=== PATIENT | male | born 1965 | race Caucasian/White ===

== ENCOUNTER 2017-06-12 11:28 | Emergency (ER) | payer BC, OTHER ==
[2017-06-12] MEDS ORDERED: Sodium Chloride 0.9% 1,000 ML IV ONE (11:52)
[2017-06-12] MEDS ORDERED: Ketorolac 30 MG/ML SDV IVPUSH ONE (11:52)
[2017-06-12 12:33] LABS: CHLORIDE,CL 102 mmol/L (98-107); SODIUM,NA 137 mmol/L (136-148)
[2017-06-12] MEDS ORDERED: Iopamidol 755 Mg/ML 100 ML Bottle IVPUSH STA (13:12)
--- NOTE | 2017-06-12 13:47 | EDM.PDOC ---
ED HPI GENERAL MEDICAL PROBLEM - General Chief Complaint: Abdominal Pain Stated Complaint: ABDOMINAL PAIN Time Seen by Provider: 06/12/17 11:43 Source of Information: Reports: Patient History Limitations: Reports: No Limitations - History of Present Illness INITIAL COMMENTS - FREE TEXT/NARRATIVE: HISTORY AND PHYSICAL: History of present illness: Patient is a 52-year-old male who presents to the emergency room with complaints of umbilical abdominal pain. He states he was lifting something heavy approximately 2 days ago and noticed the pain. The pain has not improved he is here today for evaluation. He denies any fever, chills, chest pain or shortness of breath. He denies any nausea, vomiting, diarrhea, constipation or dysuria. NO testicular pain, erythema or swelling. No pain in the groin or flank areas. Review of systems: As per history of present illness and below otherwise all systems reviewed and negative. Past medical history: As per history of present illness and as reviewed below otherwise noncontributory. Surgical history: As per history of present illness and as reviewed below otherwise noncontributory. Social history: No reported history of drug or alcohol abuse. Family history: As per history of present illness and as reviewed below otherwise noncontributory. Physical exam: General: Well-developed and well-nourished 52-year-old male. Alert and oriented. Nontoxic appearing and in no acute distress. HEENT: Atraumatic, normocephalic, pupils equal and reactive bilaterally, negative for conjunctival pallor or scleral icterus, mucous membranes moist, throat clear, neck supple, nontender, trachea midline. No drooling or trismus noted. No meningeal signs Lungs: Clear to auscultation, breath sounds equal bilaterally, chest nontender. Heart: S1S2, regular rate and rhythm without overt murmur Abdomen: Soft, nondistended, tenderness to the umbilicus. Small circular area felt at the umbilicus, consistent of a hernia. Negative for masses or hepatosplenomegaly. Negative for costovertebral tenderness. Pelvis: Stable nontender. Genitourinary: Deferred. Rectal: Deferred. Skin: Intact, warm, dry. No lesions or rashes noted. Extremities: Atraumatic, negative for cords or calf pain. Neurovascular unremarkable. Neuro: Awake, alert, oriented. Cranial nerves II through XII unremarkable. Cerebellum unremarkable. Motor and sensory unremarkable throughout. Exam nonfocal. Notes: Attempted to reduce the umbilical hernia. Will CT the abdomen/pelvis, labs, IV fluids and medications. Patient does not have a ride to home; will give Toradol. Labs are unremarkable. CT of the abdomen shows a small periumbilical hernia containing fat and fluid and stranding suggesting the hernia is mildly inflamed. Dr. Garcia was consulted on this case ([id number]) and is aware of CT findings and lab. He states he will come in to see/evaluate the patient. He is aware of this and offers no current complaints at this time. 1350- Dr Garcia here to see patient. He discussed with patient the option of having surgery today or electively tomorrow. Patient elected to have his hernia repair tomorrow. Dr. Garcia wrote for Bill Me Later. Dr. Garcia did talk with the patient about his own personal discharge instructions for today. Patient states he is comfortable going home and has no further questions for me. Diagnostics: CBC, CMP, amylase, lipase, UA, CT abdomen and pelvis Therapeutics: IV fluid, Toradol Impression: Periumbilical hernia Plan: 1. NOTHING BY MOUTH after midnight 2. Please use the pain medication that was prescribed to you by Dr. Garcia ( general surgeon). 3. Please attend your appointment with Dr. Garcia for surgery. Arrive to the Pre-Operative Building at 0745am. Return to the ED as needed as discussed. Definitive disposition and diagnosis as appropriate pending reevaluation and review of above. Duration: Day(s): Location: Reports: Abdomen abdominal pain Pain Score (Numeric/FACES): 5 - Related Data Allergies Allergy/AdvReac Type Severity Reaction Status Date / Time No Known Allergies Allergy Verified 06/12/17 11:44 Home Meds: Home Meds . [No Known Home Meds] 06/12/17 [History] Past Medical History - Past Health History Medical/Surgical History: Denies Medical/Surgical History Social & Family History - Family History Family Medical History: Noncontributory - Tobacco Use Smoking Status *Q: Current Every Day Smoker Years of Tobacco use: 35 Packs/Tins Daily: 1.5 - Alcohol Use Days Per Week of Alcohol Use: 7 Number of Drinks Per Day: 6 Total Drinks Per Week: 42 - Recreational Drug Use Recreational Drug Use: No ED ROS GENERAL - Review of Systems Review Of Systems: ROS reveals no pertinent complaints other than HPI. ED EXAM, GI/ABD - Physical Exam Exam: See Below (See dictation) Course - Vital Signs Last Recorded V/S: Last Vital Signs Temp 97.9 F 06/12/17 11:45 Pulse 91 06/12/17 11:45 Resp 18 06/12/17 11:45 BP 139/85 06/12/17 11:45 Pulse Ox 97 06/12/17 11:45 - Orders/Labs/Meds Orders: Active Orders 24 hr Category Date Time Status Oxygen Therapy [RC] ASDIRECTED Care 06/13/17 07:00 Active Pulse Oximetry [RC] ASDIRECTED Care 06/13/17 07:00 Active Skin Preparation [RC] ASDIRECTED Care 06/13/17 07:00 Active Vital Signs [RC] Q1H Care 06/13/17 07:00 Active Nothing Per Oral Diet [DIET] Diet 06/12/17 Dinner Active Abdomen Pelvis w Cont [CT] Stat Exams 06/12/17 11:51 Taken UA W/MICROSCOPIC [URIN] Stat Lab 06/12/17 12:46 Ordered Lactated Ringers [Ringers, Lactated] 1,000 ml Med 06/13/17 07:00 Ordered IV ASDIRECTED ceFAZolin [Ancef] 2 gm Med 06/13/17 07:00 Ordered Premix Bag 1 bag IV ONETIME Antiembolic Hose [OM.PC] Routine Oth 06/13/17 07:00 Ordered Sequential Compression Device [OM.PC] Routine Oth 06/13/17 07:00 Ordered Resuscitation Status Routine Resus Stat 06/12/17 14:21 Ordered Medication Orders Cefazolin Sodium/Dextrose 2 gm (/ Premix) 50 mls @ 100 mls/hr IV ONETIME RIKY Lactated Ringer's (Ringers, Lactated) 1,000 mls @ 125 mls/hr IV ASDIRECTED RIKY Labs: Laboratory Tests 06/12/17 06/12/17 06/12/17 Range/Units 12:03 12:03 12:46 WBC 10.69 (4.0-11.0) K/uL RBC 4.91 (4.50-5.90) M/uL Hgb 16.1 (13.0-17.0) g/dL Hct 47.5 (38.0-50.0) % MCV 96.7 (80.0-98.0) fL MCH 32.8 H (27.0-32.0) pg MCHC 33.9 (31.0-37.0) g/dL RDW Std Deviation 46.9 (28.0-62.0) fl RDW Coeff of Evelin 13 (11.0-15.0) % Plt Count 255 (150-400) K/uL MPV 9.00 (7.40-12.00) fL Neut % (Auto) 61.9 (48.0-80.0) % Lymph % (Auto) 26.7 (16.0-40.0) % [place] % (Auto) 10.3 (0.0-15.0) % Eos % (Auto) 0.7 (0.0-7.0) % Baso % (Auto) 0.4 (0.0-1.5) % Neut # (Auto) 6.6 H (1.4-5.7) K/uL Lymph # (Auto) 2.9 H (0.6-2.4) K/uL [place] # (Auto) 1.1 H (0.0-0.8) K/uL Eos # (Auto) 0.1 (0.0-0.7) K/uL Baso # (Auto) 0.0 (0.0-0.1) K/uL Nucleated RBC % 0.0 /100WBC Nucleated RBCs # 0 K/uL Sodium 137 (136-148) mmol/L Potassium 3.9 (3.5-5.1) mmol/L Chloride 102 (98-107) mmol/L Carbon Dioxide 25.4 (21.0-32.0) mmol/L BUN 9 (7.0-18.0) mg/dL Creatinine 0.8 (0.8-1.3) mg/dL Est Cr Clr Drug Dosing 102.13 mL/min Estimated GFR (MDRD) > 60.0 ml/min Glucose 110 H (74-106) mg/dL Calcium 8.7 (8.5-10.1) mg/dL Total Bilirubin 0.3 (0.2-1.0) mg/dL AST 18 (15-37) IU/L ALT 23 (14-63) IU/L Alkaline Phosphatase 57 (46-116) U/L Total Protein 7.2 (6.4-8.2) g/dL Albumin 3.7 (3.4-5.0) g/dL Globulin 3.5 (2.0-3.5) g/dL Albumin/Globulin Ratio 1.1 L (1.3-2.8) Amylase 33 (25-115) U/L Lipase 81 (73-393) U/L Urine Color YELLOW Urine Appearance CLEAR Urine pH 6.5 (5.0-8.0) Ur Specific [place] 1.010 (1.001-1.035) Urine Protein NEGATIVE (NEGATIVE) mg/dL Urine Glucose (UA) NEGATIVE (NEGATIVE) mg/dL Urine Ketones NEGATIVE (NEGATIVE) mg/dL Urine Occult Blood NEGATIVE (NEGATIVE) Urine Nitrite NEGATIVE (NEGATIVE) Urine Bilirubin NEGATIVE (NEGATIVE) Urine Urobilinogen 0.2 (<2.0) EU/dL Ur Leukocyte Esterase NEGATIVE (NEGATIVE) Urine RBC 0-1 (0-2/HPF) Urine WBC 0-3 (0-5/HPF) Ur Epithelial Cells RARE (NONE-FEW) Urine Bacteria RARE (NEGATIVE) Meds: Medications Generic Name Dose Route Start Last Admin Trade Name Freq PRN Reason Stop Dose Admin Cefazolin Sodium/Dextrose 2 gm 50 mls @ 100 mls/hr 06/13/17 07:00 / Premix IV ONETIME RIKY Lactated Ringer's 1,000 mls @ 125 mls/hr 06/13/17 07:00 Ringers, Lactated IV ASDIRECTED RIKY Discontinued Medications Generic Name Dose Route Start Last Admin Trade Name Freq PRN Reason Stop Dose Admin Sodium Chloride 1,000 mls @ 999 mls/hr 06/12/17 11:52 06/12/17 12:24 Normal Saline IV 06/12/17 12:52 999 mls/hr STAT ONE Administration Iopamidol 91 ml 06/12/17 13:12 06/12/17 13:13 [id number] (76%) IVPUSH 06/12/17 13:13 91 ml ONETIME STA Administration Ketorolac Tromethamine 30 mg 06/12/17 11:52 06/12/17 12:25 Toradol IVPUSH 06/12/17 11:53 30 mg ONETIME ONE Administration Departure - Departure Time of Disposition: 14:24 Disposition: Home, Self-Care 01 Clinical Impression: Incarcerated umbilical hernia - Discharge Information Instructions: Umbilical Hernia, Adult Referrals: PCP,None [Primary Care Provider] - Forms: ED Department Discharge Additional Instructions: The following information is given to patients seen in the emergency department who are being discharged to home. This information is to outline your options for follow-up care. We provide all patients seen in our emergency department with a follow-up referral. The need for follow-up, as well as the timing and circumstances, are variable depending upon the specifics of your emergency department visit. If you don't have a primary care physician on staff, we will provide you with a referral. We always advise you to contact your personal physician following an emergency department visit to inform them of the circumstance of the visit and for follow-up with them and/or the need for any referrals to a consulting specialist. The emergency department will also refer you to a specialist when appropriate. This referral assures that you have the opportunity for follow-up care with a specialist. All of these measure are taken in an effort to provide you with optimal care, which includes your follow-up. Under all circumstances we always encourage you to contact your private physician who remains a resource for coordinating your care. When calling for follow-up care, please make the office aware that this follow-up is from your recent emergency room visit. If for any reason you are refused follow-up, please contact the [facility] Emergency Department at and asked to speak to the emergency department charge nurse. [address] [address] 1. NOTHING BY MOUTH after midnight 2. Please use the pain medication that was prescribed to you by Dr. Garcia ( general surgeon). 3. Please attend your appointment with Dr. Garcia for surgery. Arrive to the Pre-Operative Building at 0745am. Return to the ED as needed as discussed. - My Orders Last 24 Hours: My Active Orders 06/12/17 11:51 Abdomen Pelvis w Cont [CT] Stat 06/12/17 12:46 UA W/MICROSCOPIC [URIN] Stat - Assessment/Plan Last 24 Hours: My Active Orders 06/12/17 11:51 Abdomen Pelvis w Cont [CT] Stat 06/12/17 12:46 UA W/MICROSCOPIC [URIN] Stat
--- NOTE | 2017-06-12 14:18 | PCM.CONS ---
H&P History of Present Illness - General Date of Service: 06/12/17 Admit Problem/Dx: Painful umbilical hernia Source of Information: Patient History Limitations: Reports: No Limitations - History of Present Illness Symptom Onset Date: 06/08/17 Duration of Symptoms: Reports: Day(s):, Constant Location: Reports: Abdomen Quality: Reports: Ache, Pressure Improves with: Reports: Rest Worsens with: Reports: Movement Context: Reports: Lifting Associated Symptoms: Reports: No Other Symptoms abdominal pain Pain Score (Numeric/FACES): 5 - Related Data Allergies/Adverse Reactions: Allergies Allergy/AdvReac Type Severity Reaction Status Date / Time No Known Allergies Allergy Verified 06/12/17 11:44 Home Medications: Home Meds . [No Known Home Meds] 06/12/17 [History] Past Medical History - Past Health History Medical/Surgical History: Denies Medical/Surgical History Social & Family History - Family History Family Medical History: Noncontributory - Tobacco Use Smoking Status *Q: Current Every Day Smoker Years of Tobacco use: 35 Packs/Tins Daily: 1.5 - Alcohol Use Days Per Week of Alcohol Use: 7 Number of Drinks Per Day: 6 Total Drinks Per Week: 42 Alcohol Use in Last Twelve Months: Yes Alcohol Use Frequency: Daily - Recreational Drug Use Recreational Drug Use: No H&P Review of Systems - Review of Systems: Review Of Systems: See Below General: Denies: Fever, Chills, Fatigue, Decreased Appetite, Weight Loss HEENT: Reports: No Symptoms Pulmonary: Denies: Shortness of Breath, Wheezing Cardiovascular: Denies: Chest Pain, Dyspnea on Exertion Gastrointestinal: Reports: Abdominal Pain, Flatus. Denies: Anorexia, Black Stool, Bloody Stool, Constipation, Diarrhea, Decreased Appetite, Distension, Hematemesis, Hematochezia, Melena, Nausea, Stool Incontinence, Vomiting Genitourinary: Denies: Dysuria, Frequency, Burning Musculoskeletal: Reports: No Symptoms Skin: Reports: No Symptoms Psychiatric: Reports: No Symptoms Neurological: Reports: No Symptoms Hematologic/Lymphatic: Reports: No Symptoms Immunologic: Reports: No Symptoms Exam - Exam Exam: See Below - Vital Signs Vital Signs: Last Vital Signs Temp 97.9 F 06/12/17 11:45 Pulse 91 06/12/17 11:45 Resp 18 06/12/17 11:45 BP 139/85 06/12/17 11:45 Pulse Ox 97 06/12/17 11:45 Weight: 166 lb 14.239 oz - Exam General: Alert, Oriented, Cooperative, Mild Distress HEENT: Conjunctiva Clear, EACs Clear, EOMI, Pupils Equal, Pupils Reactive. No: Scleral Icterus Neck: Supple, Trachea Midline Lungs: Clear to Auscultation, Normal Respiratory Effort. No: Wheezing Cardiovascular: Regular Rate, Regular Rhythm, Normal S1, Normal S2. No: Tachycardia GI/Abdominal Exam: Normal Bowel Sounds, Soft, Non-Tender, No Distention, Tender (Periumbilical), Mass (Nonreducible umbilical hernia). No: Guarding, Rigid, Rebound (Male) Exam: No Hernia, Normal Inspection Rectal (Males) Exam: Deferred Back Exam: Normal Inspection Extremities: Normal Inspection, Normal Range of Motion, Non-Tender. No: Juan A' s Sign Peripheral Pulses: 4+: Posterior Tibial (L), Posterior Tibial (R), Dorsalis Pedis (L), Dorsalis Pedis (R) Skin: Warm, Dry, Intact Neurological: Cranial Nerves Intact Neuro Extensive - Mental Status: Alert, Oriented x3, Normal Mood/Affect, Normal Cognition, Memory Intact Psychiatric: Alert, Normal Affect, Normal Mood. No: Anxious, Depressed - Patient Data Lab Results Last 24 hrs: Laboratory Results - last 24 hr 06/12/17 06/12/17 06/12/17 Range/Units 12:03 12:03 12:46 WBC 10.69 (4.0-11.0) K/uL RBC 4.91 (4.50-5.90) M/uL Hgb 16.1 (13.0-17.0) g/dL Hct 47.5 (38.0-50.0) % MCV 96.7 (80.0-98.0) fL MCH 32.8 H (27.0-32.0) pg MCHC 33.9 (31.0-37.0) g/dL RDW Std Deviation 46.9 (28.0-62.0) fl RDW Coeff of Evelin 13 (11.0-15.0) % Plt Count 255 (150-400) K/uL MPV 9.00 (7.40-12.00) fL Neut % (Auto) 61.9 (48.0-80.0) % Lymph % (Auto) 26.7 (16.0-40.0) % [place] % (Auto) 10.3 (0.0-15.0) % Eos % (Auto) 0.7 (0.0-7.0) % Baso % (Auto) 0.4 (0.0-1.5) % Neut # (Auto) 6.6 H (1.4-5.7) K/uL Lymph # (Auto) 2.9 H (0.6-2.4) K/uL [place] # (Auto) 1.1 H (0.0-0.8) K/uL Eos # (Auto) 0.1 (0.0-0.7) K/uL Baso # (Auto) 0.0 (0.0-0.1) K/uL Nucleated RBC % 0.0 /100WBC Nucleated RBCs # 0 K/uL Sodium 137 (136-148) mmol/L Potassium 3.9 (3.5-5.1) mmol/L Chloride 102 (98-107) mmol/L Carbon Dioxide 25.4 (21.0-32.0) mmol/L BUN 9 (7.0-18.0) mg/dL Creatinine 0.8 (0.8-1.3) mg/dL Est Cr Clr Drug Dosing 102.13 mL/min Estimated GFR (MDRD) > 60.0 ml/min Glucose 110 H (74-106) mg/dL Calcium 8.7 (8.5-10.1) mg/dL Total Bilirubin 0.3 (0.2-1.0) mg/dL AST 18 (15-37) IU/L ALT 23 (14-63) IU/L Alkaline Phosphatase 57 (46-116) U/L Total Protein 7.2 (6.4-8.2) g/dL Albumin 3.7 (3.4-5.0) g/dL Globulin 3.5 (2.0-3.5) g/dL Albumin/Globulin Ratio 1.1 L (1.3-2.8) Amylase 33 (25-115) U/L Lipase 81 (73-393) U/L Urine Color YELLOW Urine Appearance CLEAR Urine pH 6.5 (5.0-8.0) Ur Specific [place] 1.010 (1.001-1.035) Urine Protein NEGATIVE (NEGATIVE) mg/dL Urine Glucose (UA) NEGATIVE (NEGATIVE) mg/dL Urine Ketones NEGATIVE (NEGATIVE) mg/dL Urine Occult Blood NEGATIVE (NEGATIVE) Urine Nitrite NEGATIVE (NEGATIVE) Urine Bilirubin NEGATIVE (NEGATIVE) Urine Urobilinogen 0.2 (<2.0) EU/dL Ur Leukocyte Esterase NEGATIVE (NEGATIVE) Urine RBC 0-1 (0-2/HPF) Urine WBC 0-3 (0-5/HPF) Ur Epithelial Cells RARE (NONE-FEW) Urine Bacteria RARE (NEGATIVE) Result Diagrams: 06/12/17 12:03 06/12/17 12:03 Consult PN Assessment/Plan POD#: 0 (1) Umbilical hernia, incarcerated SNOMED Code(s): 817138439 Code(s): K42.0 - UMBILICAL HERNIA WITH OBSTRUCTION, WITHOUT GANGRENE Priority: High Current Visit: Yes (2) Tobacco abuse SNOMED Code(s): 150045359 Code(s): Z72.0 - TOBACCO USE Priority: Medium Current Visit: Yes (3) Alcohol use SNOMED Code(s): 098056380 Code(s): Z78.9 - OTHER SPECIFIED HEALTH STATUS Priority: Medium Current Visit: Yes Problem List Initiated/Reviewed/Updated: Yes Plan: The operative procedure of incarcerated umbilical hernia repair, along with the risks, including, but not limited to, bleeding, infection, pneumonia, deep venous thrombosis, pulmonary embolus, myocardial infarction, recurrence of the hernia, and the use of mesh, were discussed with the patient who voices understanding, offers no questions and wishes to proceed. Both verbal and written instructions were given to the patient.
[2017-06-13] MEDS ORDERED: Lactated Ringers 1,000 ML IV SCH (07:00)
[2017-06-13] MEDS ORDERED: ceFAZolin 2 GM in Premix Bag 1 BAG IV SCH (07:00)
--- NOTE | 2017-06-13 13:33 | CT ---
EXAM DATE: 06/12/17 PATIENT'S AGE: 52 Patient: JOSHUA FINE Facility: [place], [place] Site . Site : 1965 Study: CT Abdomen/Pelvis w cont [id number]/15/2018 1:15:36 PM Ordering Physician: Doctor Martinez Final Report: INDICATION: Umbilical pain to the right side. Patient twisted at work on Tuesday and has been having increasing pain since. Question hernia. TECHNIQUE: CT of the abdomen and pelvis performed after IV injection of 100 mL of Isovue- 370. FINDINGS: Moderate diffuse fatty infiltration of the liver. Contracted gallbladder. Tiny stone left lower kidney. Mild to moderate vascular calcifications. 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 Degenerative disc disease L5 interspace. Lucent lesion with sclerotic border left iliac bone on image 94 should be benign. Minimal linear atelectasis in the left lung base. Small hiatal hernia. Small low-density lesion in the right hepatic lobe too small to characterize. Scattered colonic diverticula. Small periumbilical fat containing hernia the measuring the 2.6 cm. This hernia contains some fluid and soft tissue stranding suggesting it may be inflamed. Remainder negative. IMPRESSION: 1. Small periumbilical hernia containing fat and fluid and stranding suggesting these hernia is mildly inflamed. 2. Tiny stone left kidney. 3. Small hiatal hernia. 4. Tiny low-density lesion right hepatic lobe too small to characterize. Please note that all CT scans at this facility use dose modulation, iterative reconstruction, and/or weight-based dosing when appropriate to reduce radiation dose to as low as reasonably achievable. Dictated by Martin Masters MD @ Jun 12 2017 1:28PM (Electronic Signature) Report Signed by Proxy. JULIO C
== END 2017-06-12 14:42 | disposition home or self-care (01) ==
LOC: MW.ED 11:28
DX: K42.9 Umbilical hernia without obstruction or gangrene (principal); F17.210 Nicotine dependence, cigarettes, uncomplicated
CPT/HCPCS: 36415; 74177; 80053; 81001; 82150; 83690; 85025; 96361; 96374; 99284; J1885; J7040; Q9967

== ENCOUNTER 2017-06-13 07:34 | Day surgery (SDC) | payer OTHER, BC ==
[~2017-06-13 07:34] MED LIST: Bupivacaine 0.5% 10 ML SDV ONE; ceFAZolin 1 GM Vial ONE
--- NOTE | 2017-06-13 08:13 | PCM.PREANE ---
Preanesthetic Assessment - Anesthesia/Transfusion/Family Hx Anesthesia History: Prior Anesthesia Without Reaction Family History of Anesthesia Reaction: No Transfusion History: No Prior Transfusion(s) Intubation History: Unknown - Review of Systems General: No Symptoms Pulmonary: No Symptoms Cardiovascular: No Symptoms Gastrointestinal: No Symptoms Neurological: No Symptoms Other: Reports: None - Physical Assessment Height: 1.7 m Weight: 72.575 kg ASA Class: 2 Mental Status: Alert & Oriented x3 Airway Class: Mallampati = 2 Dentition: Reports: Broken Tooth/Teeth (loose upper left molar) Thyro-Mental Finger Breadths: 3 Mouth Opening Finger Breadths: 3 ROM/Head Extension: Full Lungs: Clear to Auscultation, Normal Respiratory Effort Cardiovascular: Regular Rate, Regular Rhythm - Allergies Allergies/Adverse Reactions: Allergies Allergy/AdvReac Type Severity Reaction Status Date / Time No Known Allergies Allergy Verified 06/13/17 07:19 - Blood Blood Available: No - Anesthesia Plan Pre-Op Medication Ordered: None - Acknowledgements Anesthesia Type Planned: General Anesthesia Pt an Appropriate Candidate for the Planned Anesthesia: Yes Alternatives and Risks of Anesthesia Discussed w Pt/Guardian: Yes Pt/Guardian Understands and Agrees with Anesthesia Plan: Yes PreAnesthesia Questionnaire - Past Health History Medical/Surgical History: Denies Medical/Surgical History HEENT History: Reports: Other (See Below) Other HEENT History: wears glasses Gastrointestinal History: Reports: Other (See Below) Other Gastrointestinal History: occasional heartburn Musculoskeletal History: Reports: Arthritis, Other (See Below) (uncarcerated umbilical hernia) Other Musculoskeletal History: 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 of lipoma under local anesthesia) - SUBSTANCE USE Smoking Status *Q: Current Every Day Smoker (> 1 1/2 ppd) Tobacco Use Within Last Twelve Months: Cigarettes Days Per Week of Alcohol Use: 7 Number of Drinks Per Day: 6 Total Drinks Per Week: 42 Recreational Drug Use History: No - HOME MEDS Home Medications: Home Meds . [No Known Home Meds] 06/12/17 [History] - CURRENT (IN HOUSE) MEDS Current Meds: Current Medications Discontinued Medications Bupivacaine HCl (Sensorcaine-Mpf 0.5%) Confirm Administered Dose 10 ml .ROUTE .[facility]-MED ONE Stop: 06/13/17 07:17 Cefazolin Sodium (Ancef) Confirm Administered Dose 1 gm .ROUTE .[facility] [place]-MED ONE Stop: 06/13/17 07:17
[2017-06-13] MEDS ORDERED: Propofol 200 MG/20 ML SDV ONE (08:15)
[2017-06-13] MEDS ORDERED: fentaNYL 100 MCG/2 ML SDV ONE ×2 (08:16→08:21)
[2017-06-13] MEDS ORDERED: Lidocaine 2% 5 ML SDV ONE (08:16)
[2017-06-13] MEDS ORDERED: Ondansetron 4 MG/2 ML SDV ONE (08:16)
[2017-06-13] MEDS ORDERED: ceFAZolin/Dextrose,Iso-Osmotic 2 GM/50 ML Duplex Bag IV ONE (08:16)
[2017-06-13] MEDS ORDERED: Midazolam 1 MG/ML 2 ML SDV ONE (08:16)
[2017-06-13] MEDS ORDERED: Lactated Ringers 1,000 ML IV SCH ×2 (08:30→10:30)
[2017-06-13] MEDS ORDERED: Glycopyrrolate 0.2 MG/ML SDV ONE (09:41)
[2017-06-13] MEDS ORDERED: Ketorolac 30 MG/ML SDV ONE (09:43)
[2017-06-13] MEDS ORDERED: Ondansetron 4 MG/2 ML SDV IVPUSH PRN (10:18)
[2017-06-13] MEDS ORDERED: Morphine 4 MG/ML Syringe IVPUSH PRN (10:18)
[2017-06-13] MEDS ORDERED: Acetaminophen/HYDROcodone 325-5 MG Tab PO PRN (10:18)
--- NOTE | 2017-06-13 10:21 | PCM.OPNOTE ---
- General Post-Op/Procedure Note Date of Surgery/Procedure: 06/13/17 Operative Procedure(s): Repair incarcerated umbilical hernia with partial omentectomy. Repair of ventral hernia. Pre Op Diagnosis: Incarcerated umbilical hernia Post-Op Diagnosis: Incarcerated umbilical hernia. Ventral hernia Anesthesia Technique: General LMA (ASA II) Primary Surgeon: Misha Garcia Fluid Replacement, Intraop: 1,100 EBL in mLs: 10 Condition: Good Free Text/Narrative:: Dictation [id number] CPT CODE [id number]
[2017-06-13] MEDS: fentaNYL 100 MCG/2 ML SDV IVPUSH PRN ×2 (10:30→10:35)
--- NOTE | 2017-06-13 10:42 | PCM.POSTAN ---
POST ANESTHESIA ASSESSMENT - MENTAL STATUS Mental Status: Alert, Oriented - RESPIRATORY Respiratory Status: Respiratory Rate WNL, Airway Patent, O2 Saturation Stable - CARDIOVASCULAR CV Status: Pulse Rate WNL, Blood Pressure Stable - GASTROINTESTINAL GI Status: No Symptoms - PAIN Pain Score: 5 - POST OP HYDRATION Hydration Status: Adequate & Stable - OBSERVATIONS Free Text/Narrative:: no anesthesia problems
--- NOTE | 2017-06-13 13:12 | OR ---
SURGEON: Misha Garcia M.D. DATE OF PROCEDURE: 06/13/2017 OPERATIONS PERFORMED: 1. Repair of incarcerated umbilical hernia. 2. Repair of separate ventral hernia. ANESTHESIA: General LMA. ASA CLASSIFICATION: II. PREOPERATIVE DIAGNOSIS: Incarcerated umbilical hernia. POSTOPERATIVE DIAGNOSES: 1. Incarcerated umbilical hernia. 2. Ventral hernia. DESCRIPTION OF PROCEDURE: The patient was taken to the operating room and placed on the operating table in the supine position. Time-out was called for appropriate identification of the patient and procedure. Thigh-high TEDs and sequential compression boots were placed. Following satisfactory attainment of general anesthesia with placement of an LMA, the abdomen was prepped with DuraPrep solution. Sterile drapes were applied. The skin to the left of the umbilicus was infiltrated with 10 mL of 0.5% Marcaine solution. Skin incision was made and deepened through the subcutaneous tissue obtaining hemostasis with the use of electrocautery. His initial dissection was in the periumbilical region. The hernia was identified and using a combination of sharp dissection and cautery, dissected free. There was omentum that was trapped in the hernia that was incarcerated with compromised blood supply. Once the hernia was completely mobilized, a clamp was placed across the base of the omentum, which was then amputated with electrocautery. The omentum was then suture ligated with 3-0 Vicryl. The initial defect at the umbilicus was small and was repaired with multiple interrupted 0 Ethibond sutures. Once all sutures were tied down, the patient was given a Valsalva maneuver. At that point, a second hernia was detected superiorly and just to the left of the midline. These contents were reduced and repair was carried out second time with interrupted 0 Ethibond sutures. Once all sutures have been placed and tied, the patient was given another Valsalva maneuver to 30 cm of water. The repair was noted to be solid. The wound was then inspected for hemostasis. No bleeding was noted. The subcutaneous tissue was reapproximated with 3-0 Vicryl, and the skin reapproximated with subcuticular 4-0 Monocryl. The incision was Steri-Stripped and dressed with a sterile Tegaderm pad. Sponge, needle, and instrument counts were all correct. The patient tolerated the procedure well and was taken to recovery room in stable condition. BAKARI / ALEYDA /[id number]
== END 2017-06-13 12:00 | disposition home or self-care (01) ==
LOC: MW.SDS 07:34
PROVIDERS: ATTEND Surgery
DX: K42.0 Umbilical hernia with obstruction, without gangrene (principal); K43.9 Ventral hernia without obstruction or gangrene; F17.210 Nicotine dependence, cigarettes, uncomplicated; M19.012 Primary osteoarthritis, left shoulder; Z78.9 Other specified health status
CPT/HCPCS: 49560; 49587; A9270; J0690; J1885; J2250; J2405; J3010; J2704

== ENCOUNTER 2018-10-07 07:41 | Emergency (ER) | payer BC ==
--- NOTE | 2018-10-07 07:59 | EDM.PDOC ---
ED HPI GENERAL MEDICAL PROBLEM - General Chief Complaint: Gastrointestinal Problem Stated Complaint: SPOKE TO NURSE Time Seen by Provider: 10/07/18 07:58 Source of Information: Reports: Patient History Limitations: Reports: No Limitations - History of Present Illness INITIAL COMMENTS - FREE TEXT/NARRATIVE: History of present illness: []Patient had a bowel movement around 5 AM this morning and noticed bright red blood from his rectum when he wiped. The bleeding has continued throughout the morning. He denies any nominal or rectal pain, dizziness, lightheadedness or shortness of breath. Review of systems: As per history of present illness and below otherwise all systems reviewed and negative. Past medical history: As per history of present illness and as reviewed below otherwise noncontributory. Surgical history: As per history of present illness and as reviewed below otherwise noncontributory. Social history: No reported history of drug or alcohol abuse. Family history: As per history of present illness and as reviewed below otherwise noncontributory. Physical exam: General: Well developed, well nourished in NAD HEENT: Atraumatic, normocephalic, pupils reactive, negative for conjunctival pallor or scleral icterus, mucous membranes moist, throat clear, neck supple, nontender, trachea midline. Lungs: Clear to auscultation, breath sounds equal bilaterally, chest nontender. Heart: S1S2, regular, negative for clicks, rubs, or JVD. Abdomen: NABS, Soft, nondistended, nontender. Negative for masses or hepatosplenomegaly. Negative for costovertebral tenderness. Pelvis: Stable nontender. Genitourinary: Deferred. Rectal: Rectum has a 3 x 3 cm nontender attached mass shooting through his rectum that appears like a dark Mabel with blood around it. The mass is not actively bleeding. Extremities: Atraumatic, negative for cords or calf pain. Neurovascular unremarkable. Neuro: Awake, alert, oriented. Cranial nerves II through XII unremarkable. Cerebellum unremarkable. Motor and sensory unremarkable throughout. Exam nonfocal. Skin:warm and dry Diagnostics: CBC Therapeutics: None ED Course: Stable Impression: Rectal mass with bleeding Prescriptions: None Plan: Follow-up with general surgery in 2 days. Definitive disposition and diagnosis as appropriate pending reevaluation and review of above. - Related Data Allergies Allergy/AdvReac Type Severity Reaction Status Date / Time No Known Allergies Allergy Verified 10/07/18 07:52 Home Meds: Home Meds . 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 Neurological History: Reports: None Psychiatric History: Reports: None Hematologic History: Reports: None Immunologic History: Reports: None Oncologic (Cancer) History: Reports: None - Infectious Disease History Infectious Disease History: Reports: Chicken Pox, Measles - Past Surgical History Head Surgeries/Procedures: Reports: None Respiratory Surgical History: Reports: Other (See Below) Dermatological Surgical History: Reports: Other (See Below) Social & Family History - Family History Family Medical History: Noncontributory - Tobacco Use Smoking Status *Q: Current Every Day Smoker Years of Tobacco use: 30 Packs/Tins Daily: 2 - Caffeine Use Caffeine Use: Reports: Coffee - Recreational Drug Use Recreational Drug Use: No ED ROS GENERAL - Review of Systems Review Of Systems: See Below ED EXAM, GI/ABD - Physical Exam Exam: See Below Course - Vital Signs Last Recorded V/S: Last Vital Signs Temp 96.9 F 10/07/18 07:53 Pulse 104 H 10/07/18 07:53 Resp 16 10/07/18 07:53 BP 136/95 H 10/07/18 07:53 Pulse Ox 95 10/07/18 07:53 - Orders/Labs/Meds Labs: Laboratory Tests 10/07/18 Range/Units 08:12 WBC 8.48 (4.0-11.0) K/uL RBC 4.88 (4.50-5.90) M/uL Hgb 16.1 (13.0-17.0) g/dL Hct 47.4 (38.0-50.0) % MCV 97.1 (80.0-98.0) fL MCH 33.0 H (27.0-32.0) pg MCHC 34.0 (31.0-37.0) g/dL RDW Std Deviation 47.4 (28.0-62.0) fl RDW Coeff of Evelin 14 (11.0-15.0) % Plt Count 264 (150-400) K/uL MPV 9.10 (7.40-12.00) fL Neut % (Auto) 63.7 (48.0-80.0) % Lymph % (Auto) 24.6 (16.0-40.0) % [place] % (Auto) 10.7 (0.0-15.0) % Eos % (Auto) 0.6 (0.0-7.0) % Baso % (Auto) 0.4 (0.0-1.5) % Neut # (Auto) 5.4 (1.4-5.7) K/uL Lymph # (Auto) 2.1 (0.6-2.4) K/uL [place] # (Auto) 0.9 H (0.0-0.8) K/uL Eos # (Auto) 0.1 (0.0-0.7) K/uL Baso # (Auto) 0.0 (0.0-0.1) K/uL Departure - Departure Time of Disposition: 08:36 Disposition: Home, Self-Care 01 Condition: Good Clinical Impression: Rectal mass, Rectal bleeding - Discharge Information *PRESCRIPTION DRUG MONITORING PROGRAM REVIEWED*: No *COPY OF PRESCRIPTION DRUG MONITORING REPORT IN PATIENT [place]: No Referrals: PCP,None [Primary Care Provider] - Forms: ED Department Discharge Additional Instructions: The following information is given to patients seen in the emergency department who are being discharged to home. This information is to outline your options for follow-up care. We provide all patients seen in our emergency department with a follow-up referral. The need for follow-up, as well as the timing and circumstances, are variable depending upon the specifics of your emergency department visit. If you don't have a primary care physician on staff, we will provide you with a referral. We always advise you to contact your personal physician following an emergency department visit to inform them of the circumstance of the visit and for follow-up with them and/or the need for any referrals to a consulting specialist. The emergency department will also refer you to a specialist when appropriate. This referral assures that you have the opportunity for follow-up care with a specialist. All of these measure are taken in an effort to provide you with optimal care, which includes your follow-up. Under all circumstances we always encourage you to contact your private physician who remains a resource for coordinating your care. When calling for follow-up care, please make the office aware that this follow-up is from your recent emergency room visit. If for any reason you are refused follow-up, please contact the [facility] Emergency Department at and asked to speak to the emergency department charge nurse. Take meds as directed, follow up with your primary care physician, return to ER if symptoms worsen or change. [facility] - General Surgery Professional Building [address] [place] [address], [address] [place] [address]
== END 2018-10-07 08:54 | disposition home or self-care (01) ==
LOC: MW.ED 07:41
DX: K62.5 Hemorrhage of anus and rectum (principal); K62.89 Other specified diseases of anus and rectum; E78.00 Pure hypercholesterolemia, unspecified; F17.210 Nicotine dependence, cigarettes, uncomplicated
CPT/HCPCS: 36415; 85025; 99282; 99283

== ENCOUNTER 2019-12-01 08:50 | Emergency (ER) | payer BC ==
[2019-12-01] MEDS ORDERED: Sodium Chloride 0.9% 2.5 ML Syringe FLUSH PRN (09:13)
[2019-12-01] MEDS ORDERED: Sodium Chloride 0.9% 1,000 ML IV ONE (09:13)
[2019-12-01] MEDS ORDERED: diphenhydrAMINE 50 MG/ML SDV IVPUSH ONE (09:13)
[2019-12-01] MEDS ORDERED: Metoclopramide 10 MG/2 ML SDV IVPUSH ONE (09:13)
[2019-12-01] MEDS ORDERED: Acetaminophen 500 MG Tab PO ONE (09:13)
[2019-12-01] MEDS ORDERED: Sodium Chloride 0.9% 10 ML Syringe FLUSH PRN (09:13)
--- NOTE | 2019-12-01 09:18 | EDM.PDOC ---
ED HPI GENERAL MEDICAL PROBLEM - General Chief Complaint: General Stated Complaint: DIZZINESS/HEADACHE Time Seen by Provider: 12/01/19 09:15 Source of Information: Reports: Patient - History of Present Illness INITIAL COMMENTS - FREE TEXT/NARRATIVE: 54M PMHx TOB use, alcohol use presents for LILLY, dizziness, feeling off-balance. Patient notes that for last 2-weeks he's had "a head cold" which feels typical of his head colds. However over the last 4 days he has noted worsening pain in b/l posterior head and some dizziness. Dizziness is worse in the morning and worse when he is ambulating, better with rest. Has a 'smoker's cough' but nothing changed from baseline. Denies fevers. Notes he gets regularly COVID tested weekly and has been consistently negative. No CP. headache Pain Score (Numeric/FACES): 7 - Related Data Allergies Allergy/AdvReac Type Severity Reaction Status Date / Time No Known Allergies Allergy Verified 12/01/19 09:02 Home Meds: Home Meds Amoxicillin/Potassium Clav [Augmentin 875-125 Tablet] 1 each PO BID 7 Days #14 tablet 12/01/19 [Rx] Past Medical History - Past Health History Medical/Surgical History: Denies Medical/Surgical History HEENT History: Reports: Other (See Below) Other HEENT History: wears glasses Cardiovascular History: Reports: High Cholesterol Gastrointestinal History: Reports: Other (See Below) Other Gastrointestinal History: occasional heartburn Musculoskeletal History: Reports: Arthritis, Other (See Below) Other Musculoskeletal History: arthritis in left shoulder Neurological History: Reports: None Psychiatric History: Reports: None Hematologic History: Reports: None Immunologic History: Reports: None Oncologic (Cancer) History: Reports: None - Infectious Disease History Infectious Disease History: Reports: Chicken Pox - Past Surgical History Head Surgeries/Procedures: Reports: None Respiratory Surgical History: Reports: Other (See Below) Dermatological Surgical History: Reports: Other (See Below) Social & Family History - Family History Family Medical History: Noncontributory - Tobacco Use Smoking Status *Q: Current Every Day Smoker Years of Tobacco use: 30 Packs/Tins Daily: 2 - Caffeine Use Caffeine Use: Reports: Coffee - Recreational Drug Use Recreational Drug Use: No ED ROS GENERAL - Review of Systems Review Of Systems: Comprehensive ROS is negative, except as noted in HPI. ED EXAM, GENERAL - Physical Exam Exam: See Below Exam Limited By: No Limitations General Appearance: Alert, WD/WN, No Apparent Distress Eye Exam: Bilateral Eye: EOMI, PERRL Ears: Normal External Exam Nose: Normal Inspection Throat/Mouth: Normal Inspection, Normal Voice, No Airway Compromise Head: Atraumatic, Normocephalic Neck: Normal Inspection Respiratory/Chest: No Respiratory Distress, Lungs Clear, Normal Breath Sounds, No Accessory Muscle Use Cardiovascular: Normal Peripheral Pulses, Regular Rate, Rhythm, No Edema Back Exam: Normal Inspection Extremities: Normal Inspection Neurological: Alert, Oriented, CN II-XII Intact, Normal Cognition, Normal Reflexes, No Motor/Sensory Deficits, Other (normal [id number] b/l) Psychiatric: Normal Affect, Normal Mood Skin Exam: Warm, Dry, Intact Course - Vital Signs Last Recorded V/S: Last Vital Signs Temp Pulse 92 12/01/19 09:02 Resp 20 12/01/19 09:02 BP 164/98 H 12/01/19 09:02 Pulse Ox 97 12/01/19 09:02 - Orders/Labs/Meds Orders: Active Orders 24 hr Category Date Time Status Cardiac Monitoring [RC] . DIRECTED Care 12/01/19 09:13 Active EKG Documentation Completion [RC] STAT Care 12/01/19 09:13 Active Pulse Oximetry [RC] ASDIRECTED Care 12/01/19 09:13 Active Sodium Chloride 0.9% [Saline Flush] Med 12/01/19 09:13 Active 10 ml FLUSH ASDIRECTED PRN Sodium Chloride 0.9% [Saline Flush] Med 12/01/19 09:13 Active 2.5 ml FLUSH ASDIRECTED PRN Saline Lock Insert [OM.PC] Stat Oth 12/01/19 09:13 Ordered Medication Orders Sodium Chloride (Saline Flush) 10 ml FLUSH ASDIRECTED PRN PRN Reason: Keep Vein Open Last Admin: 12/01/19 09:33 Dose: 10 ml Documented by: FAHEEM Sodium Chloride (Saline Flush) 2.5 ml FLUSH ASDIRECTED PRN PRN Reason: Keep Vein Open Last Admin: 12/01/19 09:33 Dose: 2.5 ml Documented by: FAHEEM Labs: Laboratory Tests 12/01/19 12/01/19 12/01/19 Range/Units 09:31 09:31 10:36 WBC 8.97 (4.0-11.0) K/uL RBC 5.36 (4.50-5.90) M/uL Hgb 18.1 H (13.0-17.0) g/dL Hct 54.0 H (38.0-50.0) % MCV 100.7 H (80.0-98.0) fL MCH 33.8 H (27.0-32.0) pg MCHC 33.5 (31.0-37.0) g/dL RDW Std Deviation 48.4 (28.0-62.0) fl RDW Coeff of Evelin 13 (11.0-15.0) % Plt Count 269 (150-400) K/uL MPV 9.90 (7.40-12.00) fL Neut % (Auto) 70.6 (48.0-80.0) % Lymph % (Auto) 18.8 (16.0-40.0) % [place] % (Auto) 10.0 (0.0-15.0) % Eos % (Auto) 0.3 (0.0-7.0) % Baso % (Auto) 0.3 (0.0-1.5) % Neut # (Auto) 6.3 H (1.4-5.7) K/uL Lymph # (Auto) 1.7 (0.6-2.4) K/uL [place] # (Auto) 0.9 H (0.0-0.8) K/uL Eos # (Auto) 0.0 (0.0-0.7) K/uL Baso # (Auto) 0.0 (0.0-0.1) K/uL Nucleated RBC % 0.0 /100WBC Nucleated RBCs # 0 K/uL Sodium 137 (136-148) mmol/L Potassium 3.9 (3.5-5.1) mmol/L Chloride 101 (98-107) mmol/L Carbon Dioxide 27.3 (21.0-32.0) mmol/L BUN 11 (7.0-18.0) mg/dL Creatinine 0.9 (0.8-1.3) mg/dL Est Cr Clr Drug Dosing 88.75 mL/min Estimated GFR (MDRD) > 60.0 ml/min Glucose 101 (74-106) mg/dL Calcium 9.1 (8.5-10.1) mg/dL Magnesium 1.9 (1.8-2.4) mg/dL Total Bilirubin 0.6 (0.2-1.0) mg/dL AST 17 (15-37) IU/L ALT 25 (14-63) IU/L Alkaline Phosphatase 59 (46-116) U/L Total Protein 7.6 (6.4-8.2) g/dL Albumin 3.9 (3.4-5.0) g/dL Globulin 3.7 (2.6-4.0) g/dL Albumin/Globulin Ratio 1.1 (0.9-1.6) Urine Color YELLOW Urine Appearance CLEAR Urine pH 6.5 (5.0-8.0) Ur Specific Stick[place] <= 1.005 (1.001-1.035) Urine Protein NEGATIVE (NEGATIVE) mg/dL Urine Glucose (UA) NEGATIVE (NEGATIVE) mg/dL Urine Ketones NEGATIVE (NEGATIVE) mg/dL Urine Occult Blood NEGATIVE (NEGATIVE) Urine Nitrite NEGATIVE (NEGATIVE) Urine Bilirubin NEGATIVE (NEGATIVE) Urine Urobilinogen 0.2 (<2.0) EU/dL Ur Leukocyte Esterase TRACE H (NEGATIVE) Urine RBC 0-1 (0-2/HPF) Urine WBC 0-1 (0-5/HPF) Ur Epithelial Cells RARE (NONE-FEW) Urine Bacteria RARE (NEGATIVE) Meds: Medications Generic Name Dose Route Start Last Admin Trade Name Rajesh PRN Reason Stop Dose Admin Sodium Chloride 10 ml 12/01/19 09:13 12/01/19 09:33 Saline Flush FLUSH 10 ml ASDIRECTED PRN Administration Keep Vein Open Sodium Chloride 2.5 ml 12/01/19 09:13 12/01/19 09:33 Saline Flush FLUSH 2.5 ml ASDIRECTED PRN Administration Keep Vein Open Discontinued Medications Generic Name Dose Route Start Last Admin Trade Name Freq PRN Reason Stop Dose Admin Acetaminophen 1,000 mg 12/01/19 09:13 12/01/19 09:33 Tylenol Extra Strength PO 12/01/19 09:14 1,000 mg ONETIME ONE Administration Diphenhydramine HCl 25 mg 12/01/19 09:13 12/01/19 09:34 Benadryl IVPUSH 12/01/19 09:14 25 mg ONETIME ONE Administration Sodium Chloride 1,000 mls @ 999 mls/hr 12/01/19 09:13 12/01/19 09:34 Normal Saline IV 12/01/19 10:13 999 mls/hr .Bolus ONE Administration Metoclopramide HCl 10 mg 12/01/19 09:13 12/01/19 09:34 Reglan IVPUSH 12/01/19 09:14 10 mg ONETIME ONE Administration - Re-Assessments/Exams Free Text/Narrative Re-Assessment/Exam: 12/01/19 09:18 Will get labs/imaging, will treat symptomatically, low suspicion serious intracranial pathology of CVA or meningitis. 12/01/19 11:28 CT w/ evidence of sinusitis; will tx w/ augmentin. CT also shows area of hypoattenuation concerning for old ischemic event vs intracranial mass. No midline shift. Spoke with radiologist. Nothing emergent, but recommends MRI to r/o more serious pathology. Patient does not have a PMD, so I will write him for outpatient MRI and will update him with the results. Patient is agreeable to this plan. Departure - Departure Time of Disposition: 11:29 Disposition: Home, Self-Care 01 Condition: Good Clinical Impression: Abnormal CT of brain Sinusitis Qualifiers: Sinusitis location: frontal Chronicity: acute Recurrence: not specified as recurrent Qualified Code(s): J01.10 - Acute frontal sinusitis, unspecified - Discharge Information Prescriptions: Amoxicillin/Potassium Clav [Augmentin 875-125 Tablet] 1 each PO BID 7 Days #14 tablet Instructions: Sinusitis, Adult, [id number] Referrals: PCP,None [Primary Care Provider] - Forms: ED Department Discharge Additional Instructions: The following information is given to patients seen in the emergency department who are being discharged to home. This information is to outline your options for follow-up care. We provide all patients seen in our emergency department with a follow-up referral. The need for follow-up, as well as the timing and circumstances, are variable depending upon the specifics of your emergency department visit. If you don't have a primary care physician on staff, we will provide you with a referral. We always advise you to contact your personal physician following an emergency department visit to inform them of the circumstance of the visit and for follow-up with them and/or the need for any referrals to a consulting specialist. The emergency department will also refer you to a specialist when appropriate. This referral assures that you have the opportunity for follow-up care with a specialist. All of these measure are taken in an effort to provide you with optimal care, which includes your follow-up. Under all circumstances we always encourage you to contact your private physician who remains a resource for coordinating your care. When calling for follow-up care, please make the office aware that this follow-up is from your recent emergency room visit. If for any reason you are refused follow-up, please contact the [facility] Emergency Department at and asked to speak to the emergency department charge nurse. Please follow up with your primary care physician. If you do not have a primary care physician, see below: [facility] [address] [place] [id number] [facility] [address] [place] [id number] Sepsis Event Note (ED) - Evaluation Sepsis Screening Result: No Definite Risk - Focused Exam Vital Signs: Vital Signs Pulse Resp BP Pulse Ox 12/01/19 09:02 92 20 164/98 H 97 - My Orders Last 24 Hours: My Active Orders 12/01/19 09:13 Cardiac Monitoring [RC] . DIRECTED EKG Documentation Completion [RC] STAT Pulse Oximetry [RC] ASDIRECTED Sodium Chloride 0.9% [Saline Flush] 10 ml FLUSH ASDIRECTED PRN Sodium Chloride 0.9% [Saline Flush] 2.5 ml FLUSH ASDIRECTED PRN Saline Lock Insert [OM.PC] Stat - Assessment/Plan Last 24 Hours: My Active Orders 12/01/19 09:13 Cardiac Monitoring [RC] . DIRECTED EKG Documentation Completion [RC] STAT Pulse Oximetry [RC] ASDIRECTED Sodium Chloride 0.9% [Saline Flush] 10 ml FLUSH ASDIRECTED PRN Sodium Chloride 0.9% [Saline Flush] 2.5 ml FLUSH ASDIRECTED PRN Saline Lock Insert [OM.PC] Stat
[2019-12-01 10:22] LABS: BLOOD UREA NITROGEN,BUN 11 mg/dL (7.0-18.0); CARBON DIOXIDE,CO2 27.3 mmol/L (21.0-32.0); CHLORIDE,CL 101 mmol/L (98-107); GLUCOSE RANDOM 101 mg/dL (74-106); POTASSIUM,K 3.9 mmol/L (3.5-5.1); SODIUM,NA 137 mmol/L (136-148)
--- NOTE | 2019-12-01 11:01 | CR ---
Indication: Cough. Technique: AP portable view of the chest. Comparison: None Findings: The heart is normal in size. The lungs are clear. No infiltrate, pleural effusion, or pneumothorax is identified. Impression: No acute cardiopulmonary process. Dictated by Marva Head MD @ Dec 01 2019 10:57AM Signed by Dr. Marva Head @ Dec 01 2019 10:59AM
--- NOTE | 2019-12-01 11:09 | CT ---
Indication: Headache and dizziness for the last 4 days. Technique: Multiple contiguous axial images were obtained from the skullbase to the vertex without intravenous contrast enhancement. Please note that all CT scans at this facility use dose modulation, iterative reconstruction, and/or weight-based dosing when appropriate to reduce radiation dose to as low as reasonably achievable. Comparison: None Findings: The ventricles are symmetric. The basal cisterns are widely patent. No intra-axial or extra-axial hemorrhage is identified. No mass, mass effect or midline shift is identified. A large area of low attenuation is identified within the left cerebellum. This measures approximately 3.9 x 4.4 cm in size. May represent encephalomalacia from previous insult. If this is not known, consideration should be given to an MRI. Minimal mucosal thickening is identified within the left maxillary sinus which most likely represents an air-fluid level. This may represent acute sinusitis. The remainder of the visualized paranasal sinuses and mastoid air cells are clear. Impression: Area of low attenuation identified within the left cerebellum. This does appear to have at least some mass effect on the surrounding tissues. Air-fluid level identified within the left maxillary sinus which can be seen with acute sinusitis. These findings were discussed with Dr. Wilson. This area is unknown by the patient. An MRI is recommended for further evaluation. Please note that all CT scans at this facility use dose modulation, iterative reconstruction, and/or weight-based dosing when appropriate to reduce radiation dose to as low as reasonably achievable. Dictated by Marva Head MD @ Dec 01 2019 10:59AM Signed by Dr. Marva Head @ Dec 01 2019 11:08AM
--- NOTE | 2019-12-01 11:38 | PCM.SN.2 ---
EKG INTERPRETATION EKG Date: 12/01/19 Time: 09:30 Rhythm: NSR Rate (Beats/Min): 82 Mccormick: Normal P-Wave: Present QRS: Normal ST-T: Normal QT: Normal
== END 2019-12-01 11:43 | disposition home or self-care (01) ==
LOC: MW.ED 08:50
DX: J01.10 Acute frontal sinusitis, unspecified (principal); R93.0 Abnormal findings on diagnostic imaging of skull and head, not elsewhere classified; F17.210 Nicotine dependence, cigarettes, uncomplicated
CPT/HCPCS: 36415; 70450; 71045; 80053; 81001; 83735; 85025; 93005; 96361; 96374; 96375; 99284; A9270; J1200; J2765; J7030; 93010

== ENCOUNTER 2019-12-04 12:10 | Emergency (ER) | payer BC ==
[2019-12-04] MEDS ORDERED: Dexamethasone 10 MG/ML SDV IVPUSH ONE (12:42)
[2019-12-04] MEDS ORDERED: Prochlorperazine 10 MG/2 ML SDV IVPUSH ONE (12:42)
[2019-12-04] MEDS ORDERED: Sodium Chloride 0.9% 2.5 ML Syringe FLUSH PRN ×2 (12:43)
[2019-12-04] MEDS ORDERED: Sodium Chloride 0.9% 10 ML Syringe FLUSH PRN (12:43)
[2019-12-04] MEDS ORDERED: Sodium Chloride 0.9% 10 ML SDV IV PRN (12:43)
--- NOTE | 2019-12-04 12:55 | EDM.PDOC ---
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 At that time he was apparently sent home with an MRI scheduled for this afternoon. Patient was sent home with some Augmentin for a finding in 1 of his sinuses on the CT as well as Percocet for pain he has been taking his Percocet but has been having increasing headache today with worsening balance the patient's initial symptoms began approximately 2 weeks ago and he thought this was some sort of cold that was affecting his ears progressively he is having worsening balance issues and worsening headache he. He denies any other medical problems as a past history of herniorrhaphy the headache has been gradual in onset but worsened significantly today raising my suspicion for a intracranial hemorrhage within the lesion seen on the prior CT he denies any fever chills there has been no cough or difficulty breathing or chest pain. Review of systems: As per history of present illness and below otherwise all systems reviewed and negative. Past medical history: As per history of present illness and as reviewed below otherwise noncontributo ry. Surgical history: As per history of present illness and as reviewed below otherwise noncontributory. Social history: No reported history of drug or alcohol abuse. Family history: As per history of present illness and as reviewed below otherwise noncontributory. Physical exam: HEENT: Atraumatic, normocephalic, pupils reactive, negative for conjunctival pallor or scleral icterus, mucous membranes moist, throat clear, neck supple, nontender, trachea midline. Lungs: Clear to auscultation, breath sounds equal bilaterally, chest nontender. Heart: S1S2, regular, negative for clicks, rubs, or JVD. Abdomen: Soft, nondistended, nontender. Negative for masses or hepatosplenomegaly. Negative for costovertebral tenderness. Pelvis: Stable nontender. Genitourinary: Deferred. Rectal: Deferred. Extremities: Atraumatic, negative for cords or calf pain. Neurovascular unremarkable. Neuro: Awake, alert, oriented. Cranial nerves II through XII unremarkable. Cerebellum moderate ataxia with [id number] and a positive Romberg sign. Motor and sensory unremarkable throughout. Exam nonfocal. 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 He will be given some Decadron and Compazine for his headache. [] Definitive disposition and diagnosis as appropriate pending reevaluation and review of above. HEAD Pain Score (Numeric/FACES): 7 - Related Data Allergies Allergy/AdvReac Type Severity Reaction Status Date / Time No Known Allergies Allergy Verified 12/04/19 12:22 Home Meds: Home Meds Amoxicillin/Potassium Clav [Augmentin 875-125 Tablet] 1 each PO BID 7 Days #14 tablet 12/01/19 [Rx] oxyCODONE HCl/Acetaminophen [Percocet 5-325 mg Tablet] 1 each PO Q6H PRN #12 tablet 12/01/19 [Rx] Past Medical History - Past Health History Medical/Surgical History: Denies Medical/Surgical History HEENT History: Reports: Other (See Below) Other HEENT History: wears glasses Cardiovascular History: Reports: High Cholesterol Gastrointestinal History: Reports: Other (See Below) Other Gastrointestinal History: occasional heartburn Musculoskeletal History: Reports: Arthritis, Other (See Below) Other Musculoskeletal History: arthritis in left shoulder Neurological History: Reports: None Psychiatric History: Reports: None Hematologic History: Reports: None Immunologic History: Reports: None Oncologic (Cancer) History: Reports: None - Infectious Disease History Infectious Disease History: Reports: Chicken Pox - Past Surgical History Head Surgeries/Procedures: Reports: None Respiratory Surgical History: Reports: Other (See Below) Dermatological Surgical History: Reports: Other (See Below) Social & Family History - Family History Family Medical History: Noncontributory - Caffeine Use Caffeine Use: Reports: Coffee ED ROS GENERAL - Review of Systems Review Of Systems: See Below ED EXAM, GENERAL - Physical Exam Exam: See Below EKG INTERPRETATION EKG Interpretation Comments: EKG normal sinus rhythm with a rate of 73 bpm right axis nonspecific ST-T changes no aden ischemia read and interpreted by me Course - Vital Signs Text/Narrative:: I discussed the case with Dr. Chavis neurosurgery at [facility] in [place]. He will accept the patient. Patient is to be transferred to the ED CT and MRI demonstrate a large mass with swelling and edema read by radiology. Patient was given Decadron and Compazine for his headache and dizziness he is feeling much better on reassessment at 2:30 PM he will be n.p.o. and placed on maintenance fluids and transferred to [facility] in [place] Last Recorded V/S: Last Vital Signs Temp 36.5 C 12/04/19 12:19 Pulse 74 12/04/19 14:24 Resp 18 12/04/19 12:19 BP 133/84 12/04/19 14:24 Pulse Ox 95 12/04/19 14:24 - Orders/Labs/Meds Orders: Active Orders 24 hr Category Date Time Status Assess Neurological Status [RC] ASDIRECTED Care 12/04/19 12:43 Active Bedrest [RC] ASDIRECTED Care 12/04/19 12:43 Active Blood Glucose Check, Bedside [RC] ONETIME Care 12/04/19 12:43 Active Cardiac Monitoring [RC] . DIRECTED Care 12/04/19 12:43 Active EKG Documentation Completion [RC] STAT Care 12/04/19 12:43 Active Height and Weight [RC] UPON Care 12/04/19 12:43 Active Initiate Acute Stroke Protocol [RC] STAT Care 12/04/19 12:43 Active NIH Stroke Scale [RC] ASDIRECTED Care 12/04/19 12:43 Active Nursing Bedside Swallow Screen [RC] ASDIRECTED Care 12/04/19 12:43 Active Oxygen Therapy [RC] ASDIRECTED Care 12/04/19 12:43 Active Stroke Education, General [RC] Click to Edit Care 12/04/19 12:43 Active Vital Signs [RC] Q15M Care 12/04/19 12:43 Active Brain w wo Cont [MR] Routine Exams 12/04/19 13:18 Taken Sodium Chloride 0.9% [Normal Saline] Med 12/04/19 12:43 Active 10 ml IV ASDIRECTED PRN Sodium Chloride 0.9% [Saline Flush] Med 12/04/19 12:43 Active 10 ml FLUSH ASDIRECTED PRN Sodium Chloride 0.9% [Saline Flush] Med 12/04/19 12:43 Active 2.5 ml FLUSH ASDIRECTED PRN Sodium Chloride 0.9% [Saline Flush] Med 12/04/19 12:43 Active 2.5 ml FLUSH ASDIRECTED PRN Peripheral IV Insertion Adult [OM.PC] Stat Oth 12/04/19 12:43 Ordered Peripheral IV Insertion Adult [OM.PC] Stat Oth 12/04/19 12:43 Ordered Resuscitation Status Stat Resus Stat 12/04/19 12:43 Ordered Medication Orders Sodium Chloride (Saline Flush) 2.5 ml FLUSH ASDIRECTED PRN PRN Reason: Keep Vein Open Last Admin: 12/04/19 13:31 Dose: 2.5 ml Documented by: FEDLKER Sodium Chloride (Saline Flush) 10 ml FLUSH ASDIRECTED PRN PRN Reason: Keep Vein Open Last Admin: 12/04/19 13:31 Dose: 10 ml Documented by: FEDLLISA Sodium Chloride (Saline Flush) 2.5 ml FLUSH ASDIRECTED PRN PRN Reason: Keep Vein Open Sodium Chloride (Normal Saline) 10 ml IV ASDIRECTED PRN PRN Reason: IV Use Labs: Laboratory Tests 12/04/19 12/04/19 12/04/19 Range/Units 12:30 12:30 12:30 WBC 10.24 (4.0-11.0) K/uL RBC 5.47 (4.50-5.90) M/uL Hgb 18.3 H (13.0-17.0) g/dL Hct 53.9 H (38.0-50.0) % MCV 98.5 H (80.0-98.0) fL MCH 33.5 H (27.0-32.0) pg MCHC 34.0 (31.0-37.0) g/dL RDW Std Deviation 46.2 (28.0-62.0) fl RDW Coeff of Evelin 13 (11.0-15.0) % Plt Count 240 (150-400) K/uL MPV 9.60 (7.40-12.00) fL Neut % (Auto) 67.1 (48.0-80.0) % Lymph % (Auto) 23.8 (16.0-40.0) % Rincon % (Auto) 8.4 (0.0-15.0) % Eos % (Auto) 0.4 (0.0-7.0) % Baso % (Auto) 0.3 (0.0-1.5) % Neut # (Auto) 6.9 H (1.4-5.7) K/uL Lymph # (Auto) 2.4 (0.6-2.4) K/uL Rincon # (Auto) 0.9 H (0.0-0.8) K/uL Eos # (Auto) 0.0 (0.0-0.7) K/uL Baso # (Auto) 0.0 (0.0-0.1) K/uL Nucleated RBC % 0.0 /100WBC Nucleated RBCs # 0 K/uL INR 1.09 APTT 25.4 (18.6-31.3) SEC Sodium 136 (136-148) mmol/L Potassium 3.7 (3.5-5.1) mmol/L Chloride 101 (98-107) mmol/L Carbon Dioxide 21.4 (21.0-32.0) mmol/L BUN 14 (7.0-18.0) mg/dL Creatinine 0.8 (0.8-1.3) mg/dL Est Cr Clr Drug Dosing TNP Estimated GFR (MDRD) > 60.0 ml/min Glucose 105 (74-106) mg/dL Calcium 8.8 (8.5-10.1) mg/dL Total Bilirubin 0.6 (0.2-1.0) mg/dL AST 19 (15-37) IU/L ALT 27 (14-63) IU/L Alkaline Phosphatase 59 (46-116) U/L Troponin I < 0.050 (0.000-0.056) ng/mL Total Protein 7.7 (6.4-8.2) g/dL Albumin 4.0 (3.4-5.0) g/dL Globulin 3.7 (2.6-4.0) g/dL Albumin/Globulin Ratio 1.1 (0.9-1.6) Meds: Medications Generic Name Dose Route Start Last Admin Trade Name Freq PRN Reason Stop Dose Admin Sodium Chloride 2.5 ml 12/04/19 12:43 12/04/19 13:31 Saline Flush FLUSH 2.5 ml ASDIRECTED PRN Administration Keep Vein Open Sodium Chloride 10 ml 12/04/19 12:43 12/04/19 13:31 Saline Flush FLUSH 10 ml ASDIRECTED PRN Administration Keep Vein Open Sodium Chloride 2.5 ml 12/04/19 12:43 Saline Flush FLUSH ASDIRECTED PRN Keep Vein Open Sodium Chloride 10 ml 12/04/19 12:43 Normal Saline IV ASDIRECTED PRN IV Use Discontinued Medications Generic Name Dose Route Start Last Admin Trade Name Rajesh PRN Reason Stop Dose Admin Dexamethasone 10 mg 12/04/19 12:42 12/04/19 13:17 Dexamethasone IVPUSH 12/04/19 12:43 10 mg ONETIME ONE Administration Gadobenate Dimeglumine 20 ml 12/04/19 13:58 12/04/19 14:00 Multihance IVPUSH 12/04/19 13:59 14 ml ONETIME STA Administration Prochlorperazine Edisylate 10 mg 12/04/19 12:42 12/04/19 13:17 Compazine IVPUSH 12/04/19 12:43 10 mg ONETIME ONE Administration Departure - Departure Time of Disposition: 14:25 Disposition: DC/Tfer to Acute Hospital 02 Condition: Good Clinical Impression: Cerebellar mass - Discharge Information *PRESCRIPTION DRUG MONITORING PROGRAM REVIEWED*: Not Applicable *COPY OF PRESCRIPTION DRUG MONITORING REPORT IN PATIENT [place]: Not Applicable Referrals: PCP,None [Primary Care Provider] - Forms: ED Department Discharge Sepsis Event Note (ED) - Evaluation Sepsis Screening Result: No Definite Risk - Focused Exam Vital Signs: Vital Signs Temp Pulse Resp BP Pulse Ox 12/04/19 14:24 74 133/84 95 12/04/19 13:04 80 131/90 95 12/04/19 12:19 36.5 C 94 18 137/93 H 96 - My Orders Last 24 Hours: My Active Orders 12/04/19 12:43 Assess Neurological Status [RC] ASDIRECTED Bedrest [RC] ASDIRECTED Blood Glucose Check, Bedside [RC] ONETIME Cardiac Monitoring [RC] . DIRECTED EKG Documentation Completion [RC] STAT Height and Weight [RC] UPON Initiate Acute Stroke Protocol [RC] STAT NIH Stroke Scale [RC] ASDIRECTED Nursing Bedside Swallow Screen [RC] ASDIRECTED Oxygen Therapy [RC] ASDIRECTED Stroke Education, General [RC] Click to Edit Vital Signs [RC] Q15M Sodium Chloride 0.9% [Normal Saline] 10 ml IV ASDIRECTED PRN Sodium Chloride 0.9% [Saline Flush] 10 ml FLUSH ASDIRECTED PRN Sodium Chloride 0.9% [Saline Flush] 2.5 ml FLUSH ASDIRECTED PRN Sodium Chloride 0.9% [Saline Flush] 2.5 ml FLUSH ASDIRECTED PRN Peripheral IV Insertion Adult [OM.PC] Stat Peripheral IV Insertion Adult [OM.PC] Stat Resuscitation Status Stat 12/04/19 13:18 Brain w wo Cont [MR] Routine - Assessment/Plan Last 24 Hours: My Active Orders 12/04/19 12:43 Assess Neurological Status [RC] ASDIRECTED Bedrest [RC] ASDIRECTED Blood Glucose Check, Bedside [RC] ONETIME Cardiac Monitoring [RC] . DIRECTED EKG Documentation Completion [RC] STAT Height and Weight [RC] UPON Initiate Acute Stroke Protocol [RC] STAT NIH Stroke Scale [RC] ASDIRECTED Nursing Bedside Swallow Screen [RC] ASDIRECTED Oxygen Therapy [RC] ASDIRECTED Stroke Education, General [RC] Click to Edit Vital Signs [RC] Q15M Sodium Chloride 0.9% [Normal Saline] 10 ml IV ASDIRECTED PRN Sodium Chloride 0.9% [Saline Flush] 10 ml FLUSH ASDIRECTED PRN Sodium Chloride 0.9% [Saline Flush] 2.5 ml FLUSH ASDIRECTED PRN Sodium Chloride 0.9% [Saline Flush] 2.5 ml FLUSH ASDIRECTED PRN Peripheral IV Insertion Adult [OM.PC] Stat Peripheral IV Insertion Adult [OM.PC] Stat Resuscitation Status Stat 12/04/19 13:18 Brain w wo Cont [MR] Routine
[2019-12-04 13:14] LABS: BLOOD UREA NITROGEN,BUN 14 mg/dL (7.0-18.0); CARBON DIOXIDE,CO2 21.4 mmol/L (21.0-32.0); CHLORIDE,CL 101 mmol/L (98-107); GLUCOSE RANDOM 105 mg/dL (74-106); POTASSIUM,K 3.7 mmol/L (3.5-5.1); SODIUM,NA 136 mmol/L (136-148)
--- NOTE | 2019-12-04 13:40 | CT ---
INDICATION: Stroke code. Pressure. TECHNIQUE: CT images foramen magnum to vertex were obtained without contrast. COMPARISON: Brain on 12/01/2019. FINDINGS: Again demonstrated is a low-attenuation mass within the left cerebellar hemisphere with surrounding edema and mass effect. Its margins are ill-defined but measures approximately 4.5 cm in maximal dimension. 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 Common posterior fossa neoplasm in adults would be metastasis versus hemangioblastoma. MRI with gadolinium contrast is needed for further assessment. Mass effect with effacement of the 4th ventricle and quadrigeminal cistern. The lateral and 3rd ventricles remain normal in size and shape. No obstructive hydrocephalus is seen at this time. No evidence of acute intracranial hemorrhage. IMPRESSION: 1. Approximately 4.5 cm partially cystic or necrotic appearing mass within the left cerebellar hemisphere. Edema and posterior fossa mass effect with compression and rightward shift of the 4th ventricle. 2. 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 Recommend MRI examination with gadolinium contrast for further assessment. 3. No change compared to 12/01/2019. Please note that all CT scans at this facility use dose modulation, iterative reconstruction, and/or weight-based dosing when appropriate to reduce radiation dose to as low as reasonably achievable. Dictated by Flakito Duncan MD @ Dec 04 2019 1:27PM Signed by Dr. Flakito Duncan @ Dec 04 2019 1:38PM
[2019-12-04] MEDS ORDERED: Gadobenate Dimeglumine 529 MG/ML 20 ML SDV IVPUSH STA (13:58)
[2019-12-04] MEDS ORDERED: Sodium Chloride 0.9% 1,000 ML IV SCH (14:45)
--- NOTE | 2019-12-04 15:16 | MR ---
INDICATION: Intracranial pressure. Abnormal CT. TECHNIQUE: Multiplanar multisequence MR imaging was acquired through the brain prior to and following intravenous contrast. COMPARISON: CT brain 12/04/2019. FINDINGS: Artifacts degrades post-contrast images. Multiple (at least 5) peripherally enhancing lesions in the supratentorial and tentorial parenchyma, highly concerning for intracranial metastases. Dominant avidly T2 hyperintense lesion in the left cerebellar hemisphere measuring 48 x 49 x 30 mm (TR/AP/CC) is associated with mild perilesional edema and mass effect resulting in near complete effacement of the caudal opening of the cerebral aqueduct as well as rightward displacement and moderate partial effacement of the 4th ventricle. Punctate focus of susceptibility along the posterior lesion margin may relate to blood products or mineralization. The supratentorial ventricular system is normal in size without evidence for hydrocephalus. Additional peripherally enhancing lesions measure 6 mm in the posterior left cingulate gyrus (series 803 image 40), 4 mm superolateral lateral left temporal lobe (series 803, image 32), 4 mm medial left occipital lobe (series 803, image 30), and 9 mm right internal capsule posterior limb (series 803, image 28). The ventricles are not enlarged for patient age. Small T2 FLAIR hyperintensities scattered in the supratentorial white matter, nonspecific though potentially related to mild chronic microvascular ischemic changes. No diffusion restriction to suggest acute infarction. No pathologic extra-axial fluid collection. Enhancing 7 mm lesion within the midline frontal calvarium (series 103, image 42). The major arterial flow voids of the skullbase are preserved. The globes are symmetric in size. Mild left maxillary sinus mucosal thickening the mastoid air cells. IMPRESSION: 1. Multiple peripherally enhancing lesions in the supratentorial and infratentorial parenchyma, highly concerning for metastases. Large dominant 4.9 cm lesion in the left cerebellar hemisphere is associated mild perilesional edema and near complete effacement of the caudal cerebral aqueduct without hydrocephalus. 2. Small enhancing lesion within the midline frontal calvarium is indeterminate. Dictated by Tra Carroll MD @ Dec 04 2019 2:53PM Signed by Dr. Tra Carroll @ Dec 04 2019 3:14PM
== END 2019-12-04 15:30 ==
LOC: MW.ED 12:10
DX: G93.89 Other specified disorders of brain (principal)
CPT/HCPCS: 36415; 70450; 70553; 80053; 84484; 85025; 85610; 85730; 93005; 96374; 96375; 99285; A9577; J0780; J1100; J7030

== ENCOUNTER 2020-01-21 07:31 | Day surgery (SDC) | payer BC ==
[~2020-01-21 07:31] MED LIST changes: -Bupivacaine 0.5% 10 ML SDV ONE; +Lactated Ringers 1,000 ML IV SCH; -ceFAZolin 1 GM Vial ONE; +ceFAZolin 2 GM in Premix Bag 1 BAG IV SCH
[2020-01-21] MEDS ORDERED: Albuterol/Ipratropium 3.0-0.5 MG/3 ML Neb Soln NEB ONE (07:52)
--- NOTE | 2020-01-21 08:23 | PCM.PREANE ---
Preanesthetic Assessment - Anesthesia/Transfusion/Family Hx Anesthesia History: Prior Anesthesia Without Reaction Family History of Anesthesia Reaction: No Transfusion History: No Prior Transfusion(s) Intubation History: Unknown - Review of Systems General: No Symptoms Pulmonary: Wheezing, Cough Cardiovascular: No Symptoms Gastrointestinal: No Symptoms Neurological: Pre-Existing Deficit Other: Reports: None - Physical Assessment NPO Status Date: 01/20/20 Height: 5 ft 7 in Weight: 73.482 kg ASA Class: 2 Mental Status: Alert & Oriented x3 Airway Class: Mallampati = 2 Dentition: Reports: Normal Dentition ROM/Head Extension: Full Lungs: Wheezing Cardiovascular: Regular Rate, Regular Rhythm - Allergies Allergies/Adverse Reactions: Allergies Allergy/AdvReac Type Severity Reaction Status Date / Time No Known Allergies Allergy Verified 01/15/20 09:28 - Blood Blood Available: No - Anesthesia Plan Pre-Op Medication Ordered: None - Acknowledgements Anesthesia Type Planned: General Anesthesia Pt an Appropriate Candidate for the Planned Anesthesia: Yes Alternatives and Risks of Anesthesia Discussed w Pt/Guardian: Yes Pt/Guardian Understands and Agrees with Anesthesia Plan: Yes Additional Comments: PMH: metastatic lung cs, 1 mo s/p debulking of met tumoe in post fossa, smoker, wheezing PLAN: pre op duo neb, ga/lma PreAnesthesia Questionnaire - Past Health History Medical/Surgical History: Denies Medical/Surgical History HEENT History: Reports: Other (See Below) Other HEENT History: wears glasses Cardiovascular History: Reports: High Cholesterol Respiratory History: Reports: Other (See Below) Other Respiratory History: non-small cell lung cancer Gastrointestinal History: Reports: None Genitourinary History: Reports: None Musculoskeletal History: Reports: Fracture, Other (See Below) Other Musculoskeletal History: hx fx collarbone & "seperated" shoulder Neurological History: Reports: Other (See Below) Other Neuro History: malignant brain tumor Psychiatric History: Reports: None Endocrine/Metabolic History: Reports: None Hematologic History: Reports: None Immunologic History: Reports: None Oncologic (Cancer) History: Reports: Brain, Lung Other Oncologic History: non-small cell lung cancer metastatic to brain Dermatologic History: Reports: None - Infectious Disease History Infectious Disease History: Reports: None - Past Surgical History Head Surgeries/Procedures: Reports: Craniotomy HEENT Surgical History: Reports: None Cardiovascular Surgical History: Reports: None Respiratory Surgical History: Reports: None GI Surgical History: Reports: Hernia, Abdominal Male Surgical History: Reports: None Endocrine Surgical History: Reports: None Neurological Surgical History: Reports: Other (See Below) Other Neurological Surgeries/Procedures: craniotomy & partial tumor removal approx 4 weeks ago Musculoskeletal Surgical History: Reports: None Oncologic Surgical History: Reports: Other (See Below) Other Oncologic Surgeries/Procedures: craniotomy with partial tumor removal Dermatological Surgical History: Reports: Other (See Below) - SUBSTANCE USE Tobacco Use Status *Q: Current Every Day Tobacco User Tobacco Use Within Last Twelve Months: Cigarettes Days Per Week of Alcohol Use: 7 Number of Drinks Per Day: 6 Total Drinks Per Week: 42 - HOME MEDS Home Medications: Home Meds Ibuprofen [Advil] 2 tab PO ASDIRECTED PRN 01/15/20 [History] dexAMETHasone [Dexamethasone] 2 mg PO TID 01/15/20 [History] - CURRENT (IN HOUSE) MEDS Current Meds: Current Medications Cefazolin Sodium/Dextrose 2 gm (/ Premix) 50 mls @ 100 mls/hr IV ONETIME RIKY Lactated Ringer's (Ringers, Lactated) 1,000 mls @ 125 mls/hr IV ASDIRECTED RIKY Discontinued Medications Albuterol/Ipratropium (Duoneb 3.0-0.5 Mg/3 Ml) 3 ml NEB ONETIME ONE Stop: 01/21/20 07:53 Last Admin: 01/21/20 08:17 Dose: 3 ml Documented by:
[2020-01-21] MEDS ORDERED: Midazolam 1 MG/ML 2 ML SDV ONE (08:41)
[2020-01-21] MEDS ORDERED: fentaNYL 100 MCG/2 ML SDV ONE (08:41)
[2020-01-21] MEDS ORDERED: Propofol 200 MG/20 ML SDV ONE (08:41)
[2020-01-21] MEDS ORDERED: Bupivacaine 0.5% 10 ML SDV ONE (09:09)
[2020-01-21] MEDS ORDERED: Heparin Sodium 100 Units/ML 3 ML Syringe ONE (09:09)
[2020-01-21] MEDS ORDERED: ceFAZolin/Dextrose,Iso-Osmotic 2 GM/50 ML Duplex Bag IV ONE (09:23)
[2020-01-21] MEDS ORDERED: Atropine 0.1 MG/ML 10 ML Syringe IVPUSH PRN ×2 (10:10)
[2020-01-21] MEDS ORDERED: EPINEPHrine 1:10,000 1 MG/10 ML Syringe IVPUSH PRN (10:10)
[2020-01-21] MEDS ORDERED: Albuterol 0.083% 2.5 MG/3 ML Neb Soln NEB PRN (10:10)
[2020-01-21] MEDS ORDERED: HYDROmorphone 2 MG/ML Syringe IVPUSH PRN (10:10)
[2020-01-21] MEDS ORDERED: 50% Dextrose in Water 50 ML Syringe IVPUSH PRN (10:10)
[2020-01-21] MEDS ORDERED: Naloxone 0.4 MG/ML Syringe IVPUSH PRN (10:10)
[2020-01-21] MEDS ORDERED: Ondansetron 4 MG/2 ML SDV IVPUSH PRN (10:10)
[2020-01-21] MEDS ORDERED: Albuterol 6.7 GM Inhaler INH ONE (11:04)
[2020-01-21] MEDS ORDERED: Acetaminophen/HYDROcodone 325-10 MG Tab PO PRN (11:25)
[2020-01-21] MEDS ORDERED: Lactated Ringers 1,000 ML IV SCH (11:30)
--- NOTE | 2020-01-21 11:33 | PCM.OPNOTE ---
- General Post-Op/Procedure Note Date of Surgery/Procedure: 01/21/20 Operative Procedure(s): Placement of Bard PowerPort via left cephalic vein approach Pre Op Diagnosis: Metastatic non-small cell lung cancer Post-Op Diagnosis: Same Anesthesia Technique: General LMA (ASA III) Primary Surgeon: Misha Garcia Shoe Patternmaker: Aida Phipps Fluid Replacement, Intraop: 750 EBL in mLs: 30 Condition: Good Free Text/Narrative:: DICTATION 229120 CPT CODE 12067
[2020-01-21] MEDS: fentaNYL 100 MCG/2 ML SDV IVPUSH PRN ×2 (11:47→11:52)
[2020-01-21] MEDS ORDERED: Ondansetron 4 MG/2 ML SDV ONE (12:17)
[2020-01-21] MEDS ORDERED: Dexamethasone 4 MG/ML 5 ML MDV ONE (12:17)
--- NOTE | 2020-01-21 13:23 | OR ---
SURGEON: Misha Garcia M.D. DATE OF PROCEDURE: 01/21/2020 OPERATION PERFORMED: Placement of Bard port via left cephalic vein approach. PRIMARY SURGEON: Misha Garcia MD IMAGE SCIENTIST: Securities Compliance Examiner: GARRETT Miranda student. ANESTHESIA: General LMA. ASA CLASSIFICATION: III. PREOPERATIVE DIAGNOSIS: Metastatic lung cancer. POSTOPERATIVE DIAGNOSIS: Metastatic lung cancer. ESTIMATED BLOOD LOSS: 30 mL. INTRAOPERATIVE FLUID REPLACEMENT: 750 mL of crystalloid. DESCRIPTION OF PROCEDURE: The patient was taken to the operating room and placed on the operating table in the supine position. Time-out was called for appropriate identification of the patient and procedure. The surgical site had been marked prior to the patient entering the operating room. Sequential compression boots were placed. Following satisfactory attainment of general anesthesia with an LMA, the left chest was prepped and draped. The skin incision was marked out in the left deltopectoral groove. The skin was then infiltrated with 0.5% Marcaine solution. Skin incision was made and deepened through the subcutaneous tissue, obtaining hemostasis with the use of electrocautery. The cephalic vein was readily identified and encircled proximally and distally with 2-0 Vicryl ties. The distal most tie was secured. A small venotomy was made and the heparin flushed. Catheter was positioned into the cephalic vein, and with the use of fluoroscopy, traced to its junction with the superior vena cava-right atrial junction. This was confirmed again radiologically. The catheter was secured in position with 2-0 Vicryl ties. Appropriate site on the anterior chest wall was then chosen for placement of the port. Skin incision was again infiltrated with 0.5% Marcaine solution. Skin incision was made and deepened down to the clavipectoral fascia using electrocautery. Bleeding sites were electrocoagulated. The catheter was then positioned in a tunnel from the cephalic vein incision to the chest wall incision. Care was taken to keep the catheter clamped to avoid an air embolus. Once that was accomplished, the port was flushed with heparinized saline and the catheter cut to appropriate length. The catheter and port were assembled with the lock securing the catheter. The catheter was then aspirated with good return of blood and flushed with dilute heparinized saline. The wounds were inspected for hemostasis and small bleeding sites were electrocoagulated. Both incisions were closed in 2 layers, approximating the subcutaneous tissue with running 2-0 Vicryl and the skin with subcuticular 4-0 Monocryl. Both incisions were Steri-Stripped and dressed with sterile Tegaderm pads. Sponge, needle, and instrument counts were all correct. The patient tolerated the procedure well. Following emergence from anesthesia and extubation, he was taken to recovery room in stable condition. Chest x-ray has been ordered for recovery room. BAKARI / ALEYDA /[id number]
--- NOTE | 2020-01-21 13:39 | PCM.POSTAN ---
POST ANESTHESIA ASSESSMENT - MENTAL STATUS Mental Status: Alert, Oriented - VITAL SIGNS Vital Signs: Last Vital Signs Temp 97.9 F 01/21/20 12:07 Pulse 79 01/21/20 12:30 Resp 15 01/21/20 12:30 BP 138/85 01/21/20 12:30 Pulse Ox 96 01/21/20 12:30 - RESPIRATORY Respiratory Status: Respiratory Rate WNL, Airway Patent, O2 Saturation Stable - CARDIOVASCULAR CV Status: Pulse Rate WNL, Blood Pressure Stable - GASTROINTESTINAL GI Status: No Symptoms - POST OP HYDRATION Hydration Status: Adequate & Stable
--- NOTE | 2020-01-21 13:40 | PCM48HPAN ---
Post Anesthesia Note - EVALUATION WITHIN 48HRS OF ANESTHETIC Vital Signs in Normal Range: Yes Patient Participated in Evaluation: Yes Respiratory Function Stable: Yes Airway Patent: Yes Cardiovascular Function Stable: Yes Hydration Status Stable: Yes Pain Control Satisfactory: Yes Nausea and Vomiting Control Satisfactory: Yes Mental Status Recovered: Yes Vital Signs: Last Vital Signs Temp 97.9 F 01/21/20 12:07 Pulse 79 01/21/20 12:30 Resp 15 01/21/20 12:30 BP 138/85 01/21/20 12:30 Pulse Ox 96 01/21/20 12:30
--- NOTE | 2020-01-21 13:54 | CR ---
INDICATION: Post port placement TECHNIQUE: Chest 1 view. COMPARISON: None FINDINGS: Cardiovascular and mediastinum: Heart size and vasculature are normal in caliber and appearance. Mediastinum is within normal limits. Lungs and pleural space: Left-sided subclavian line tip in the SVC. Lungs are clear. No sign of infiltrate or mass. No sign of pleural effusion. No pneumothorax. Bones and soft tissues: Remote healed left clavicular fracture. IMPRESSION: Left-sided subclavian line tip in the SVC. No pneumothorax. Dictated by Armani Aly MD @ Jan 21 2020 1:51PM Signed by Dr. Armani Aly @ Jan 21 2020 1:51PM
--- NOTE | 2020-01-24 15:50 | CR ---
INDICATION: Port placement. COMPARISON: CT 12/27/2019. FINDINGS: Intraoperative fluoroscopic support provided for left chest wall MediPort placement. Two spot fluoroscopic images demonstrate the catheter terminating in the SVC. A total of 7 seconds fluoroscopy time was utilized. IMPRESSION: Intraoperative fluoroscopic support provided for port placement. Dictated by Conner German MD @ Jan 24 2020 3:46PM Signed by Dr. Conner German @ Jan 24 2020 3:48PM
== END 2020-01-21 13:00 | disposition home or self-care (01) ==
LOC: MW.SDS 07:31
PROVIDERS: ATTEND Surgery
DX: C34.90 Malignant neoplasm of unspecified part of unspecified bronchus or lung (principal); C79.31 Secondary malignant neoplasm of brain; K42.0 Umbilical hernia with obstruction, without gangrene; F17.210 Nicotine dependence, cigarettes, uncomplicated; E78.00 Pure hypercholesterolemia, unspecified; Z79.899 Other long term (current) drug therapy; Z98.890 Other specified postprocedural states
CPT/HCPCS: 36561; 71045; 76000; A9270; C1788; J0131; J0690; J1100; J1642; J2001; J2250; J2405; J2704; J3010; J3490; J7120; 00532; J7620-GY

== ENCOUNTER 2020-07-03 14:35 | Observation (INO) | payer BC ==
--- NOTE | 2020-07-03 14:41 | EDM.PDOC ---
ED HPI GENERAL MEDICAL PROBLEM - General Stated Complaint: JUST NOT FEELING GOOD Time Seen by Provider: 07/03/20 14:38 Source of Information: Reports: Patient History Limitations: Reports: No Limitations - History of Present Illness INITIAL COMMENTS - FREE TEXT/NARRATIVE: HISTORY AND PHYSICAL: History of present illness: Patient is a 55-year-old male who presents to the emergency room with complaints of dizziness, generalized fatigue, fevers/chills, chest pain, episode of black tarry stool, nausea and vomiting. 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 Status post craniotomy with surgical resection of the largest left posterior fossa metastasis by Dr Davenport in [place]. Completed whole brain radiation therapy January 31, 2020. Ongoing systemic therapy consisting of Carboplatin, Etoposide, and Tecentriq. Received chemo and radiation therapy a few days ago. He states he usually feels unwell a week after his treatments, thought maybe the oncologist had changed some of his medications and that is why he is feeling ill or sooner. Patient denies any headache, change in vision, syncope or near syncope. Denies any back pain, abdominal pain, diarrhea, constipation or dysuria. Has not noted any blood in urine or stool. Patient has been eating and drinking appropriately. Review of systems: As per history of present illness and below otherwise all systems reviewed and negative. Past medical history: As per history of present illness and as reviewed below otherwise noncontributory. Surgical history: As per history of present illness and as reviewed below otherwise noncontributory. Social history: See social history for further information Family history: As per history of present illness and as reviewed below otherwise noncontributory. Physical exam: General: Well developed and well nourished 55 year old male. Alert and orientated x 3. Nontoxic in appearance and in no acute distress. Vital signs are stable and have been reviewed by me. Nursing notes were reviewed. HEENT: Atraumatic, normocephalic, pupils equal and reactive bilaterally, negative for conjunctival pallor or scleral icterus, mucous membranes moist, TMs normal bilaterally, throat clear, neck supple, nontender, trachea midline. No drooling or trismus noted. No meningeal signs. No hot potato voice noted. Lungs: Clear to auscultation bilaterally. No wheezes, rales, or rhonchi. Chest nontender. Normal work of breathing, no accessory muscles used. Heart: S1S2, regular rate and rhythm without overt murmur, gallops, or rubs. No JVD. No peripheral edema Abdomen: Soft, nondistended, nontender. Normoactive bowel sounds. Negative for masses or costovertebral tenderness. Rectal: This was done with consent and a bit setter at the bedside. No external hemorrhoids are noted. Good rectal tone. Hemoccult positive no obvious aden blood noted. Tolerated well Skin: Intact, warm, dry. No lesions or rashes noted. Hematologic: No petechiae or purpra. Mucosa appropriate color and normal nail bed color and refill. Extremities: Atraumatic, moves all extremities per self without difficulty or deficits, negative for cords or calf pain. Neurovascular unremarkable. Neuro: Awake, alert, oriented. Cranial nerves II through XII unremarkable. Cerebellum unremarkable. Motor and sensory unremarkable throughout. Exam nonfoca l. Psychiatric: Mood and affect are appropriate. Normal thought process. Answering questions appropriately. Notes: *This patient was seen and evaluated during the 2019 SARS-CoV-2 novel coronavirus pandemic period. Community viral transmission is ongoing at time of this encounter and the emergency department is operating under pandemic response procedures. Patient's physical exam is normal with the exception he does appear dehydrated, oral mucosa is dry. Rectal exam shows positive Hemoccult stool although brown in color with no aden blood noted. Patient is agreeable to lab work, imaging and extensive work-up. No acute findings and no significant changes from the prior exam. No evidence for acute ischemia, hemorrhage, or new mass. CXR unremarkable. Patient's hemoglobin is 10.7, hematocrit 32.2. Lactate 3.3. Potassium 2.9 with magnesium of 1.7. Patient was given a liter of fluids, IV potassium and magnesium. I did talk with Dr. Geronimo, hospitalist on-call, about this patient who is agreeable to keep him him for further care and management. Patient remains hemodynamically stable. Currently offers no complaints or concerns and is agreeable to admission. Diagnostics: CBC, CMP, Head CT, Orthostatic vitals, UA, Troponin, EKG, CXR Therapeutics: IV fluids, Zofran, magnesium, K rider Impression: Hypokalemia Dehydration History of Brain CA and Lung CA Plan: Observation admission Definitive disposition and diagnosis as appropriate pending reevaluation and review of above. Chest Pain Score (Numeric/FACES): 3 - Related Data Allergies Allergy/AdvReac Type Severity Reaction Status Date / Time No Known Allergies Allergy Verified 07/03/20 15:10 Home Meds: Home Meds dexAMETHasone [Dexamethasone] 2 mg PO TID 01/15/20 [History] Ondansetron [Zofran Odt] 8 mg PO ASDIRECTED 07/03/20 [History] oxyCODONE HCl/Acetaminophen [Oxycodone-Acetaminophen 5-325] 1 tab PO ASDIRECTED 07/03/20 [History] Past Medical History - Past Health History Medical/Surgical History: Denies Medical/Surgical History HEENT History: Reports: Other (See Below) Other HEENT History: wears glasses Cardiovascular History: Reports: High Cholesterol Respiratory History: Reports: Other (See Below) Other Respiratory History: non-small cell lung cancer Gastrointestinal History: Reports: None Genitourinary History: Reports: None Musculoskeletal History: Reports: Fracture, Other (See Below) Other Musculoskeletal History: hx fx collarbone & "seperated" shoulder Neurological History: Reports: Other (See Below) Other Neuro History: malignant brain tumor Psychiatric History: Reports: None Endocrine/Metabolic History: Reports: None Hematologic History: Reports: None Immunologic History: Reports: None Oncologic (Cancer) History: Reports: Brain, Lung Other Oncologic History: non-small cell lung cancer metastatic to brain Dermatologic History: Reports: None - Infectious Disease History Infectious Disease History: Reports: None - Past Surgical History Head Surgeries/Procedures: Reports: Craniotomy HEENT Surgical History: Reports: None Cardiovascular Surgical History: Reports: None Respiratory Surgical History: Reports: None GI Surgical History: Reports: Hernia, Abdominal Male Surgical History: Reports: None Endocrine Surgical History: Reports: None Neurological Surgical History: Reports: Other (See Below) Other Neurological Surgeries/Procedures: craniotomy & partial tumor removal approx 4 weeks ago Musculoskeletal Surgical History: Reports: None Oncologic Surgical History: Reports: Other (See Below) Other Oncologic Surgeries/Procedures: craniotomy with partial tumor removal Dermatological Surgical History: Reports: Other (See Below) Social & Family History - Family History Family Medical History: No Pertinent Family History - Caffeine Use Caffeine Use: Reports: Coffee ED ROS GENERAL - Review of Systems Review Of Systems: Comprehensive ROS is negative, except as noted in HPI. ED EXAM, GENERAL - Physical Exam Exam: See Below (See dictation) Course - Vital Signs Last Recorded V/S: Last Vital Signs Temp 99.1 F 07/03/20 15:10 Pulse 80 07/03/20 17:07 Resp 17 07/03/20 17:07 BP 107/67 07/03/20 17:07 Pulse Ox 98 07/03/20 17:07 Orthostatic Blood Pressure [ 103/67 Standing] Orthostatic Blood Pressure [ 114/72 Sitting] Orthostatic Blood Pressure [ 114/65 Supine] - Orders/Labs/Meds Orders: Active Orders 24 hr Category Date Time Status Cardiac Monitoring [RC] . DIRECTED Care 07/03/20 14:50 Active EKG Documentation Completion [RC] STAT Care 07/03/20 14:50 Active Hemoccult [Fecal Occult Blood Collection] [RC] Care 07/03/20 14:53 Active ASDIRECTED Orthostatic Vital Signs [RC] ASDIRECTED Care 07/03/20 14:50 Active UA RFX DANIS AND CULT IF INDIC [URIN] Stat Lab 07/03/20 14:50 Ordered Magnesium Sulfate/Water [Magnesium Sulfate in Water 2 Med 07/03/20 16:32 Active GM/50 ML] 2 gm in 50 ml IV ONETIME Potassium Chloride Riders [KCL in Water 40 MEQ/100 ML] Med 07/03/20 16:11 Active 40 meq Premix Bag 1 bag IV ONETIME Sodium Chloride 0.9% [Normal Saline] 1,000 ml Med 07/03/20 14:54 Active IV STAT Medication Orders Sodium Chloride (Normal Saline) 1,000 mls @ 125 mls/hr IV STAT ONE Stop: 07/03/20 22:53 Last Admin: 07/03/20 15:28 Dose: 125 mls/hr Documented by: JORDIN Potassium Chloride 40 meq/ (Premix) 100 mls @ 25 mls/hr IV ONETIME ONE Stop: 07/03/20 20:10 Magnesium Sulfate (Magnesium Sulfate In Water 2 Gm/50 Ml) 2 gm in 50 mls @ 50 mls/hr IV ONETIME ONE Stop: 07/03/20 17:31 Sodium Chloride (Normal Saline) 1,000 mls @ 150 mls/hr IV STAT ONE Stop: 07/03/20 23:44 Labs: Laboratory Tests 05/06/21 05/06/21 05/06/21 Range/Units 15:21 15:21 15:21 WBC 5.78 (4.0-11.0) K/uL RBC 3.02 L (4.50-5.90) M/uL Hgb 10.7 L (13.0-17.0) g/dL Hct 32.2 L (38.0-50.0) % MCV 106.6 H (80.0-98.0) fL MCH 35.4 H (27.0-32.0) pg MCHC 33.2 (31.0-37.0) g/dL RDW Std Deviation 64.5 H (28.0-62.0) fl RDW Coeff of Evelin 17 H (11.0-15.0) % Plt Count 114 L (150-400) K/uL MPV 9.20 (7.40-12.00) fL Add Manual Diff YES Neutrophils % (Manual) 53 (48.0-80.0) % Band Neutrophils % 11 % Lymphocytes % (Manual) 14 L (16.0-40.0) % Monocytes % (Manual) 12 (0.0-15.0) % Metamyelocytes % 6 % Myelocytes % 4 % Nucleated RBC % 4.8 /100WBC Absolute Seg Neuts 3.1 (1.4-5.7) Band Neutrophils # 0.6 Lymphocytes # (Manual) 0.8 (0.6-2.4) Monocytes # (Manual) 0.7 (0.0-0.8) Absolute Metamyelocyte 0.3 Absolute Myelocytes 0.2 Nucleated RBCs # 0 K/uL Lactate 3.3 H* (0.20-2.00) mmol/L Sodium 138 (136-148) mmol/L Potassium 2.9 L (3.5-5.1) mmol/L Chloride 99 (98-107) mmol/L Carbon Dioxide 24.7 (21.0-32.0) mmol/L BUN 15 (7.0-18.0) mg/dL Creatinine 0.9 (0.8-1.3) mg/dL Est Cr Clr Drug Dosing 87.73 mL/min Estimated GFR (MDRD) > 60.0 ml/min Glucose 90 (74-106) mg/dL Calcium 8.1 L (8.5-10.1) mg/dL Magnesium (1.8-2.4) mg/dL Total Bilirubin 0.3 (0.2-1.0) mg/dL AST 68 H (15-37) IU/L ALT 80 H (14-63) IU/L Alkaline Phosphatase 70 (46-116) U/L Troponin I < 0.050 (0.000-0.056) ng/mL Total Protein 6.6 (6.4-8.2) g/dL Albumin 3.3 L (3.4-5.0) g/dL Globulin 3.3 (2.6-4.0) g/dL Albumin/Globulin Ratio 1.0 (0.9-1.6) SARS-CoV-2 RNA (GRZEGORZ) (NEGATIVE) Blood Type Antibody Screen 07/03/20 07/03/20 07/03/20 Range/Units 15:21 15:21 15:52 WBC (4.0-11.0) K/uL RBC (4.50-5.90) M/uL Hgb (13.0-17.0) g/dL Hct (38.0-50.0) % MCV (80.0-98.0) fL MCH (27.0-32.0) pg MCHC (31.0-37.0) g/dL RDW Std Deviation (28.0-62.0) fl RDW Coeff of Evelin (11.0-15.0) % Plt Count (150-400) K/uL MPV (7.40-12.00) fL Add Manual Diff Neutrophils % (Manual) (48.0-80.0) % Band Neutrophils % % Lymphocytes % (Manual) (16.0-40.0) % Monocytes % (Manual) (0.0-15.0) % Metamyelocytes % % Myelocytes % % Nucleated RBC % /100WBC Absolute Seg Neuts (1.4-5.7) Band Neutrophils # Lymphocytes # (Manual) (0.6-2.4) Monocytes # (Manual) (0.0-0.8) Absolute Metamyelocyte Absolute Myelocytes Nucleated RBCs # K/uL Lactate (0.20-2.00) mmol/L Sodium (136-148) mmol/L Potassium (3.5-5.1) mmol/L Chloride (98-107) mmol/L Carbon Dioxide (21.0-32.0) mmol/L BUN (7.0-18.0) mg/dL Creatinine (0.8-1.3) mg/dL Est Cr Clr Drug Dosing mL/min Estimated GFR (MDRD) ml/min Glucose (74-106) mg/dL Calcium (8.5-10.1) mg/dL Magnesium 1.7 L (1.8-2.4) mg/dL Total Bilirubin (0.2-1.0) mg/dL AST (15-37) IU/L ALT (14-63) IU/L Alkaline Phosphatase (46-116) U/L Troponin I (0.000-0.056) ng/mL Total Protein (6.4-8.2) g/dL Albumin (3.4-5.0) g/dL Globulin (2.6-4.0) g/dL Albumin/Globulin Ratio (0.9-1.6) SARS-CoV-2 RNA (GRZEGORZ) NEGATIVE (NEGATIVE) Blood Type O POSITIVE Antibody Screen NEGATIVE Meds: Medications Generic Name Dose Route Start Last Admin Trade Name Freq PRN Reason Stop Dose Admin Sodium Chloride 1,000 mls @ 125 mls/hr 07/03/20 14:54 07/03/20 15:28 Normal Saline IV 07/03/20 22:53 125 mls/hr STAT ONE Administration Potassium Chloride 40 meq/ 100 mls @ 25 mls/hr 07/03/20 16:11 Premix IV 07/03/20 20:10 ONETIME ONE Magnesium Sulfate 2 gm in 50 mls @ 50 mls/hr 07/03/20 16:32 Magnesium Sulfate In Water 2 Gm/50 Ml IV 07/03/20 17:31 ONETIME ONE Sodium Chloride 1,000 mls @ 150 mls/hr 07/03/20 17:05 Normal Saline IV 07/03/20 23:44 STAT ONE Discontinued Medications Generic Name Dose Route Start Last Admin Trade Name Freq PRN Reason Stop Dose Admin Ondansetron HCl 4 mg 07/03/20 14:51 07/03/20 15:27 Ondansetron 4 Mg/2 Ml Sdv IVPUSH 07/03/20 14:52 4 mg ONETIME ONE Administration Departure - Departure Time of Disposition: 16:42 Disposition: Refer to Observation Clinical Impression: Dehydration, Hypokalemia, History of brain cancer - Discharge Information Sepsis Event Note (ED) - Focused Exam Vital Signs: Vital Signs Temp Pulse Resp BP Pulse Ox 07/03/20 15:10 99.1 F 97 17 139/94 H 97 - My Orders Last 24 Hours: My Active Orders 07/03/20 14:50 Cardiac Monitoring [RC] . DIRECTED EKG Documentation Completion [RC] STAT Orthostatic Vital Signs [RC] ASDIRECTED UA RFX DANIS AND CULT IF INDIC [URIN] Stat 07/03/20 14:53 Hemoccult [Fecal Occult Blood Collection] [RC] ASDIRECTED 07/03/20 14:54 Sodium Chloride 0.9% [Normal Saline] 1,000 ml IV STAT 07/03/20 16:11 Potassium Chloride Riders [KCL in Water 40 MEQ/100 ML] 40 meq Premix Bag 1 bag IV ONETIME 07/03/20 16:32 Magnesium Sulfate/Water [Magnesium Sulfate in Water 2 GM/50 ML] 2 gm in 50 ml IV ONETIME - Assessment/Plan Last 24 Hours: My Active Orders 07/03/20 14:50 Cardiac Monitoring [RC] . DIRECTED EKG Documentation Completion [RC] STAT Orthostatic Vital Signs [RC] ASDIRECTED UA RFX DANIS AND CULT IF INDIC [URIN] Stat 07/03/20 14:53 Hemoccult [Fecal Occult Blood Collection] [RC] ASDIRECTED 07/03/20 14:54 Sodium Chloride 0.9% [Normal Saline] 1,000 ml IV STAT 07/03/20 16:11 Potassium Chloride Riders [KCL in Water 40 MEQ/100 ML] 40 meq Premix Bag 1 bag IV ONETIME 07/03/20 16:32 Magnesium Sulfate/Water [Magnesium Sulfate in Water 2 GM/50 ML] 2 gm in 50 ml IV ONETIME
[2020-07-03] MEDS ORDERED: Ondansetron 4 MG/2 ML SDV IVPUSH ONE (14:51)
[2020-07-03] MEDS ORDERED: Sodium Chloride 0.9% 1,000 ML IV ONE ×2 (14:54→17:05)
--- NOTE | 2020-07-03 15:56 | CR ---
INDICATION: Chest pain and shortness of breath TECHNIQUE: Chest 1 views COMPARISON: 01/21/2020 FINDINGS: Cardiovascular and mediastinum: Heart size and vasculature are normal in caliber and appearance. Port catheter unchanged. Lungs and pleural spaces: Lungs are clear. No sign of infiltrate or mass. No sign of pleural effusion. No pneumothorax. Bones and soft tissues: No significant findings. IMPRESSION: No acute findings and no significant changes from the prior exam. No specific finding to explain chest pain or shortness of breath. Dictated by Mitch Douglas MD @ 07/03/2020 3:55:[address] Mitch Douglas @ Jul 03 2020 3:55PM
--- NOTE | 2020-07-03 16:02 | CT ---
INDICATION: Dizziness. Brain cancer. TECHNIQUE: CT head without contrast. COMPARISON: Brain MRI May 06, 2020. FINDINGS: CSF spaces: Within normal limits for age. Brain parenchyma and extra-axial spaces: Stable left cerebellar postoperative changes. The webb-white differentiation is normal. No sign of mass, hemorrhage, or midline shift. No extra-axial fluid collection. Skull base and calvarium: The visualized paranasal sinuses and mastoid air cells demonstrate no acute or significant findings. The visualized orbits are grossly unremarkable. No skull fractures. IMPRESSION: No acute findings and no significant changes from the prior exam. No evidence for acute ischemia, hemorrhage, or new mass. Please note that all CT scans at this facility use dose modulation, iterative reconstruction, and/or weight-based dosing when appropriate to reduce radiation dose to as low as reasonably achievable. Dictated by Mitch Douglas MD @ 07/03/2020 4:00:[address] Mitch Douglas @ Jul 03 2020 4:00PM
[2020-07-03 16:05] LABS: BLOOD UREA NITROGEN,BUN 15 mg/dL (7.0-18.0); CARBON DIOXIDE,CO2 24.7 mmol/L (21.0-32.0); CHLORIDE,CL 99 mmol/L (98-107); GLUCOSE RANDOM 90 mg/dL (74-106); POTASSIUM,K 2.9 mmol/L (3.5-5.1); SODIUM,NA 138 mmol/L (136-148)
[2020-07-03] MEDS ORDERED: Potassium Chloride Riders 40 MEQ in Premix Bag 1 BAG IV ONE (16:11)
[2020-07-03] MEDS ORDERED: Magnesium Sulfate/Water 2 GM/50 ML BAG IV ONE (16:32)
[2020-07-03] MEDS ORDERED: Sodium Chloride 0.9% with KCl 1,000 ML IV SCH (18:00)
[2020-07-03] MEDS ORDERED: Pantoprazole 40 MG Vial IV SCH (21:19)
[2020-07-03] MEDS ORDERED: Ondansetron 4 MG/2 ML SDV IVPUSH PRN (21:19)
--- NOTE | 2020-07-03 21:40 | PCM.HP.2 ---
H&P History of Present Illness - General Date of Service: 07/03/20 Admit Problem/Dx: Admission Diagnosis/Problem Admission Diagnosis/Problem Hypokalemia - History of Present Illness Initial Comments - Free Text/Narative: 55 yo male with pmh of widely metastatic small cell lung cancer who presents with nausea and vomiting. Patient reports recently finishing chemotherapy and several days later developed nausea and vomiting. Patient reports some dark red emesis. His emesis has since cleared but he has now had several dark stools, but last stool was brown. Patient reports history of dark stools especially af ter taking NSAIDs. Patient has mentioned this to his oncologist who thought he may need a colonoscopy. Patient denies any recent NSAID use. Patient received IV fluids in the ED and is feeling better. Chest Pain Score (Numeric/FACES): 3 - Related Data Allergies/Adverse Reactions: Allergies Allergy/AdvReac Type Severity Reaction Status Date / Time No Known Allergies Allergy Verified 07/03/20 19:23 Home Medications: Home Meds dexAMETHasone [Dexamethasone] 2 mg PO TID 01/15/20 [History] Ondansetron [Zofran Odt] 8 mg PO ASDIRECTED 07/03/20 [History] oxyCODONE HCl/Acetaminophen [Oxycodone-Acetaminophen 5-325] 1 tab PO ASDIRECTED 07/03/20 [History] Past Medical History - Past Health History Medical/Surgical History: Denies Medical/Surgical History HEENT History: Reports: Other (See Below) Other HEENT History: wears glasses Cardiovascular History: Reports: High Cholesterol Respiratory History: Reports: Other (See Below) Other Respiratory History: non-small cell lung cancer Gastrointestinal History: Reports: None, Other (See Below) Other Gastrointestinal History: nausea Genitourinary History: Reports: None Musculoskeletal History: Reports: Fracture, Other (See Below) Other Musculoskeletal History: hx fx collarbone & "seperated" shoulder Neurological History: Reports: Other (See Below) Other Neuro History: malignant brain tumor with mets to the lung Psychiatric History: Reports: None Endocrine/Metabolic History: Reports: None Hematologic History: Reports: None Immunologic History: Reports: None Oncologic (Cancer) History: Reports: Brain, Lung Other Oncologic History: non-small cell lung cancer metastatic to brain Dermatologic History: Reports: None - Infectious Disease History Infectious Disease History: Reports: None - Past Surgical History Head Surgeries/Procedures: Reports: Craniotomy HEENT Surgical History: Reports: None Cardiovascular Surgical History: Reports: None Respiratory Surgical History: Reports: None GI Surgical History: Reports: Hernia, Abdominal Male Surgical History: Reports: None Endocrine Surgical History: Reports: None Neurological Surgical History: Reports: Other (See Below) Other Neurological Surgeries/Procedures: craniotomy & partial tumor removal approx 4 weeks ago Musculoskeletal Surgical History: Reports: None Oncologic Surgical History: Reports: Other (See Below) Other Oncologic Surgeries/Procedures: craniotomy with partial tumor removal Dermatological Surgical History: Reports: Other (See Below) Social & Family History - Family History Family Medical History: No Pertinent Family History - Tobacco Use Tobacco Use Status *Q: Current Every Day Tobacco User Years of Tobacco use: 35 Packs/Tins Daily: 0.5 Used Tobacco, but Quit: No - Caffeine Use Caffeine Use: Reports: Coffee - Alcohol Use Days Per Week of Alcohol Use: 7 Number of Drinks Per Day: 2 Total Drinks Per Week: 14 Date of Last Drink: 07/02/20 - Recreational Drug Use Recreational Drug Use: No H&P Review of Systems - Review of Systems: Review Of Systems: Comprehensive ROS is negative, except as noted in HPI. Exam - Exam Exam: See Below - Vital Signs Vital Signs: Last Vital Signs Temp 36.4 C 07/03/20 19:23 Pulse 80 07/03/20 19:23 Resp 19 07/03/20 19:23 BP 116/65 07/03/20 19:23 Pulse Ox 93 L 07/03/20 19:23 Orthostatic Blood Pressure [ 103/67 Standing] Orthostatic Blood Pressure [ 114/72 Sitting] Orthostatic Blood Pressure [ 114/65 Supine] Weight: 69.763 kg - Exam General: Alert, Oriented HEENT: Posterior Pharynx Clear Neck: Supple Lungs: Clear to Auscultation, Normal Respiratory Effort Cardiovascular: Regular Rate, Regular Rhythm GI/Abdominal Exam: Soft, Non-Tender, No Distention Extremities: Non-Tender, No Pedal Edema Skin: Warm, Dry, Intact - Patient Data Lab Results Last 24 hrs: Laboratory Results - last 24 hr 07/03/20 07/03/20 07/03/20 Range/Units 15:21 15:21 15:21 WBC 5.78 (4.0-11.0) K/uL RBC 3.02 L (4.50-5.90) M/uL Hgb 10.7 L (13.0-17.0) g/dL Hct 32.2 L (38.0-50.0) % MCV 106.6 H (80.0-98.0) fL MCH 35.4 H (27.0-32.0) pg MCHC 33.2 (31.0-37.0) g/dL RDW Std Deviation 64.5 H (28.0-62.0) fl RDW Coeff of Evelin 17 H (11.0-15.0) % Plt Count 114 L (150-400) K/uL MPV 9.20 (7.40-12.00) fL Add Manual Diff YES Neutrophils % (Manual) 53 (48.0-80.0) % Band Neutrophils % 11 % Lymphocytes % (Manual) 14 L (16.0-40.0) % Monocytes % (Manual) 12 (0.0-15.0) % Metamyelocytes % 6 % Myelocytes % 4 % Nucleated RBC % 4.8 /100WBC Absolute Seg Neuts 3.1 (1.4-5.7) Band Neutrophils # 0.6 Lymphocytes # (Manual) 0.8 (0.6-2.4) Monocytes # (Manual) 0.7 (0.0-0.8) Absolute Metamyelocyte 0.3 Absolute Myelocytes 0.2 Nucleated RBCs # 0 K/uL Lactate 3.3 H* (0.20-2.00) mmol/L Sodium 138 (136-148) mmol/L Potassium 2.9 L (3.5-5.1) mmol/L Chloride 99 (98-107) mmol/L Carbon Dioxide 24.7 (21.0-32.0) mmol/L BUN 15 (7.0-18.0) mg/dL Creatinine 0.9 (0.8-1.3) mg/dL Est Cr Clr Drug Dosing 87.73 mL/min Estimated GFR (MDRD) > 60.0 ml/min Glucose 90 (74-106) mg/dL Calcium 8.1 L (8.5-10.1) mg/dL Magnesium (1.8-2.4) mg/dL Total Bilirubin 0.3 (0.2-1.0) mg/dL AST 68 H (15-37) IU/L ALT 80 H (14-63) IU/L Alkaline Phosphatase 70 (46-116) U/L Troponin I < 0.050 (0.000-0.056) ng/mL Total Protein 6.6 (6.4-8.2) g/dL Albumin 3.3 L (3.4-5.0) g/dL Globulin 3.3 (2.6-4.0) g/dL Albumin/Globulin Ratio 1.0 (0.9-1.6) SARS-CoV-2 RNA (GRZEGORZ) (NEGATIVE) Blood Type Antibody Screen 07/03/20 07/03/20 07/03/20 Range/Units 15:21 15:21 15:52 WBC (4.0-11.0) K/uL RBC (4.50-5.90) M/uL Hgb (13.0-17.0) g/dL Hct (38.0-50.0) % MCV (80.0-98.0) fL MCH (27.0-32.0) pg MCHC (31.0-37.0) g/dL RDW Std Deviation (28.0-62.0) fl RDW Coeff of Evelin (11.0-15.0) % Plt Count (150-400) K/uL MPV (7.40-12.00) fL Add Manual Diff Neutrophils % (Manual) (48.0-80.0) % Band Neutrophils % % Lymphocytes % (Manual) (16.0-40.0) % Monocytes % (Manual) (0.0-15.0) % Metamyelocytes % % Myelocytes % % Nucleated RBC % /100WBC Absolute Seg Neuts (1.4-5.7) Band Neutrophils # Lymphocytes # (Manual) (0.6-2.4) Monocytes # (Manual) (0.0-0.8) Absolute Metamyelocyte Absolute Myelocytes Nucleated RBCs # K/uL Lactate (0.20-2.00) mmol/L Sodium (136-148) mmol/L Potassium (3.5-5.1) mmol/L Chloride (98-107) mmol/L Carbon Dioxide (21.0-32.0) mmol/L BUN (7.0-18.0) mg/dL Creatinine (0.8-1.3) mg/dL Est Cr Clr Drug Dosing mL/min Estimated GFR (MDRD) ml/min Glucose (74-106) mg/dL Calcium (8.5-10.1) mg/dL Magnesium 1.7 L (1.8-2.4) mg/dL Total Bilirubin (0.2-1.0) mg/dL AST (15-37) IU/L ALT (14-63) IU/L Alkaline Phosphatase (46-116) U/L Troponin I (0.000-0.056) ng/mL Total Protein (6.4-8.2) g/dL Albumin (3.4-5.0) g/dL Globulin (2.6-4.0) g/dL Albumin/Globulin Ratio (0.9-1.6) SARS-CoV-2 RNA (GRZEGORZ) NEGATIVE (NEGATIVE) Blood Type O POSITIVE Antibody Screen NEGATIVE 07/03/20 Range/Units 20:03 WBC (4.0-11.0) K/uL RBC (4.50-5.90) M/uL Hgb (13.0-17.0) g/dL Hct (38.0-50.0) % MCV (80.0-98.0) fL MCH (27.0-32.0) pg MCHC (31.0-37.0) g/dL RDW Std Deviation (28.0-62.0) fl RDW Coeff of Evelin (11.0-15.0) % Plt Count (150-400) K/uL MPV (7.40-12.00) fL Add Manual Diff Neutrophils % (Manual) (48.0-80.0) % Band Neutrophils % % Lymphocytes % (Manual) (16.0-40.0) % Monocytes % (Manual) (0.0-15.0) % Metamyelocytes % % Myelocytes % % Nucleated RBC % /100WBC Absolute Seg Neuts (1.4-5.7) Band Neutrophils # Lymphocytes # (Manual) (0.6-2.4) Monocytes # (Manual) (0.0-0.8) Absolute Metamyelocyte Absolute Myelocytes Nucleated RBCs # K/uL Lactate 2.2 H* (0.20-2.00) mmol/L Sodium (136-148) mmol/L Potassium (3.5-5.1) mmol/L Chloride (98-107) mmol/L Carbon Dioxide (21.0-32.0) mmol/L BUN (7.0-18.0) mg/dL Creatinine (0.8-1.3) mg/dL Est Cr Clr Drug Dosing mL/min Estimated GFR (MDRD) ml/min Glucose (74-106) mg/dL Calcium (8.5-10.1) mg/dL Magnesium (1.8-2.4) mg/dL Total Bilirubin (0.2-1.0) mg/dL AST (15-37) IU/L ALT (14-63) IU/L Alkaline Phosphatase (46-116) U/L Troponin I (0.000-0.056) ng/mL Total Protein (6.4-8.2) g/dL Albumin (3.4-5.0) g/dL Globulin (2.6-4.0) g/dL Albumin/Globulin Ratio (0.9-1.6) SARS-CoV-2 RNA (GRZEGORZ) (NEGATIVE) Blood Type Antibody Screen Result Diagrams: 07/04/20 15:02 07/04/20 05:23 Sepsis Event Note - Evaluation Sepsis Screening Result: No Definite Risk - Focused Exam Vital Signs: Vital Signs Temp Pulse Resp BP Pulse Ox 07/03/20 19:23 36.4 C 80 19 116/65 93 L 07/03/20 19:15 36.4 C 80 19 116/65 93 L 07/03/20 18:10 36.6 C 94 16 116/80 96 07/03/20 17:49 84 17 111/70 98 07/03/20 17:07 80 17 107/67 98 07/03/20 15:10 37.3 C 97 17 139/94 H 97 Problem List Initiated/Reviewed/Updated: Yes Orders Last 24hrs: Active Orders 24 hr Category Date Time Status Admission Status [Patient Status] [ADT] Stat ADT 07/03/20 16:49 Active Antiembolic Devices [RC] PER UNIT ROUTINE Care 07/03/20 21:21 Active Cardiac Monitoring [RC] . DIRECTED Care 07/03/20 14:50 Active EKG Documentation Completion [RC] STAT Care 07/03/20 14:50 Active Hemoccult [Fecal Occult Blood Collection] [RC] Care 07/03/20 14:53 Active ASDIRECTED Orthostatic Vital Signs [RC] ASDIRECTED Care 07/03/20 14:50 Active Oxygen Therapy [RC] PRN Care 07/03/20 21:19 Active Up ad Alessandra [RC] ASDIRECTED Care 07/03/20 21:19 Active VTE/DVT Education [RC] PER UNIT ROUTINE Care 07/03/20 21:19 Active Vital Signs [RC] Q4H Care 07/03/20 21:19 Active Clear Liquid Diet [DIET] Diet 07/03/20 Breakfast Active CBC WITH AUTO DIFF [HEME] AM Lab 07/04/20 05:11 Ordered COMPREHENSIVE METABOLIC PN,CMP [CHEM] AM Lab 07/04/20 05:11 Ordered UA RFX DANIS AND CULT IF INDIC [URIN] Stat Lab 07/03/20 14:50 Ordered Acetaminophen/oxyCODONE [Percocet 325-5 MG] Med 07/03/20 21:18 Active 1 tab PO Q4H PRN Ondansetron [Zofran] Med 07/03/20 21:19 Active 4 mg IVPUSH Q4H PRN Pantoprazole [ProTONIX IV] 40 mg Med 07/03/20 21:30 Active Sodium Chloride 0.9% [Normal Saline] 10 ml IV Q12HR Sodium Chloride 0.9% [Normal Saline] 1,000 ml Med 07/03/20 21:30 Active IV ASDIRECTED Sodium Chloride 0.9% [Normal Saline] 1,000 ml Med 07/03/20 14:54 Active IV STAT Sodium Chloride 0.9% [Normal Saline] 1,000 ml Med 07/03/20 17:05 Active IV STAT Sodium Chloride 0.9% with KCl [Normal Saline with 40 Med 07/03/20 18:00 Active mEq KCl] 1,000 ml IV ASDIRECTED dexAMETHasone Med 07/03/20 22:00 Active 2 mg PO TID Sequential Compression Device [OM.PC] Per Unit Routine Oth 07/03/20 21:20 Ordered Resuscitation Status Routine Resus Stat 07/03/20 21:19 Ordered Medication Orders Dexamethasone (Dexamethasone 4 Mg Tab) 2 mg PO TID RIKY Sodium Chloride (Normal Saline) 1,000 mls @ 125 mls/hr IV STAT ONE Stop: 07/03/20 22:53 Last Admin: 07/03/20 15:28 Dose: 125 mls/hr Documented by: [email or web address] Sodium Chloride (Normal Saline) 1,000 mls @ 150 mls/hr IV STAT ONE Stop: 07/03/20 23:44 Potassium Chloride/Sodium Chloride (Normal Saline With 40 Meq Kcl) 1,000 mls @ 150 mls/hr IV ASDIRECTED RIKY Stop: 07/04/20 00:39 Sodium Chloride (Normal Saline) 1,000 mls @ 125 mls/hr IV ASDIRECTED RIKY Pantoprazole Sodium 40 mg/ (Sodium Chloride) 10 mls @ 200 mls/hr IV Q12HR RIKY Ondansetron HCl (Ondansetron 4 Mg/2 Ml Sdv) 4 mg IVPUSH Q4H PRN PRN Reason: Nausea Oxycodone/Acetaminophen (Acetaminophen/Oxycodone 325-5 Mg Tab) 1 tab PO Q4H PRN PRN Reason: pain Assessment/Plan Comment:: 55 yo male with pmh of metastatic small cell lung cancer admitted for dehydration, nausea, and vomiting likely 2/2 to chemotherapy. We will hydrate with IV fluids and treat supportively with antiemetic. Patient may have had a GI bleed but is unlikely bleeding currently. We will treat with IV protonix and trend hgb.
[2020-07-03] MEDS: Dexamethasone 4 MG Tab PO SCH (21:53)
[2020-07-03] MEDS: Pantoprazole 40 MG in Sodium Chloride 0.9% 10 ML IV SCH (21:57)
[2020-07-03] MEDS: Sodium Chloride 0.9% 1,000 ML IV SCH (23:29)
[2020-07-04] MEDS: Acetaminophen/oxyCODONE 325-5 MG Tab PO PRN ×4 (01:46→21:23)
[2020-07-04] MEDS ORDERED: Sodium Chloride 0.9% with KCl 1,000 ML IV SCH (02:00)
[2020-07-04 06:05] LABS: BLOOD UREA NITROGEN,BUN 11 mg/dL (7.0-18.0); CARBON DIOXIDE,CO2 25.1 mmol/L (21.0-32.0); CHLORIDE,CL 100 mmol/L (98-107); GLUCOSE RANDOM 132 mg/dL (74-106); POTASSIUM,K 4.4 mmol/L (3.5-5.1); SODIUM,NA 136 mmol/L (136-148)
[2020-07-04] MEDS: Dexamethasone 4 MG Tab PO SCH ×3 (06:56→21:50)
[2020-07-04] MEDS ORDERED: Sodium Chloride 0.9% 2.5 ML Syringe FLUSH PRN (08:28)
[2020-07-04] MEDS ORDERED: Sodium Chloride 0.9% 10 ML Syringe FLUSH PRN (08:28)
[2020-07-04] MEDS: Pantoprazole 40 MG in Sodium Chloride 0.9% 10 ML IV SCH ×2 (08:29→21:51)
[2020-07-04] MEDS: Sodium Chloride 0.9% 1,000 ML IV SCH ×2 (08:31→16:38)
--- NOTE | 2020-07-04 13:37 | PCM.PN ---
- General Info Date of Service: 07/04/20 Admission Dx/Problem (Free Text): Admission Diagnosis/Problem Admission Diagnosis/Problem Hypokalemia Subjective Update: Feeling much improved. Denies any chest pain or shortness of breath. Nausea is much improved had 1 dark stool early this morning and then this afternoon had a dark brown stool. Feeling as though he is wanting increase in diet. Otherwise feeling improved. Functional Status: Reports: Pain Controlled, Tolerating Diet, Ambulating, Urinating - Review of Systems General: Reports: No Symptoms. Denies: Weakness, Fatigue, Malaise HEENT: Reports: No Symptoms. Denies: Headaches, Sore Throat, Visual Changes Pulmonary: Reports: No Symptoms. Denies: Shortness of Breath Cardiovascular: Reports: No Symptoms. Denies: Chest Pain Gastrointestinal: Reports: Diarrhea. Denies: Abdominal Pain, Nausea, Vomiting Genitourinary: Reports: No Symptoms. Denies: Dysuria, Frequency, Burning Musculoskeletal: Reports: No Symptoms Skin: Reports: No Symptoms Neurological: Reports: No Symptoms Psychiatric: Reports: No Symptoms - Patient Data Vitals - Most Recent: Last Vital Signs Temp 97.1 F 07/04/20 08:00 Pulse 74 07/04/20 08:00 Resp 16 07/04/20 08:00 BP 136/73 07/04/20 08:00 Pulse Ox 94 L 07/04/20 08:00 Orthostatic Blood Pressure [ 103/67 Standing] Orthostatic Blood Pressure [ 114/72 Sitting] Orthostatic Blood Pressure [ 114/65 Supine] Weight - Most Recent: 69.763 kg I&O - Last 24 Hours: Intake & Output 07/03/20 07/04/20 07/04/20 22:59 06:59 14:59 Intake Total 2141 Output Total 400 Balance 1741 Lab Results Last 24 Hours: Laboratory Results - last 24 hr 07/03/20 07/03/20 07/03/20 Range/Units 15:21 15:21 15:21 WBC 5.78 (4.0-11.0) K/uL RBC 3.02 L (4.50-5.90) M/uL Hgb 10.7 L (13.0-17.0) g/dL Hct 32.2 L (38.0-50.0) % MCV 106.6 H (80.0-98.0) fL MCH 35.4 H (27.0-32.0) pg MCHC 33.2 (31.0-37.0) g/dL RDW Std Deviation 64.5 H (28.0-62.0) fl RDW Coeff of Evelin 17 H (11.0-15.0) % Plt Count 114 L (150-400) K/uL MPV 9.20 (7.40-12.00) fL Add Manual Diff YES Neutrophils % (Manual) 53 (48.0-80.0) % Band Neutrophils % 11 % Lymphocytes % (Manual) 14 L (16.0-40.0) % Monocytes % (Manual) 12 (0.0-15.0) % Eosinophils % (Manual) (0.0-7.0) % Metamyelocytes % 6 % Myelocytes % 4 % Nucleated RBC % 4.8 /100WBC Absolute Seg Neuts 3.1 (1.4-5.7) Band Neutrophils # 0.6 Lymphocytes # (Manual) 0.8 (0.6-2.4) Monocytes # (Manual) 0.7 (0.0-0.8) Eosinophils # (Manual) (0.0-0.7) Absolute Metamyelocyte 0.3 Absolute Myelocytes 0.2 Nucleated RBCs # 0 K/uL Polychromasia Lactate 3.3 H* (0.20-2.00) mmol/L Sodium 138 (136-148) mmol/L Potassium 2.9 L (3.5-5.1) mmol/L Chloride 99 (98-107) mmol/L Carbon Dioxide 24.7 (21.0-32.0) mmol/L BUN 15 (7.0-18.0) mg/dL Creatinine 0.9 (0.8-1.3) mg/dL Est Cr Clr Drug Dosing 87.73 mL/min Estimated GFR (MDRD) > 60.0 ml/min Glucose 90 (74-106) mg/dL Calcium 8.1 L (8.5-10.1) mg/dL Phosphorus (2.6-4.7) mg/dL Magnesium (1.8-2.4) mg/dL Total Bilirubin 0.3 (0.2-1.0) mg/dL AST 68 H (15-37) IU/L ALT 80 H (14-63) IU/L Alkaline Phosphatase 70 (46-116) U/L Troponin I < 0.050 (0.000-0.056) ng/mL Total Protein 6.6 (6.4-8.2) g/dL Albumin 3.3 L (3.4-5.0) g/dL Globulin 3.3 (2.6-4.0) g/dL Albumin/Globulin Ratio 1.0 (0.9-1.6) Urine Color Urine Appearance Urine pH (5.0-8.0) Ur Specific Mora (1.001-1.035) Urine Protein (NEGATIVE) mg/dL Urine Glucose (UA) (NEGATIVE) mg/dL Urine Ketones (NEGATIVE) mg/dL Urine Occult Blood (NEGATIVE) Urine Nitrite (NEGATIVE) Urine Bilirubin (NEGATIVE) Urine Urobilinogen (<2.0) EU/dL Ur Leukocyte Esterase (NEGATIVE) Urine RBC (0-2/HPF) Urine WBC (0-5/HPF) Ur Epithelial Cells (NONE-FEW) Amorphous Sediment (NEGATIVE) Urine Bacteria (NEGATIVE) Urine Mucus (NONE-MOD) SARS-CoV-2 RNA (GRZEGORZ) (NEGATIVE) Blood Type Antibody Screen 07/03/20 07/03/20 07/03/20 Range/Units 15:21 15:21 15:52 WBC (4.0-11.0) K/uL RBC (4.50-5.90) M/uL Hgb (13.0-17.0) g/dL Hct (38.0-50.0) % MCV (80.0-98.0) fL MCH (27.0-32.0) pg MCHC (31.0-37.0) g/dL RDW Std Deviation (28.0-62.0) fl RDW Coeff of Evelin (11.0-15.0) % Plt Count (150-400) K/uL MPV (7.40-12.00) fL Add Manual Diff Neutrophils % (Manual) (48.0-80.0) % Band Neutrophils % % Lymphocytes % (Manual) (16.0-40.0) % Monocytes % (Manual) (0.0-15.0) % Eosinophils % (Manual) (0.0-7.0) % Metamyelocytes % % Myelocytes % % Nucleated RBC % /100WBC Absolute Seg Neuts (1.4-5.7) Band Neutrophils # Lymphocytes # (Manual) (0.6-2.4) Monocytes # (Manual) (0.0-0.8) Eosinophils # (Manual) (0.0-0.7) Absolute Metamyelocyte Absolute Myelocytes Nucleated RBCs # K/uL Polychromasia Lactate (0.20-2.00) mmol/L Sodium (136-148) mmol/L Potassium (3.5-5.1) mmol/L Chloride (98-107) mmol/L Carbon Dioxide (21.0-32.0) mmol/L BUN (7.0-18.0) mg/dL Creatinine (0.8-1.3) mg/dL Est Cr Clr Drug Dosing mL/min Estimated GFR (MDRD) ml/min Glucose (74-106) mg/dL Calcium (8.5-10.1) mg/dL Phosphorus (2.6-4.7) mg/dL Magnesium 1.7 L (1.8-2.4) mg/dL Total Bilirubin (0.2-1.0) mg/dL AST (15-37) IU/L ALT (14-63) IU/L Alkaline Phosphatase (46-116) U/L Troponin I (0.000-0.056) ng/mL Total Protein (6.4-8.2) g/dL Albumin (3.4-5.0) g/dL Globulin (2.6-4.0) g/dL Albumin/Globulin Ratio (0.9-1.6) Urine Color Urine Appearance Urine pH (5.0-8.0) Ur Specific Mora (1.001-1.035) Urine Protein (NEGATIVE) mg/dL Urine Glucose (UA) (NEGATIVE) mg/dL Urine Ketones (NEGATIVE) mg/dL Urine Occult Blood (NEGATIVE) Urine Nitrite (NEGATIVE) Urine Bilirubin (NEGATIVE) Urine Urobilinogen (<2.0) EU/dL Ur Leukocyte Esterase (NEGATIVE) Urine RBC (0-2/HPF) Urine WBC (0-5/HPF) Ur Epithelial Cells (NONE-FEW) Amorphous Sediment (NEGATIVE) Urine Bacteria (NEGATIVE) Urine Mucus (NONE-MOD) SARS-CoV-2 RNA (GRZEGORZ) NEGATIVE (NEGATIVE) Blood Type O POSITIVE Antibody Screen NEGATIVE 07/03/20 07/03/20 07/04/20 Range/Units 20:03 22:35 02:10 WBC 4.18 (4.0-11.0) K/uL RBC 2.88 L (4.50-5.90) M/uL Hgb 10.2 L (13.0-17.0) g/dL Hct 30.9 L (38.0-50.0) % MCV 107.3 H (80.0-98.0) fL MCH 35.4 H (27.0-32.0) pg MCHC 33.0 (31.0-37.0) g/dL RDW Std Deviation 66.7 H (28.0-62.0) fl RDW Coeff of Evelin 18 H (11.0-15.0) % Plt Count 116 L (150-400) K/uL MPV 9.30 (7.40-12.00) fL Add Manual Diff YES Neutrophils % (Manual) 57 (48.0-80.0) % Band Neutrophils % 13 % Lymphocytes % (Manual) 14 L (16.0-40.0) % Monocytes % (Manual) 7 (0.0-15.0) % Eosinophils % (Manual) (0.0-7.0) % Metamyelocytes % 5 % Myelocytes % 4 % Nucleated RBC % 5.5 /100WBC Absolute Seg Neuts 2.4 (1.4-5.7) Band Neutrophils # 0.5 Lymphocytes # (Manual) 0.6 (0.6-2.4) Monocytes # (Manual) 0.3 (0.0-0.8) Eosinophils # (Manual) (0.0-0.7) Absolute Metamyelocyte 0.2 Absolute Myelocytes 0.2 Nucleated RBCs # 1 K/uL Polychromasia 1+ SLIGHT Lactate 2.2 H* (0.20-2.00) mmol/L Sodium (136-148) mmol/L Potassium (3.5-5.1) mmol/L Chloride (98-107) mmol/L Carbon Dioxide (21.0-32.0) mmol/L BUN (7.0-18.0) mg/dL Creatinine (0.8-1.3) mg/dL Est Cr Clr Drug Dosing mL/min Estimated GFR (MDRD) ml/min Glucose (74-106) mg/dL Calcium (8.5-10.1) mg/dL Phosphorus (2.6-4.7) mg/dL Magnesium (1.8-2.4) mg/dL Total Bilirubin (0.2-1.0) mg/dL AST (15-37) IU/L ALT (14-63) IU/L Alkaline Phosphatase (46-116) U/L Troponin I (0.000-0.056) ng/mL Total Protein (6.4-8.2) g/dL Albumin (3.4-5.0) g/dL Globulin (2.6-4.0) g/dL Albumin/Globulin Ratio (0.9-1.6) Urine Color YELLOW Urine Appearance SLT CLOUDY Urine pH 7.5 (5.0-8.0) Ur Specific Mora >= 1.030 (1.001-1.035) Urine Protein NEGATIVE (NEGATIVE) mg/dL Urine Glucose (UA) NEGATIVE (NEGATIVE) mg/dL Urine Ketones 15 H (NEGATIVE) mg/dL Urine Occult Blood TRACE-LYSED H (NEGATIVE) Urine Nitrite NEGATIVE (NEGATIVE) Urine Bilirubin NEGATIVE (NEGATIVE) Urine Urobilinogen 0.2 (<2.0) EU/dL Ur Leukocyte Esterase NEGATIVE (NEGATIVE) Urine RBC 1-3 (0-2/HPF) Urine WBC 0-1 (0-5/HPF) Ur Epithelial Cells RARE (NONE-FEW) Amorphous Sediment MODERATE (NEGATIVE) Urine Bacteria RARE (NEGATIVE) Urine Mucus LIGHT (NONE-MOD) SARS-CoV-2 RNA (GRZEGORZ) (NEGATIVE) Blood Type Antibody Screen 07/04/20 07/04/20 07/04/20 Range/Units 05:23 05:23 05:23 WBC 5.19 (4.0-11.0) K/uL RBC 2.63 L (4.50-5.90) M/uL Hgb 9.4 L (13.0-17.0) g/dL Hct 28.2 L (38.0-50.0) % MCV 107.2 H (80.0-98.0) fL MCH 35.7 H (27.0-32.0) pg MCHC 33.3 (31.0-37.0) g/dL RDW Std Deviation 66.8 H (28.0-62.0) fl RDW Coeff of Evelin 18 H (11.0-15.0) % Plt Count 107 L (150-400) K/uL MPV 9.60 (7.40-12.00) fL Add Manual Diff YES Neutrophils % (Manual) 70 (48.0-80.0) % Band Neutrophils % 4 % Lymphocytes % (Manual) 16 (16.0-40.0) % Monocytes % (Manual) 6 (0.0-15.0) % Eosinophils % (Manual) 1 (0.0-7.0) % Metamyelocytes % 2 % Myelocytes % 1 % Nucleated RBC % 3.6 /100WBC Absolute Seg Neuts 3.6 (1.4-5.7) Band Neutrophils # 0.2 Lymphocytes # (Manual) 0.8 (0.6-2.4) Monocytes # (Manual) 0.3 (0.0-0.8) Eosinophils # (Manual) 0.1 (0.0-0.7) Absolute Metamyelocyte 0.1 Absolute Myelocytes 0.1 Nucleated RBCs # 0 K/uL Polychromasia Lactate (0.20-2.00) mmol/L Sodium 136 (136-148) mmol/L Potassium 4.4 (3.5-5.1) mmol/L Chloride 100 (98-107) mmol/L Carbon Dioxide 25.1 (21.0-32.0) mmol/L BUN 11 (7.0-18.0) mg/dL Creatinine 0.6 L (0.8-1.3) mg/dL Est Cr Clr Drug Dosing 131.59 mL/min Estimated GFR (MDRD) > 60.0 ml/min Glucose 132 H (74-106) mg/dL Calcium 7.3 L (8.5-10.1) mg/dL Phosphorus 3.2 (2.6-4.7) mg/dL Magnesium 2.0 (1.8-2.4) mg/dL Total Bilirubin 0.6 (0.2-1.0) mg/dL AST 53 H (15-37) IU/L ALT 71 H (14-63) IU/L Alkaline Phosphatase 60 (46-116) U/L Troponin I (0.000-0.056) ng/mL Total Protein 5.9 L (6.4-8.2) g/dL Albumin 2.9 L (3.4-5.0) g/dL Globulin 3.0 (2.6-4.0) g/dL Albumin/Globulin Ratio 1.0 (0.9-1.6) Urine Color Urine Appearance Urine pH (5.0-8.0) Ur Specific Mora (1.001-1.035) Urine Protein (NEGATIVE) mg/dL Urine Glucose (UA) (NEGATIVE) mg/dL Urine Ketones (NEGATIVE) mg/dL Urine Occult Blood (NEGATIVE) Urine Nitrite (NEGATIVE) Urine Bilirubin (NEGATIVE) Urine Urobilinogen (<2.0) EU/dL Ur Leukocyte Esterase (NEGATIVE) Urine RBC (0-2/HPF) Urine WBC (0-5/HPF) Ur Epithelial Cells (NONE-FEW) Amorphous Sediment (NEGATIVE) Urine Bacteria (NEGATIVE) Urine Mucus (NONE-MOD) SARS-CoV-2 RNA (GRZEGORZ) (NEGATIVE) Blood Type Antibody Screen 07/04/20 Range/Units 11:23 WBC (4.0-11.0) K/uL RBC (4.50-5.90) M/uL Hgb (13.0-17.0) g/dL Hct (38.0-50.0) % MCV (80.0-98.0) fL MCH (27.0-32.0) pg MCHC (31.0-37.0) g/dL RDW Std Deviation (28.0-62.0) fl RDW Coeff of Evelin (11.0-15.0) % Plt Count (150-400) K/uL MPV (7.40-12.00) fL Add Manual Diff Neutrophils % (Manual) (48.0-80.0) % Band Neutrophils % % Lymphocytes % (Manual) (16.0-40.0) % Monocytes % (Manual) (0.0-15.0) % Eosinophils % (Manual) (0.0-7.0) % Metamyelocytes % % Myelocytes % % Nucleated RBC % /100WBC Absolute Seg Neuts (1.4-5.7) Band Neutrophils # Lymphocytes # (Manual) (0.6-2.4) Monocytes # (Manual) (0.0-0.8) Eosinophils # (Manual) (0.0-0.7) Absolute Metamyelocyte Absolute Myelocytes Nucleated RBCs # K/uL Polychromasia Lactate 0.7 (0.20-2.00) mmol/L Sodium (136-148) mmol/L Potassium (3.5-5.1) mmol/L Chloride (98-107) mmol/L Carbon Dioxide (21.0-32.0) mmol/L BUN (7.0-18.0) mg/dL Creatinine (0.8-1.3) mg/dL Est Cr Clr Drug Dosing mL/min Estimated GFR (MDRD) ml/min Glucose (74-106) mg/dL Calcium (8.5-10.1) mg/dL Phosphorus (2.6-4.7) mg/dL Magnesium (1.8-2.4) mg/dL Total Bilirubin (0.2-1.0) mg/dL AST (15-37) IU/L ALT (14-63) IU/L Alkaline Phosphatase (46-116) U/L Troponin I (0.000-0.056) ng/mL Total Protein (6.4-8.2) g/dL Albumin (3.4-5.0) g/dL Globulin (2.6-4.0) g/dL Albumin/Globulin Ratio (0.9-1.6) Urine Color Urine Appearance Urine pH (5.0-8.0) Ur Specific Mora (1.001-1.035) Urine Protein (NEGATIVE) mg/dL Urine Glucose (UA) (NEGATIVE) mg/dL Urine Ketones (NEGATIVE) mg/dL Urine Occult Blood (NEGATIVE) Urine Nitrite (NEGATIVE) Urine Bilirubin (NEGATIVE) Urine Urobilinogen (<2.0) EU/dL Ur Leukocyte Esterase (NEGATIVE) Urine RBC (0-2/HPF) Urine WBC (0-5/HPF) Ur Epithelial Cells (NONE-FEW) Amorphous Sediment (NEGATIVE) Urine Bacteria (NEGATIVE) Urine Mucus (NONE-MOD) SARS-CoV-2 RNA (GRZEGORZ) (NEGATIVE) Blood Type Antibody Screen Med Orders - Current: Current Medications Dexamethasone (Dexamethasone 4 Mg Tab) 2 mg PO TID [facility] Last Admin: 07/04/20 06:56 Dose: 2 mg Documented by: Sodium Chloride (Normal Saline) 1,000 mls @ 125 mls/hr IV ASDIRECTED [facility] Last Admin: 07/04/20 08:31 Dose: 125 mls/hr Documented by: Pantoprazole Sodium 40 mg/ (Sodium Chloride) 10 mls @ 200 mls/hr IV Q12HR RIKY Last Admin: 07/04/20 08:29 Dose: 200 mls/hr Documented by: Ondansetron HCl (Ondansetron 4 Mg/2 Ml Sdv) 4 mg IVPUSH Q4H PRN PRN Reason: Nausea Last Admin: 07/03/20 21:54 Dose: 4 mg Documented by: Oxycodone/Acetaminophen (Acetaminophen/Oxycodone 325-5 Mg Tab) 1 tab PO Q4H PRN PRN Reason: pain Last Admin: 07/04/20 08:27 Dose: 1 tab Documented by: Sodium Chloride (Sodium Chloride 0.9% 10 Ml Syringe) 10 ml FLUSH ASDIRECTED PRN PRN Reason: Keep Vein Open Sodium Chloride (Sodium Chloride 0.9% 2.5 Ml Syringe) 2.5 ml FLUSH ASDIRECTED PRN PRN Reason: Keep Vein Open Discontinued Medications Heparin Sodium (Porcine) (Heparin Sodium 100 Units/Ml 5 Ml Syringe) Confirm Administered Dose 500 units .ROUTE .STK-MED ONE Stop: 07/03/20 19:24 Last Admin: 07/03/20 20:08 Dose: Not Given Documented by: Heparin Sodium (Porcine) (Heparin Sodium 100 Units/Ml 5 Ml Syringe) 500 units FLUSH ONETIME ONE Stop: 07/03/20 19:37 Last Admin: 07/03/20 19:47 Dose: 500 units Documented by: Sodium Chloride (Normal Saline) 1,000 mls @ 125 mls/hr IV STAT ONE Stop: 07/03/20 22:53 Last Admin: 07/03/20 15:28 Dose: 125 mls/hr Documented by: Potassium Chloride 40 meq/ (Premix) 100 mls @ 25 mls/hr IV ONETIME ONE Stop: 07/03/20 20:10 Last Admin: 07/03/20 19:53 Dose: 25 mls/hr Documented by: Magnesium Sulfate (Magnesium Sulfate In Water 2 Gm/50 Ml) 2 gm in 50 mls @ 50 mls/hr IV ONETIME ONE Stop: 07/03/20 17:31 Last Admin: 07/03/20 17:13 Dose: 50 mls/hr Documented by: Sodium Chloride (Normal Saline) 1,000 mls @ 150 mls/hr IV STAT ONE Stop: 07/03/20 23:44 Last Admin: 07/04/20 08:35 Dose: Not Given Documented by: Potassium Chloride/Sodium Chloride (Normal Saline With 40 Meq Kcl) 1,000 mls @ 150 mls/hr IV ASDIRECTED RIKY Stop: 07/04/20 00:39 Potassium Chloride/Sodium Chloride (Normal Saline With 40 Meq Kcl) 1,000 mls @ 150 mls/hr IV ASDIRECTED RIKY Stop: 07/04/20 08:39 Last Admin: 07/04/20 02:06 Dose: 150 mls/hr Documented by: Ondansetron HCl (Ondansetron 4 Mg/2 Ml Sdv) 4 mg IVPUSH ONETIME ONE Stop: 07/03/20 14:52 Last Admin: 07/03/20 15:27 Dose: 4 mg Documented by: Pantoprazole Sodium (Pantoprazole 40 Mg Vial) 40 mg IV Q12HR RIKY Last Admin: 07/03/20 23:02 Dose: Not Given Documented by: - Exam General: Alert, Cooperative, No Acute Distress Lungs: Clear to Auscultation, Normal Respiratory Effort Cardiovascular: Regular Rate, Regular Rhythm GI/Abdominal Exam: Normal Bowel Sounds, Soft, Non-Tender Back Exam: Normal Inspection Extremities: Normal Inspection, Normal Range of Motion, Non-Tender, No Pedal Edema Neurological: No New Focal Deficit Psy/Mental Status: Alert, Normal Affect, Normal Mood - Patient Data Lab Results Last 24 hrs: Laboratory Results - last 24 hr 07/03/20 07/03/20 07/03/20 Range/Units 15:21 15:21 15:21 WBC 5.78 (4.0-11.0) K/uL RBC 3.02 L (4.50-5.90) M/uL Hgb 10.7 L (13.0-17.0) g/dL Hct 32.2 L (38.0-50.0) % MCV 106.6 H (80.0-98.0) fL MCH 35.4 H (27.0-32.0) pg MCHC 33.2 (31.0-37.0) g/dL RDW Std Deviation 64.5 H (28.0-62.0) fl RDW Coeff of Evelin 17 H (11.0-15.0) % Plt Count 114 L (150-400) K/uL MPV 9.20 (7.40-12.00) fL Add Manual Diff YES Neutrophils % (Manual) 53 (48.0-80.0) % Band Neutrophils % 11 % Lymphocytes % (Manual) 14 L (16.0-40.0) % Monocytes % (Manual) 12 (0.0-15.0) % Eosinophils % (Manual) (0.0-7.0) % Metamyelocytes % 6 % Myelocytes % 4 % Nucleated RBC % 4.8 /100WBC Absolute Seg Neuts 3.1 (1.4-5.7) Band Neutrophils # 0.6 Lymphocytes # (Manual) 0.8 (0.6-2.4) Monocytes # (Manual) 0.7 (0.0-0.8) Eosinophils # (Manual) (0.0-0.7) Absolute Metamyelocyte 0.3 Absolute Myelocytes 0.2 Nucleated RBCs # 0 K/uL Polychromasia Lactate 3.3 H* (0.20-2.00) mmol/L Sodium 138 (136-148) mmol/L Potassium 2.9 L (3.5-5.1) mmol/L Chloride 99 (98-107) mmol/L Carbon Dioxide 24.7 (21.0-32.0) mmol/L BUN 15 (7.0-18.0) mg/dL Creatinine 0.9 (0.8-1.3) mg/dL Est Cr Clr Drug Dosing 87.73 mL/min Estimated GFR (MDRD) > 60.0 ml/min Glucose 90 (74-106) mg/dL Calcium 8.1 L (8.5-10.1) mg/dL Phosphorus (2.6-4.7) mg/dL Magnesium (1.8-2.4) mg/dL Total Bilirubin 0.3 (0.2-1.0) mg/dL AST 68 H (15-37) IU/L ALT 80 H (14-63) IU/L Alkaline Phosphatase 70 (46-116) U/L Troponin I < 0.050 (0.000-0.056) ng/mL Total Protein 6.6 (6.4-8.2) g/dL Albumin 3.3 L (3.4-5.0) g/dL Globulin 3.3 (2.6-4.0) g/dL Albumin/Globulin Ratio 1.0 (0.9-1.6) Urine Color Urine Appearance Urine pH (5.0-8.0) Ur Specific Mora (1.001-1.035) Urine Protein (NEGATIVE) mg/dL Urine Glucose (UA) (NEGATIVE) mg/dL Urine Ketones (NEGATIVE) mg/dL Urine Occult Blood (NEGATIVE) Urine Nitrite (NEGATIVE) Urine Bilirubin (NEGATIVE) Urine Urobilinogen (<2.0) EU/dL Ur Leukocyte Esterase (NEGATIVE) Urine RBC (0-2/HPF) Urine WBC (0-5/HPF) Ur Epithelial Cells (NONE-FEW) Amorphous Sediment (NEGATIVE) Urine Bacteria (NEGATIVE) Urine Mucus (NONE-MOD) SARS-CoV-2 RNA (GRZEGORZ) (NEGATIVE) Blood Type Antibody Screen 07/03/20 07/03/20 07/03/20 Range/Units 15:21 15:21 15:52 WBC (4.0-11.0) K/uL RBC (4.50-5.90) M/uL Hgb (13.0-17.0) g/dL Hct (38.0-50.0) % MCV (80.0-98.0) fL MCH (27.0-32.0) pg MCHC (31.0-37.0) g/dL RDW Std Deviation (28.0-62.0) fl RDW Coeff of Evelin (11.0-15.0) % Plt Count (150-400) K/uL MPV (7.40-12.00) fL Add Manual Diff Neutrophils % (Manual) (48.0-80.0) % Band Neutrophils % % Lymphocytes % (Manual) (16.0-40.0) % Monocytes % (Manual) (0.0-15.0) % Eosinophils % (Manual) (0.0-7.0) % Metamyelocytes % % Myelocytes % % Nucleated RBC % /100WBC Absolute Seg Neuts (1.4-5.7) Band Neutrophils # Lymphocytes # (Manual) (0.6-2.4) Monocytes # (Manual) (0.0-0.8) Eosinophils # (Manual) (0.0-0.7) Absolute Metamyelocyte Absolute Myelocytes Nucleated RBCs # K/uL Polychromasia Lactate (0.20-2.00) mmol/L Sodium (136-148) mmol/L Potassium (3.5-5.1) mmol/L Chloride (98-107) mmol/L Carbon Dioxide (21.0-32.0) mmol/L BUN (7.0-18.0) mg/dL Creatinine (0.8-1.3) mg/dL Est Cr Clr Drug Dosing mL/min Estimated GFR (MDRD) ml/min Glucose (74-106) mg/dL Calcium (8.5-10.1) mg/dL Phosphorus (2.6-4.7) mg/dL Magnesium 1.7 L (1.8-2.4) mg/dL Total Bilirubin (0.2-1.0) mg/dL AST (15-37) IU/L ALT (14-63) IU/L Alkaline Phosphatase (46-116) U/L Troponin I (0.000-0.056) ng/mL Total Protein (6.4-8.2) g/dL Albumin (3.4-5.0) g/dL Globulin (2.6-4.0) g/dL Albumin/Globulin Ratio (0.9-1.6) Urine Color Urine Appearance Urine pH (5.0-8.0) Ur Specific Mora (1.001-1.035) Urine Protein (NEGATIVE) mg/dL Urine Glucose (UA) (NEGATIVE) mg/dL Urine Ketones (NEGATIVE) mg/dL Urine Occult Blood (NEGATIVE) Urine Nitrite (NEGATIVE) Urine Bilirubin (NEGATIVE) Urine Urobilinogen (<2.0) EU/dL Ur Leukocyte Esterase (NEGATIVE) Urine RBC (0-2/HPF) Urine WBC (0-5/HPF) Ur Epithelial Cells (NONE-FEW) Amorphous Sediment (NEGATIVE) Urine Bacteria (NEGATIVE) Urine Mucus (NONE-MOD) SARS-CoV-2 RNA (GRZEGORZ) NEGATIVE (NEGATIVE) Blood Type O POSITIVE Antibody Screen NEGATIVE 07/03/20 07/03/20 07/04/20 Range/Units 20:03 22:35 02:10 WBC 4.18 (4.0-11.0) K/uL RBC 2.88 L (4.50-5.90) M/uL Hgb 10.2 L (13.0-17.0) g/dL Hct 30.9 L (38.0-50.0) % MCV 107.3 H (80.0-98.0) fL MCH 35.4 H (27.0-32.0) pg MCHC 33.0 (31.0-37.0) g/dL RDW Std Deviation 66.7 H (28.0-62.0) fl RDW Coeff of Evelin 18 H (11.0-15.0) % Plt Count 116 L (150-400) K/uL MPV 9.30 (7.40-12.00) fL Add Manual Diff YES Neutrophils % (Manual) 57 (48.0-80.0) % Band Neutrophils % 13 % Lymphocytes % (Manual) 14 L (16.0-40.0) % Monocytes % (Manual) 7 (0.0-15.0) % Eosinophils % (Manual) (0.0-7.0) % Metamyelocytes % 5 % Myelocytes % 4 % Nucleated RBC % 5.5 /100WBC Absolute Seg Neuts 2.4 (1.4-5.7) Band Neutrophils # 0.5 Lymphocytes # (Manual) 0.6 (0.6-2.4) Monocytes # (Manual) 0.3 (0.0-0.8) Eosinophils # (Manual) (0.0-0.7) Absolute Metamyelocyte 0.2 Absolute Myelocytes 0.2 Nucleated RBCs # 1 K/uL Polychromasia 1+ SLIGHT Lactate 2.2 H* (0.20-2.00) mmol/L Sodium (136-148) mmol/L Potassium (3.5-5.1) mmol/L Chloride (98-107) mmol/L Carbon Dioxide (21.0-32.0) mmol/L BUN (7.0-18.0) mg/dL Creatinine (0.8-1.3) mg/dL Est Cr Clr Drug Dosing mL/min Estimated GFR (MDRD) ml/min Glucose (74-106) mg/dL Calcium (8.5-10.1) mg/dL Phosphorus (2.6-4.7) mg/dL Magnesium (1.8-2.4) mg/dL Total Bilirubin (0.2-1.0) mg/dL AST (15-37) IU/L ALT (14-63) IU/L Alkaline Phosphatase (46-116) U/L Troponin I (0.000-0.056) ng/mL Total Protein (6.4-8.2) g/dL Albumin (3.4-5.0) g/dL Globulin (2.6-4.0) g/dL Albumin/Globulin Ratio (0.9-1.6) Urine Color YELLOW Urine Appearance SLT CLOUDY Urine pH 7.5 (5.0-8.0) Ur Specific Mora >= 1.030 (1.001-1.035) Urine Protein NEGATIVE (NEGATIVE) mg/dL Urine Glucose (UA) NEGATIVE (NEGATIVE) mg/dL Urine Ketones 15 H (NEGATIVE) mg/dL Urine Occult Blood TRACE-LYSED H (NEGATIVE) Urine Nitrite NEGATIVE (NEGATIVE) Urine Bilirubin NEGATIVE (NEGATIVE) Urine Urobilinogen 0.2 (<2.0) EU/dL Ur Leukocyte Esterase NEGATIVE (NEGATIVE) Urine RBC 1-3 (0-2/HPF) Urine WBC 0-1 (0-5/HPF) Ur Epithelial Cells RARE (NONE-FEW) Amorphous Sediment MODERATE (NEGATIVE) Urine Bacteria RARE (NEGATIVE) Urine Mucus LIGHT (NONE-MOD) SARS-CoV-2 RNA (GRZEGORZ) (NEGATIVE) Blood Type Antibody Screen 07/04/20 07/04/20 07/04/20 Range/Units 05:23 05:23 05:23 WBC 5.19 (4.0-11.0) K/uL RBC 2.63 L (4.50-5.90) M/uL Hgb 9.4 L (13.0-17.0) g/dL Hct 28.2 L (38.0-50.0) % MCV 107.2 H (80.0-98.0) fL MCH 35.7 H (27.0-32.0) pg MCHC 33.3 (31.0-37.0) g/dL RDW Std Deviation 66.8 H (28.0-62.0) fl RDW Coeff of Evelin 18 H (11.0-15.0) % Plt Count 107 L (150-400) K/uL MPV 9.60 (7.40-12.00) fL Add Manual Diff YES Neutrophils % (Manual) 70 (48.0-80.0) % Band Neutrophils % 4 % Lymphocytes % (Manual) 16 (16.0-40.0) % Monocytes % (Manual) 6 (0.0-15.0) % Eosinophils % (Manual) 1 (0.0-7.0) % Metamyelocytes % 2 % Myelocytes % 1 % Nucleated RBC % 3.6 /100WBC Absolute Seg Neuts 3.6 (1.4-5.7) Band Neutrophils # 0.2 Lymphocytes # (Manual) 0.8 (0.6-2.4) Monocytes # (Manual) 0.3 (0.0-0.8) Eosinophils # (Manual) 0.1 (0.0-0.7) Absolute Metamyelocyte 0.1 Absolute Myelocytes 0.1 Nucleated RBCs # 0 K/uL Polychromasia Lactate (0.20-2.00) mmol/L Sodium 136 (136-148) mmol/L Potassium 4.4 (3.5-5.1) mmol/L Chloride 100 (98-107) mmol/L Carbon Dioxide 25.1 (21.0-32.0) mmol/L BUN 11 (7.0-18.0) mg/dL Creatinine 0.6 L (0.8-1.3) mg/dL Est Cr Clr Drug Dosing 131.59 mL/min Estimated GFR (MDRD) > 60.0 ml/min Glucose 132 H (74-106) mg/dL Calcium 7.3 L (8.5-10.1) mg/dL Phosphorus 3.2 (2.6-4.7) mg/dL Magnesium 2.0 (1.8-2.4) mg/dL Total Bilirubin 0.6 (0.2-1.0) mg/dL AST 53 H (15-37) IU/L ALT 71 H (14-63) IU/L Alkaline Phosphatase 60 (46-116) U/L Troponin I (0.000-0.056) ng/mL Total Protein 5.9 L (6.4-8.2) g/dL Albumin 2.9 L (3.4-5.0) g/dL Globulin 3.0 (2.6-4.0) g/dL Albumin/Globulin Ratio 1.0 (0.9-1.6) Urine Color Urine Appearance Urine pH (5.0-8.0) Ur Specific Mora (1.001-1.035) Urine Protein (NEGATIVE) mg/dL Urine Glucose (UA) (NEGATIVE) mg/dL Urine Ketones (NEGATIVE) mg/dL Urine Occult Blood (NEGATIVE) Urine Nitrite (NEGATIVE) Urine Bilirubin (NEGATIVE) Urine Urobilinogen (<2.0) EU/dL Ur Leukocyte Esterase (NEGATIVE) Urine RBC (0-2/HPF) Urine WBC (0-5/HPF) Ur Epithelial Cells (NONE-FEW) Amorphous Sediment (NEGATIVE) Urine Bacteria (NEGATIVE) Urine Mucus (NONE-MOD) SARS-CoV-2 RNA (GRZEGORZ) (NEGATIVE) Blood Type Antibody Screen 07/04/20 Range/Units 11:23 WBC (4.0-11.0) K/uL RBC (4.50-5.90) M/uL Hgb (13.0-17.0) g/dL Hct (38.0-50.0) % MCV (80.0-98.0) fL MCH (27.0-32.0) pg MCHC (31.0-37.0) g/dL RDW Std Deviation (28.0-62.0) fl RDW Coeff of Evelin (11.0-15.0) % Plt Count (150-400) K/uL MPV (7.40-12.00) fL Add Manual Diff Neutrophils % (Manual) (48.0-80.0) % Band Neutrophils % % Lymphocytes % (Manual) (16.0-40.0) % Monocytes % (Manual) (0.0-15.0) % Eosinophils % (Manual) (0.0-7.0) % Metamyelocytes % % Myelocytes % % Nucleated RBC % /100WBC Absolute Seg Neuts (1.4-5.7) Band Neutrophils # Lymphocytes # (Manual) (0.6-2.4) Monocytes # (Manual) (0.0-0.8) Eosinophils # (Manual) (0.0-0.7) Absolute Metamyelocyte Absolute Myelocytes Nucleated RBCs # K/uL Polychromasia Lactate 0.7 (0.20-2.00) mmol/L Sodium (136-148) mmol/L Potassium (3.5-5.1) mmol/L Chloride (98-107) mmol/L Carbon Dioxide (21.0-32.0) mmol/L BUN (7.0-18.0) mg/dL Creatinine (0.8-1.3) mg/dL Est Cr Clr Drug Dosing mL/min Estimated GFR (MDRD) ml/min Glucose (74-106) mg/dL Calcium (8.5-10.1) mg/dL Phosphorus (2.6-4.7) mg/dL Magnesium (1.8-2.4) mg/dL Total Bilirubin (0.2-1.0) mg/dL AST (15-37) IU/L ALT (14-63) IU/L Alkaline Phosphatase (46-116) U/L Troponin I (0.000-0.056) ng/mL Total Protein (6.4-8.2) g/dL Albumin (3.4-5.0) g/dL Globulin (2.6-4.0) g/dL Albumin/Globulin Ratio (0.9-1.6) Urine Color Urine Appearance Urine pH (5.0-8.0) Ur Specific [place] (1.001-1.035) Urine Protein (NEGATIVE) mg/dL Urine Glucose (UA) (NEGATIVE) mg/dL Urine Ketones (NEGATIVE) mg/dL Urine Occult Blood (NEGATIVE) Urine Nitrite (NEGATIVE) Urine Bilirubin (NEGATIVE) Urine Urobilinogen (<2.0) EU/dL Ur Leukocyte Esterase (NEGATIVE) Urine RBC (0-2/HPF) Urine WBC (0-5/HPF) Ur Epithelial Cells (NONE-FEW) Amorphous Sediment (NEGATIVE) Urine Bacteria (NEGATIVE) Urine Mucus (NONE-MOD) SARS-CoV-2 RNA (GRZEGORZ) (NEGATIVE) Blood Type Antibody Screen Result Diagrams: 07/04/20 05:23 07/04/20 05:23 Sepsis Event Note - Evaluation Sepsis Screening Result: No Definite Risk - Focused Exam Vital Signs: Vital Signs Temp Pulse Resp BP Pulse Ox 07/04/20 08:00 97.1 F 74 16 136/73 94 L 07/04/20 04:00 97.1 F 77 18 124/80 92 L - Problem List & Annotations (1) Dehydration SNOMED Code(s): 68268021 Code(s): E86.0 - DEHYDRATION Status: Acute Current Visit: Yes (2) Hypokalemia SNOMED Code(s): 93202660 Code(s): E87.6 - HYPOKALEMIA Status: Acute Current Visit: Yes (3) Small cell carcinoma of lung SNOMED Code(s): 707349042 Code(s): C34.90 - MALIGNANT NEOPLASM OF UNSP PART OF UNSP BRONCHUS OR LUNG Status: Chronic Current Visit: Yes (4) Brain metastases Status: Chronic Current Visit: Yes (5) Tobacco abuse SNOMED Code(s): 911987389 Code(s): Z72.0 - TOBACCO USE Status: Acute Priority: Medium Current Visit: No (6) GI bleed SNOMED Code(s): 23205805 Code(s): K92.2 - GASTROINTESTINAL HEMORRHAGE, UNSPECIFIED Status: Acute Current Visit: Yes - Problem List Review Problem List Initiated/Reviewed/Updated: Yes - My Orders Last 24 Hours: My Active Orders 07/04/20 08:27 Intake and Output [RC] Q12H Telemetry Monitoring [Cardiac Monitoring] [RC] . DIRECTED 07/04/20 08:28 Sodium Chloride 0.9% [Saline Flush] 10 ml FLUSH ASDIRECTED PRN Sodium Chloride 0.9% [Saline Flush] 2.5 ml FLUSH ASDIRECTED PRN Saline Lock Insert [OM.PC] Routine 07/04/20 12:33 Social Media Sr Strategy Manager Discontinue [Cardiac Monitoring Discontinue] [RC] Click to Edit 07/04/20 15:00 HEMOGLOBIN/HEMATOCRIT,HH [HEME] Routine 07/05/20 05:11 BASIC METABOLIC PANEL,BMP [CHEM] AM CBC WITH AUTO DIFF [HEME] AM - Plan Plan:: 55 yo male with pmh of metastatic small cell lung cancer admitted for dehydration, nausea, and vomiting likely 2/2 to chemotherapy. 1. Dehydration -Nausea and vomiting significantly improved this morning. Wanting diet to be increased -Continue IV fluids and treat supportively with antiemetic. -Advance diet to soft diet today 2. Possible GI bleed -Stools are now dark brown likely no active bleeding at this time -Continue IV protonix twice daily -trend hgb. Patient receiving carboplatin, etoposide and Tecentriq as chemotherapy recent chemotherapy infusion on 07/02/2020 3. Lung cancer with metastatic disease to brain status post brain radiation and craniotomy -Monitor hemoglobin -gill would be expected up to 21 days after treatment. - Continues to smoke VTE prophylxis: SCDs only Code status: Full code Dispo: 1-2 days pending improvement
[2020-07-05] MEDS: Sodium Chloride 0.9% 1,000 ML IV SCH ×2 (00:34→08:34)
[2020-07-05] MEDS: Acetaminophen/oxyCODONE 325-5 MG Tab PO PRN ×3 (03:07→14:06)
[2020-07-05 06:40] LABS: BLOOD UREA NITROGEN,BUN 5 mg/dL (7.0-18.0); CARBON DIOXIDE,CO2 25.3 mmol/L (21.0-32.0); CHLORIDE,CL 101 mmol/L (98-107); GLUCOSE RANDOM 138 mg/dL (74-106); POTASSIUM,K 3.8 mmol/L (3.5-5.1); SODIUM,NA 136 mmol/L (136-148)
[2020-07-05] MEDS: Dexamethasone 4 MG Tab PO SCH ×2 (06:42→14:05)
[2020-07-05] MEDS: Pantoprazole 40 MG in Sodium Chloride 0.9% 10 ML IV SCH (08:34)
--- NOTE | 2020-07-05 13:54 | PCM.DCSUM1 ---
Discharge Summary - Discharge Data Discharge Disposition: Home, Self-Care 01 Condition: Good - Referral to Home Health Primary Care Physician: Cam Rodney MD - Patient Instructions Diet: Usual Diet as Tolerated Activity: As Tolerated Showering/Bathing: May Shower Notify Provider of: Fever, Increased Pain, Swelling and Redness, Drainage, Nausea and/or Vomiting (diarrhea, bloody stools) - Discharge Plan *PRESCRIPTION DRUG MONITORING PROGRAM REVIEWED*: No *COPY OF PRESCRIPTION DRUG MONITORING REPORT IN PATIENT [place]: No Prescriptions/Med Rec: Pantoprazole [ProTONIX] 40 mg PO DAILY #30 tab.cr Home Medications: Home Meds dexAMETHasone [Dexamethasone] 2 mg PO TID 01/15/20 [History] Ondansetron [Zofran Odt] 8 mg PO ASDIRECTED 07/03/20 [History] oxyCODONE HCl/Acetaminophen [Oxycodone-Acetaminophen 5-325] 1 tab PO ASDIRECTED 07/03/20 [History] Pantoprazole [ProTONIX] 40 mg PO DAILY #30 tab.cr 07/05/20 [Rx] Patient Handouts: Hypokalemia, Dehydration, Adult, [id number] Forms: ED Department Discharge Referrals: Nirav Bullock MD [Physician] - 07/30/20 11:40 am - Patient Data Vitals - Most Recent: Last Vital Signs Temp 36.4 C 07/05/20 12:30 Pulse 70 07/05/20 12:30 Resp 18 07/05/20 12:30 BP 121/76 07/05/20 12:30 Pulse Ox 96 07/05/20 12:30 Orthostatic Blood Pressure [ 103/67 Standing] Orthostatic Blood Pressure [ 114/72 Sitting] Orthostatic Blood Pressure [ 114/65 Supine] Weight - Most Recent: 70.505 kg I&O - Last 24 hours: Intake & Output 07/04/20 07/05/20 07/05/20 22:59 06:59 14:59 Intake Total 2524 500 Output Total 975 Balance 1549 500 Lab Results - Last 24 hrs: Laboratory Results - last 24 hr 07/04/20 07/05/20 07/05/20 Range/Units 15:02 05:45 05:45 WBC 6.10 (4.0-11.0) K/uL RBC 2.62 L (4.50-5.90) M/uL Hgb 10.2 L 9.4 L (13.0-17.0) g/dL Hct 30.2 L 28.2 L (38.0-50.0) % MCV 107.6 H (80.0-98.0) fL MCH 35.9 H (27.0-32.0) pg MCHC 33.3 (31.0-37.0) g/dL RDW Std Deviation 66.5 H (28.0-62.0) fl RDW Coeff of Evelin 17 H (11.0-15.0) % Plt Count 101 L (150-400) K/uL MPV 9.80 (7.40-12.00) fL Add Manual Diff YES Neutrophils % (Manual) 71 (48.0-80.0) % Band Neutrophils % 7 % Lymphocytes % (Manual) 9 L (16.0-40.0) % Monocytes % (Manual) 9 (0.0-15.0) % Metamyelocytes % 4 % Nucleated RBC % 1.6 /100WBC Absolute Seg Neuts 4.3 (1.4-5.7) Band Neutrophils # 0.4 Lymphocytes # (Manual) 0.5 L (0.6-2.4) Monocytes # (Manual) 0.5 (0.0-0.8) Absolute Metamyelocyte 0.2 Nucleated RBCs # 0 K/uL Sodium 136 (136-148) mmol/L Potassium 3.8 (3.5-5.1) mmol/L Chloride 101 (98-107) mmol/L Carbon Dioxide 25.3 (21.0-32.0) mmol/L BUN 5 L (7.0-18.0) mg/dL Creatinine 0.6 L (0.8-1.3) mg/dL Est Cr Clr Drug Dosing 131.59 mL/min Estimated GFR (MDRD) > 60.0 ml/min Glucose 138 H (74-106) mg/dL Calcium 7.7 L (8.5-10.1) mg/dL Med Orders - Current: Current Medications Dexamethasone (Dexamethasone 4 Mg Tab) 2 mg PO TID [facility] Last Admin: 07/05/20 06:42 Dose: 2 mg Documented by: Sodium Chloride (Normal Saline) 1,000 mls @ 125 mls/hr IV ASDIRECTED [facility] Last Admin: 07/05/20 08:34 Dose: 125 mls/hr Documented by: Pantoprazole Sodium 40 mg/ (Sodium Chloride) 10 mls @ 200 mls/hr IV Q12HR RIKY Last Admin: 07/05/20 08:34 Dose: 200 mls/hr Documented by: Ondansetron HCl (Ondansetron 4 Mg/2 Ml Sdv) 4 mg IVPUSH Q4H PRN PRN Reason: Nausea Last Admin: 07/03/20 21:54 Dose: 4 mg Documented by: Oxycodone/Acetaminophen (Acetaminophen/Oxycodone 325-5 Mg Tab) 1 tab PO Q4H PRN PRN Reason: pain Last Admin: 07/05/20 08:37 Dose: 1 tab Documented by: Sodium Chloride (Sodium Chloride 0.9% 10 Ml Syringe) 10 ml FLUSH ASDIRECTED PRN PRN Reason: Keep Vein Open Sodium Chloride (Sodium Chloride 0.9% 2.5 Ml Syringe) 2.5 ml FLUSH ASDIRECTED PRN PRN Reason: Keep Vein Open Discontinued Medications Heparin Sodium (Porcine) (Heparin Sodium 100 Units/Ml 5 Ml Syringe) Confirm Administered Dose 500 units .ROUTE .STK-MED ONE Stop: 07/03/20 19:24 Last Admin: 07/03/20 20:08 Dose: Not Given Documented by: Heparin Sodium (Porcine) (Heparin Sodium 100 Units/Ml 5 Ml Syringe) 500 units FLUSH ONETIME ONE Stop: 07/03/20 19:37 Last Admin: 07/03/20 19:47 Dose: 500 units Documented by: Sodium Chloride (Normal Saline) 1,000 mls @ 125 mls/hr IV STAT ONE Stop: 07/03/20 22:53 Last Admin: 07/03/20 15:28 Dose: 125 mls/hr Documented by: Potassium Chloride 40 meq/ (Premix) 100 mls @ 25 mls/hr IV ONETIME ONE Stop: 07/03/20 20:10 Last Admin: 07/03/20 19:53 Dose: 25 mls/hr Documented by: Magnesium Sulfate (Magnesium Sulfate In Water 2 Gm/50 Ml) 2 gm in 50 mls @ 50 mls/hr IV ONETIME ONE Stop: 07/03/20 17:31 Last Admin: 07/03/20 17:13 Dose: 50 mls/hr Documented by: Sodium Chloride (Normal Saline) 1,000 mls @ 150 mls/hr IV STAT ONE Stop: 07/03/20 23:44 Last Admin: 07/04/20 08:35 Dose: Not Given Documented by: Potassium Chloride/Sodium Chloride (Normal Saline With 40 Meq Kcl) 1,000 mls @ 150 mls/hr IV ASDIRECTED RIKY Stop: 07/04/20 00:39 Potassium Chloride/Sodium Chloride (Normal Saline With 40 Meq Kcl) 1,000 mls @ 150 mls/hr IV ASDIRECTED RIKY Stop: 07/04/20 08:39 Last Admin: 07/04/20 02:06 Dose: 150 mls/hr Documented by: Ondansetron HCl (Ondansetron 4 Mg/2 Ml Sdv) 4 mg IVPUSH ONETIME ONE Stop: 07/03/20 14:52 Last Admin: 07/03/20 15:27 Dose: 4 mg Documented by: Pantoprazole Sodium (Pantoprazole 40 Mg Vial) 40 mg IV Q12HR [facility] Last Admin: 07/03/20 23:02 Dose: Not Given Documented by:
== END 2020-07-05 14:20 | disposition home or self-care (01) ==
LOC: MW.ED 14:35 → MW.MS 16:49
PROVIDERS: ADMIT Internal Medicine; ATTEND Internal Medicine
DX: E86.0 Dehydration (principal); R11.2 Nausea with vomiting, unspecified; T45.1X5A Adverse effect of antineoplastic and immunosuppressive drugs, initial encounter; K92.1 Melena; E78.00 Pure hypercholesterolemia, unspecified; F17.210 Nicotine dependence, cigarettes, uncomplicated; E87.6 Hypokalemia; C34.90 Malignant neoplasm of unspecified part of unspecified bronchus or lung; F17.200 Nicotine dependence, unspecified, uncomplicated; K92.2 Gastrointestinal hemorrhage, unspecified; Z20.828 Contact with and (suspected) exposure to other viral communicable diseases; Z79.899 Other long term (current) drug therapy; Z98.890 Other specified postprocedural states
CPT/HCPCS: 36415; 70450; 71045; 80048; 80053; 81001; 83605; 83735; 84100; 84484; 85014; 85018; 85025; 86850; 86900; 86901; 87635; 93005; 96365; 96375; 99285; A9270; C9113; J1642; J2405; J3475; J3480; J7030; J8540; 99284; U0002

== ENCOUNTER 2020-07-25 13:02 | Inpatient (IN) | payer BC ==
[2020-07-25] MEDS ORDERED: Sodium Chloride 0.9% 2.5 ML Syringe FLUSH PRN (13:32)
[2020-07-25] MEDS ORDERED: Sodium Chloride 0.9% 10 ML Syringe FLUSH PRN (13:32)
[2020-07-25] MEDS ORDERED: Sodium Chloride 0.9% 1,000 ML IV ONE (13:32)
--- NOTE | 2020-07-25 13:34 | PCM.EKG ---
#1 Interpretation EKG Date: 07/25/20 Time: 13:23 Rhythm: Other [place]: RAD-Right [place] Deviation (Tachycardia) P-Wave: Present QRS: Normal ST-T: Normal QT: Normal EKG Interpretation Comments: Some wall motion artifact
[2020-07-25 14:03] LABS: BLOOD UREA NITROGEN,BUN 9 mg/dL (7.0-18.0); CARBON DIOXIDE,CO2 20.7 mmol/L (21.0-32.0); CHLORIDE,CL 94 mmol/L (98-107); GLUCOSE RANDOM 114 mg/dL (74-106); POTASSIUM,K 2.8 mmol/L (3.5-5.1); SODIUM,NA 136 mmol/L (136-148)
[2020-07-25] MEDS ORDERED: Potassium Chloride Riders 40 MEQ in Premix Bag 1 BAG IV ONE (14:15)
[2020-07-25] MEDS ORDERED: Pantoprazole 80 MG in Sodium Chloride 0.9% 20 ML IVPUSH ONE (14:16)
[2020-07-25] MEDS ORDERED: Iopamidol 755 MG/ML 500 ML Multipack Bottle IVPUSH ONE (15:01)
--- NOTE | 2020-07-25 15:15 | EDM.PDOC ---
ED HPI GENERAL MEDICAL PROBLEM - General Chief Complaint: General Stated Complaint: light headed Time Seen by Provider: 07/25/20 13:03 Source of Information: Reports: Patient History Limitations: Reports: No Limitations - History of Present Illness INITIAL COMMENTS - FREE TEXT/NARRATIVE: HISTORY AND PHYSICAL: History of present illness: Patient is a 55-year-old male, with a known history of metastatic lung cancer with last chemo treatment 3-4 weeks ago, who presents emergency department secondary to 3 to 4-day history of lightheadedness (exertional dyspnea) as well as vomiting and diarrhea. Patient states that he is having loose and unformed stools about every 2 hours. Patient relates that he is vomiting occasionally but also reports that he is burping and hiccuping frequently. Patient states that his stools are very dark/black in color and this started with his other symptoms 3 to 4 days ago. Patient also reports that his vomit has been dark- colored as well. Patient states that he has been unable to eat or drink anything during this time. Patient states that he is scheduled to resume chemo and radiation in the next couple of days. Patient reports that he has also been experiencing some intermittent abdominal pain but does not feel bloated or distended. Patient reports that he has not passed out or lost consciousness or hit his head since these symptoms started. Patient denies fever, chills, chest pain, or cough. Denies headache, neck stiff ness, change in vision, syncope, or near syncope. Denies constipation, or dysuria. Has not noted any blood in urine. Review of systems: As per history of present illness and below otherwise all systems reviewed and negative. Past medical history: As per history of present illness and as reviewed below otherwise noncontributory. Surgical history: As per history of present illness and as reviewed below otherwise noncontributory. Social history: See social history for further information Family history: As per history of present illness and as reviewed below otherwise noncontributory. Physical exam: General: Patient is alert, oriented, and in no acute distress. Patient laying comfortably on exam table. Patient's tachycardic 110s otherwise vitals are stable and reviewed by me. Chronically ill appearing. Hiccups noted on exam. HEENT: Atraumatic, normocephalic, pupils equal and reactive bilaterally, negative for conjunctival pallor or scleral icterus, mucous membranes dry, TMs normal bilaterally, throat clear, neck supple, nontender, trachea midline. No drooling or trismus noted. No meningeal signs. No hot potato voice noted. Lungs: Clear to auscultation, breath sounds equal bilaterally, chest nontender. Heart: S1S2, regular rate and rhythm without overt murmur Abdomen: Soft, nondistended, generalized mild tenderness of abdomen without guarding, negative rebound/dennis. Negative for masses or hepatosplenomegaly. Negative for costovertebral tenderness. Pelvis: Stable nontender. Genitourinary: Deferred. Rectal: Rectal exam performed by PA student Babar Johnson observed and supervised directly by me. Hemoccult positive. External exam shows no masses or lesions. Rectal tone intact. Skin: Intact, warm, dry. No lesions or rashes noted. Extremities: Atraumatic, negative for cords or calf pain. Neurovascular unremarkable. Neuro: Awake, alert, oriented. Cranial nerves II through XII unremarkable. Cerebellum unremarkable. Motor and sensory unremarkable throughout. Exam nonfocal. Notes: Patient is a 55-year-old male, with a h/o metastatic small cell lung cancer with last chemo received 3-4 weeks ago, who presents emergency department with a 3 to 4-day history of lightheadedness with vomiting and diarrhea. Upon arrival to the ED, patient is mildly tachycardic 110s on exam otherwise vitally stable. He does have generalized abdominal pain and hiccups on exam with Hemoccult positive stool; not grossly bloody. Will obtain baseline labs, cardiac evaluation including Ang ct chest due to known metastatic cancer, tachycardia and noted lightheaded/dyspnea with exertion concern for possible PE, and obtain a stool sample. See Dr. Adkins as EKG dictation otherwise no ischemic process or abnormalities noted. CBC shows mild anemia with a hgb of 11.4, hct 34.6, and RBC 3.12 with macrocytic indices of MCV 110.9 and MCH 36.5. Neutrophil % elevated at 85 with 4% bands and 9 absolute seg neutrophils concerning for acute infectious process; although source unknown at this time. CMP reveals a hypokalemia of 2.8 (will replete in ED), chloride of 94, carbon dioxide 20.7, creatinine 0.7, corrected calcium of 9.2, mild transaminitis noted with AST of 79, ALT of 86, alkaline phosphatase 127. Trop negative. UA shows proteinuria and ketones >80, suggestive of dehyd ration (likely secondary to diarrhea) patient currently receiving IV NS for dehydration. Stool studies pending, however, cdiff stool study resulted positive-cdiff enteric precautions placed. Ang chest / abd/pelvic ct with contrast showed diffuse moderate acute colitis without obvious complication. Less than optimal pulmonary arterial calcification. No central pulmonary embolism demonstrated. A peripheral embolus could go undetected. Emphysema. 8 mm right upper lobe nodule, as before. Hiatal hernia of small to moderate size. Fatty liver. Upon reexamination of patient, he remains mildly tachycardic 105-110s on exam, otherwise is comfortable and vitally stable. Due to diffuse clostridium difficile colitis with patient immunosuppression status and moderate hypokalemia, recommend admission for treatment.I did call and speak to the hospitalist on-call, Dr. Shelton, and thoroughly discussed patient's case. Will admit to inpatient to Dr. Hernandez on telemetry. All incidental findings of lab work and imaging today discussed with patient and the importance to have this followed up with his primary care provider at a later date. Voices understanding and is agreeable to plan of care. Denies any further questions or concerns at this time. Diagnostics: EKG, trop, CBC, CMP, EKG, type/screen, UA, stool culture/shiga, ova and parasite, cdiff stool Ang CT w cont chest, abdominal/pelvic CT scan w cont, Hemoccult, blood culture x 2, lactate, COVID Therapeutics: NS, potassium, Vancomycin PO, Flagyl 500mg IV Impression: Clostridium difficile colitis Dehydration Hypokalemia Transaminitis Immunosuppression History of metastatic lung cancer Plan: Admit to inpatient to Dr. Hernandez on telemetry Definitive disposition and diagnosis as appropriate pending reevaluation and review of above. Generalized Pain Score (Numeric/FACES): 6 - Related Data Allergies Allergy/AdvReac Type Severity Reaction Status Date / Time No Known Allergies Allergy Verified 07/25/20 21:12 Home Meds: Home Meds Ondansetron [Zofran Odt] 8 mg PO ASDIRECTED 07/03/20 [History] oxyCODONE HCl/Acetaminophen [Oxycodone-Acetaminophen 5-325] 1 tab PO ASDIRECTED 07/03/20 [History] Pantoprazole [ProTONIX] 40 mg PO DAILY #30 tab.cr 07/05/20 [Rx] Past Medical History - Past Health History Medical/Surgical History: Denies Medical/Surgical History HEENT History: Reports: Other (See Below) Other HEENT History: wears glasses Cardiovascular History: Reports: High Cholesterol Respiratory History: Reports: Other (See Below) Other Respiratory History: non-small cell lung cancer Gastrointestinal History: Reports: None, Other (See Below) Other Gastrointestinal History: nausea Genitourinary History: Reports: None Musculoskeletal History: Reports: Fracture, Other (See Below) Other Musculoskeletal History: hx fx collarbone & "seperated" shoulder Neurological History: Reports: Other (See Below) Other Neuro History: malignant brain tumor with mets to the lung Psychiatric History: Reports: None Endocrine/Metabolic History: Reports: None Hematologic History: Reports: None Immunologic History: Reports: None Oncologic (Cancer) History: Reports: Brain, Lung Other Oncologic History: non-small cell lung cancer metastatic to brain Dermatologic History: Reports: None - Infectious Disease History Infectious Disease History: Reports: None - Past Surgical History Head Surgeries/Procedures: Reports: Craniotomy HEENT Surgical History: Reports: None Cardiovascular Surgical History: Reports: None Respiratory Surgical History: Reports: None GI Surgical History: Reports: Hernia, Abdominal Male Surgical History: Reports: None Endocrine Surgical History: Reports: None Neurological Surgical History: Reports: Other (See Below) Other Neurological Surgeries/Procedures: craniotomy & partial tumor removal approx 4 weeks ago Musculoskeletal Surgical History: Reports: None Oncologic Surgical History: Reports: Other (See Below) Other Oncologic Surgeries/Procedures: craniotomy with partial tumor removal Dermatological Surgical History: Reports: Other (See Below) Social & Family History - Family History Family Medical History: No Pertinent Family History - Tobacco Use Tobacco Use Status *Q: Current Every Day Tobacco User Years of Tobacco use: 37 Packs/Tins Daily: 1 - Caffeine Use Caffeine Use: Reports: None - Recreational Drug Use Recreational Drug Use: No ED ROS GENERAL - Review of Systems Review Of Systems: Comprehensive ROS is negative, except as noted in HPI. ED EXAM, GENERAL - Physical Exam Exam: See Below (see dictation) Course - Vital Signs Last Recorded V/S: Last Vital Signs Temp 98.6 F 07/27/20 08:00 Pulse 74 07/27/20 08:00 Resp 18 07/27/20 08:00 BP 100/54 L 07/27/20 08:00 Pulse Ox 93 L 07/27/20 08:00 - Orders/Labs/Meds Orders: Medication Orders Albuterol/Ipratropium (Albuterol/Ipratropium 3.0-0.5 Mg/3 Ml Neb Soln) 3 ml NEB Q4HRRT PRN PRN Reason: Shortness of Breath Gabapentin (Gabapentin 100 Mg Cap) 100 mg PO TID [facility] Last Admin: 07/27/20 06:12 Dose: 100 mg Documented by: Admin: 07/26/20 21:00 Dose: 100 mg Documented by: Admin: 07/26/20 13:15 Dose: 100 mg Documented by: Admin: 07/26/20 05:10 Dose: 100 mg Documented by: ANDRÉS Sodium Chloride (Normal Saline) 500 mls @ 25 mls/hr IV .BOLUS [facility] Last Admin: 07/25/20 15:47 Dose: 25 mls/hr Documented by: KURT Pantoprazole Sodium 40 mg/ (Sodium Chloride) 10 mls @ 300 mls/hr IV BID [facility] Last Admin: 07/27/20 08:24 Dose: 300 mls/hr Documented by: Infusion: 07/26/20 21:01 Dose: 300 mls/hr Documented by: Admin: 07/26/20 20:59 Dose: 300 mls/hr Documented by: Infusion: 07/26/20 08:58 Dose: 300 mls/hr Documented by: Admin: 07/26/20 08:56 Dose: 300 mls/hr Documented by: DEEPAK Lactated Ringer's (Ringers, Lactated) 1,000 mls @ 125 mls/hr IV ASDIRECTED [facility] Last Admin: 07/27/20 05:12 Dose: 125 mls/hr Documented by: Infusion: 07/27/20 05:12 Dose: 125 mls/hr Documented by: Admin: 07/26/20 21:12 Dose: 125 mls/hr Documented by: Infusion: 07/26/20 16:55 Dose: 125 mls/hr Documented by: Admin: 07/26/20 08:55 Dose: 125 mls/hr Documented by: Infusion: 07/26/20 08:43 Dose: 125 mls/hr Documented by: Admin: 07/26/20 00:43 Dose: 125 mls/hr Documented by: ANDRÉS Metronidazole 500 mg/ Premix 100 mls @ 100 mls/hr IV Q8H [facility] Last Admin: 07/27/20 10:17 Dose: 100 mls/hr Documented by: DEEPAK Magnesium Sulfate 4 gm/ Premix 100 mls @ 50 mls/hr IV ONETIME ONE Stop: 07/27/20 11:29 Last Admin: 07/27/20 10:19 Dose: 50 mls/hr Documented by: DEEPAK Potassium Chloride/Sodium Chloride (Normal Saline With 40 Meq Kcl) 1,000 mls @ 250 mls/hr IV ONETIME ONE Stop: 07/27/20 13:44 Last Admin: 07/27/20 10:20 Dose: 250 mls/hr Documented by: DEEPAK Lorazepam (Lorazepam 2 Mg/Ml Sdv) 1 mg IVPUSH Q4H PRN PRN Reason: Anxiety Ondansetron HCl (Ondansetron 4 Mg/2 Ml Sdv) 4 mg IVPUSH Q4H PRN PRN Reason: Nausea Oxycodone HCl (Oxycodone 5 Mg Tab) 5 mg PO Q4H PRN PRN Reason: Pain Last Admin: 07/26/20 19:41 Dose: 5 mg Documented by: Admin: 07/26/20 09:06 Dose: 5 mg Documented by: Admin: 07/25/20 21:39 Dose: 5 mg Documented by: ANDRÉS Sodium Chloride (Sodium Chloride 0.9% 10 Ml Syringe) 10 ml FLUSH ASDIRECTED PRN PRN Reason: Keep Vein Open Last Admin: 07/25/20 13:42 Dose: 10 ml Documented by: KURT Sodium Chloride (Sodium Chloride 0.9% 2.5 Ml Syringe) 2.5 ml FLUSH ASDIRECTED PRN PRN Reason: Keep Vein Open Last Admin: 07/25/20 13:41 Dose: 2.5 ml Documented by: KURT Vancomycin HCl (Vancomycin 125 Mg Cap) 125 mg PO QID [facility] Last Admin: 07/27/20 06:12 Dose: 125 mg Documented by: Admin: 07/26/20 23:32 Dose: 125 mg Documented by: Admin: 07/26/20 19:40 Dose: 125 mg Documented by: Admin: 07/26/20 12:40 Dose: 125 mg Documented by: Admin: 07/26/20 05:10 Dose: 125 mg Documented by: Admin: 07/25/20 23:48 Dose: 125 mg Documented by: Admin: 07/25/20 21:08 Dose: 125 mg Documented by: ANDRÉS Labs: Laboratory Tests 07/25/20 07/25/20 07/25/20 Range/Units 02:07 13:25 13:25 WBC 10.63 (4.0-11.0) K/uL RBC 3.12 L (4.50-5.90) M/uL Hgb 11.4 L (13.0-17.0) g/dL Hct 34.6 L (38.0-50.0) % MCV 110.9 H (80.0-98.0) fL MCH 36.5 H (27.0-32.0) pg MCHC 32.9 (31.0-37.0) g/dL RDW Std Deviation 78.8 H (28.0-62.0) fl RDW Coeff of Evelin 19 H (11.0-15.0) % Plt Count 154 (150-400) K/uL MPV 9.70 (7.40-12.00) fL Add Manual Diff YES Neutrophils % (Manual) 85 H (48.0-80.0) % Band Neutrophils % 4 % Lymphocytes % (Manual) 3 L (16.0-40.0) % Monocytes % (Manual) 6 (0.0-15.0) % Metamyelocytes % 2 % Nucleated RBC % 0.0 /100WBC Absolute Seg Neuts 9.0 H (1.4-5.7) Band Neutrophils # 0.4 Lymphocytes # (Manual) 0.3 L (0.6-2.4) Monocytes # (Manual) 0.6 (0.0-0.8) Absolute Metamyelocyte 0.2 Nucleated RBCs # 0 K/uL INR 0.99 Sodium (136-148) mmol/L Potassium (3.5-5.1) mmol/L Chloride (98-107) mmol/L Carbon Dioxide (21.0-32.0) mmol/L BUN (7.0-18.0) mg/dL Creatinine (0.8-1.3) mg/dL Est Cr Clr Drug Dosing mL/min Estimated GFR (MDRD) ml/min Glucose (74-106) mg/dL Lactic Acid (0.4-2.0) mmol/L Calcium (8.5-10.1) mg/dL Magnesium (1.8-2.4) mg/dL Total Bilirubin (0.2-1.0) mg/dL AST (15-37) IU/L ALT (14-63) IU/L Alkaline Phosphatase (46-116) U/L Troponin I (0.000-0.056) ng/mL Total Protein (6.4-8.2) g/dL Albumin (3.4-5.0) g/dL Globulin (2.6-4.0) g/dL Albumin/Globulin Ratio (0.9-1.6) Urine Color Urine Appearance Urine pH (5.0-8.0) Ur Specific [place] (1.001-1.035) Urine Protein (NEGATIVE) mg/dL Urine Glucose (UA) (NEGATIVE) mg/dL Urine Ketones (NEGATIVE) mg/dL Urine Occult Blood (NEGATIVE) Urine Nitrite (NEGATIVE) Urine Bilirubin (NEGATIVE) Urine Ictotest Urine Urobilinogen (<2.0) EU/dL Ur Leukocyte Esterase (NEGATIVE) Urine RBC (0-2/HPF) Urine WBC (0-5/HPF) Ur Epithelial Cells (NONE-FEW) Urine Bacteria (NEGATIVE) Influenza Type A RNA NEGATIVE (NEGATIVE) Influenza Type B RNA NEGATIVE (NEGATIVE) SARS-CoV-2 RNA (GRZEGORZ) NEGATIVE (NEGATIVE) Blood Type Antibody Screen 07/25/20 07/25/20 07/25/20 Range/Units 13:25 13:25 13:45 WBC (4.0-11.0) K/uL RBC (4.50-5.90) M/uL Hgb (13.0-17.0) g/dL Hct (38.0-50.0) % MCV (80.0-98.0) fL MCH (27.0-32.0) pg MCHC (31.0-37.0) g/dL RDW Std Deviation (28.0-62.0) fl RDW Coeff of Evelin (11.0-15.0) % Plt Count (150-400) K/uL MPV (7.40-12.00) fL Add Manual Diff Neutrophils % (Manual) (48.0-80.0) % Band Neutrophils % % Lymphocytes % (Manual) (16.0-40.0) % Monocytes % (Manual) (0.0-15.0) % Metamyelocytes % % Nucleated RBC % /100WBC Absolute Seg Neuts (1.4-5.7) Band Neutrophils # Lymphocytes # (Manual) (0.6-2.4) Monocytes # (Manual) (0.0-0.8) Absolute Metamyelocyte Nucleated RBCs # K/uL INR Sodium 136 (136-148) mmol/L Potassium 2.8 L (3.5-5.1) mmol/L Chloride 94 L (98-107) mmol/L Carbon Dioxide 20.7 L (21.0-32.0) mmol/L BUN 9 (7.0-18.0) mg/dL Creatinine 0.7 L (0.8-1.3) mg/dL Est Cr Clr Drug Dosing 112.79 mL/min Estimated GFR (MDRD) > 60.0 ml/min Glucose 114 H (74-106) mg/dL Lactic Acid (0.4-2.0) mmol/L Calcium 8.4 L (8.5-10.1) mg/dL Magnesium (1.8-2.4) mg/dL Total Bilirubin 0.6 (0.2-1.0) mg/dL AST 79 H (15-37) IU/L ALT 86 H (14-63) IU/L Alkaline Phosphatase 127 H (46-116) U/L Troponin I < 0.050 (0.000-0.056) ng/mL Total Protein 5.8 L (6.4-8.2) g/dL Albumin 2.4 L (3.4-5.0) g/dL Globulin 3.4 (2.6-4.0) g/dL Albumin/Globulin Ratio 0.7 L (0.9-1.6) Urine Color Urine Appearance Urine pH (5.0-8.0) Ur Specific [place] (1.001-1.035) Urine Protein (NEGATIVE) mg/dL Urine Glucose (UA) (NEGATIVE) mg/dL Urine Ketones (NEGATIVE) mg/dL Urine Occult Blood (NEGATIVE) Urine Nitrite (NEGATIVE) Urine Bilirubin (NEGATIVE) Urine Ictotest Urine Urobilinogen (<2.0) EU/dL Ur Leukocyte Esterase (NEGATIVE) Urine RBC (0-2/HPF) Urine WBC (0-5/HPF) Ur Epithelial Cells (NONE-FEW) Urine Bacteria (NEGATIVE) Influenza Type A RNA (NEGATIVE) Influenza Type B RNA (NEGATIVE) SARS-CoV-2 RNA (GRZEGORZ) (NEGATIVE) Blood Type O POSITIVE Antibody Screen NEGATIVE 07/25/20 07/25/20 07/25/20 Range/Units 14:25 15:16 15:16 WBC (4.0-11.0) K/uL RBC (4.50-5.90) M/uL Hgb (13.0-17.0) g/dL Hct (38.0-50.0) % MCV (80.0-98.0) fL MCH (27.0-32.0) pg MCHC (31.0-37.0) g/dL RDW Std Deviation (28.0-62.0) fl RDW Coeff of Evelin (11.0-15.0) % Plt Count (150-400) K/uL MPV (7.40-12.00) fL Add Manual Diff Neutrophils % (Manual) (48.0-80.0) % Band Neutrophils % % Lymphocytes % (Manual) (16.0-40.0) % Monocytes % (Manual) (0.0-15.0) % Metamyelocytes % % Nucleated RBC % /100WBC Absolute Seg Neuts (1.4-5.7) Band Neutrophils # Lymphocytes # (Manual) (0.6-2.4) Monocytes # (Manual) (0.0-0.8) Absolute Metamyelocyte Nucleated RBCs # K/uL INR Sodium (136-148) mmol/L Potassium (3.5-5.1) mmol/L Chloride (98-107) mmol/L Carbon Dioxide (21.0-32.0) mmol/L BUN (7.0-18.0) mg/dL Creatinine (0.8-1.3) mg/dL Est Cr Clr Drug Dosing mL/min Estimated GFR (MDRD) ml/min Glucose (74-106) mg/dL Lactic Acid 1.6 (0.4-2.0) mmol/L Calcium (8.5-10.1) mg/dL Magnesium 1.4 L (1.8-2.4) mg/dL Total Bilirubin (0.2-1.0) mg/dL AST (15-37) IU/L ALT (14-63) IU/L Alkaline Phosphatase (46-116) U/L Troponin I (0.000-0.056) ng/mL Total Protein (6.4-8.2) g/dL Albumin (3.4-5.0) g/dL Globulin (2.6-4.0) g/dL Albumin/Globulin Ratio (0.9-1.6) Urine Color YELLOW Urine Appearance CLEAR Urine pH 6.0 (5.0-8.0) Ur Specific [place] >= 1.030 (1.001-1.035) Urine Protein 30 H (NEGATIVE) mg/dL Urine Glucose (UA) NEGATIVE (NEGATIVE) mg/dL Urine Ketones >=80 (NEGATIVE) mg/dL Urine Occult Blood SMALL H (NEGATIVE) Urine Nitrite NEGATIVE (NEGATIVE) Urine Bilirubin SMALL H (NEGATIVE) Urine Ictotest NEGATIVE Urine Urobilinogen 0.2 (<2.0) EU/dL Ur Leukocyte Esterase NEGATIVE (NEGATIVE) Urine RBC 0-2 (0-2/HPF) Urine WBC 0-2 (0-5/HPF) Ur Epithelial Cells RARE (NONE-FEW) Urine Bacteria FEW (NEGATIVE) Influenza Type A RNA (NEGATIVE) Influenza Type B RNA (NEGATIVE) SARS-CoV-2 RNA (GRZEGORZ) (NEGATIVE) Blood Type Antibody Screen 07/25/20 Range/Units 17:36 WBC (4.0-11.0) K/uL RBC (4.50-5.90) M/uL Hgb 11.8 L (13.0-17.0) g/dL Hct 35.7 L (38.0-50.0) % MCV (80.0-98.0) fL MCH (27.0-32.0) pg MCHC (31.0-37.0) g/dL RDW Std Deviation (28.0-62.0) fl RDW Coeff of Evelin (11.0-15.0) % Plt Count (150-400) K/uL MPV (7.40-12.00) fL Add Manual Diff Neutrophils % (Manual) (48.0-80.0) % Band Neutrophils % % Lymphocytes % (Manual) (16.0-40.0) % Monocytes % (Manual) (0.0-15.0) % Metamyelocytes % % Nucleated RBC % /100WBC Absolute Seg Neuts (1.4-5.7) Band Neutrophils # Lymphocytes # (Manual) (0.6-2.4) Monocytes # (Manual) (0.0-0.8) Absolute Metamyelocyte Nucleated RBCs # K/uL INR Sodium (136-148) mmol/L Potassium (3.5-5.1) mmol/L Chloride (98-107) mmol/L Carbon Dioxide (21.0-32.0) mmol/L BUN (7.0-18.0) mg/dL Creatinine (0.8-1.3) mg/dL Est Cr Clr Drug Dosing mL/min Estimated GFR (MDRD) ml/min Glucose (74-106) mg/dL Lactic Acid (0.4-2.0) mmol/L Calcium (8.5-10.1) mg/dL Magnesium (1.8-2.4) mg/dL Total Bilirubin (0.2-1.0) mg/dL AST (15-37) IU/L ALT (14-63) IU/L Alkaline Phosphatase (46-116) U/L Troponin I (0.000-0.056) ng/mL Total Protein (6.4-8.2) g/dL Albumin (3.4-5.0) g/dL Globulin (2.6-4.0) g/dL Albumin/Globulin Ratio (0.9-1.6) Urine Color Urine Appearance Urine pH (5.0-8.0) Ur Specific [place] (1.001-1.035) Urine Protein (NEGATIVE) mg/dL Urine Glucose (UA) (NEGATIVE) mg/dL Urine Ketones (NEGATIVE) mg/dL Urine Occult Blood (NEGATIVE) Urine Nitrite (NEGATIVE) Urine Bilirubin (NEGATIVE) Urine Ictotest Urine Urobilinogen (<2.0) EU/dL Ur Leukocyte Esterase (NEGATIVE) Urine RBC (0-2/HPF) Urine WBC (0-5/HPF) Ur Epithelial Cells (NONE-FEW) Urine Bacteria (NEGATIVE) Influenza Type A RNA (NEGATIVE) Influenza Type B RNA (NEGATIVE) SARS-CoV-2 RNA (GRZEGORZ) (NEGATIVE) Blood Type Antibody Screen Meds: Medications Generic Name Dose Route Start Last Admin Trade Name Freq PRN Reason Stop Dose Admin Albuterol/Ipratropium 3 ml 07/25/20 19:31 Albuterol/Ipratropium 3.0-0.5 Mg/3 Ml Neb Soln NEB Q4HRRT PRN Shortness of Breath Gabapentin 100 mg 07/26/20 06:00 07/27/20 06:12 Gabapentin 100 Mg Cap PO 100 mg TID RIKY Administration Sodium Chloride 500 mls @ 25 mls/hr 07/25/20 15:45 07/25/20 15:47 Normal Saline IV 25 mls/hr .BOLUS RIKY Administration Pantoprazole Sodium 40 mg/ 10 mls @ 300 mls/hr 07/26/20 09:00 07/27/20 08:24 Sodium Chloride IV 300 mls/hr BID RIKY Administration Lactated Ringer's 1,000 mls @ 125 mls/hr 07/25/20 19:30 07/27/20 05:12 Ringers, Lactated IV 125 mls/hr ASDIRECTED RIKY Administration Metronidazole 500 mg/ Premix 100 mls @ 100 mls/hr 07/27/20 09:30 07/27/20 10:17 IV 100 mls/hr Q8H RIKY Administration Magnesium Sulfate 4 gm/ Premix 100 mls @ 50 mls/hr 07/27/20 09:30 07/27/20 10:19 IV 07/27/20 11:29 50 mls/hr ONETIME ONE Administration Potassium Chloride/Sodium Chloride 1,000 mls @ 250 mls/hr 07/27/20 09:45 07/27/20 10:20 Normal Saline With 40 Meq Kcl IV 07/27/20 13:44 250 mls/hr ONETIME ONE Administration Lorazepam 1 mg 07/25/20 22:48 Lorazepam 2 Mg/Ml Sdv IVPUSH Q4H PRN Anxiety Ondansetron HCl 4 mg 07/25/20 19:00 Ondansetron 4 Mg/2 Ml Sdv IVPUSH Q4H PRN Nausea Oxycodone HCl 5 mg 07/25/20 18:59 07/26/20 19:41 Oxycodone 5 Mg Tab PO 5 mg Q4H PRN Administration Pain Sodium Chloride 10 ml 07/25/20 13:32 07/25/20 13:42 Sodium Chloride 0.9% 10 Ml Syringe FLUSH 10 ml ASDIRECTED PRN Administration Keep Vein Open Sodium Chloride 2.5 ml 07/25/20 13:32 07/25/20 13:41 Sodium Chloride 0.9% 2.5 Ml Syringe FLUSH 2.5 ml ASDIRECTED PRN Administration Keep Vein Open Vancomycin HCl 125 mg 07/25/20 20:30 07/27/20 06:12 Vancomycin 125 Mg Cap PO 125 mg QID RIKY Administration Discontinued Medications Generic Name Dose Route Start Last Admin Trade Name Freq PRN Reason Stop Dose Admin Sodium Chloride 1,000 mls @ 999 mls/hr 07/25/20 13:32 07/25/20 13:41 Normal Saline IV 07/25/20 14:32 999 mls/hr .Bolus ONE Administration Potassium Chloride 40 meq/ 100 mls @ 25 mls/hr 07/25/20 14:15 07/25/20 15:47 Premix IV 07/25/20 18:14 25 mls/hr ONETIME ONE Administration Pantoprazole Sodium 80 mg/ 20 mls @ 420 mls/hr 07/25/20 14:16 07/25/20 15:36 Sodium Chloride IVPUSH 07/25/20 14:18 420 mls/hr ONETIME ONE Administration Sodium Chloride 1,000 mls @ 200 mls/hr 07/25/20 17:39 07/25/20 18:26 Normal Saline IV 07/25/20 22:38 999 mls/hr NOW STA Infusion Metronidazole 500 mg/ Premix 100 mls @ 100 mls/hr 07/25/20 18:10 07/25/20 18:25 IV 07/25/20 19:09 100 mls/hr ONETIME ONE Administration Magnesium Sulfate 2 gm/ Premix 50 mls @ 50 mls/hr 07/25/20 19:27 07/25/20 21:07 IV 07/25/20 20:26 50 mls/hr ONETIME ONE Administration Potassium Chloride 20 meq/ 50 mls @ 25 mls/hr 07/25/20 19:27 07/25/20 22:29 Premix IV 07/25/20 21:26 25 mls/hr ONETIME ONE Administration Potassium Chloride 40 meq/ 100 mls @ 25 mls/hr 07/26/20 07:42 07/26/20 09:00 Premix IV 07/26/20 11:41 25 mls/hr ONETIME ONE Administration Potassium Chloride 40 meq/ 100 mls @ 25 mls/hr 07/26/20 12:50 07/26/20 14:14 Premix IV 07/26/20 16:49 Not Given ONETIME ONE Potassium Chloride 40 meq/ 100 mls @ 25 mls/hr 07/27/20 05:00 07/27/20 04:31 Premix IV 07/27/20 08:59 25 mls/hr ONETIME ONE Administration Iopamidol 100 ml 07/25/20 15:01 07/25/20 15:01 Iopamidol 755 Mg/Ml 500 Ml Multipack Bottle IVPUSH 07/25/20 15:02 100 ml ONETIME ONE Administration Metoclopramide HCl 5 mg 07/25/20 22:54 07/25/20 23:48 Metoclopramide 10 Mg/2 Ml Sdv IVPUSH 07/25/20 22:55 5 mg ONETIME ONE Administration Potassium Chloride 40 meq 07/27/20 09:30 Potassium Chloride 20 Meq Tab.Er PO DAILY RIKY Sodium Phosphate 250 mg 07/27/20 09:30 07/27/20 10:22 Phosphorus #1 250 Mg Tab PO 07/27/20 09:31 250 mg ONETIME ONE Administration Vancomycin HCl 125 mg 07/25/20 15:35 07/25/20 15:49 Vancomycin 125 Mg Cap PO 07/25/20 15:36 125 mg NOW STA Administration Departure - Departure Time of Disposition: 23:19 Disposition: Admitted As Inpatient 67 Clinical Impression: Clostridium difficile colitis, Immunosuppression, Dehydration, Hypokalemia, Transaminitis, History of lung cancer - Discharge Information Sepsis Event Note (ED) - Evaluation Sepsis Screening Result: No Definite Risk
[2020-07-25] MEDS ORDERED: Vancomycin 125 MG Cap PO STA (15:35)
[2020-07-25] MEDS ORDERED: Sodium Chloride 0.9% 500 ML IV SCH (15:45)
--- NOTE | 2020-07-25 16:21 | CT ---
INDICATION: Tachycardia. Dyspnea. Dark stools. History of lung cancer. TECHNIQUE: Volumetric helical scanning of the chest was performed during infusion of 100 cc of Isovue 370 contrast material IV, timing optimized for pulmonary arterial opacification. Subsequently, scanning of the abdomen and pelvis was performed. Coronal and sagittal reconstructions were obtained. COMPARISON: PET-CT of 05/20/2020 FINDINGS: CHEST: The pulmonary arteries are less than optimally opacified. No central pulmonary arterial filling defect is identified. However, a small peripheral embolus could go undetected. The heart size is normal. Emphysema is demonstrated. No acute infiltrate is noted. An 8 mm right upper lobe nodule is again demonstrated. No airway abnormality or pleural effusion is demonstrated. There is no obvious hilar or mediastinal lymphadenopathy. Calcified right hilar nodes are demonstrated. ABDOMEN/PELVIS: Diffuse, moderate acute colitis is demonstrated. Scattered colonic diverticula are not demonstrated. There is no obvious pneumatosis. No free fluid or free air is demonstrated. A hiatal hernia of small to moderate size is noted. Fatty change is demonstrated in the liver. The liver is normal in size and shape. The bile ducts, spleen, adrenal glands, kidneys and pancreas are unremarkable. No lymphadenopathy is evident. The prostate is unremarkable. A spondylitic grade 1 L5 anterolisthesis is demonstrated along with advanced L5-S1 disc degeneration. IMPRESSION: 1. Diffuse, moderate acute colitis without obvious complication. 2. Less than optimal pulmonary arterial calcification. No central pulmonary embolus demonstrated. A small peripheral embolus could go undetected. 3. Emphysema. 4. 8 mm right upper lobe nodule, as before. 5. Hiatal hernia of small to moderate size. 6. Fatty liver. Please note that all CT scans at this facility use dose modulation, iterative reconstruction, and/or weight-based dosing when appropriate to reduce radiation dose to as low as reasonably achievable. Dictated by Nick Murdock MD @ 07/25/2020 4:21:[address] Nick Murdock @ Jul 25 2020 4:21PM
--- NOTE | 2020-07-25 16:23 | CT ---
The abdomen/pelvis CT report is included with today`s chest CT report. Please note that all CT scans at this facility use dose modulation, iterative reconstruction, and/or weight-based dosing when appropriate to reduce radiation dose to as low as reasonably achievable. Dictated by Nick Murdock MD @ 07/25/2020 4:21:[address] Nick Murdock @ Jul 25 2020 4:21PM
[2020-07-25 16:41] LABS: CORONAVIRUS COVID-19 NAA NEGATIVE (NEGATIVE); INFLUENZA A NAA NEGATIVE (NEGATIVE); INFLUENZA B NAA NEGATIVE (NEGATIVE)
[2020-07-25] MEDS ORDERED: Sodium Chloride 0.9% 1,000 ML IV STA (17:39)
[2020-07-25] MEDS ORDERED: metroNIDAZOLE/Normal Saline 500 MG in Premix Bag 1 BAG IV ONE (18:10)
[2020-07-25] MEDS ORDERED: Ondansetron 4 MG/2 ML SDV IVPUSH PRN (19:00)
--- NOTE | 2020-07-25 19:13 | PCM.HP.2 ---
<Travis Syed - Last Filed: 07/26/20 15:01> H&P History of Present Illness - General Date of Service: 07/25/20 Admit Problem/Dx: Admission Diagnosis/Problem Admission Diagnosis/Problem Cdiff, Clostridium difficile colitis Source of Information: Patient History Limitations: Reports: No Limitations - History of Present Illness Initial Comments - Free Text/Narative: 55-year-old male with significant past medical history of metastatic small cell carcinoma presenting to the ED today with 3 to 4 days of lightheadedness accompanied with vomiting and diarrhea. Last chemotherapy session 4 weeks prior. Current symptoms include abdominal pain, nausea/vomiting. Denies any syncope, chest pain, shortness of breath.. Endorsed to ED physician also having difficulty breathing. ED course: Hemoccult/rectal exam positive. CTA: Diffuse moderate acute colitis without obvious complication. No central pulmonary embolus demonstrated less than optimal pulmonary arterial calcification. Emphysema. 8 mm right upper lobe nodule as before. Hiatal hernia small to moderate size. Fatty liver. Labs: Hemoglobin 10.4. MCV 110.9. WBC 10.63. Hypokalemia with potassium 2.8. Lactic acid 1.6. Mild transaminitis. Troponin x1 -. UA positive for blood and bili negative for nitrites/leukocytes. Covid negative. Bedside: Endorses similar story as above. 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 Last chemotherapy session 4 weeks prior and patient states that that may have been the last treatment. Treatment was palliative in nature including carboplatin, etoposide/etoposide/atezolizumab. Patient is scheduled to see oncology as a follow-up on July 30, [address] Rodney and Dr Bullock. Was also scheduled for PET scan around this time as well. Mentions nausea and vomiting began 3 to 4 days ago. Denies any sick contacts/recent travel. Does endorse drinking alcohol and continues to smoke. Patient also is complaining of profound fatigue since radiation/therapy. Diarrhea: Endorses diarrhea began 3 to 4 days ago and having 8 bowel movements throughout the day however these are small amounts of non-bloody stool. Did not note any blood per rectum per patient. However states overnight also waking up almost every hour for small bowel movements as well. Mentions decreased appetite but has been drinking plenty of fluids and having Ensure shakes. Also endorses last full meal 4 to 5 days prior - Related Data Allergies/Adverse Reactions: Allergies Allergy/AdvReac Type Severity Reaction Status Date / Time No Known Allergies Allergy Verified 07/25/20 21:12 Home Medications: Home Meds Ondansetron [Zofran Odt] 8 mg PO ASDIRECTED 07/03/20 [History] oxyCODONE HCl/Acetaminophen [Oxycodone-Acetaminophen 5-325] 1 tab PO ASDIRECTED 07/03/20 [History] Pantoprazole [ProTONIX] 40 mg PO DAILY #30 tab.cr 07/05/20 [Rx] Past Medical History - Past Health History Medical/Surgical History: Denies Medical/Surgical History HEENT History: Reports: Other (See Below) Other HEENT History: wears glasses Cardiovascular History: Reports: High Cholesterol Respiratory History: Reports: Other (See Below) Other Respiratory History: non-small cell lung cancer Gastrointestinal History: Reports: None, Other (See Below) Other Gastrointestinal History: nausea Genitourinary History: Reports: None Musculoskeletal History: Reports: Fracture, Other (See Below) Other Musculoskeletal History: hx fx collarbone & "seperated" shoulder Neurological History: Reports: Other (See Below) Other Neuro History: malignant brain tumor with mets to the lung Psychiatric History: Reports: None Endocrine/Metabolic History: Reports: None Hematologic History: Reports: None Immunologic History: Reports: None Oncologic (Cancer) History: Reports: Brain, Lung Other Oncologic History: non-small cell lung cancer metastatic to brain Dermatologic History: Reports: None - Infectious Disease History Infectious Disease History: Reports: None - Past Surgical History Head Surgeries/Procedures: Reports: Craniotomy HEENT Surgical History: Reports: None Cardiovascular Surgical History: Reports: None Respiratory Surgical History: Reports: None GI Surgical History: Reports: Hernia, Abdominal Male Surgical History: Reports: None Endocrine Surgical History: Reports: None Neurological Surgical History: Reports: Other (See Below) Other Neurological Surgeries/Procedures: craniotomy & partial tumor removal approx 4 weeks ago Musculoskeletal Surgical History: Reports: None Oncologic Surgical History: Reports: Other (See Below) Other Oncologic Surgeries/Procedures: craniotomy with partial tumor removal Dermatological Surgical History: Reports: Other (See Below) Social & Family History - Family History Family Medical History: No Pertinent Family History - Tobacco Use Tobacco Use Status *Q: Current Every Day Tobacco User Years of Tobacco use: 37 Packs/Tins Daily: 1 - Caffeine Use Caffeine Use: Reports: None - Recreational Drug Use Recreational Drug Use: No H&P Review of Systems - Review of Systems: Review Of Systems: See Below General: Reports: Malaise, Weakness, Fatigue. Denies: Fever, Chills HEENT: Reports: No Symptoms Pulmonary: Reports: Cough Cardiovascular: Reports: Dyspnea on Exertion Gastrointestinal: Reports: Abdominal Pain, Diarrhea, Decreased Appetite, Nausea, Vomiting Genitourinary: Reports: No Symptoms Musculoskeletal: Reports: No Symptoms Skin: Reports: Other (post radiation lesions over head/face ) Psychiatric: Reports: No Symptoms Neurological: Reports: Headache. Denies: Confusion, Dizziness Exam - Exam Exam: See Below - Vital Signs Vital Signs: Last Vital Signs Temp 97.8 F 07/25/20 13:20 Pulse 111 H 07/25/20 18:17 Resp 20 07/25/20 13:20 BP 121/80 07/25/20 18:00 Pulse Ox 96 07/25/20 18:17 Weight: 72.575 kg - Exam General: Alert, Oriented, Cooperative HEENT: EOMI, Mucosa Moist & [place] Neck: Supple, Trachea Midline Lungs: Normal Respiratory Effort, Other (mild coarse BS w. cough ) Cardiovascular: Regular Rhythm, Tachycardia GI/Abdominal Exam: Soft, Non-Tender Extremities: Normal Inspection Skin: Other (post-radiation skin changes noted over face/scalp ; linear scar over posterior neck ) Neurological: Cranial Nerves Intact Neuro Extensive - Mental Status: Alert, Normal Mood/Affect Psychiatric: Alert, Normal Mood - Patient Data Lab Results Last 24 hrs: Laboratory Results - last 24 hr 07/25/20 07/25/20 07/25/20 Range/Units 02:07 13:25 13:25 WBC 10.63 (4.0-11.0) K/uL RBC 3.12 L (4.50-5.90) M/uL Hgb 11.4 L (13.0-17.0) g/dL Hct 34.6 L (38.0-50.0) % MCV 110.9 H (80.0-98.0) fL MCH 36.5 H (27.0-32.0) pg MCHC 32.9 (31.0-37.0) g/dL RDW Std Deviation 78.8 H (28.0-62.0) fl RDW Coeff of Evelin 19 H (11.0-15.0) % Plt Count 154 (150-400) K/uL MPV 9.70 (7.40-12.00) fL Add Manual Diff YES Neutrophils % (Manual) 85 H (48.0-80.0) % Band Neutrophils % 4 % Lymphocytes % (Manual) 3 L (16.0-40.0) % Monocytes % (Manual) 6 (0.0-15.0) % Metamyelocytes % 2 % Nucleated RBC % 0.0 /100WBC Absolute Seg Neuts 9.0 H (1.4-5.7) Band Neutrophils # 0.4 Lymphocytes # (Manual) 0.3 L (0.6-2.4) Monocytes # (Manual) 0.6 (0.0-0.8) Absolute Metamyelocyte 0.2 Nucleated RBCs # 0 K/uL INR 0.99 Sodium (136-148) mmol/L Potassium (3.5-5.1) mmol/L Chloride (98-107) mmol/L Carbon Dioxide (21.0-32.0) mmol/L BUN (7.0-18.0) mg/dL Creatinine (0.8-1.3) mg/dL Est Cr Clr Drug Dosing mL/min Estimated GFR (MDRD) ml/min Glucose (74-106) mg/dL Lactic Acid (0.4-2.0) mmol/L Calcium (8.5-10.1) mg/dL Total Bilirubin (0.2-1.0) mg/dL AST (15-37) IU/L ALT (14-63) IU/L Alkaline Phosphatase (46-116) U/L Troponin I (0.000-0.056) ng/mL Total Protein (6.4-8.2) g/dL Albumin (3.4-5.0) g/dL Globulin (2.6-4.0) g/dL Albumin/Globulin Ratio (0.9-1.6) Urine Color Urine Appearance Urine pH (5.0-8.0) Ur Specific [place] (1.001-1.035) Urine Protein (NEGATIVE) mg/dL Urine Glucose (UA) (NEGATIVE) mg/dL Urine Ketones (NEGATIVE) mg/dL Urine Occult Blood (NEGATIVE) Urine Nitrite (NEGATIVE) Urine Bilirubin (NEGATIVE) Urine Ictotest Urine Urobilinogen (<2.0) EU/dL Ur Leukocyte Esterase (NEGATIVE) Urine RBC (0-2/HPF) Urine WBC (0-5/HPF) Ur Epithelial Cells (NONE-FEW) Urine Bacteria (NEGATIVE) Influenza Type A RNA NEGATIVE (NEGATIVE) Influenza Type B RNA NEGATIVE (NEGATIVE) SARS-CoV-2 RNA (GRZEGORZ) NEGATIVE (NEGATIVE) Blood Type Antibody Screen 07/25/20 07/25/20 07/25/20 Range/Units 13:25 13:25 13:45 WBC (4.0-11.0) K/uL RBC (4.50-5.90) M/uL Hgb (13.0-17.0) g/dL Hct (38.0-50.0) % MCV (80.0-98.0) fL MCH (27.0-32.0) pg MCHC (31.0-37.0) g/dL RDW Std Deviation (28.0-62.0) fl RDW Coeff of Evelin (11.0-15.0) % Plt Count (150-400) K/uL MPV (7.40-12.00) fL Add Manual Diff Neutrophils % (Manual) (48.0-80.0) % Band Neutrophils % % Lymphocytes % (Manual) (16.0-40.0) % Monocytes % (Manual) (0.0-15.0) % Metamyelocytes % % Nucleated RBC % /100WBC Absolute Seg Neuts (1.4-5.7) Band Neutrophils # Lymphocytes # (Manual) (0.6-2.4) Monocytes # (Manual) (0.0-0.8) Absolute Metamyelocyte Nucleated RBCs # K/uL INR Sodium 136 (136-148) mmol/L Potassium 2.8 L (3.5-5.1) mmol/L Chloride 94 L (98-107) mmol/L Carbon Dioxide 20.7 L (21.0-32.0) mmol/L BUN 9 (7.0-18.0) mg/dL Creatinine 0.7 L (0.8-1.3) mg/dL Est Cr Clr Drug Dosing 112.79 mL/min Estimated GFR (MDRD) > 60.0 ml/min Glucose 114 H (74-106) mg/dL Lactic Acid (0.4-2.0) mmol/L Calcium 8.4 L (8.5-10.1) mg/dL Total Bilirubin 0.6 (0.2-1.0) mg/dL AST 79 H (15-37) IU/L ALT 86 H (14-63) IU/L Alkaline Phosphatase 127 H (46-116) U/L Troponin I < 0.050 (0.000-0.056) ng/mL Total Protein 5.8 L (6.4-8.2) g/dL Albumin 2.4 L (3.4-5.0) g/dL Globulin 3.4 (2.6-4.0) g/dL Albumin/Globulin Ratio 0.7 L (0.9-1.6) Urine Color Urine Appearance Urine pH (5.0-8.0) Ur Specific [place] (1.001-1.035) Urine Protein (NEGATIVE) mg/dL Urine Glucose (UA) (NEGATIVE) mg/dL Urine Ketones (NEGATIVE) mg/dL Urine Occult Blood (NEGATIVE) Urine Nitrite (NEGATIVE) Urine Bilirubin (NEGATIVE) Urine Ictotest Urine Urobilinogen (<2.0) EU/dL Ur Leukocyte Esterase (NEGATIVE) Urine RBC (0-2/HPF) Urine WBC (0-5/HPF) Ur Epithelial Cells (NONE-FEW) Urine Bacteria (NEGATIVE) Influenza Type A RNA (NEGATIVE) Influenza Type B RNA (NEGATIVE) SARS-CoV-2 RNA (GRZEGORZ) (NEGATIVE) Blood Type O POSITIVE Antibody Screen NEGATIVE 07/25/20 07/25/20 07/25/20 Range/Units 14:25 15:16 17:36 WBC (4.0-11.0) K/uL RBC (4.50-5.90) M/uL Hgb 11.8 L (13.0-17.0) g/dL Hct 35.7 L (38.0-50.0) % MCV (80.0-98.0) fL MCH (27.0-32.0) pg MCHC (31.0-37.0) g/dL RDW Std Deviation (28.0-62.0) fl RDW Coeff of Evelin (11.0-15.0) % Plt Count (150-400) K/uL MPV (7.40-12.00) fL Add Manual Diff Neutrophils % (Manual) (48.0-80.0) % Band Neutrophils % % Lymphocytes % (Manual) (16.0-40.0) % Monocytes % (Manual) (0.0-15.0) % Metamyelocytes % % Nucleated RBC % /100WBC Absolute Seg Neuts (1.4-5.7) Band Neutrophils # Lymphocytes # (Manual) (0.6-2.4) Monocytes # (Manual) (0.0-0.8) Absolute Metamyelocyte Nucleated RBCs # K/uL INR Sodium (136-148) mmol/L Potassium (3.5-5.1) mmol/L Chloride (98-107) mmol/L Carbon Dioxide (21.0-32.0) mmol/L BUN (7.0-18.0) mg/dL Creatinine (0.8-1.3) mg/dL Est Cr Clr Drug Dosing mL/min Estimated GFR (MDRD) ml/min Glucose (74-106) mg/dL Lactic Acid 1.6 (0.4-2.0) mmol/L Calcium (8.5-10.1) mg/dL Total Bilirubin (0.2-1.0) mg/dL AST (15-37) IU/L ALT (14-63) IU/L Alkaline Phosphatase (46-116) U/L Troponin I (0.000-0.056) ng/mL Total Protein (6.4-8.2) g/dL Albumin (3.4-5.0) g/dL Globulin (2.6-4.0) g/dL Albumin/Globulin Ratio (0.9-1.6) Urine Color YELLOW Urine Appearance CLEAR Urine pH 6.0 (5.0-8.0) Ur Specific [place] >= 1.030 (1.001-1.035) Urine Protein 30 H (NEGATIVE) mg/dL Urine Glucose (UA) NEGATIVE (NEGATIVE) mg/dL Urine Ketones >=80 (NEGATIVE) mg/dL Urine Occult Blood SMALL H (NEGATIVE) Urine Nitrite NEGATIVE (NEGATIVE) Urine Bilirubin SMALL H (NEGATIVE) Urine Ictotest NEGATIVE Urine Urobilinogen 0.2 (<2.0) EU/dL Ur Leukocyte Esterase NEGATIVE (NEGATIVE) Urine RBC 0-2 (0-2/HPF) Urine WBC 0-2 (0-5/HPF) Ur Epithelial Cells RARE (NONE-FEW) Urine Bacteria FEW (NEGATIVE) Influenza Type A RNA (NEGATIVE) Influenza Type B RNA (NEGATIVE) SARS-CoV-2 RNA (GRZEGORZ) (NEGATIVE) Blood Type Antibody Screen Result Diagrams: 07/25/20 17:36 07/25/20 13:25 Rick Results Last 24 hrs: Microbiology 07/25/20 14:25 C. difficile Antigen & Toxins A,B - Final Stool / Feces Sepsis Event Note - Evaluation Sepsis Screening Result: No Definite Risk - Focused Exam Vital Signs: Vital Signs Temp Pulse Resp BP Pulse Ox 07/25/20 18:17 111 H 96 07/25/20 18:00 121/80 92 L 07/25/20 17:59 132 H 96 07/25/20 16:18 111 H 119/70 96 07/25/20 15:19 98 102/70 93 L 07/25/20 13:44 113 H 07/25/20 13:20 97.8 F 110 H 20 114/75 96 - Problem List (1) Small cell lung cancer in adult SNOMED Code(s): 143930719 ICD Code: C34.90 - MALIGNANT NEOPLASM OF UNSP PART OF UNSP BRONCHUS OR LUNG Status: Acute Current Visit: Yes (2) Nausea & vomiting SNOMED Code(s): 42240984 ICD Code: R11.2 - NAUSEA WITH VOMITING, UNSPECIFIED Status: Acute Current Visit: Yes (3) Tobacco abuse SNOMED Code(s): 817261856 ICD Code: Z72.0 - TOBACCO USE Status: Acute Priority: Medium Current Visit: No (4) Alcohol use SNOMED Code(s): 457557 ICD Code: Z78.9 - OTHER SPECIFIED HEALTH STATUS Status: Acute Priority: Medium Current Visit: No (5) Brain metastases Status: Chronic Current Visit: No Problem List Initiated/Reviewed/Updated: Yes Orders Last 24hrs: Active Orders 24 hr Category Date Time Status Admission Status [Patient Status] [ADT] Stat ADT 07/25/20 18:24 Active Antiembolic Devices [RC] PER UNIT ROUTINE Care 07/25/20 18:57 Ordered EKG Documentation Completion [RC] STAT Care 07/25/20 13:32 Active Oxygen Therapy [RC] PRN Care 07/25/20 18:54 Ordered Up ad Alessandra [RC] ASDIRECTED Care 07/25/20 18:54 Ordered VTE/DVT Education [RC] PER UNIT ROUTINE Care 07/25/20 18:54 Ordered Vital Signs [RC] Q4H Care 07/25/20 18:54 Ordered Nothing per Oral Now Diet [DIET] Diet 07/25/20 Breakfast Ordered CBC WITH AUTO DIFF [HEME] AM Lab 07/26/20 05:11 Ordered CBC WITH AUTO DIFF [HEME] AM Lab 07/27/20 05:11 Ordered CBC WITH AUTO DIFF [HEME] AM Lab 07/28/20 05:11 Ordered COMPREHENSIVE METABOLIC PN,CMP [CHEM] AM Lab 07/26/20 05:11 Ordered COMPREHENSIVE METABOLIC PN,CMP [CHEM] AM Lab 07/27/20 05:11 Ordered COMPREHENSIVE METABOLIC PN,CMP [CHEM] AM Lab 07/28/20 05:11 Ordered CULTURE BLOOD [BC] Stat Lab 07/25/20 14:40 Received CULTURE BLOOD [BC] Stat Lab 07/25/20 15:16 Received MAGNESIUM [CHEM] Routine Lab 07/25/20 18:57 Ordered OVA & PARASITES BY IMMUNOASSAY [MREF] Stat Lab 07/25/20 14:25 Received STOOL CULTURE/SHIGA TOXIN [MREF] Stat Lab 07/25/20 14:25 Received Ondansetron [Zofran] Med 07/25/20 19:00 Ordered 4 mg IVPUSH Q4H PRN Pantoprazole [ProTONIX IV] 40 mg Med 07/26/20 09:00 Ordered Sodium Chloride 0.9% [Normal Saline] 10 ml IV BID Sodium Chloride 0.9% [Normal Saline] 1,000 ml Med 07/25/20 17:39 Active IV NOW Sodium Chloride 0.9% [Normal Saline] 500 ml Med 07/25/20 15:45 Active IV .BOLUS Sodium Chloride 0.9% [Saline Flush] Med 07/25/20 13:32 Active 10 ml FLUSH ASDIRECTED PRN Sodium Chloride 0.9% [Saline Flush] Med 07/25/20 13:32 Active 2.5 ml FLUSH ASDIRECTED PRN Vancomycin [Vancocin 125 MG Capsule] Med 07/25/20 20:30 Ordered 125 mg PO QID metroNIDAZOLE/Normal Saline [Flagyl in NS 500 MG/100 ML Med 07/25/20 18:10 Active ] 500 mg Premix Bag 1 bag IV ONETIME oxyCODONE Med 07/25/20 18:59 Ordered 5 mg PO Q4H PRN Blood Culture x2 Reflex Set [OM.PC] Stat Oth 07/25/20 14:29 Ordered Saline Lock Insert [OM.PC] Stat Oth 07/25/20 13:32 Ordered Sequential Compression Device [OM.PC] Routine Oth 07/25/20 18:57 Ordered Resuscitation Status Routine Resus Stat 07/25/20 18:54 Ordered Medication Orders Sodium Chloride (Normal Saline) 500 mls @ 25 mls/hr IV .BOLUS RIKY Last Admin: 07/25/20 15:47 Dose: 25 mls/hr Documented by: KURT Sodium Chloride (Normal Saline) 1,000 mls @ 200 mls/hr IV NOW STA Stop: 07/25/20 22:38 Last Infusion: 07/25/20 18:26 Dose: 999 mls/hr Documented by: Admin: 07/25/20 17:54 Dose: 200 mls/hr Documented by: LISY Metronidazole 500 mg/ Premix 100 mls @ 100 mls/hr IV ONETIME ONE Stop: 07/25/20 19:09 Last Admin: 07/25/20 18:25 Dose: 100 mls/hr Documented by: KURT Pantoprazole Sodium 40 mg/ (Sodium Chloride) 10 mls @ 300 mls/hr IV BID RIKY Ondansetron HCl (Ondansetron 4 Mg/2 Ml Sdv) 4 mg IVPUSH Q4H PRN PRN Reason: Nausea Oxycodone HCl (Oxycodone 5 Mg Tab) 5 mg PO Q4H PRN PRN Reason: Pain Sodium Chloride (Sodium Chloride 0.9% 10 Ml Syringe) 10 ml FLUSH ASDIRECTED PRN PRN Reason: Keep Vein Open Last Admin: 07/25/20 13:42 Dose: 10 ml Documented by: KURT Sodium Chloride (Sodium Chloride 0.9% 2.5 Ml Syringe) 2.5 ml FLUSH ASDIRECTED PRN PRN Reason: Keep Vein Open Last Admin: 07/25/20 13:41 Dose: 2.5 ml Documented by: KURT Vancomycin HCl (Vancomycin 125 Mg Cap) 125 mg PO QID [facility] Assessment/Plan Comment:: Assessment: 1. Acute/moderate colitis in the setting of C. difficile 2. Hemoccult positive stool 3. 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 Macrocytic anemia 5. Hypokalemia. 6. Transaminitis. Plan Admit to inpatient Full code. I's and O's per routine vitals per routine DVT prophylaxis: SCDs in light of possible GI bleed GI prophylaxis: Pantoprazole 40 twice daily. 1. Acute moderate colitis in setting of C. difficile; Initiate/continue vancomycin p.o. Continue IV fluids. N.p.o. except sips and chips. Contact precautions Trend hemoglobin in light of Hemoccult positive stool. 2. Hypokalemia: Continue telemetry. EKG unremarkable. Replete with additional IV/p.o. potassium recheck in a.m. 3. Transaminitis: Marginal elevation; patient is a chemotherapy patient. continue to trend and recheck in the morning. 4. macrocytic anemia: add on b12/folic acid studies in AM 5. Metastatic small cell lung cancer. Diagnosed in December 04, 2019. Received chemotherapy/brain radiation, resection/lung radiation on chemo q. 21-day cycles x6 cycles. Per patient last cycle 4 weeks prior; was last treatment regimen but is not sure about this until follow up with oncology. Patient also states he is no longer on dexamethasone per radiology/oncology. <Oriana Hernandez - Last Filed: 07/29/20 17:13> H&P History of Present Illness - General Admit Problem/Dx: Admission Diagnosis/Problem Admission Diagnosis/Problem Cdiff, Clostridium difficile colitis Generalized Pain Score (Numeric/FACES): 6 Abdominal Pain Score (Numeric/FACES): 6 Exam - Vital Signs Vital Signs: Last Vital Signs Temp 36.2 C 07/29/20 16:00 Pulse 89 07/29/20 16:00 Resp 22 H 07/29/20 16:00 BP 110/79 07/29/20 16:00 Pulse Ox 95 07/29/20 16:00 - Patient Data Lab Results Last 24 hrs: Laboratory Results - last 24 hr 07/28/20 07/29/20 07/29/20 Range/Units 17:08 05:10 05:10 WBC 4.02 (4.0-11.0) K/uL RBC 2.62 L (4.50-5.90) M/uL Hgb 9.4 L (13.0-17.0) g/dL Hct 28.8 L (38.0-50.0) % MCV 109.9 H (80.0-98.0) fL MCH 35.9 H (27.0-32.0) pg MCHC 32.6 (31.0-37.0) g/dL RDW Std Deviation 76.3 H (28.0-62.0) fl RDW Coeff of Evelin 19 H (11.0-15.0) % Plt Count 124 L (150-400) K/uL MPV 10.90 (7.40-12.00) fL Add Manual Diff YES Neutrophils % (Manual) 34 L (48.0-80.0) % Band Neutrophils % 38 % Lymphocytes % (Manual) 11 L (16.0-40.0) % Monocytes % (Manual) 10 (0.0-15.0) % Metamyelocytes % 5 % Myelocytes % 2 % Nucleated RBC % 0.7 /100WBC Absolute Seg Neuts 1.4 (1.4-5.7) Band Neutrophils # 1.5 Lymphocytes # (Manual) 0.4 L (0.6-2.4) Monocytes # (Manual) 0.4 (0.0-0.8) Absolute Metamyelocyte 0.2 Absolute Myelocytes 0.1 Nucleated RBCs # 0 K/uL Sodium 138 (136-148) mmol/L Potassium 3.8 3.0 L (3.5-5.1) mmol/L Chloride 104 (98-107) mmol/L Carbon Dioxide 25.2 (21.0-32.0) mmol/L BUN 3 L (7.0-18.0) mg/dL Creatinine 0.4 L (0.8-1.3) mg/dL Est Cr Clr Drug Dosing 197.38 mL/min Estimated GFR (MDRD) > 60.0 ml/min Glucose 102 (74-106) mg/dL Calcium 7.3 L (8.5-10.1) mg/dL Phosphorus 3.1 3.5 (2.6-4.7) mg/dL Magnesium 2.2 1.6 L (1.8-2.4) mg/dL Total Bilirubin 0.4 (0.2-1.0) mg/dL AST 29 (15-37) IU/L ALT 44 (14-63) IU/L Alkaline Phosphatase 99 (46-116) U/L Total Protein 4.2 L (6.4-8.2) g/dL Albumin 1.5 L (3.4-5.0) g/dL Globulin 2.7 (2.6-4.0) g/dL Albumin/Globulin Ratio 0.6 L (0.9-1.6) 07/29/20 Range/Units 16:11 WBC (4.0-11.0) K/uL RBC (4.50-5.90) M/uL Hgb (13.0-17.0) g/dL Hct (38.0-50.0) % MCV (80.0-98.0) fL MCH (27.0-32.0) pg MCHC (31.0-37.0) g/dL RDW Std Deviation (28.0-62.0) fl RDW Coeff of Evelin (11.0-15.0) % Plt Count (150-400) K/uL MPV (7.40-12.00) fL Add Manual Diff Neutrophils % (Manual) (48.0-80.0) % Band Neutrophils % % Lymphocytes % (Manual) (16.0-40.0) % Monocytes % (Manual) (0.0-15.0) % Metamyelocytes % % Myelocytes % % Nucleated RBC % /100WBC Absolute Seg Neuts (1.4-5.7) Band Neutrophils # Lymphocytes # (Manual) (0.6-2.4) Monocytes # (Manual) (0.0-0.8) Absolute Metamyelocyte Absolute Myelocytes Nucleated RBCs # K/uL Sodium (136-148) mmol/L Potassium 4.0 (3.5-5.1) mmol/L Chloride (98-107) mmol/L Carbon Dioxide (21.0-32.0) mmol/L BUN (7.0-18.0) mg/dL Creatinine (0.8-1.3) mg/dL Est Cr Clr Drug Dosing mL/min Estimated GFR (MDRD) ml/min Glucose (74-106) mg/dL Calcium (8.5-10.1) mg/dL Phosphorus (2.6-4.7) mg/dL Magnesium 2.2 (1.8-2.4) mg/dL Total Bilirubin (0.2-1.0) mg/dL AST (15-37) IU/L ALT (14-63) IU/L Alkaline Phosphatase (46-116) U/L Total Protein (6.4-8.2) g/dL Albumin (3.4-5.0) g/dL Globulin (2.6-4.0) g/dL Albumin/Globulin Ratio (0.9-1.6) Result Diagrams: 07/29/20 05:10 07/29/20 16:11 Rick Results Last 24 hrs: Microbiology 07/25/20 15:16 Aerobic Blood Culture - Preliminary Blood - Venous - Lab Draw NO GROWTH AFTER 4 DAYS Anaerobic Blood Culture - Preliminary NO GROWTH AFTER 4 DAYS 07/25/20 14:40 Aerobic Blood Culture - Preliminary Blood - Venous NO GROWTH AFTER 4 DAYS Anaerobic Blood Culture - Preliminary NO GROWTH AFTER 4 DAYS 07/25/20 14:25 Stool Culture - Final Stool / Feces Shiga Toxin I & II - Final Sepsis Event Note - Focused Exam Vital Signs: Vital Signs Temp Pulse Resp BP Pulse Ox 07/29/20 16:00 36.2 C 89 22 H 110/79 95 07/29/20 12:00 35.8 C L 101 H 22 H 89/53 L 97 07/29/20 08:00 36.0 C L 76 20 95/64 94 L - Problem List (1) Hypomagnesemia SNOMED Code(s): 398849742 ICD Code: E83.42 - HYPOMAGNESEMIA Status: Acute Current Visit: Yes (2) Clostridium difficile colitis SNOMED Code(s): 132560603 ICD Code: A04.72 - ENTEROCOLITIS D/T CLOSTRIDIUM DIFFICILE, NOT SPCF RECUR Status: Acute Current Visit: Yes (3) Dehydration SNOMED Code(s): 28116657 ICD Code: E86.0 - DEHYDRATION Status: Acute Current Visit: Yes (4) History of lung cancer SNOMED Code(s): 610240100, 849910389 ICD Code: Z85.118 - PERSONAL HISTORY OF MALIGNANT NEOPLASM OF BRONCHUS AND LUNG Status: Acute Current Visit: Yes (5) Hypokalemia SNOMED Code(s): 88105443 ICD Code: E87.6 - HYPOKALEMIA Status: Acute Current Visit: Yes (6) Immunosuppression SNOMED Code(s): 18506688 ICD Code: D84.9 - IMMUNODEFICIENCY, UNSPECIFIED Status: Acute Current Visit: Yes (7) Nausea & vomiting SNOMED Code(s): 22079730 ICD Code: R11.2 - NAUSEA WITH VOMITING, UNSPECIFIED Status: Acute Current Visit: Yes (8) Small cell lung cancer in adult SNOMED Code(s): 676795833 ICD Code: C34.90 - MALIGNANT NEOPLASM OF UNSP PART OF UNSP BRONCHUS OR LUNG Status: Acute Current Visit: Yes (9) Transaminitis SNOMED Code(s): 560921394, 815620908 ICD Code: R74.01 - ELEVATION OF LEVELS OF LIVER TRANSAMINASE LEVELS Status: Acute Current Visit: Yes Orders Last 24hrs: Active Orders 24 hr Category Date Time Status [employer] Discontinue [Cardiac Monitoring Care 07/29/20 00:31 Active Discontinue] [RC] Click to Edit Consult to Physical Therapy [PT Evaluation and Cons 07/29/20 12:08 Active Treatment] [CONS] Routine CBC WITH AUTO DIFF [HEME] AM Lab 07/30/20 05:11 Ordered CBC WITH AUTO DIFF [HEME] AM Lab 07/31/20 05:11 Ordered CMP [COMPREHENSIVE METABOLIC PN,CMP] [CHEM] AM Lab 07/30/20 05:11 Ordered CMP [COMPREHENSIVE METABOLIC PN,CMP] [CHEM] AM Lab 07/31/20 05:11 Ordered MAGNESIUM [CHEM] AM Lab 07/30/20 05:11 Ordered MAGNESIUM [CHEM] AM Lab 07/31/20 05:11 Ordered PHOSPHORUS [CHEM] AM Lab 07/30/20 05:11 Ordered PHOSPHORUS [CHEM] AM Lab 07/31/20 05:11 Ordered Lactated Ringers [Ringers, Lactated] 1,000 ml Med 07/29/20 20:00 Active IV Q13H Sodium Chloride 0.9% with KCl [Normal Saline with 40 Med 07/29/20 11:11 Active mEq KCl] 1,000 ml IV ONETIME Medication Orders Albuterol/Ipratropium (Albuterol/Ipratropium 3.0-0.5 Mg/3 Ml Neb Soln) 3 ml NEB Q4HRRT PRN PRN Reason: Shortness of Breath Last Admin: 07/27/20 21:19 Dose: 3 ml Documented by: JENSEN Gabapentin (Gabapentin 100 Mg Cap) 100 mg PO TID [facility] Admin: 07/29/20 13:57 Dose: 100 mg Documented by: Admin: 07/29/20 05:13 Dose: 100 mg Documented by: Admin: 07/28/20 23:55 Dose: 100 mg Documented by: Admin: 07/28/20 14:05 Dose: 100 mg Documented by: Admin: 07/28/20 05:25 Dose: 100 mg Documented by: Admin: 07/27/20 21:06 Dose: 100 mg Documented by: Admin: 07/27/20 14:47 Dose: 100 mg Documented by: Admin: 07/27/20 06:12 Dose: 100 mg Documented by: Admin: 07/26/20 21:00 Dose: 100 mg Documented by: Admin: 07/26/20 13:15 Dose: 100 mg Documented by: Admin: 07/26/20 05:10 Dose: 100 mg Documented by: ANDRÉS Pantoprazole Sodium 40 mg/ (Sodium Chloride) 10 mls @ 300 mls/hr IV BID [facility] Last Admin: 07/29/20 08:53 Dose: 300 mls/hr Documented by: Infusion: 07/28/20 20:44 Dose: 300 mls/hr Documented by: Admin: 07/28/20 20:42 Dose: 300 mls/hr Documented by: Infusion: 07/28/20 08:56 Dose: 300 mls/hr Documented by: Admin: 07/28/20 08:54 Dose: 300 mls/hr Documented by: Infusion: 07/27/20 21:08 Dose: 300 mls/hr Documented by: Admin: 07/27/20 21:06 Dose: 300 mls/hr Documented by: Infusion: 07/27/20 08:26 Dose: 300 mls/hr Documented by: Admin: 07/27/20 08:24 Dose: 300 mls/hr Documented by: Infusion: 07/26/20 21:01 Dose: 300 mls/hr Documented by: Admin: 07/26/20 20:59 Dose: 300 mls/hr Documented by: Infusion: 07/26/20 08:58 Dose: 300 mls/hr Documented by: Admin: 07/26/20 08:56 Dose: 300 mls/hr Documented by: DEEPAK Metronidazole 500 mg/ Premix 100 mls @ 100 mls/hr IV Q8H [facility]IKY Last Admin: 07/29/20 09:00 Dose: 100 mls/hr Documented by: Infusion: 07/29/20 02:01 Dose: 100 mls/hr Documented by: Admin: 07/29/20 01:01 Dose: 100 mls/hr Documented by: Infusion: 07/28/20 19:06 Dose: 100 mls/hr Documented by: Admin: 07/28/20 18:06 Dose: 100 mls/hr Documented by: Infusion: 07/28/20 09:58 Dose: 100 mls/hr Documented by: Admin: 07/28/20 08:58 Dose: 100 mls/hr Documented by: Infusion: 07/28/20 03:19 Dose: 100 mls/hr Documented by: Admin: 07/28/20 02:19 Dose: 100 mls/hr Documented by: Infusion: 07/27/20 18:27 Dose: 100 mls/hr Documented by: Admin: 07/27/20 17:27 Dose: 100 mls/hr Documented by: Infusion: 07/27/20 11:17 Dose: 100 mls/hr Documented by: Admin: 07/27/20 10:17 Dose: 100 mls/hr Documented by: DEEPAK Potassium Chloride/Sodium Chloride (Normal Saline With 40 Meq Kcl) 1,000 mls @ 75 mls/hr IV ONETIME ONE Stop: 07/30/20 00:30 Last Admin: 07/29/20 11:47 Dose: 125 mls/hr Documented by: DEEPAK Lactated Ringer's (Ringers, Lactated) 1,000 mls @ 75 mls/hr IV Q13H [facility]IKY Lorazepam (Lorazepam 2 Mg/Ml Sdv) 1 mg IVPUSH Q4H PRN PRN Reason: Anxiety Ondansetron HCl (Ondansetron 4 Mg/2 Ml Sdv) 4 mg IVPUSH Q4H PRN PRN Reason: Nausea Oxycodone HCl (Oxycodone 5 Mg Tab) 5 mg PO Q4H PRN PRN Reason: Pain Last Admin: 07/29/20 09:08 Dose: 5 mg Documented by: Admin: 07/28/20 02:18 Dose: 5 mg Documented by: Admin: 07/27/20 12:03 Dose: 5 mg Documented by: Admin: 07/26/20 19:41 Dose: 5 mg Documented by: Admin: 07/26/20 09:06 Dose: 5 mg Documented by: Admin: 07/25/20 21:39 Dose: 5 mg Documented by: ANDRÉS Sodium Chloride (Sodium Chloride 0.9% 10 Ml Syringe) 10 ml FLUSH ASDIRECTED PRN PRN Reason: Keep Vein Open Last Admin: 07/25/20 13:42 Dose: 10 ml Documented by: KURT Sodium Chloride (Sodium Chloride 0.9% 2.5 Ml Syringe) 2.5 ml FLUSH ASDIRECTED PRN PRN Reason: Keep Vein Open Last Admin: 07/25/20 13:41 Dose: 2.5 ml Documented by: KURT Vancomycin HCl (Vancomycin 125 Mg Cap) 125 mg PO QID [facility] Last Admin: 07/29/20 11:41 Dose: 125 mg Documented by: Admin: 07/29/20 05:13 Dose: 125 mg Documented by: Admin: 07/28/20 23:55 Dose: 125 mg Documented by: Admin: 07/28/20 18:07 Dose: 125 mg Documented by: Admin: 07/28/20 11:26 Dose: 125 mg Documented by: Admin: 07/28/20 05:25 Dose: 125 mg Documented by: Admin: 07/27/20 23:24 Dose: 125 mg Documented by: Admin: 07/27/20 17:28 Dose: 125 mg Documented by: Admin: 07/27/20 12:03 Dose: 125 mg Documented by: Admin: 07/27/20 06:12 Dose: 125 mg Documented by: Admin: 07/26/20 23:32 Dose: 125 mg Documented by: Admin: 07/26/20 19:40 Dose: 125 mg Documented by: Admin: 07/26/20 12:40 Dose: 125 mg Documented by: Admin: 07/26/20 05:10 Dose: 125 mg Documented by: Admin: 07/25/20 23:48 Dose: 125 mg Documented by: Admin: 07/25/20 21:08 Dose: 125 mg Documented by: ANDRÉS Assessment/Plan Comment:: I performed a history and physical exam of the patient and discussed management with resident. I have reviewed the residents note and agree with documented findings and plan unless otherwise specified in my note.' .
[2020-07-25] MEDS ORDERED: Magnesium Sulfate/Water 2 GM in Premix Bag 1 BAG IV ONE (19:27)
[2020-07-25] MEDS ORDERED: Potassium Chloride Riders 20 MEQ in Premix Bag 1 BAG IV ONE (19:27)
[2020-07-25] MEDS ORDERED: Albuterol/Ipratropium 3.0-0.5 MG/3 ML Neb Soln NEB PRN (19:31)
[2020-07-25] MEDS: Vancomycin 125 MG Cap PO SCH ×2 (21:08→23:48)
[2020-07-25] MEDS: oxyCODONE 5 MG Tab PO PRN (21:39)
[2020-07-25] MEDS ORDERED: LORazepam 2 MG/ML SDV IVPUSH PRN (22:48)
[2020-07-25] MEDS ORDERED: Metoclopramide 10 MG/2 ML SDV IVPUSH ONE (22:54)
[2020-07-26] MEDS: Lactated Ringers 1,000 ML IV SCH ×3 (00:43→21:12)
[2020-07-26] MEDS: Gabapentin 100 MG Cap PO SCH ×3 (05:10→21:00)
[2020-07-26] MEDS: Vancomycin 125 MG Cap PO SCH ×4 (05:10→23:32)
[2020-07-26 06:03] LABS: BLOOD UREA NITROGEN,BUN 8 mg/dL (7.0-18.0); CARBON DIOXIDE,CO2 19.3 mmol/L (21.0-32.0); CHLORIDE,CL 100 mmol/L (98-107); GLUCOSE RANDOM 79 mg/dL (74-106); POTASSIUM,K 3.1 mmol/L (3.5-5.1); SODIUM,NA 137 mmol/L (136-148)
[2020-07-26] MEDS ORDERED: Potassium Chloride Riders 40 MEQ in Premix Bag 1 BAG IV ONE ×2 (07:42→12:50)
[2020-07-26] MEDS: Pantoprazole 40 MG in Sodium Chloride 0.9% 10 ML IV SCH ×2 (08:56→20:59)
[2020-07-26] MEDS: oxyCODONE 5 MG Tab PO PRN ×2 (09:06→19:41)
--- NOTE | 2020-07-26 09:55 | PCM.PN ---
<Travis Syed - Last Filed: 07/26/20 13:24> - General Info Date of Service: 07/26/20 Subjective Update: Bedside: no acute pain and or Cp/SOB Endorses having 5 bm since last night ; but no overt blood - Review of Systems General: Reports: Fatigue HEENT: Reports: No Symptoms Pulmonary: Reports: Cough Cardiovascular: Reports: Dyspnea on Exertion Gastrointestinal: Reports: Diarrhea, Nausea. Denies: Abdominal Pain, Constipation, Melena, Vomiting Genitourinary: Reports: No Symptoms Skin: Reports: No Symptoms Neurological: Reports: No Symptoms - Patient Data Vitals - Most Recent: Last Vital Signs Temp 98.7 F 07/26/20 08:00 Pulse 83 07/26/20 08:00 Resp 20 07/26/20 08:00 BP 125/72 07/26/20 08:00 Pulse Ox 98 07/26/20 08:00 Weight - Most Recent: 70.76 kg Lab Results Last 24 Hours: Laboratory Results - last 24 hr 07/25/20 07/25/20 07/25/20 Range/Units 02:07 13:25 13:25 WBC 10.63 (4.0-11.0) K/uL RBC 3.12 L (4.50-5.90) M/uL Hgb 11.4 L (13.0-17.0) g/dL Hct 34.6 L (38.0-50.0) % MCV 110.9 H (80.0-98.0) fL MCH 36.5 H (27.0-32.0) pg MCHC 32.9 (31.0-37.0) g/dL RDW Std Deviation 78.8 H (28.0-62.0) fl RDW Coeff of Evelin 19 H (11.0-15.0) % Plt Count 154 (150-400) K/uL MPV 9.70 (7.40-12.00) fL Add Manual Diff YES Neutrophils % (Manual) 85 H (48.0-80.0) % Band Neutrophils % 4 % Lymphocytes % (Manual) 3 L (16.0-40.0) % Monocytes % (Manual) 6 (0.0-15.0) % Metamyelocytes % 2 % Nucleated RBC % 0.0 /100WBC Absolute Seg Neuts 9.0 H (1.4-5.7) Band Neutrophils # 0.4 Lymphocytes # (Manual) 0.3 L (0.6-2.4) Monocytes # (Manual) 0.6 (0.0-0.8) Absolute Metamyelocyte 0.2 Nucleated RBCs # 0 K/uL INR 0.99 Sodium (136-148) mmol/L Potassium (3.5-5.1) mmol/L Chloride (98-107) mmol/L Carbon Dioxide (21.0-32.0) mmol/L BUN (7.0-18.0) mg/dL Creatinine (0.8-1.3) mg/dL Est Cr Clr Drug Dosing mL/min Estimated GFR (MDRD) ml/min Glucose (74-106) mg/dL Lactic Acid (0.4-2.0) mmol/L Calcium (8.5-10.1) mg/dL Magnesium (1.8-2.4) mg/dL Total Bilirubin (0.2-1.0) mg/dL AST (15-37) IU/L ALT (14-63) IU/L Alkaline Phosphatase (46-116) U/L Troponin I (0.000-0.056) ng/mL Total Protein (6.4-8.2) g/dL Albumin (3.4-5.0) g/dL Globulin (2.6-4.0) g/dL Albumin/Globulin Ratio (0.9-1.6) Urine Color Urine Appearance Urine pH (5.0-8.0) Ur Specific Malcolm (1.001-1.035) Urine Protein (NEGATIVE) mg/dL Urine Glucose (UA) (NEGATIVE) mg/dL Urine Ketones (NEGATIVE) mg/dL Urine Occult Blood (NEGATIVE) Urine Nitrite (NEGATIVE) Urine Bilirubin (NEGATIVE) Urine Ictotest Urine Urobilinogen (<2.0) EU/dL Ur Leukocyte Esterase (NEGATIVE) Urine RBC (0-2/HPF) Urine WBC (0-5/HPF) Ur Epithelial Cells (NONE-FEW) Urine Bacteria (NEGATIVE) Influenza Type A RNA NEGATIVE (NEGATIVE) Influenza Type B RNA NEGATIVE (NEGATIVE) SARS-CoV-2 RNA (GRZEGORZ) NEGATIVE (NEGATIVE) Blood Type Antibody Screen 07/25/20 07/25/20 07/25/20 Range/Units 13:25 13:25 13:45 WBC (4.0-11.0) K/uL RBC (4.50-5.90) M/uL Hgb (13.0-17.0) g/dL Hct (38.0-50.0) % MCV (80.0-98.0) fL MCH (27.0-32.0) pg MCHC (31.0-37.0) g/dL RDW Std Deviation (28.0-62.0) fl RDW Coeff of Evelin (11.0-15.0) % Plt Count (150-400) K/uL MPV (7.40-12.00) fL Add Manual Diff Neutrophils % (Manual) (48.0-80.0) % Band Neutrophils % % Lymphocytes % (Manual) (16.0-40.0) % Monocytes % (Manual) (0.0-15.0) % Metamyelocytes % % Nucleated RBC % /100WBC Absolute Seg Neuts (1.4-5.7) Band Neutrophils # Lymphocytes # (Manual) (0.6-2.4) Monocytes # (Manual) (0.0-0.8) Absolute Metamyelocyte Nucleated RBCs # K/uL INR Sodium 136 (136-148) mmol/L Potassium 2.8 L (3.5-5.1) mmol/L Chloride 94 L (98-107) mmol/L Carbon Dioxide 20.7 L (21.0-32.0) mmol/L BUN 9 (7.0-18.0) mg/dL Creatinine 0.7 L (0.8-1.3) mg/dL Est Cr Clr Drug Dosing 112.79 mL/min Estimated GFR (MDRD) > 60.0 ml/min Glucose 114 H (74-106) mg/dL Lactic Acid (0.4-2.0) mmol/L Calcium 8.4 L (8.5-10.1) mg/dL Magnesium (1.8-2.4) mg/dL Total Bilirubin 0.6 (0.2-1.0) mg/dL AST 79 H (15-37) IU/L ALT 86 H (14-63) IU/L Alkaline Phosphatase 127 H (46-116) U/L Troponin I < 0.050 (0.000-0.056) ng/mL Total Protein 5.8 L (6.4-8.2) g/dL Albumin 2.4 L (3.4-5.0) g/dL Globulin 3.4 (2.6-4.0) g/dL Albumin/Globulin Ratio 0.7 L (0.9-1.6) Urine Color Urine Appearance Urine pH (5.0-8.0) Ur Specific Malcolm (1.001-1.035) Urine Protein (NEGATIVE) mg/dL Urine Glucose (UA) (NEGATIVE) mg/dL Urine Ketones (NEGATIVE) mg/dL Urine Occult Blood (NEGATIVE) Urine Nitrite (NEGATIVE) Urine Bilirubin (NEGATIVE) Urine Ictotest Urine Urobilinogen (<2.0) EU/dL Ur Leukocyte Esterase (NEGATIVE) Urine RBC (0-2/HPF) Urine WBC (0-5/HPF) Ur Epithelial Cells (NONE-FEW) Urine Bacteria (NEGATIVE) Influenza Type A RNA (NEGATIVE) Influenza Type B RNA (NEGATIVE) SARS-CoV-2 RNA (GRZEGORZ) (NEGATIVE) Blood Type O POSITIVE Antibody Screen NEGATIVE 07/25/20 07/25/20 07/25/20 Range/Units 14:25 15:16 15:16 WBC (4.0-11.0) K/uL RBC (4.50-5.90) M/uL Hgb (13.0-17.0) g/dL Hct (38.0-50.0) % MCV (80.0-98.0) fL MCH (27.0-32.0) pg MCHC (31.0-37.0) g/dL RDW Std Deviation (28.0-62.0) fl RDW Coeff of Evelin (11.0-15.0) % Plt Count (150-400) K/uL MPV (7.40-12.00) fL Add Manual Diff Neutrophils % (Manual) (48.0-80.0) % Band Neutrophils % % Lymphocytes % (Manual) (16.0-40.0) % Monocytes % (Manual) (0.0-15.0) % Metamyelocytes % % Nucleated RBC % /100WBC Absolute Seg Neuts (1.4-5.7) Band Neutrophils # Lymphocytes # (Manual) (0.6-2.4) Monocytes # (Manual) (0.0-0.8) Absolute Metamyelocyte Nucleated RBCs # K/uL INR Sodium (136-148) mmol/L Potassium (3.5-5.1) mmol/L Chloride (98-107) mmol/L Carbon Dioxide (21.0-32.0) mmol/L BUN (7.0-18.0) mg/dL Creatinine (0.8-1.3) mg/dL Est Cr Clr Drug Dosing mL/min Estimated GFR (MDRD) ml/min Glucose (74-106) mg/dL Lactic Acid 1.6 (0.4-2.0) mmol/L Calcium (8.5-10.1) mg/dL Magnesium 1.4 L (1.8-2.4) mg/dL Total Bilirubin (0.2-1.0) mg/dL AST (15-37) IU/L ALT (14-63) IU/L Alkaline Phosphatase (46-116) U/L Troponin I (0.000-0.056) ng/mL Total Protein (6.4-8.2) g/dL Albumin (3.4-5.0) g/dL Globulin (2.6-4.0) g/dL Albumin/Globulin Ratio (0.9-1.6) Urine Color YELLOW Urine Appearance CLEAR Urine pH 6.0 (5.0-8.0) Ur Specific Malcolm >= 1.030 (1.001-1.035) Urine Protein 30 H (NEGATIVE) mg/dL Urine Glucose (UA) NEGATIVE (NEGATIVE) mg/dL Urine Ketones >=80 (NEGATIVE) mg/dL Urine Occult Blood SMALL H (NEGATIVE) Urine Nitrite NEGATIVE (NEGATIVE) Urine Bilirubin SMALL H (NEGATIVE) Urine Ictotest NEGATIVE Urine Urobilinogen 0.2 (<2.0) EU/dL Ur Leukocyte Esterase NEGATIVE (NEGATIVE) Urine RBC 0-2 (0-2/HPF) Urine WBC 0-2 (0-5/HPF) Ur Epithelial Cells RARE (NONE-FEW) Urine Bacteria FEW (NEGATIVE) Influenza Type A RNA (NEGATIVE) Influenza Type B RNA (NEGATIVE) SARS-CoV-2 RNA (GRZEGORZ) (NEGATIVE) Blood Type Antibody Screen 07/25/20 07/26/20 07/26/20 Range/Units 17:36 05:10 05:10 WBC 9.14 (4.0-11.0) K/uL RBC 2.77 L (4.50-5.90) M/uL Hgb 11.8 L 10.2 L (13.0-17.0) g/dL Hct 35.7 L 30.8 L (38.0-50.0) % MCV 111.2 H (80.0-98.0) fL MCH 36.8 H (27.0-32.0) pg MCHC 33.1 (31.0-37.0) g/dL RDW Std Deviation 77.7 H (28.0-62.0) fl RDW Coeff of Evelin 19 H (11.0-15.0) % Plt Count 141 L (150-400) K/uL MPV 10.10 (7.40-12.00) fL Add Manual Diff YES Neutrophils % (Manual) 32 L (48.0-80.0) % Band Neutrophils % 52 % Lymphocytes % (Manual) 5 L (16.0-40.0) % Monocytes % (Manual) 11 (0.0-15.0) % Metamyelocytes % % Nucleated RBC % 0.0 /100WBC Absolute Seg Neuts 2.9 (1.4-5.7) Band Neutrophils # 4.8 Lymphocytes # (Manual) 0.5 L (0.6-2.4) Monocytes # (Manual) 1.0 H (0.0-0.8) Absolute Metamyelocyte Nucleated RBCs # 0 K/uL INR Sodium 137 (136-148) mmol/L Potassium 3.1 L (3.5-5.1) mmol/L Chloride 100 (98-107) mmol/L Carbon Dioxide 19.3 L (21.0-32.0) mmol/L BUN 8 (7.0-18.0) mg/dL Creatinine 0.6 L (0.8-1.3) mg/dL Est Cr Clr Drug Dosing 131.59 mL/min Estimated GFR (MDRD) > 60.0 ml/min Glucose 79 (74-106) mg/dL Lactic Acid (0.4-2.0) mmol/L Calcium 7.9 L (8.5-10.1) mg/dL Magnesium (1.8-2.4) mg/dL Total Bilirubin 0.6 (0.2-1.0) mg/dL AST 63 H (15-37) IU/L ALT 59 (14-63) IU/L Alkaline Phosphatase 98 (46-116) U/L Troponin I (0.000-0.056) ng/mL Total Protein 5.0 L (6.4-8.2) g/dL Albumin 2.0 L (3.4-5.0) g/dL Globulin 3.0 (2.6-4.0) g/dL Albumin/Globulin Ratio 0.7 L (0.9-1.6) Urine Color Urine Appearance Urine pH (5.0-8.0) Ur Specific Malcolm (1.001-1.035) Urine Protein (NEGATIVE) mg/dL Urine Glucose (UA) (NEGATIVE) mg/dL Urine Ketones (NEGATIVE) mg/dL Urine Occult Blood (NEGATIVE) Urine Nitrite (NEGATIVE) Urine Bilirubin (NEGATIVE) Urine Ictotest Urine Urobilinogen (<2.0) EU/dL Ur Leukocyte Esterase (NEGATIVE) Urine RBC (0-2/HPF) Urine WBC (0-5/HPF) Ur Epithelial Cells (NONE-FEW) Urine Bacteria (NEGATIVE) Influenza Type A RNA (NEGATIVE) Influenza Type B RNA (NEGATIVE) SARS-CoV-2 RNA (GRZEGORZ) (NEGATIVE) Blood Type Antibody Screen 07/26/20 Range/Units 05:15 WBC (4.0-11.0) K/uL RBC (4.50-5.90) M/uL Hgb (13.0-17.0) g/dL Hct (38.0-50.0) % MCV (80.0-98.0) fL MCH (27.0-32.0) pg MCHC (31.0-37.0) g/dL RDW Std Deviation (28.0-62.0) fl RDW Coeff of Evelin (11.0-15.0) % Plt Count (150-400) K/uL MPV (7.40-12.00) fL Add Manual Diff Neutrophils % (Manual) (48.0-80.0) % Band Neutrophils % % Lymphocytes % (Manual) (16.0-40.0) % Monocytes % (Manual) (0.0-15.0) % Metamyelocytes % % Nucleated RBC % /100WBC Absolute Seg Neuts (1.4-5.7) Band Neutrophils # Lymphocytes # (Manual) (0.6-2.4) Monocytes # (Manual) (0.0-0.8) Absolute Metamyelocyte Nucleated RBCs # K/uL INR Sodium (136-148) mmol/L Potassium (3.5-5.1) mmol/L Chloride (98-107) mmol/L Carbon Dioxide (21.0-32.0) mmol/L BUN (7.0-18.0) mg/dL Creatinine (0.8-1.3) mg/dL Est Cr Clr Drug Dosing mL/min Estimated GFR (MDRD) ml/min Glucose (74-106) mg/dL Lactic Acid (0.4-2.0) mmol/L Calcium (8.5-10.1) mg/dL Magnesium 2.0 (1.8-2.4) mg/dL Total Bilirubin (0.2-1.0) mg/dL AST (15-37) IU/L ALT (14-63) IU/L Alkaline Phosphatase (46-116) U/L Troponin I (0.000-0.056) ng/mL Total Protein (6.4-8.2) g/dL Albumin (3.4-5.0) g/dL Globulin (2.6-4.0) g/dL Albumin/Globulin Ratio (0.9-1.6) Urine Color Urine Appearance Urine pH (5.0-8.0) Ur Specific Malcolm (1.001-1.035) Urine Protein (NEGATIVE) mg/dL Urine Glucose (UA) (NEGATIVE) mg/dL Urine Ketones (NEGATIVE) mg/dL Urine Occult Blood (NEGATIVE) Urine Nitrite (NEGATIVE) Urine Bilirubin (NEGATIVE) Urine Ictotest Urine Urobilinogen (<2.0) EU/dL Ur Leukocyte Esterase (NEGATIVE) Urine RBC (0-2/HPF) Urine WBC (0-5/HPF) Ur Epithelial Cells (NONE-FEW) Urine Bacteria (NEGATIVE) Influenza Type A RNA (NEGATIVE) Influenza Type B RNA (NEGATIVE) SARS-CoV-2 RNA (GRZEGORZ) (NEGATIVE) Blood Type Antibody Screen Rick Results Last 24 Hours: Microbiology 07/25/20 14:25 C. difficile Antigen & Toxins A,B - Final Stool / Feces Med Orders - Current: Current Medications Albuterol/Ipratropium (Albuterol/Ipratropium 3.0-0.5 Mg/3 Ml Neb Soln) 3 ml NEB Q4HRRT PRN PRN Reason: Shortness of Breath Gabapentin (Gabapentin 100 Mg Cap) 100 mg PO TID [facility] Last Admin: 07/26/20 05:10 Dose: 100 mg Documented by: Sodium Chloride (Normal Saline) 500 mls @ 25 mls/hr IV .BOLUS [facility] Last Admin: 07/25/20 15:47 Dose: 25 mls/hr Documented by: Pantoprazole Sodium 40 mg/ (Sodium Chloride) 10 mls @ 300 mls/hr IV BID [facility] Last Admin: 07/26/20 08:56 Dose: 300 mls/hr Documented by: Lactated Ringer's (Ringers, Lactated) 1,000 mls @ 125 mls/hr IV ASDIRECTED [facility] Last Admin: 07/26/20 08:55 Dose: 125 mls/hr Documented by: Potassium Chloride 40 meq/ (Premix) 100 mls @ 25 mls/hr IV ONETIME ONE Stop: 07/26/20 11:41 Last Admin: 07/26/20 09:00 Dose: 25 mls/hr Documented by: Lorazepam (Lorazepam 2 Mg/Ml Sdv) 1 mg IVPUSH Q4H PRN PRN Reason: Anxiety Ondansetron HCl (Ondansetron 4 Mg/2 Ml Sdv) 4 mg IVPUSH Q4H PRN PRN Reason: Nausea Oxycodone HCl (Oxycodone 5 Mg Tab) 5 mg PO Q4H PRN PRN Reason: Pain Last Admin: 07/26/20 09:06 Dose: 5 mg Documented by: Sodium Chloride (Sodium Chloride 0.9% 10 Ml Syringe) 10 ml FLUSH ASDIRECTED PRN PRN Reason: Keep Vein Open Last Admin: 07/25/20 13:42 Dose: 10 ml Documented by: Sodium Chloride (Sodium Chloride 0.9% 2.5 Ml Syringe) 2.5 ml FLUSH ASDIRECTED PRN PRN Reason: Keep Vein Open Last Admin: 07/25/20 13:41 Dose: 2.5 ml Documented by: Vancomycin HCl (Vancomycin 125 Mg Cap) 125 mg PO QID [facility] Last Admin: 07/26/20 05:10 Dose: 125 mg Documented by: Discontinued Medications Sodium Chloride (Normal Saline) 1,000 mls @ 999 mls/hr IV .Bolus ONE Stop: 07/25/20 14:32 Last Admin: 07/25/20 13:41 Dose: 999 mls/hr Documented by: Potassium Chloride 40 meq/ (Premix) 100 mls @ 25 mls/hr IV ONETIME ONE Stop: 07/25/20 18:14 Last Admin: 07/25/20 15:47 Dose: 25 mls/hr Documented by: Pantoprazole Sodium 80 mg/ (Sodium Chloride) 20 mls @ 420 mls/hr IVPUSH ONETIME ONE Stop: 07/25/20 14:18 Last Admin: 07/25/20 15:36 Dose: 420 mls/hr Documented by: Sodium Chloride (Normal Saline) 1,000 mls @ 200 mls/hr IV NOW STA Stop: 07/25/20 22:38 Last Infusion: 07/25/20 18:26 Dose: 999 mls/hr Documented by: Metronidazole 500 mg/ Premix 100 mls @ 100 mls/hr IV ONETIME ONE Stop: 07/25/20 19:09 Last Admin: 07/25/20 18:25 Dose: 100 mls/hr Documented by: Magnesium Sulfate 2 gm/ Premix 50 mls @ 50 mls/hr IV ONETIME ONE Stop: 07/25/20 20:26 Last Admin: 07/25/20 21:07 Dose: 50 mls/hr Documented by: Potassium Chloride 20 meq/ (Premix) 50 mls @ 25 mls/hr IV ONETIME ONE Stop: 07/25/20 21:26 Last Admin: 07/25/20 22:29 Dose: 25 mls/hr Documented by: Iopamidol (Iopamidol 755 Mg/Ml 500 Ml Multipack Bottle) 100 ml IVPUSH ONETIME ONE Stop: 07/25/20 15:02 Last Admin: 07/25/20 15:01 Dose: 100 ml Documented by: Metoclopramide HCl (Metoclopramide 10 Mg/2 Ml Sdv) 5 mg IVPUSH ONETIME ONE Stop: 07/25/20 22:55 Last Admin: 07/25/20 23:48 Dose: 5 mg Documented by: Vancomycin HCl (Vancomycin 125 Mg Cap) 125 mg PO NOW STA Stop: 07/25/20 15:36 Last Admin: 07/25/20 15:49 Dose: 125 mg Documented by: - Exam Quality Assessment: No: Supplemental Oxygen General: Alert, Oriented HEENT: EOMI, Mucous Membr. Moist/[place] Neck: Supple Lungs: Normal Respiratory Effort Cardiovascular: Regular Rhythm GI/Abdominal Exam: Soft, Non-Tender Extremities: Normal Inspection Psy/Mental Status: Alert, Normal Mood - Patient Data Lab Results Last 24 hrs: Laboratory Results - last 24 hr 07/25/20 07/25/20 07/25/20 Range/Units 02:07 13:25 13:25 WBC 10.63 (4.0-11.0) K/uL RBC 3.12 L (4.50-5.90) M/uL Hgb 11.4 L (13.0-17.0) g/dL Hct 34.6 L (38.0-50.0) % MCV 110.9 H (80.0-98.0) fL MCH 36.5 H (27.0-32.0) pg MCHC 32.9 (31.0-37.0) g/dL RDW Std Deviation 78.8 H (28.0-62.0) fl RDW Coeff of Evelin 19 H (11.0-15.0) % Plt Count 154 (150-400) K/uL MPV 9.70 (7.40-12.00) fL Add Manual Diff YES Neutrophils % (Manual) 85 H (48.0-80.0) % Band Neutrophils % 4 % Lymphocytes % (Manual) 3 L (16.0-40.0) % Monocytes % (Manual) 6 (0.0-15.0) % Metamyelocytes % 2 % Nucleated RBC % 0.0 /100WBC Absolute Seg Neuts 9.0 H (1.4-5.7) Band Neutrophils # 0.4 Lymphocytes # (Manual) 0.3 L (0.6-2.4) Monocytes # (Manual) 0.6 (0.0-0.8) Absolute Metamyelocyte 0.2 Nucleated RBCs # 0 K/uL INR 0.99 Sodium (136-148) mmol/L Potassium (3.5-5.1) mmol/L Chloride (98-107) mmol/L Carbon Dioxide (21.0-32.0) mmol/L BUN (7.0-18.0) mg/dL Creatinine (0.8-1.3) mg/dL Est Cr Clr Drug Dosing mL/min Estimated GFR (MDRD) ml/min Glucose (74-106) mg/dL Lactic Acid (0.4-2.0) mmol/L Calcium (8.5-10.1) mg/dL Magnesium (1.8-2.4) mg/dL Total Bilirubin (0.2-1.0) mg/dL AST (15-37) IU/L ALT (14-63) IU/L Alkaline Phosphatase (46-116) U/L Troponin I (0.000-0.056) ng/mL Total Protein (6.4-8.2) g/dL Albumin (3.4-5.0) g/dL Globulin (2.6-4.0) g/dL Albumin/Globulin Ratio (0.9-1.6) Urine Color Urine Appearance Urine pH (5.0-8.0) Ur Specific Malcolm (1.001-1.035) Urine Protein (NEGATIVE) mg/dL Urine Glucose (UA) (NEGATIVE) mg/dL Urine Ketones (NEGATIVE) mg/dL Urine Occult Blood (NEGATIVE) Urine Nitrite (NEGATIVE) Urine Bilirubin (NEGATIVE) Urine Ictotest Urine Urobilinogen (<2.0) EU/dL Ur Leukocyte Esterase (NEGATIVE) Urine RBC (0-2/HPF) Urine WBC (0-5/HPF) Ur Epithelial Cells (NONE-FEW) Urine Bacteria (NEGATIVE) Influenza Type A RNA NEGATIVE (NEGATIVE) Influenza Type B RNA NEGATIVE (NEGATIVE) SARS-CoV-2 RNA (GRZEGORZ) NEGATIVE (NEGATIVE) Blood Type Antibody Screen 07/25/20 07/25/20 07/25/20 Range/Units 13:25 13:25 13:45 WBC (4.0-11.0) K/uL RBC (4.50-5.90) M/uL Hgb (13.0-17.0) g/dL Hct (38.0-50.0) % MCV (80.0-98.0) fL MCH (27.0-32.0) pg MCHC (31.0-37.0) g/dL RDW Std Deviation (28.0-62.0) fl RDW Coeff of Evelin (11.0-15.0) % Plt Count (150-400) K/uL MPV (7.40-12.00) fL Add Manual Diff Neutrophils % (Manual) (48.0-80.0) % Band Neutrophils % % Lymphocytes % (Manual) (16.0-40.0) % Monocytes % (Manual) (0.0-15.0) % Metamyelocytes % % Nucleated RBC % /100WBC Absolute Seg Neuts (1.4-5.7) Band Neutrophils # Lymphocytes # (Manual) (0.6-2.4) Monocytes # (Manual) (0.0-0.8) Absolute Metamyelocyte Nucleated RBCs # K/uL INR Sodium 136 (136-148) mmol/L Potassium 2.8 L (3.5-5.1) mmol/L Chloride 94 L (98-107) mmol/L Carbon Dioxide 20.7 L (21.0-32.0) mmol/L BUN 9 (7.0-18.0) mg/dL Creatinine 0.7 L (0.8-1.3) mg/dL Est Cr Clr Drug Dosing 112.79 mL/min Estimated GFR (MDRD) > 60.0 ml/min Glucose 114 H (74-106) mg/dL Lactic Acid (0.4-2.0) mmol/L Calcium 8.4 L (8.5-10.1) mg/dL Magnesium (1.8-2.4) mg/dL Total Bilirubin 0.6 (0.2-1.0) mg/dL AST 79 H (15-37) IU/L ALT 86 H (14-63) IU/L Alkaline Phosphatase 127 H (46-116) U/L Troponin I < 0.050 (0.000-0.056) ng/mL Total Protein 5.8 L (6.4-8.2) g/dL Albumin 2.4 L (3.4-5.0) g/dL Globulin 3.4 (2.6-4.0) g/dL Albumin/Globulin Ratio 0.7 L (0.9-1.6) Urine Color Urine Appearance Urine pH (5.0-8.0) Ur Specific Malcolm (1.001-1.035) Urine Protein (NEGATIVE) mg/dL Urine Glucose (UA) (NEGATIVE) mg/dL Urine Ketones (NEGATIVE) mg/dL Urine Occult Blood (NEGATIVE) Urine Nitrite (NEGATIVE) Urine Bilirubin (NEGATIVE) Urine Ictotest Urine Urobilinogen (<2.0) EU/dL Ur Leukocyte Esterase (NEGATIVE) Urine RBC (0-2/HPF) Urine WBC (0-5/HPF) Ur Epithelial Cells (NONE-FEW) Urine Bacteria (NEGATIVE) Influenza Type A RNA (NEGATIVE) Influenza Type B RNA (NEGATIVE) SARS-CoV-2 RNA (GRZEGORZ) (NEGATIVE) Blood Type O POSITIVE Antibody Screen NEGATIVE 07/25/20 07/25/20 07/25/20 Range/Units 14:25 15:16 15:16 WBC (4.0-11.0) K/uL RBC (4.50-5.90) M/uL Hgb (13.0-17.0) g/dL Hct (38.0-50.0) % MCV (80.0-98.0) fL MCH (27.0-32.0) pg MCHC (31.0-37.0) g/dL RDW Std Deviation (28.0-62.0) fl RDW Coeff of Evelin (11.0-15.0) % Plt Count (150-400) K/uL MPV (7.40-12.00) fL Add Manual Diff Neutrophils % (Manual) (48.0-80.0) % Band Neutrophils % % Lymphocytes % (Manual) (16.0-40.0) % Monocytes % (Manual) (0.0-15.0) % Metamyelocytes % % Nucleated RBC % /100WBC Absolute Seg Neuts (1.4-5.7) Band Neutrophils # Lymphocytes # (Manual) (0.6-2.4) Monocytes # (Manual) (0.0-0.8) Absolute Metamyelocyte Nucleated RBCs # K/uL INR Sodium (136-148) mmol/L Potassium (3.5-5.1) mmol/L Chloride (98-107) mmol/L Carbon Dioxide (21.0-32.0) mmol/L BUN (7.0-18.0) mg/dL Creatinine (0.8-1.3) mg/dL Est Cr Clr Drug Dosing mL/min Estimated GFR (MDRD) ml/min Glucose (74-106) mg/dL Lactic Acid 1.6 (0.4-2.0) mmol/L Calcium (8.5-10.1) mg/dL Magnesium 1.4 L (1.8-2.4) mg/dL Total Bilirubin (0.2-1.0) mg/dL AST (15-37) IU/L ALT (14-63) IU/L Alkaline Phosphatase (46-116) U/L Troponin I (0.000-0.056) ng/mL Total Protein (6.4-8.2) g/dL Albumin (3.4-5.0) g/dL Globulin (2.6-4.0) g/dL Albumin/Globulin Ratio (0.9-1.6) Urine Color YELLOW Urine Appearance CLEAR Urine pH 6.0 (5.0-8.0) Ur Specific Malcolm >= 1.030 (1.001-1.035) Urine Protein 30 H (NEGATIVE) mg/dL Urine Glucose (UA) NEGATIVE (NEGATIVE) mg/dL Urine Ketones >=80 (NEGATIVE) mg/dL Urine Occult Blood SMALL H (NEGATIVE) Urine Nitrite NEGATIVE (NEGATIVE) Urine Bilirubin SMALL H (NEGATIVE) Urine Ictotest NEGATIVE Urine Urobilinogen 0.2 (<2.0) EU/dL Ur Leukocyte Esterase NEGATIVE (NEGATIVE) Urine RBC 0-2 (0-2/HPF) Urine WBC 0-2 (0-5/HPF) Ur Epithelial Cells RARE (NONE-FEW) Urine Bacteria FEW (NEGATIVE) Influenza Type A RNA (NEGATIVE) Influenza Type B RNA (NEGATIVE) SARS-CoV-2 RNA (GRZEGORZ) (NEGATIVE) Blood Type Antibody Screen 07/25/20 07/26/20 07/26/20 Range/Units 17:36 05:10 05:10 WBC 9.14 (4.0-11.0) K/uL RBC 2.77 L (4.50-5.90) M/uL Hgb 11.8 L 10.2 L (13.0-17.0) g/dL Hct 35.7 L 30.8 L (38.0-50.0) % MCV 111.2 H (80.0-98.0) fL MCH 36.8 H (27.0-32.0) pg MCHC 33.1 (31.0-37.0) g/dL RDW Std Deviation 77.7 H (28.0-62.0) fl RDW Coeff of Evelin 19 H (11.0-15.0) % Plt Count 141 L (150-400) K/uL MPV 10.10 (7.40-12.00) fL Add Manual Diff YES Neutrophils % (Manual) 32 L (48.0-80.0) % Band Neutrophils % 52 % Lymphocytes % (Manual) 5 L (16.0-40.0) % Monocytes % (Manual) 11 (0.0-15.0) % Metamyelocytes % % Nucleated RBC % 0.0 /100WBC Absolute Seg Neuts 2.9 (1.4-5.7) Band Neutrophils # 4.8 Lymphocytes # (Manual) 0.5 L (0.6-2.4) Monocytes # (Manual) 1.0 H (0.0-0.8) Absolute Metamyelocyte Nucleated RBCs # 0 K/uL INR Sodium 137 (136-148) mmol/L Potassium 3.1 L (3.5-5.1) mmol/L Chloride 100 (98-107) mmol/L Carbon Dioxide 19.3 L (21.0-32.0) mmol/L BUN 8 (7.0-18.0) mg/dL Creatinine 0.6 L (0.8-1.3) mg/dL Est Cr Clr Drug Dosing 131.59 mL/min Estimated GFR (MDRD) > 60.0 ml/min Glucose 79 (74-106) mg/dL Lactic Acid (0.4-2.0) mmol/L Calcium 7.9 L (8.5-10.1) mg/dL Magnesium (1.8-2.4) mg/dL Total Bilirubin 0.6 (0.2-1.0) mg/dL AST 63 H (15-37) IU/L ALT 59 (14-63) IU/L Alkaline Phosphatase 98 (46-116) U/L Troponin I (0.000-0.056) ng/mL Total Protein 5.0 L (6.4-8.2) g/dL Albumin 2.0 L (3.4-5.0) g/dL Globulin 3.0 (2.6-4.0) g/dL Albumin/Globulin Ratio 0.7 L (0.9-1.6) Urine Color Urine Appearance Urine pH (5.0-8.0) Ur Specific Malcolm (1.001-1.035) Urine Protein (NEGATIVE) mg/dL Urine Glucose (UA) (NEGATIVE) mg/dL Urine Ketones (NEGATIVE) mg/dL Urine Occult Blood (NEGATIVE) Urine Nitrite (NEGATIVE) Urine Bilirubin (NEGATIVE) Urine Ictotest Urine Urobilinogen (<2.0) EU/dL Ur Leukocyte Esterase (NEGATIVE) Urine RBC (0-2/HPF) Urine WBC (0-5/HPF) Ur Epithelial Cells (NONE-FEW) Urine Bacteria (NEGATIVE) Influenza Type A RNA (NEGATIVE) Influenza Type B RNA (NEGATIVE) SARS-CoV-2 RNA (GRZEGORZ) (NEGATIVE) Blood Type Antibody Screen 07/26/20 Range/Units 05:15 WBC (4.0-11.0) K/uL RBC (4.50-5.90) M/uL Hgb (13.0-17.0) g/dL Hct (38.0-50.0) % MCV (80.0-98.0) fL MCH (27.0-32.0) pg MCHC (31.0-37.0) g/dL RDW Std Deviation (28.0-62.0) fl RDW Coeff of Evelin (11.0-15.0) % Plt Count (150-400) K/uL MPV (7.40-12.00) fL Add Manual Diff Neutrophils % (Manual) (48.0-80.0) % Band Neutrophils % % Lymphocytes % (Manual) (16.0-40.0) % Monocytes % (Manual) (0.0-15.0) % Metamyelocytes % % Nucleated RBC % /100WBC Absolute Seg Neuts (1.4-5.7) Band Neutrophils # Lymphocytes # (Manual) (0.6-2.4) Monocytes # (Manual) (0.0-0.8) Absolute Metamyelocyte Nucleated RBCs # K/uL INR Sodium (136-148) mmol/L Potassium (3.5-5.1) mmol/L Chloride (98-107) mmol/L Carbon Dioxide (21.0-32.0) mmol/L BUN (7.0-18.0) mg/dL Creatinine (0.8-1.3) mg/dL Est Cr Clr Drug Dosing mL/min Estimated GFR (MDRD) ml/min Glucose (74-106) mg/dL Lactic Acid (0.4-2.0) mmol/L Calcium (8.5-10.1) mg/dL Magnesium 2.0 (1.8-2.4) mg/dL Total Bilirubin (0.2-1.0) mg/dL AST (15-37) IU/L ALT (14-63) IU/L Alkaline Phosphatase (46-116) U/L Troponin I (0.000-0.056) ng/mL Total Protein (6.4-8.2) g/dL Albumin (3.4-5.0) g/dL Globulin (2.6-4.0) g/dL Albumin/Globulin Ratio (0.9-1.6) Urine Color Urine Appearance Urine pH (5.0-8.0) Ur Specific Malcolm (1.001-1.035) Urine Protein (NEGATIVE) mg/dL Urine Glucose (UA) (NEGATIVE) mg/dL Urine Ketones (NEGATIVE) mg/dL Urine Occult Blood (NEGATIVE) Urine Nitrite (NEGATIVE) Urine Bilirubin (NEGATIVE) Urine Ictotest Urine Urobilinogen (<2.0) EU/dL Ur Leukocyte Esterase (NEGATIVE) Urine RBC (0-2/HPF) Urine WBC (0-5/HPF) Ur Epithelial Cells (NONE-FEW) Urine Bacteria (NEGATIVE) Influenza Type A RNA (NEGATIVE) Influenza Type B RNA (NEGATIVE) SARS-CoV-2 RNA (GRZEGORZ) (NEGATIVE) Blood Type Antibody Screen Result Diagrams: 07/26/20 05:10 07/26/20 05:10 Rick Results Last 24 hrs: Microbiology 07/25/20 14:25 C. difficile Antigen & Toxins A,B - Final Stool / Feces Sepsis Event Note - Evaluation Sepsis Screening Result: No Definite Risk - Focused Exam Vital Signs: Vital Signs Temp Pulse Resp BP Pulse Ox 07/26/20 08:00 98.7 F 83 20 125/72 98 07/26/20 03:57 118 H 18 117/75 98 07/25/20 23:53 100 18 112/73 97 - Problem List & Annotations (1) Small cell lung cancer in adult SNOMED Code(s): 636222214 Code(s): C34.90 - MALIGNANT NEOPLASM OF UNSP PART OF UNSP BRONCHUS OR LUNG Status: Acute Current Visit: Yes (2) Nausea & vomiting SNOMED Code(s): 07741143 Code(s): R11.2 - NAUSEA WITH VOMITING, UNSPECIFIED Status: Acute Current Visit: Yes (3) Tobacco abuse SNOMED Code(s): 792310904 Code(s): Z72.0 - TOBACCO USE Status: Acute Priority: Medium Current Visit: No (4) Alcohol use SNOMED Code(s): 345381 Code(s): Z78.9 - OTHER SPECIFIED HEALTH STATUS Status: Acute Priority: Me dium Current Visit: No (5) Brain metastases Status: Chronic Current Visit: No - Problem List Review Problem List Initiated/Reviewed/Updated: Yes - My Orders Last 24 Hours: My Active Orders 07/25/20 18:54 Oxygen Therapy [RC] PRN Up ad Alessandra [RC] ASDIRECTED VTE/DVT Education [RC] PER UNIT ROUTINE Vital Signs [RC] Q4H Resuscitation Status Routine 07/25/20 18:57 Antiembolic Devices [RC] PER UNIT ROUTINE Sequential Compression Device [OM.PC] Routine 07/25/20 18:59 oxyCODONE 5 mg PO Q4H PRN 07/25/20 19:00 Ondansetron [Zofran] 4 mg IVPUSH Q4H PRN 07/25/20 19:30 Lactated Ringers [Ringers, Lactated] 1,000 ml IV ASDIRECTED 07/25/20 19:31 Albuterol/Ipratropium [DuoNeb 3.0-0.5 MG/3 ML] 3 ml NEB Q4HRRT PRN 07/25/20 19:32 RT Aerosol Therapy [RC] ASDIRECTED 07/25/20 20:30 Vancomycin [Vancocin 125 MG Capsule] 125 mg PO QID 07/26/20 07:42 Potassium Chloride Riders [KCL in Water 40 MEQ/100 ML] 40 meq Premix Bag 1 bag IV ONETIME 07/26/20 09:00 Pantoprazole [ProTONIX IV] 40 mg Sodium Chloride 0.9% [Normal Saline] 10 ml IV BID 07/27/20 05:11 CBC WITH AUTO DIFF [HEME] AM COMPREHENSIVE METABOLIC PN,CMP [CHEM] AM 07/28/20 05:11 CBC WITH AUTO DIFF [HEME] AM COMPREHENSIVE METABOLIC PN,CMP [CHEM] AM - Plan Plan:: Assessment: 1. Acute/moderate colitis in the setting of C. difficile 2. Hemoccult positive stool 3. 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 Macrocytic anemia 5. Hypokalemia. 6. Transaminitis. Plan 1. Acute moderate colitis in setting of C. difficile; continue vancomycin p.o. Continue IV fluids. Advance to clear liquids Contact precautions Trend hemoglobin in light of Hemoccult positive stool. Rest of stool studies pending 2. Hypokalemia: Continue telemetry. EKG unremarkable. Replete with additional IV/p.o. potassium ; recheck in AM 3. Transaminitis: Marginal elevation; patient is a chemotherapy patient. continue to trend and recheck in the morning. 4. Metastatic small cell lung cancer. Diagnosed in December 04, 2019. Received chemotherapy/brain radiation, resection/lung radiation on chemo q. 21-day cycles x6 cycles. Per patient last cycle 4 weeks prior; was last treatment regimen but is not sure about this until follow up with oncology. Patient also states he is no longer on dexamethasone per radiology/oncology. <Oriana Hernandez - Last Filed: 07/29/20 16:48> - General Info Subjective Update: I have seen and evaluated the patient. I have discussed findings and treatment plan with resident. I agree with the assessment and plan in the following note. - Patient Data Vitals - Most Recent: Last Vital Signs Temp 36.2 C 07/29/20 16:00 Pulse 89 07/29/20 16:00 Resp 22 H 07/29/20 16:00 BP 110/79 07/29/20 16:00 Pulse Ox 95 07/29/20 16:00 I&O - Last 24 Hours: Intake & Output 07/29/20 07/29/20 07/29/20 06:59 14:59 22:59 Intake Total 350 1713 640 Output Total 0 Balance 350 1713 640 Lab Results Last 24 Hours: Laboratory Results - last 24 hr 07/28/20 07/29/20 07/29/20 Range/Units 17:08 05:10 05:10 WBC 4.02 (4.0-11.0) K/uL RBC 2.62 L (4.50-5.90) M/uL Hgb 9.4 L (13.0-17.0) g/dL Hct 28.8 L (38.0-50.0) % MCV 109.9 H (80.0-98.0) fL MCH 35.9 H (27.0-32.0) pg MCHC 32.6 (31.0-37.0) g/dL RDW Std Deviation 76.3 H (28.0-62.0) fl RDW Coeff of Evelin 19 H (11.0-15.0) % Plt Count 124 L (150-400) K/uL MPV 10.90 (7.40-12.00) fL Add Manual Diff YES Neutrophils % (Manual) 34 L (48.0-80.0) % Band Neutrophils % 38 % Lymphocytes % (Manual) 11 L (16.0-40.0) % Monocytes % (Manual) 10 (0.0-15.0) % Metamyelocytes % 5 % Myelocytes % 2 % Nucleated RBC % 0.7 /100WBC Absolute Seg Neuts 1.4 (1.4-5.7) Band Neutrophils # 1.5 Lymphocytes # (Manual) 0.4 L (0.6-2.4) Monocytes # (Manual) 0.4 (0.0-0.8) Absolute Metamyelocyte 0.2 Absolute Myelocytes 0.1 Nucleated RBCs # 0 K/uL Sodium 138 (136-148) mmol/L Potassium 3.8 3.0 L (3.5-5.1) mmol/L Chloride 104 (98-107) mmol/L Carbon Dioxide 25.2 (21.0-32.0) mmol/L BUN 3 L (7.0-18.0) mg/dL Creatinine 0.4 L (0.8-1.3) mg/dL Est Cr Clr Drug Dosing 197.38 mL/min Estimated GFR (MDRD) > 60.0 ml/min Glucose 102 (74-106) mg/dL Calcium 7.3 L (8.5-10.1) mg/dL Phosphorus 3.1 3.5 (2.6-4.7) mg/dL Magnesium 2.2 1.6 L (1.8-2.4) mg/dL Total Bilirubin 0.4 (0.2-1.0) mg/dL AST 29 (15-37) IU/L ALT 44 (14-63) IU/L Alkaline Phosphatase 99 (46-116) U/L Total Protein 4.2 L (6.4-8.2) g/dL Albumin 1.5 L (3.4-5.0) g/dL Globulin 2.7 (2.6-4.0) g/dL Albumin/Globulin Ratio 0.6 L (0.9-1.6) 07/29/20 Range/Units 16:11 WBC (4.0-11.0) K/uL RBC (4.50-5.90) M/uL Hgb (13.0-17.0) g/dL Hct (38.0-50.0) % MCV (80.0-98.0) fL MCH (27.0-32.0) pg MCHC (31.0-37.0) g/dL RDW Std Deviation (28.0-62.0) fl RDW Coeff of Evelin (11.0-15.0) % Plt Count (150-400) K/uL MPV (7.40-12.00) fL Add Manual Diff Neutrophils % (Manual) (48.0-80.0) % Band Neutrophils % % Lymphocytes % (Manual) (16.0-40.0) % Monocytes % (Manual) (0.0-15.0) % Metamyelocytes % % Myelocytes % % Nucleated RBC % /100WBC Absolute Seg Neuts (1.4-5.7) Band Neutrophils # Lymphocytes # (Manual) (0.6-2.4) Monocytes # (Manual) (0.0-0.8) Absolute Metamyelocyte Absolute Myelocytes Nucleated RBCs # K/uL Sodium (136-148) mmol/L Potassium 4.0 (3.5-5.1) mmol/L Chloride (98-107) mmol/L Carbon Dioxide (21.0-32.0) mmol/L BUN (7.0-18.0) mg/dL Creatinine (0.8-1.3) mg/dL Est Cr Clr Drug Dosing mL/min Estimated GFR (MDRD) ml/min Glucose (74-106) mg/dL Calcium (8.5-10.1) mg/dL Phosphorus (2.6-4.7) mg/dL Magnesium 2.2 (1.8-2.4) mg/dL Total Bilirubin (0.2-1.0) mg/dL AST (15-37) IU/L ALT (14-63) IU/L Alkaline Phosphatase (46-116) U/L Total Protein (6.4-8.2) g/dL Albumin (3.4-5.0) g/dL Globulin (2.6-4.0) g/dL Albumin/Globulin Ratio (0.9-1.6) Rick Results Last 24 Hours: Microbiology 07/25/20 15:16 Aerobic Blood Culture - Preliminary Blood - Venous - Lab Draw NO GROWTH AFTER 4 DAYS Anaerobic Blood Culture - Preliminary NO GROWTH AFTER 4 DAYS 07/25/20 14:40 Aerobic Blood Culture - Preliminary Blood - Venous NO GROWTH AFTER 4 DAYS Anaerobic Blood Culture - Preliminary NO GROWTH AFTER 4 DAYS 07/25/20 14:25 Stool Culture - Final Stool / Feces Shiga Toxin I & II - Final Med Orders - Current: Current Medications Albuterol/Ipratropium (Albuterol/Ipratropium 3.0-0.5 Mg/3 Ml Neb Soln) 3 ml NEB Q4HRRT PRN PRN Reason: Shortness of Breath Last Admin: 07/27/20 21:19 Dose: 3 ml Documented by: Gabapentin (Gabapentin 100 Mg Cap) 100 mg PO TID [facility] Last Admin: 07/29/20 13:57 Dose: 100 mg Documented by: Pantoprazole Sodium 40 mg/ (Sodium Chloride) 10 mls @ 300 mls/hr IV BID [facility] Last Admin: 07/29/20 08:53 Dose: 300 mls/hr Documented by: Metronidazole 500 mg/ Premix 100 mls @ 100 mls/hr IV Q8H [facility] Last Admin: 07/29/20 09:00 Dose: 100 mls/hr Documented by: Potassium Chloride/Sodium Chloride (Normal Saline With 40 Meq Kcl) 1,000 mls @ 75 mls/hr IV ONETIME ONE Stop: 07/30/20 00:30 Last Admin: 07/29/20 11:47 Dose: 125 mls/hr Documented by: Lactated Ringer's (Ringers, Lactated) 1,000 mls @ 75 mls/hr IV Q13H [facility] Lorazepam (Lorazepam 2 Mg/Ml Sdv) 1 mg IVPUSH Q4H PRN PRN Reason: Anxiety Ondansetron HCl (Ondansetron 4 Mg/2 Ml Sdv) 4 mg IVPUSH Q4H PRN PRN Reason: Nausea Oxycodone HCl (Oxycodone 5 Mg Tab) 5 mg PO Q4H PRN PRN Reason: Pain Last Admin: 07/29/20 09:08 Dose: 5 mg Documented by: Sodium Chloride (Sodium Chloride 0.9% 10 Ml Syringe) 10 ml FLUSH ASDIRECTED PRN PRN Reason: Keep Vein Open Last Admin: 07/25/20 13:42 Dose: 10 ml Documented by: Sodium Chloride (Sodium Chloride 0.9% 2.5 Ml Syringe) 2.5 ml FLUSH ASDIRECTED PRN PRN Reason: Keep Vein Open Last Admin: 07/25/20 13:41 Dose: 2.5 ml Documented by: Vancomycin HCl (Vancomycin 125 Mg Cap) 125 mg PO QID [facility] Last Admin: 07/29/20 11:41 Dose: 125 mg Documented by: Discontinued Medications Sodium Chloride (Normal Saline) 1,000 mls @ 999 mls/hr IV .Bolus ONE Stop: 07/25/20 14:32 Last Admin: 07/25/20 13:41 Dose: 999 mls/hr Documented by: Potassium Chloride 40 meq/ (Premix) 100 mls @ 25 mls/hr IV ONETIME ONE Stop: 07/25/20 18:14 Last Admin: 07/25/20 15:47 Dose: 25 mls/hr Documented by: Pantoprazole Sodium 80 mg/ (Sodium Chloride) 20 mls @ 420 mls/hr IVPUSH ONETIME ONE Stop: 07/25/20 14:18 Last Admin: 07/25/20 15:36 Dose: 420 mls/hr Documented by: Sodium Chloride (Normal Saline) 500 mls @ 25 mls/hr IV .BOLUS RIKY Last Admin: 07/25/20 15:47 Dose: 25 mls/hr Documented by: Sodium Chloride (Normal Saline) 1,000 mls @ 200 mls/hr IV NOW STA Stop: 07/25/20 22:38 Last Infusion: 07/25/20 18:26 Dose: 999 mls/hr Documented by: Metronidazole 500 mg/ Premix 100 mls @ 100 mls/hr IV ONETIME ONE Stop: 07/25/20 19:09 Last Admin: 07/25/20 18:25 Dose: 100 mls/hr Documented by: Lactated Ringer's (Ringers, Lactated) 1,000 mls @ 125 mls/hr IV ASDIRECTED [facility] Last Admin: 07/29/20 08:58 Dose: 125 mls/hr Documented by: Magnesium Sulfate 2 gm/ Premix 50 mls @ 50 mls/hr IV ONETIME ONE Stop: 07/25/20 20:26 Last Admin: 07/25/20 21:07 Dose: 50 mls/hr Documented by: Potassium Chloride 20 meq/ (Premix) 50 mls @ 25 mls/hr IV ONETIME ONE Stop: 07/25/20 21:26 Last Admin: 07/25/20 22:29 Dose: 25 mls/hr Documented by: Potassium Chloride 40 meq/ (Premix) 100 mls @ 25 mls/hr IV ONETIME ONE Stop: 07/26/20 11:41 Last Admin: 07/26/20 09:00 Dose: 25 mls/hr Documented by: Potassium Chloride 40 meq/ (Premix) 100 mls @ 25 mls/hr IV ONETIME ONE Stop: 07/26/20 16:49 Last Admin: 07/26/20 14:14 Dose: Not Given Documented by: Potassium Chloride 40 meq/ (Premix) 100 mls @ 25 mls/hr IV ONETIME ONE Stop: 07/27/20 08:59 Last Admin: 07/27/20 04:31 Dose: 25 mls/hr Documented by: Magnesium Sulfate 4 gm/ Premix 100 mls @ 50 mls/hr IV ONETIME ONE Stop: 07/27/20 11:29 Last Admin: 07/27/20 10:19 Dose: 50 mls/hr Documented by: Potassium Chloride/Sodium Chloride (Normal Saline With 40 Meq Kcl) 1,000 mls @ 250 mls/hr IV ONETIME ONE Stop: 07/27/20 13:44 Last Admin: 07/27/20 10:20 Dose: 250 mls/hr Documented by: Potassium Phosphate 30 mmole/ (Sodium Chloride) 510 mls @ 67.5 mls/hr IV ONETIME ONE Stop: 07/28/20 19:33 Last Admin: 07/28/20 12:33 Dose: 67.5 mls/hr Documented by: Magnesium Sulfate 2 gm/ Premix 50 mls @ 12.5 mls/hr IV ONETIME ONE Stop: 07/28/20 15:38 Last Admin: 07/28/20 12:12 Dose: 12.5 mls/hr Documented by: Magnesium Sulfate 2 gm/ Premix 50 mls @ 12.5 mls/hr IV ONETIME ONE Stop: 07/29/20 15:09 Last Admin: 07/29/20 11:42 Dose: 12.5 mls/hr Documented by: Iopamidol (Iopamidol 755 Mg/Ml 500 Ml Multipack Bottle) 100 ml IVPUSH ONETIME ONE Stop: 07/25/20 15:02 Last Admin: 07/25/20 15:01 Dose: 100 ml Documented by: Metoclopramide HCl (Metoclopramide 10 Mg/2 Ml Sdv) 5 mg IVPUSH ONETIME ONE Stop: 07/25/20 22:55 Last Admin: 07/25/20 23:48 Dose: 5 mg Documented by: Potassium Chloride (Potassium Chloride 20 Meq Tab.Er) 40 meq PO DAILY RIKY Last Admin: 07/27/20 11:13 Dose: Not Given Documented by: Potassium Chloride (Potassium Chloride 20 Meq Tab.Er) 40 meq PO ONETIME ONE Stop: 07/28/20 11:40 Last Admin: 07/28/20 12:11 Dose: 40 meq Documented by: Potassium Chloride (Potassium Chloride 20 Meq Tab.Er) 40 meq PO ONETIME ONE Stop: 07/29/20 11:11 Last Admin: 07/29/20 11:41 Dose: 40 meq Documented by: Sodium Phosphate (Phosphorus #1 250 Mg Tab) 250 mg PO ONETIME ONE Stop: 07/27/20 09:31 Last Admin: 07/27/20 10:22 Dose: 250 mg Documented by: Vancomycin HCl (Vancomycin 125 Mg Cap) 125 mg PO NOW STA Stop: 07/25/20 15:36 Last Admin: 07/25/20 15:49 Dose: 125 mg Documented by: - Patient Data Lab Results Last 24 hrs: Laboratory Results - last 24 hr 07/28/20 07/29/20 07/29/20 Range/Units 17:08 05:10 05:10 WBC 4.02 (4.0-11.0) K/uL RBC 2.62 L (4.50-5.90) M/uL Hgb 9.4 L (13.0-17.0) g/dL Hct 28.8 L (38.0-50.0) % MCV 109.9 H (80.0-98.0) fL MCH 35.9 H (27.0-32.0) pg MCHC 32.6 (31.0-37.0) g/dL RDW Std Deviation 76.3 H (28.0-62.0) fl RDW Coeff of Evelin 19 H (11.0-15.0) % Plt Count 124 L (150-400) K/uL MPV 10.90 (7.40-12.00) fL Add Manual Diff YES Neutrophils % (Manual) 34 L (48.0-80.0) % Band Neutrophils % 38 % Lymphocytes % (Manual) 11 L (16.0-40.0) % Monocytes % (Manual) 10 (0.0-15.0) % Metamyelocytes % 5 % Myelocytes % 2 % Nucleated RBC % 0.7 /100WBC Absolute Seg Neuts 1.4 (1.4-5.7) Band Neutrophils # 1.5 Lymphocytes # (Manual) 0.4 L (0.6-2.4) Monocytes # (Manual) 0.4 (0.0-0.8) Absolute Metamyelocyte 0.2 Absolute Myelocytes 0.1 Nucleated RBCs # 0 K/uL Sodium 138 (136-148) mmol/L Potassium 3.8 3.0 L (3.5-5.1) mmol/L Chloride 104 (98-107) mmol/L Carbon Dioxide 25.2 (21.0-32.0) mmol/L BUN 3 L (7.0-18.0) mg/dL Creatinine 0.4 L (0.8-1.3) mg/dL Est Cr Clr Drug Dosing 197.38 mL/min Estimated GFR (MDRD) > 60.0 ml/min Glucose 102 (74-106) mg/dL Calcium 7.3 L (8.5-10.1) mg/dL Phosphorus 3.1 3.5 (2.6-4.7) mg/dL Magnesium 2.2 1.6 L (1.8-2.4) mg/dL Total Bilirubin 0.4 (0.2-1.0) mg/dL AST 29 (15-37) IU/L ALT 44 (14-63) IU/L Alkaline Phosphatase 99 (46-116) U/L Total Protein 4.2 L (6.4-8.2) g/dL Albumin 1.5 L (3.4-5.0) g/dL Globulin 2.7 (2.6-4.0) g/dL Albumin/Globulin Ratio 0.6 L (0.9-1.6) 07/29/20 Range/Units 16:11 WBC (4.0-11.0) K/uL RBC (4.50-5.90) M/uL Hgb (13.0-17.0) g/dL Hct (38.0-50.0) % MCV (80.0-98.0) fL MCH (27.0-32.0) pg MCHC (31.0-37.0) g/dL RDW Std Deviation (28.0-62.0) fl RDW Coeff of Evelin (11.0-15.0) % Plt Count (150-400) K/uL MPV (7.40-12.00) fL Add Manual Diff Neutrophils % (Manual) (48.0-80.0) % Band Neutrophils % % Lymphocytes % (Manual) (16.0-40.0) % Monocytes % (Manual) (0.0-15.0) % Metamyelocytes % % Myelocytes % % Nucleated RBC % /100WBC Absolute Seg Neuts (1.4-5.7) Band Neutrophils # Lymphocytes # (Manual) (0.6-2.4) Monocytes # (Manual) (0.0-0.8) Absolute Metamyelocyte Absolute Myelocytes Nucleated RBCs # K/uL Sodium (136-148) mmol/L Potassium 4.0 (3.5-5.1) mmol/L Chloride (98-107) mmol/L Carbon Dioxide (21.0-32.0) mmol/L BUN (7.0-18.0) mg/dL Creatinine (0.8-1.3) mg/dL Est Cr Clr Drug Dosing mL/min Estimated GFR (MDRD) ml/min Glucose (74-106) mg/dL Calcium (8.5-10.1) mg/dL Phosphorus (2.6-4.7) mg/dL Magnesium 2.2 (1.8-2.4) mg/dL Total Bilirubin (0.2-1.0) mg/dL AST (15-37) IU/L ALT (14-63) IU/L Alkaline Phosphatase (46-116) U/L Total Protein (6.4-8.2) g/dL Albumin (3.4-5.0) g/dL Globulin (2.6-4.0) g/dL Albumin/Globulin Ratio (0.9-1.6) Result Diagrams: 07/29/20 05:10 07/29/20 16:11 Rick Results Last 24 hrs: Microbiology 07/25/20 15:16 Aerobic Blood Culture - Preliminary Blood - Venous - Lab Draw NO GROWTH AFTER 4 DAYS Anaerobic Blood Culture - Preliminary NO GROWTH AFTER 4 DAYS 07/25/20 14:40 Aerobic Blood Culture - Preliminary Blood - Venous NO GROWTH AFTER 4 DAYS Anaerobic Blood Culture - Preliminary NO GROWTH AFTER 4 DAYS 07/25/20 14:25 Stool Culture - Final Stool / Feces Shiga Toxin I & II - Final Sepsis Event Note - Focused Exam Vital Signs: Vital Signs Temp Pulse Resp BP Pulse Ox 07/29/20 16:00 36.2 C 89 22 H 110/79 95 07/29/20 12:00 35.8 C L 101 H 22 H 89/53 L 97 07/29/20 08:00 36.0 C L 76 20 95/64 94 L - Problem List & Annotations (1) Hypomagnesemia SNOMED Code(s): 996066613 Code(s): E83.42 - HYPOMAGNESEMIA Status: Acute Current Visit: Yes (2) Clostridium difficile colitis SNOMED Code(s): 464898606 Code(s): A04.72 - ENTEROCOLITIS D/T CLOSTRIDIUM DIFFICILE, NOT SPCF RECUR Status: Acute Current Visit: Yes (3) Dehydration SNOMED Code(s): 99860970 Code(s): E86.0 - DEHYDRATION Status: Acute Current Visit: Yes (4) History of lung cancer SNOMED Code(s): 734852586, 898730291 Code(s): Z85.118 - PERSONAL HISTORY OF MALIGNANT NEOPLASM OF BRONCHUS AND LUNG Status: Acute Current Visit: Yes (5) Hypokalemia SNOMED Code(s): 57641571 Code(s): E87.6 - HYPOKALEMIA Status: Acute Current Visit: Yes (6) Immunosuppression SNOMED Code(s): 32284798 Code(s): D84.9 - IMMUNODEFICIENCY, UNSPECIFIED Status: Acute Current Visit: Yes (7) Nausea & vomiting SNOMED Code(s): 55887148 Code(s): R11.2 - NAUSEA WITH VOMITING, UNSPECIFIED Status: Acute Current Visit: Yes (8) Small cell lung cancer in adult SNOMED Code(s): 163727868 Code(s): C34.90 - MALIGNANT NEOPLASM OF UNSP PART OF UNSP BRONCHUS OR LUNG Status: Acute Current Visit: Yes (9) Transaminitis SNOMED Code(s): 872515344, 536902844 Code(s): R74.01 - ELEVATION OF LEVELS OF LIVER TRANSAMINASE LEVELS Status: Acute Current Visit: Yes
[2020-07-27] MEDS ORDERED: Potassium Chloride Riders 40 MEQ in Premix Bag 1 BAG IV ONE ×2 (05:00→09:21)
[2020-07-27] MEDS: Lactated Ringers 1,000 ML IV SCH ×3 (05:12→23:47)
[2020-07-27 05:45] LABS: BLOOD UREA NITROGEN,BUN 5 mg/dL (7.0-18.0); CHLORIDE,CL 101 mmol/L (98-107); GLUCOSE RANDOM 110 mg/dL (74-106); POTASSIUM,K 2.7 mmol/L (3.5-5.1); SODIUM,NA 134 mmol/L (136-148)
[2020-07-27] MEDS: Vancomycin 125 MG Cap PO SCH ×4 (06:12→23:24)
[2020-07-27] MEDS: Gabapentin 100 MG Cap PO SCH ×3 (06:12→21:06)
[2020-07-27] MEDS: Pantoprazole 40 MG in Sodium Chloride 0.9% 10 ML IV SCH ×2 (08:24→21:06)
[2020-07-27] MEDS ORDERED: Phosphorus #1 250 MG Tab PO ONE (09:30)
[2020-07-27] MEDS ORDERED: Potassium Chloride 20 MEQ Tab.ER PO SCH (09:30)
[2020-07-27] MEDS ORDERED: Magnesium Sulfate/Water 4 GM in Premix Bag 1 BAG IV ONE (09:30)
[2020-07-27] MEDS ORDERED: Sodium Chloride 0.9% with KCl 1,000 ML IV ONE (09:45)
[2020-07-27] MEDS: metroNIDAZOLE/Normal Saline 500 MG in Premix Bag 1 BAG IV SCH ×2 (10:17→17:27)
[2020-07-27] MEDS: oxyCODONE 5 MG Tab PO PRN (12:03)
--- NOTE | 2020-07-27 12:31 | PCM.PN ---
- General Info Date of Service: 07/27/20 Admission Dx/Problem (Free Text): Admission Diagnosis/Problem Admission Diagnosis/Problem Cdiff, Clostridium difficile colitis Subjective Update: Bedside: No acute distress, states that he continues to have diarrhea although no blood or dark stool was noted, hiccups are much better, some mild nausea but no active vomiting, no abdominal pain no fevers no chills. - Review of Systems General: Reports: Weakness. Denies: Fever, Fatigue, Malaise Pulmonary: Denies: Shortness of Breath Cardiovascular: Denies: Chest Pain, Palpitations Gastrointestinal: Denies: Abdominal Pain, Constipation, Decreased Appetite Genitourinary: Denies: Dysuria, Frequency, Burning Musculoskeletal: Denies: Neck Pain, Shoulder Pain, Arm Pain Skin: Denies: Cyanosis, Jaundice, Mottled - Patient Data Vitals - Most Recent: Last Vital Signs Temp 37 C 07/27/20 08:00 Pulse 74 07/27/20 08:00 Resp 18 07/27/20 08:00 BP 100/54 L 07/27/20 08:00 Pulse Ox 93 L 07/27/20 08:00 Weight - Most Recent: 70.76 kg I&O - Last 24 Hours: Intake & Output 07/26/20 07/27/20 07/27/20 22:59 06:59 14:59 Intake Total 2411 980 Output Total 0 960 Balance 2411 20 Lab Results Last 24 Hours: Laboratory Results - last 24 hr 07/27/20 07/27/20 Range/Units 04:55 04:55 WBC 8.33 (4.0-11.0) K/uL RBC 2.59 L (4.50-5.90) M/uL Hgb 9.4 L (13.0-17.0) g/dL Hct 28.6 L (38.0-50.0) % MCV 110.4 H (80.0-98.0) fL MCH 36.3 H (27.0-32.0) pg MCHC 32.9 (31.0-37.0) g/dL RDW Std Deviation 76.3 H (28.0-62.0) fl RDW Coeff of Evelin 19 H (11.0-15.0) % Plt Count 118 L (150-400) K/uL MPV 10.30 (7.40-12.00) fL Add Manual Diff YES Neutrophils % (Manual) 37 L (48.0-80.0) % Band Neutrophils % 39 % Lymphocytes % (Manual) 9 L (16.0-40.0) % Monocytes % (Manual) 10 (0.0-15.0) % Eosinophils % (Manual) 4 (0.0-7.0) % Metamyelocytes % 1 % Nucleated RBC % 0.0 /100WBC Absolute Seg Neuts 3.1 (1.4-5.7) Band Neutrophils # 3.2 Lymphocytes # (Manual) 0.7 (0.6-2.4) Monocytes # (Manual) 0.8 (0.0-0.8) Eosinophils # (Manual) 0.3 (0.0-0.7) Absolute Metamyelocyte 0.1 Nucleated RBCs # 0 K/uL Sodium 134 L (136-148) mmol/L Potassium 2.7 L (3.5-5.1) mmol/L Chloride 101 (98-107) mmol/L Carbon Dioxide 28.0 (21.0-32.0) mmol/L BUN 5 L (7.0-18.0) mg/dL Creatinine 0.4 L (0.8-1.3) mg/dL Est Cr Clr Drug Dosing 197.38 mL/min Estimated GFR (MDRD) > 60.0 ml/min Glucose 110 H (74-106) mg/dL Calcium 7.7 L (8.5-10.1) mg/dL Phosphorus 1.7 L (2.6-4.7) mg/dL Magnesium 1.4 L (1.8-2.4) mg/dL Total Bilirubin 0.4 (0.2-1.0) mg/dL AST 45 H (15-37) IU/L ALT 53 (14-63) IU/L Alkaline Phosphatase 90 (46-116) U/L Total Protein 4.2 L (6.4-8.2) g/dL Albumin 1.6 L (3.4-5.0) g/dL Globulin 2.6 (2.6-4.0) g/dL Albumin/Globulin Ratio 0.6 L (0.9-1.6) Rick Results Last 24 Hours: Microbiology 07/25/20 14:25 Shiga Toxin I & II - Final Stool / Feces 07/25/20 15:16 Aerobic Blood Culture - Preliminary Blood - Venous - Lab Draw NO GROWTH AFTER 1 DAY Anaerobic Blood Culture - Preliminary NO GROWTH AFTER 1 DAY 07/25/20 14:40 Aerobic Blood Culture - Preliminary Blood - Venous NO GROWTH AFTER 1 DAY Anaerobic Blood Culture - Preliminary NO GROWTH AFTER 1 DAY Med Orders - Current: Current Medications Albuterol/Ipratropium (Albuterol/Ipratropium 3.0-0.5 Mg/3 Ml Neb Soln) 3 ml NEB Q4HRRT PRN PRN Reason: Shortness of Breath Gabapentin (Gabapentin 100 Mg Cap) 100 mg PO TID [facility] [place] Last Admin: 07/27/20 06:12 Dose: 100 mg Documented by: Sodium Chloride (Normal Saline) 500 mls @ 25 mls/hr IV .BOLUS [facility] [place] Last Admin: 07/25/20 15:47 Dose: 25 mls/hr Documented by: Pantoprazole Sodium 40 mg/ (Sodium Chloride) 10 mls @ 300 mls/hr IV BID [facility] [place] Last Admin: 07/27/20 08:24 Dose: 300 mls/hr Documented by: Lactated Ringer's (Ringers, Lactated) 1,000 mls @ 125 mls/hr IV ASDIRECTED [facility] [place] Last Admin: 07/27/20 05:12 Dose: 125 mls/hr Documented by: Metronidazole 500 mg/ Premix 100 mls @ 100 mls/hr IV Q8H [facility] [place] Last Admin: 07/27/20 10:17 Dose: 100 mls/hr Documented by: Potassium Chloride/Sodium Chloride (Normal Saline With 40 Meq Kcl) 1,000 mls @ 250 mls/hr IV ONETIME ONE Stop: 07/27/20 13:44 Last Admin: 07/27/20 10:20 Dose: 250 mls/hr Documented by: Lorazepam (Lorazepam 2 Mg/Ml Sdv) 1 mg IVPUSH Q4H PRN PRN Reason: Anxiety Ondansetron HCl (Ondansetron 4 Mg/2 Ml Sdv) 4 mg IVPUSH Q4H PRN PRN Reason: Nausea Oxycodone HCl (Oxycodone 5 Mg Tab) 5 mg PO Q4H PRN PRN Reason: Pain Last Admin: 07/27/20 12:03 Dose: 5 mg Documented by: Sodium Chloride (Sodium Chloride 0.9% 10 Ml Syringe) 10 ml FLUSH ASDIRECTED PRN PRN Reason: Keep Vein Open Last Admin: 07/25/20 13:42 Dose: 10 ml Documented by: Sodium Chloride (Sodium Chloride 0.9% 2.5 Ml Syringe) 2.5 ml FLUSH ASDIRECTED PRN PRN Reason: Keep Vein Open Last Admin: 07/25/20 13:41 Dose: 2.5 ml Documented by: Vancomycin HCl (Vancomycin 125 Mg Cap) 125 mg PO QID RIKY Last Admin: 07/27/20 12:03 Dose: 125 mg Documented by: Discontinued Medications Sodium Chloride (Normal Saline) 1,000 mls @ 999 mls/hr IV .Bolus ONE Stop: 07/25/20 14:32 Last Admin: 07/25/20 13:41 Dose: 999 mls/hr Documented by: Potassium Chloride 40 meq/ (Premix) 100 mls @ 25 mls/hr IV ONETIME ONE Stop: 07/25/20 18:14 Last Admin: 07/25/20 15:47 Dose: 25 mls/hr Documented by: Pantoprazole Sodium 80 mg/ (Sodium Chloride) 20 mls @ 420 mls/hr IVPUSH ONETIME ONE Stop: 07/25/20 14:18 Last Admin: 07/25/20 15:36 Dose: 420 mls/hr Documented by: Sodium Chloride (Normal Saline) 1,000 mls @ 200 mls/hr IV NOW STA Stop: 07/25/20 22:38 Last Infusion: 07/25/20 18:26 Dose: 999 mls/hr Documented by: Metronidazole 500 mg/ Premix 100 mls @ 100 mls/hr IV ONETIME ONE Stop: 07/25/20 19:09 Last Admin: 07/25/20 18:25 Dose: 100 mls/hr Documented by: Magnesium Sulfate 2 gm/ Premix 50 mls @ 50 mls/hr IV ONETIME ONE Stop: 07/25/20 20:26 Last Admin: 07/25/20 21:07 Dose: 50 mls/hr Documented by: Potassium Chloride 20 meq/ (Premix) 50 mls @ 25 mls/hr IV ONETIME ONE Stop: 07/25/20 21:26 Last Admin: 07/25/20 22:29 Dose: 25 mls/hr Documented by: Potassium Chloride 40 meq/ (Premix) 100 mls @ 25 mls/hr IV ONETIME ONE Stop: 07/26/20 11:41 Last Admin: 07/26/20 09:00 Dose: 25 mls/hr Documented by: Potassium Chloride 40 meq/ (Premix) 100 mls @ 25 mls/hr IV ONETIME ONE Stop: 07/26/20 16:49 Last Admin: 07/26/20 14:14 Dose: Not Given Documented by: Potassium Chloride 40 meq/ (Premix) 100 mls @ 25 mls/hr IV ONETIME ONE Stop: 07/27/20 08:59 Last Admin: 07/27/20 04:31 Dose: 25 mls/hr Documented by: Magnesium Sulfate 4 gm/ Premix 100 mls @ 50 mls/hr IV ONETIME ONE Stop: 07/27/20 11:29 Last Admin: 07/27/20 10:19 Dose: 50 mls/hr Documented by: Iopamidol (Iopamidol 755 Mg/Ml 500 Ml Multipack Bottle) 100 ml IVPUSH ONETIME ONE Stop: 07/25/20 15:02 Last Admin: 07/25/20 15:01 Dose: 100 ml Documented by: Metoclopramide HCl (Metoclopramide 10 Mg/2 Ml Sdv) 5 mg IVPUSH ONETIME ONE Stop: 07/25/20 22:55 Last Admin: 07/25/20 23:48 Dose: 5 mg Documented by: Potassium Chloride (Potassium Chloride 20 Meq Tab.Er) 40 meq PO DAILY RIKY Last Admin: 07/27/20 11:13 Dose: Not Given Documented by: Sodium Phosphate (Phosphorus #1 250 Mg Tab) 250 mg PO ONETIME ONE Stop: 07/27/20 09:31 Last Admin: 07/27/20 10:22 Dose: 250 mg Documented by: Vancomycin HCl (Vancomycin 125 Mg Cap) 125 mg PO NOW STA Stop: 07/25/20 15:36 Last Admin: 07/25/20 15:49 Dose: 125 mg Documented by: - Exam General: Alert, Oriented Neck: Supple Lungs: Clear to Auscultation, Normal Respiratory Effort Cardiovascular: Regular Rate, Regular Rhythm GI/Abdominal Exam: Normal Bowel Sounds, Soft, Non-Tender Back Exam: Normal Inspection, Full Range of Motion Extremities: Normal Inspection, Normal Range of Motion - Patient Data Lab Results Last 24 hrs: Laboratory Results - last 24 hr 07/27/20 07/27/20 Range/Units 04:55 04:55 WBC 8.33 (4.0-11.0) K/uL RBC 2.59 L (4.50-5.90) M/uL Hgb 9.4 L (13.0-17.0) g/dL Hct 28.6 L (38.0-50.0) % MCV 110.4 H (80.0-98.0) fL MCH 36.3 H (27.0-32.0) pg MCHC 32.9 (31.0-37.0) g/dL RDW Std Deviation 76.3 H (28.0-62.0) fl RDW Coeff of Evelin 19 H (11.0-15.0) % Plt Count 118 L (150-400) K/uL MPV 10.30 (7.40-12.00) fL Add Manual Diff YES Neutrophils % (Manual) 37 L (48.0-80.0) % Band Neutrophils % 39 % Lymphocytes % (Manual) 9 L (16.0-40.0) % Monocytes % (Manual) 10 (0.0-15.0) % Eosinophils % (Manual) 4 (0.0-7.0) % Metamyelocytes % 1 % Nucleated RBC % 0.0 /100WBC Absolute Seg Neuts 3.1 (1.4-5.7) Band Neutrophils # 3.2 Lymphocytes # (Manual) 0.7 (0.6-2.4) Monocytes # (Manual) 0.8 (0.0-0.8) Eosinophils # (Manual) 0.3 (0.0-0.7) Absolute Metamyelocyte 0.1 Nucleated RBCs # 0 K/uL Sodium 134 L (136-148) mmol/L Potassium 2.7 L (3.5-5.1) mmol/L Chloride 101 (98-107) mmol/L Carbon Dioxide 28.0 (21.0-32.0) mmol/L BUN 5 L (7.0-18.0) mg/dL Creatinine 0.4 L (0.8-1.3) mg/dL Est Cr Clr Drug Dosing 197.38 mL/min Estimated GFR (MDRD) > 60.0 ml/min Glucose 110 H (74-106) mg/dL Calcium 7.7 L (8.5-10.1) mg/dL Phosphorus 1.7 L (2.6-4.7) mg/dL Magnesium 1.4 L (1.8-2.4) mg/dL Total Bilirubin 0.4 (0.2-1.0) mg/dL AST 45 H (15-37) IU/L ALT 53 (14-63) IU/L Alkaline Phosphatase 90 (46-116) U/L Total Protein 4.2 L (6.4-8.2) g/dL Albumin 1.6 L (3.4-5.0) g/dL Globulin 2.6 (2.6-4.0) g/dL Albumin/Globulin Ratio 0.6 L (0.9-1.6) Result Diagrams: 07/27/20 04:55 07/27/20 04:55 Rick Results Last 24 hrs: Microbiology 07/25/20 14:25 Shiga Toxin I & II - Final Stool / Feces 07/25/20 15:16 Aerobic Blood Culture - Preliminary Blood - Venous - Lab Draw NO GROWTH AFTER 1 DAY Anaerobic Blood Culture - Preliminary NO GROWTH AFTER 1 DAY 07/25/20 14:40 Aerobic Blood Culture - Preliminary Blood - Venous NO GROWTH AFTER 1 DAY Anaerobic Blood Culture - Preliminary NO GROWTH AFTER 1 DAY Sepsis Event Note - Evaluation Sepsis Screening Result: No Definite Risk - Focused Exam Vital Signs: Vital Signs Temp Pulse Resp BP Pulse Ox 07/27/20 08:00 37 C 74 18 100/54 L 93 L 07/27/20 04:00 37.1 C 86 19 114/72 97 - Problem List & Annotations (1) Hypomagnesemia SNOMED Code(s): 448137858 Code(s): E83.42 - HYPOMAGNESEMIA Status: Acute Current Visit: Yes (2) Clostridium difficile colitis SNOMED Code(s): 277584605 Code(s): A04.72 - ENTEROCOLITIS D/T CLOSTRIDIUM DIFFICILE, NOT SPCF RECUR Status: Acute Current Visit: Yes (3) Dehydration SNOMED Code(s): 21422321 Code(s): E86.0 - DEHYDRATION Status: Acute Current Visit: Yes (4) History of lung cancer SNOMED Code(s): 757152867, 840151534 Code(s): Z85.118 - PERSONAL HISTORY OF MALIGNANT NEOPLASM OF BRONCHUS AND LUNG Status: Acute Current Visit: Yes (5) Hypokalemia SNOMED Code(s): 32476729 Code(s): E87.6 - HYPOKALEMIA Status: Acute Current Visit: Yes (6) Immunosuppression SNOMED Code(s): 66092508 Code(s): D84.9 - IMMUNODEFICIENCY, UNSPECIFIED Status: Acute Current Visit: Yes (7) Nausea & vomiting SNOMED Code(s): 94244044 Code(s): R11.2 - NAUSEA WITH VOMITING, UNSPECIFIED Status: Acute Current Visit: Yes (8) Small cell lung cancer in adult SNOMED Code(s): 145961399 Code(s): C34.90 - MALIGNANT NEOPLASM OF UNSP PART OF UNSP BRONCHUS OR LUNG Status: Acute Current Visit: Yes (9) Transaminitis SNOMED Code(s): 403869864, 434488342 Code(s): R74.01 - ELEVATION OF LEVELS OF LIVER TRANSAMINASE LEVELS Status: Acute Current Visit: Yes - Problem List Review Problem List Initiated/Reviewed/Updated: Yes - My Orders Last 24 Hours: My Active Orders 07/27/20 09:30 metroNIDAZOLE/Normal Saline [Flagyl in NS 500 MG/100 ML] 500 mg Premix Bag 1 bag IV Q8H 07/27/20 09:45 Sodium Chloride 0.9% with KCl [Normal Saline with 40 mEq KCl] 1,000 ml IV ONETIME 07/27/20 Lunch Soft Diet [DIET] - Plan Plan:: Assessment: 1. Acute/moderate colitis in the setting of C. difficile 2. Hemoccult positive stool 3. 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 Macrocytic anemia 5. Hypokalemia. 6. Transaminitis. Plan Full code. I's and O's per routine vitals per routine DVT prophylaxis: SCDs in light of possible GI bleed 1. Acute moderate colitis in setting of C. difficile; Initiate/continue vancomycin p.o. Continue IV fluids. Advance diet to soft diet Contact precautions GI prophylaxis: Pantoprazole 40 twice daily. Zofran as needed for nausea Hemoccult positive stool on admission but no concern of active GI bleed, stool is brown, hemoglobin is stable 2. Hypokalemia, hypomagnesemia: Continue telemetry. EKG unremarkable. Replete with additional IV/p.o. potassium , replete magnesium 3. Transaminitis: Marginal elevation; patient is a chemotherapy patient. 4. macrocytic anemia: b12/folic acid studies noted 5. Metastatic small cell lung cancer. Diagnosed in December 04, 2019. Received chemotherapy/brain radiation, resection/lung radiation on chemo q. 21-day cycles x6 cycles. Per patient last cycle 4 weeks prior; was last treatment regimen but is not sure about this until follow up with oncology. Patient also states he is no longer on dexamethasone per radiology/oncology.
[2020-07-28] MEDS: oxyCODONE 5 MG Tab PO PRN (02:18)
[2020-07-28] MEDS: metroNIDAZOLE/Normal Saline 500 MG in Premix Bag 1 BAG IV SCH ×3 (02:19→18:06)
[2020-07-28] MEDS: Vancomycin 125 MG Cap PO SCH ×4 (05:25→23:55)
[2020-07-28] MEDS: Gabapentin 100 MG Cap PO SCH ×3 (05:25→23:55)
[2020-07-28 06:19] LABS: BLOOD UREA NITROGEN,BUN 4 mg/dL (7.0-18.0); CARBON DIOXIDE,CO2 26.9 mmol/L (21.0-32.0); CHLORIDE,CL 101 mmol/L (98-107); GLUCOSE RANDOM 141 mg/dL (74-106); SODIUM,NA 135 mmol/L (136-148)
[2020-07-28] MEDS: Lactated Ringers 1,000 ML IV SCH ×2 (08:53→23:56)
[2020-07-28] MEDS: Pantoprazole 40 MG in Sodium Chloride 0.9% 10 ML IV SCH ×2 (08:54→20:42)
[2020-07-28] MEDS ORDERED: Potassium Chloride 20 MEQ Tab.ER PO ONE (11:39)
[2020-07-28] MEDS ORDERED: Magnesium Sulfate/Water 2 GM in Premix Bag 1 BAG IV ONE (11:39)
[2020-07-28] MEDS ORDERED: Potassium Phosphates 30 MMOLE in Sodium Chloride 0.9% 500 ML IV ONE (12:00)
--- NOTE | 2020-07-28 15:34 | PCM.PN ---
- General Info Date of Service: 07/28/20 Admission Dx/Problem (Free Text): Admission Diagnosis/Problem Admission Diagnosis/Problem Cdiff, Clostridium difficile colitis Subjective Update: Patient appears to be in no acute distress, states that he continues to have diarrhea although no blood or dark stool was noted, hiccups are much better, some mild nausea but no active vomiting, no abdominal pain no fevers no chills. Tolerating diet appropriately, all questions and concerns were addressed at bedside. Functional Status: Reports: Pain Controlled - Review of Systems General: Reports: No Symptoms HEENT: Reports: No Symptoms Pulmonary: Reports: No Symptoms Cardiovascular: Reports: No Symptoms Gastrointestinal: Reports: No Symptoms. Denies: Abdominal Pain, Decreased Appetite Genitourinary: Reports: No Symptoms Musculoskeletal: Reports: No Symptoms Skin: Reports: No Symptoms Neurological: Reports: No Symptoms Psychiatric: Reports: No Symptoms - Patient Data Vitals - Most Recent: Last Vital Signs Temp 97.7 F 07/28/20 12:00 Pulse 54 L 07/28/20 12:00 Resp 18 07/28/20 12:00 BP 106/58 L 07/28/20 12:00 Pulse Ox 98 07/28/20 12:00 Weight - Most Recent: 156 lb I&O - Last 24 Hours: Intake & Output 07/28/20 07/28/20 07/28/20 06:59 14:59 22:59 Intake Total 2725 Output Total 0 Balance 2725 Lab Results Last 24 Hours: Laboratory Results - last 24 hr 07/28/20 07/28/20 Range/Units 05:20 05:20 WBC 6.31 (4.0-11.0) K/uL RBC 2.88 L (4.50-5.90) M/uL Hgb 10.5 L (13.0-17.0) g/dL Hct 31.8 L (38.0-50.0) % MCV 110.4 H (80.0-98.0) fL MCH 36.5 H (27.0-32.0) pg MCHC 33.0 (31.0-37.0) g/dL RDW Std Deviation 75.2 H (28.0-62.0) fl RDW Coeff of Evelin 19 H (11.0-15.0) % Plt Count 131 L (150-400) K/uL MPV 10.50 (7.40-12.00) fL Add Manual Diff YES Neutrophils % (Manual) 32 L (48.0-80.0) % Band Neutrophils % 42 % Lymphocytes % (Manual) 18 (16.0-40.0) % Monocytes % (Manual) 7 (0.0-15.0) % Metamyelocytes % 1 % Nucleated RBC % 0.5 /100WBC Absolute Seg Neuts 2.0 (1.4-5.7) Band Neutrophils # 2.7 Lymphocytes # (Manual) 1.1 (0.6-2.4) Monocytes # (Manual) 0.4 (0.0-0.8) Absolute Metamyelocyte 0.1 Nucleated RBCs # 0 K/uL Sodium 135 L (136-148) mmol/L Potassium 3.0 L (3.5-5.1) mmol/L Chloride 101 (98-107) mmol/L Carbon Dioxide 26.9 (21.0-32.0) mmol/L BUN 4 L (7.0-18.0) mg/dL Creatinine 0.5 L (0.8-1.3) mg/dL Est Cr Clr Drug Dosing 157.91 mL/min Estimated GFR (MDRD) > 60.0 ml/min Glucose 141 H (74-106) mg/dL Calcium 7.5 L (8.5-10.1) mg/dL Phosphorus 1.8 L (2.6-4.7) mg/dL Magnesium 1.6 L (1.8-2.4) mg/dL Rick Results Last 24 Hours: Microbiology 07/25/20 15:16 Aerobic Blood Culture - Preliminary Blood - Venous - Lab Draw NO GROWTH AFTER 3 DAYS Anaerobic Blood Culture - Preliminary NO GROWTH AFTER 3 DAYS 07/25/20 14:40 Aerobic Blood Culture - Preliminary Blood - Venous NO GROWTH AFTER 3 DAYS Anaerobic Blood Culture - Preliminary NO GROWTH AFTER 3 DAYS 07/25/20 14:25 Stool Culture - Preliminary Stool / Feces Shiga Toxin I & II - Final 07/25/20 14:25 Cryptosporidium/Giardia - Final Stool / Feces Med Orders - Current: Current Medications Albuterol/Ipratropium (Albuterol/Ipratropium 3.0-0.5 Mg/3 Ml Neb Soln) 3 ml NEB Q4HRRT PRN PRN Reason: Shortness of Breath Last Admin: 07/27/20 21:19 Dose: 3 ml Documented by: Gabapentin (Gabapentin 100 Mg Cap) 100 mg PO TID [facility] Last Admin: 07/28/20 14:05 Dose: 100 mg Documented by: Pantoprazole Sodium 40 mg/ (Sodium Chloride) 10 mls @ 300 mls/hr IV BID [facility] Last Admin: 07/28/20 08:54 Dose: 300 mls/hr Documented by: Lactated Ringer's (Ringers, Lactated) 1,000 mls @ 125 mls/hr IV ASDIRECTED [facility] Last Admin: 07/28/20 08:53 Dose: 125 mls/hr Documented by: Metronidazole 500 mg/ Premix 100 mls @ 100 mls/hr IV Q8H [facility] Last Admin: 07/28/20 08:58 Dose: 100 mls/hr Documented by: Potassium Phosphate 30 mmole/ (Sodium Chloride) 510 mls @ 67.5 mls/hr IV ONETIME ONE Stop: 07/28/20 19:33 Last Admin: 07/28/20 12:33 Dose: 67.5 mls/hr Documented by: Magnesium Sulfate 2 gm/ Premix 50 mls @ 12.5 mls/hr IV ONETIME ONE Stop: 07/28/20 15:38 Last Admin: 07/28/20 12:12 Dose: 12.5 mls/hr Documented by: Lorazepam (Lorazepam 2 Mg/Ml Sdv) 1 mg IVPUSH Q4H PRN PRN Reason: Anxiety Ondansetron HCl (Ondansetron 4 Mg/2 Ml Sdv) 4 mg IVPUSH Q4H PRN PRN Reason: Nausea Oxycodone HCl (Oxycodone 5 Mg Tab) 5 mg PO Q4H PRN PRN Reason: Pain Last Admin: 07/28/20 02:18 Dose: 5 mg Documented by: Sodium Chloride (Sodium Chloride 0.9% 10 Ml Syringe) 10 ml FLUSH ASDIRECTED PRN PRN Reason: Keep Vein Open Last Admin: 07/25/20 13:42 Dose: 10 ml Documented by: Sodium Chloride (Sodium Chloride 0.9% 2.5 Ml Syringe) 2.5 ml FLUSH ASDIRECTED PRN PRN Reason: Keep Vein Open Last Admin: 07/25/20 13:41 Dose: 2.5 ml Documented by: Vancomycin HCl (Vancomycin 125 Mg Cap) 125 mg PO QID RIKY Last Admin: 07/28/20 11:26 Dose: 125 mg Documented by: Discontinued Medications Sodium Chloride (Normal Saline) 1,000 mls @ 999 mls/hr IV .Bolus ONE Stop: 07/25/20 14:32 Last Admin: 07/25/20 13:41 Dose: 999 mls/hr Documented by: Potassium Chloride 40 meq/ (Premix) 100 mls @ 25 mls/hr IV ONETIME ONE Stop: 07/25/20 18:14 Last Admin: 07/25/20 15:47 Dose: 25 mls/hr Documented by: Pantoprazole Sodium 80 mg/ (Sodium Chloride) 20 mls @ 420 mls/hr IVPUSH ONETIME ONE Stop: 07/25/20 14:18 Last Admin: 07/25/20 15:36 Dose: 420 mls/hr Documented by: Sodium Chloride (Normal Saline) 500 mls @ 25 mls/hr IV .BOLUS RIKY Last Admin: 07/25/20 15:47 Dose: 25 mls/hr Documented by: Sodium Chloride (Normal Saline) 1,000 mls @ 200 mls/hr IV NOW STA Stop: 07/25/20 22:38 Last Infusion: 07/25/20 18:26 Dose: 999 mls/hr Documented by: Metronidazole 500 mg/ Premix 100 mls @ 100 mls/hr IV ONETIME ONE Stop: 07/25/20 19:09 Last Admin: 07/25/20 18:25 Dose: 100 mls/hr Documented by: Magnesium Sulfate 2 gm/ Premix 50 mls @ 50 mls/hr IV ONETIME ONE Stop: 07/25/20 20:26 Last Admin: 07/25/20 21:07 Dose: 50 mls/hr Documented by: Potassium Chloride 20 meq/ (Premix) 50 mls @ 25 mls/hr IV ONETIME ONE Stop: 07/25/20 21:26 Last Admin: 07/25/20 22:29 Dose: 25 mls/hr Documented by: Potassium Chloride 40 meq/ (Premix) 100 mls @ 25 mls/hr IV ONETIME ONE Stop: 07/26/20 11:41 Last Admin: 07/26/20 09:00 Dose: 25 mls/hr Documented by: Potassium Chloride 40 meq/ (Premix) 100 mls @ 25 mls/hr IV ONETIME ONE Stop: 07/26/20 16:49 Last Admin: 07/26/20 14:14 Dose: Not Given Documented by: Potassium Chloride 40 meq/ (Premix) 100 mls @ 25 mls/hr IV ONETIME ONE Stop: 07/27/20 08:59 Last Admin: 07/27/20 04:31 Dose: 25 mls/hr Documented by: Magnesium Sulfate 4 gm/ Premix 100 mls @ 50 mls/hr IV ONETIME ONE Stop: 07/27/20 11:29 Last Admin: 07/27/20 10:19 Dose: 50 mls/hr Documented by: Potassium Chloride/Sodium Chloride (Normal Saline With 40 Meq Kcl) 1,000 mls @ 250 mls/hr IV ONETIME ONE Stop: 07/27/20 13:44 Last Admin: 07/27/20 10:20 Dose: 250 mls/hr Documented by: Iopamidol (Iopamidol 755 Mg/Ml 500 Ml Multipack Bottle) 100 ml IVPUSH ONETIME ONE Stop: 07/25/20 15:02 Last Admin: 07/25/20 15:01 Dose: 100 ml Documented by: Metoclopramide HCl (Metoclopramide 10 Mg/2 Ml Sdv) 5 mg IVPUSH ONETIME ONE Stop: 07/25/20 22:55 Last Admin: 07/25/20 23:48 Dose: 5 mg Documented by: Potassium Chloride (Potassium Chloride 20 Meq Tab.Er) 40 meq PO DAILY RIKY Last Admin: 07/27/20 11:13 Dose: Not Given Documented by: Potassium Chloride (Potassium Chloride 20 Meq Tab.Er) 40 meq PO ONETIME ONE Stop: 07/28/20 11:40 Last Admin: 07/28/20 12:11 Dose: 40 meq Documented by: Sodium Phosphate (Phosphorus #1 250 Mg Tab) 250 mg PO ONETIME ONE Stop: 07/27/20 09:31 Last Admin: 07/27/20 10:22 Dose: 250 mg Documented by: Vancomycin HCl (Vancomycin 125 Mg Cap) 125 mg PO NOW STA Stop: 07/25/20 15:36 Last Admin: 07/25/20 15:49 Dose: 125 mg Documented by: - Exam General: Alert, Oriented, Cooperative, No Acute Distress HEENT: Pupils Equal, Pupils Reactive, EOMI, Mucous Membr. Moist/Hector Neck: Supple Lungs: Clear to Auscultation, Normal Respiratory Effort Cardiovascular: Regular Rate, Regular Rhythm GI/Abdominal Exam: Normal Bowel Sounds, Soft, Non-Tender, No Organomegaly Back Exam: Normal Inspection, Full Range of Motion Extremities: Normal Inspection, Normal Range of Motion, Non-Tender, No Pedal Edema, Normal Capillary Refill Peripheral Pulses: 2+: Carotid (L), Carotid (R), Dorsalis Pedis (L), Dorsalis Pedis (R) Skin: Warm, Dry Neurological: No New Focal Deficit Psy/Mental Status: Alert, Normal Affect, Normal Mood - Patient Data Lab Results Last 24 hrs: Laboratory Results - last 24 hr 07/28/20 07/28/20 Range/Units 05:20 05:20 WBC 6.31 (4.0-11.0) K/uL RBC 2.88 L (4.50-5.90) M/uL Hgb 10.5 L (13.0-17.0) g/dL Hct 31.8 L (38.0-50.0) % MCV 110.4 H (80.0-98.0) fL MCH 36.5 H (27.0-32.0) pg MCHC 33.0 (31.0-37.0) g/dL RDW Std Deviation 75.2 H (28.0-62.0) fl RDW Coeff of Evelin 19 H (11.0-15.0) % Plt Count 131 L (150-400) K/uL MPV 10.50 (7.40-12.00) fL Add Manual Diff YES Neutrophils % (Manual) 32 L (48.0-80.0) % Band Neutrophils % 42 % Lymphocytes % (Manual) 18 (16.0-40.0) % Monocytes % (Manual) 7 (0.0-15.0) % Metamyelocytes % 1 % Nucleated RBC % 0.5 /100WBC Absolute Seg Neuts 2.0 (1.4-5.7) Band Neutrophils # 2.7 Lymphocytes # (Manual) 1.1 (0.6-2.4) Monocytes # (Manual) 0.4 (0.0-0.8) Absolute Metamyelocyte 0.1 Nucleated RBCs # 0 K/uL Sodium 135 L (136-148) mmol/L Potassium 3.0 L (3.5-5.1) mmol/L Chloride 101 (98-107) mmol/L Carbon Dioxide 26.9 (21.0-32.0) mmol/L BUN 4 L (7.0-18.0) mg/dL Creatinine 0.5 L (0.8-1.3) mg/dL Est Cr Clr Drug Dosing 157.91 mL/min Estimated GFR (MDRD) > 60.0 ml/min Glucose 141 H (74-106) mg/dL Calcium 7.5 L (8.5-10.1) mg/dL Phosphorus 1.8 L (2.6-4.7) mg/dL Magnesium 1.6 L (1.8-2.4) mg/dL Result Diagrams: 07/28/20 05:20 07/28/20 05:20 Rick Results Last 24 hrs: Microbiology 07/25/20 15:16 Aerobic Blood Culture - Preliminary Blood - Venous - Lab Draw NO GROWTH AFTER 3 DAYS Anaerobic Blood Culture - Preliminary NO GROWTH AFTER 3 DAYS 07/25/20 14:40 Aerobic Blood Culture - Preliminary Blood - Venous NO GROWTH AFTER 3 DAYS Anaerobic Blood Culture - Preliminary NO GROWTH AFTER 3 DAYS 07/25/20 14:25 Stool Culture - Preliminary Stool / Feces Shiga Toxin I & II - Final 07/25/20 14:25 Cryptosporidium/Giardia - Final Stool / Feces Sepsis Event Note - Evaluation Sepsis Screening Result: No Definite Risk - Focused Exam Vital Signs: Vital Signs Temp Pulse Resp BP Pulse Ox 07/28/20 12:00 97.7 F 54 L 18 106/58 L 98 07/28/20 09:00 96.8 F L 81 20 96/67 97 07/28/20 04:28 97.9 F 92 20 104/65 93 L - Problem List Review Problem List Initiated/Reviewed/Updated: Yes - My Orders Last 24 Hours: My Active Orders 07/28/20 17:00 MAGNESIUM [CHEM] Timed PHOSPHORUS [CHEM] Timed POTASSIUM,K [CHEM] Timed - Plan Plan:: Assessment: 1. Acute/moderate colitis in the setting of C. difficile 2. Hemoccult positive stool 3. 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 Macrocytic anemia 5. Hypokalemia. 6. Transaminitis. Plan Full code. I's and O's per routine vitals per routine DVT prophylaxis: SCDs in light of possible GI bleed 1. Acute moderate colitis in setting of C. difficile; Initiate/continue vancomycin p.o. Continue IV fluids. Advance diet to soft diet Contact precautions GI prophylaxis: Pantoprazole 40 twice daily. Zofran as needed for nausea Hemoccult positive stool on admission but no concern of active GI bleed, stool is brown, hemoglobin is stable 2. Hypokalemia: 3.0 this morning, supplement 80 mEq, 40 p.o. and potassium phosphate, recheck lab 1700. 3. Hypomagnesemia: Continue telemetry. EKG unremarkable. Replete IV 2 g, recheck at 1700. 4. Hypophosphatemia: Replete phosphate to potassium phosphate IV, recheck lab at 1700. 3. Transaminitis: Marginal elevation; patient is a chemotherapy patient. 4. macrocytic anemia: b12/folic acid studies noted to be normal, will encourage appropriate diet and supplement ferrous sulfate. 5. Metastatic small cell lung cancer. Diagnosed in December 04, 2019. Received chemotherapy/brain radiation, resection/lung radiation on chemo q. 21-day cycles x6 cycles. Per patient last cycle 4 weeks prior; was last treatment regimen but is not sure about this until follow up with oncology. Patient also states he is no longer on dexamethasone per radiology/oncology.
[2020-07-28 17:32] LABS: POTASSIUM,K 3.8 mmol/L (3.5-5.1)
[2020-07-29] MEDS: metroNIDAZOLE/Normal Saline 500 MG in Premix Bag 1 BAG IV SCH ×3 (01:01→17:20)
[2020-07-29] MEDS: Gabapentin 100 MG Cap PO SCH ×3 (05:13→21:00)
[2020-07-29] MEDS: Vancomycin 125 MG Cap PO SCH ×3 (05:13→17:20)
[2020-07-29 06:39] LABS: BLOOD UREA NITROGEN,BUN 3 mg/dL (7.0-18.0); CARBON DIOXIDE,CO2 25.2 mmol/L (21.0-32.0); CHLORIDE,CL 104 mmol/L (98-107); GLUCOSE RANDOM 102 mg/dL (74-106); SODIUM,NA 138 mmol/L (136-148)
[2020-07-29] MEDS: Pantoprazole 40 MG in Sodium Chloride 0.9% 10 ML IV SCH ×2 (08:53→20:42)
[2020-07-29] MEDS: Lactated Ringers 1,000 ML IV SCH (08:58)
[2020-07-29] MEDS: oxyCODONE 5 MG Tab PO PRN (09:08)
[2020-07-29] MEDS ORDERED: Potassium Chloride 20 MEQ Tab.ER PO ONE (11:10)
[2020-07-29] MEDS ORDERED: Magnesium Sulfate/Water 2 GM in Premix Bag 1 BAG IV ONE (11:10)
[2020-07-29] MEDS ORDERED: Sodium Chloride 0.9% with KCl 1,000 ML IV ONE (11:11)
--- NOTE | 2020-07-29 18:42 | PCM.PN ---
- General Info Date of Service: 07/29/20 Admission Dx/Problem (Free Text): Admission Diagnosis/Problem Admission Diagnosis/Problem Clostridium difficile colitis Subjective Update: Patient is a 55-year-old gentleman with history of metastatic small cell lung cancer admitted for C. difficile colitis on p.o. Vanco and Flagyl regimen. Patient states he is much improved today, states that diarrhea is slowly started to subside. Yesterday we repleted his electrolytes. There is no overnight events. This morning patient states that he has some deconditioning requiring him to stabilize himself using support to ambulate and swelling noted in his lower extremities. Denies any associated weakness, fatigue, dizziness, pain, or erythema of lower extremities. Functional Status: Reports: Tolerating Diet, Ambulating - Review of Systems General: Reports: No Symptoms HEENT: Reports: No Symptoms Pulmonary: Reports: No Symptoms Cardiovascular: Reports: No Symptoms Gastrointestinal: Reports: No Symptoms Genitourinary: Reports: No Symptoms Musculoskeletal: Reports: No Symptoms Skin: Reports: No Symptoms Neurological: Reports: No Symptoms Psychiatric: Reports: No Symptoms - Patient Data Vitals - Most Recent: Last Vital Signs Temp 97.2 F 07/29/20 16:00 Pulse 89 07/29/20 16:00 Resp 22 H 07/29/20 16:00 BP 110/79 07/29/20 16:00 Pulse Ox 95 07/29/20 16:00 Weight - Most Recent: 156 lb I&O - Last 24 Hours: Intake & Output 07/29/20 07/29/20 07/29/20 06:59 14:59 22:59 Intake Total 350 1713 640 Output Total 0 Balance 350 1713 640 Lab Results Last 24 Hours: Laboratory Results - last 24 hr 07/29/20 07/29/20 07/29/20 Range/Units 05:10 05:10 16:11 WBC 4.02 (4.0-11.0) K/uL RBC 2.62 L (4.50-5.90) M/uL Hgb 9.4 L (13.0-17.0) g/dL Hct 28.8 L (38.0-50.0) % MCV 109.9 H (80.0-98.0) fL MCH 35.9 H (27.0-32.0) pg MCHC 32.6 (31.0-37.0) g/dL RDW Std Deviation 76.3 H (28.0-62.0) fl RDW Coeff of Evelin 19 H (11.0-15.0) % Plt Count 124 L (150-400) K/uL MPV 10.90 (7.40-12.00) fL Add Manual Diff YES Neutrophils % (Manual) 34 L (48.0-80.0) % Band Neutrophils % 38 % Lymphocytes % (Manual) 11 L (16.0-40.0) % Monocytes % (Manual) 10 (0.0-15.0) % Metamyelocytes % 5 % Myelocytes % 2 % Nucleated RBC % 0.7 /100WBC Absolute Seg Neuts 1.4 (1.4-5.7) Band Neutrophils # 1.5 Lymphocytes # (Manual) 0.4 L (0.6-2.4) Monocytes # (Manual) 0.4 (0.0-0.8) Absolute Metamyelocyte 0.2 Absolute Myelocytes 0.1 Nucleated RBCs # 0 K/uL Sodium 138 (136-148) mmol/L Potassium 3.0 L 4.0 (3.5-5.1) mmol/L Chloride 104 (98-107) mmol/L Carbon Dioxide 25.2 (21.0-32.0) mmol/L BUN 3 L (7.0-18.0) mg/dL Creatinine 0.4 L (0.8-1.3) mg/dL Est Cr Clr Drug Dosing 197.38 mL/min Estimated GFR (MDRD) > 60.0 ml/min Glucose 102 (74-106) mg/dL Calcium 7.3 L (8.5-10.1) mg/dL Phosphorus 3.5 (2.6-4.7) mg/dL Magnesium 1.6 L 2.2 (1.8-2.4) mg/dL Total Bilirubin 0.4 (0.2-1.0) mg/dL AST 29 (15-37) IU/L ALT 44 (14-63) IU/L Alkaline Phosphatase 99 (46-116) U/L Total Protein 4.2 L (6.4-8.2) g/dL Albumin 1.5 L (3.4-5.0) g/dL Globulin 2.7 (2.6-4.0) g/dL Albumin/Globulin Ratio 0.6 L (0.9-1.6) Rick Results Last 24 Hours: Microbiology 07/25/20 15:16 Aerobic Blood Culture - Preliminary Blood - Venous - Lab Draw NO GROWTH AFTER 4 DAYS Anaerobic Blood Culture - Preliminary NO GROWTH AFTER 4 DAYS 07/25/20 14:40 Aerobic Blood Culture - Preliminary Blood - Venous NO GROWTH AFTER 4 DAYS Anaerobic Blood Culture - Preliminary NO GROWTH AFTER 4 DAYS 07/25/20 14:25 Stool Culture - Final Stool / Feces Shiga Toxin I & II - Final Med Orders - Current: Current Medications Albuterol/Ipratropium (Albuterol/Ipratropium 3.0-0.5 Mg/3 Ml Neb Soln) 3 ml NEB Q4HRRT PRN PRN Reason: Shortness of Breath Last Admin: 07/27/20 21:19 Dose: 3 ml Documented by: Gabapentin (Gabapentin 100 Mg Cap) 100 mg PO TID [facility] Last Admin: 07/29/20 13:57 Dose: 100 mg Documented by: Pantoprazole Sodium 40 mg/ (Sodium Chloride) 10 mls @ 300 mls/hr IV BID [facility] Last Admin: 07/29/20 08:53 Dose: 300 mls/hr Documented by: Metronidazole 500 mg/ Premix 100 mls @ 100 mls/hr IV Q8H [facility] Last Admin: 07/29/20 17:20 Dose: 100 mls/hr Documented by: Potassium Chloride/Sodium Chloride (Normal Saline With 40 Meq Kcl) 1,000 mls @ 75 mls/hr IV ONETIME ONE Stop: 07/30/20 00:30 Last Admin: 07/29/20 11:47 Dose: 125 mls/hr Documented by: Lactated Ringer's (Ringers, Lactated) 1,000 mls @ 75 mls/hr IV Q13H [facility] Lorazepam (Lorazepam 2 Mg/Ml Sdv) 1 mg IVPUSH Q4H PRN PRN Reason: Anxiety Ondansetron HCl (Ondansetron 4 Mg/2 Ml Sdv) 4 mg IVPUSH Q4H PRN PRN Reason: Nausea Oxycodone HCl (Oxycodone 5 Mg Tab) 5 mg PO Q4H PRN PRN Reason: Pain Last Admin: 07/29/20 09:08 Dose: 5 mg Documented by: Sodium Chloride (Sodium Chloride 0.9% 10 Ml Syringe) 10 ml FLUSH ASDIRECTED PRN PRN Reason: Keep Vein Open Last Admin: 07/25/20 13:42 Dose: 10 ml Documented by: Sodium Chloride (Sodium Chloride 0.9% 2.5 Ml Syringe) 2.5 ml FLUSH ASDIRECTED PRN PRN Reason: Keep Vein Open Last Admin: 07/25/20 13:41 Dose: 2.5 ml Documented by: Vancomycin HCl (Vancomycin 125 Mg Cap) 125 mg PO QID [facility] Last Admin: 07/29/20 17:20 Dose: 125 mg Documented by: Discontinued Medications Sodium Chloride (Normal Saline) 1,000 mls @ 999 mls/hr IV .Bolus ONE Stop: 07/25/20 14:32 Last Admin: 07/25/20 13:41 Dose: 999 mls/hr Documented by: Potassium Chloride 40 meq/ (Premix) 100 mls @ 25 mls/hr IV ONETIME ONE Stop: 07/25/20 18:14 Last Admin: 07/25/20 15:47 Dose: 25 mls/hr Documented by: Pantoprazole Sodium 80 mg/ (Sodium Chloride) 20 mls @ 420 mls/hr IVPUSH ONETIME ONE Stop: 07/25/20 14:18 Last Admin: 07/25/20 15:36 Dose: 420 mls/hr Documented by: Sodium Chloride (Normal Saline) 500 mls @ 25 mls/hr IV .BOLUS [facility] Last Admin: 07/25/20 15:47 Dose: 25 mls/hr Documented by: Sodium Chloride (Normal Saline) 1,000 mls @ 200 mls/hr IV NOW STA Stop: 07/25/20 22:38 Last Infusion: 07/25/20 18:26 Dose: 999 mls/hr Documented by: Metronidazole 500 mg/ Premix 100 mls @ 100 mls/hr IV ONETIME ONE Stop: 07/25/20 19:09 Last Admin: 07/25/20 18:25 Dose: 100 mls/hr Documented by: Lactated Ringer's (Ringers, Lactated) 1,000 mls @ 125 mls/hr IV ASDIRECTED [facility] Last Admin: 07/29/20 08:58 Dose: 125 mls/hr Documented by: Magnesium Sulfate 2 gm/ Premix 50 mls @ 50 mls/hr IV ONETIME ONE Stop: 07/25/20 20:26 Last Admin: 07/25/20 21:07 Dose: 50 mls/hr Documented by: Potassium Chloride 20 meq/ (Premix) 50 mls @ 25 mls/hr IV ONETIME ONE Stop: 07/25/20 21:26 Last Admin: 07/25/20 22:29 Dose: 25 mls/hr Documented by: Potassium Chloride 40 meq/ (Premix) 100 mls @ 25 mls/hr IV ONETIME ONE Stop: 07/26/20 11:41 Last Admin: 07/26/20 09:00 Dose: 25 mls/hr Documented by: Potassium Chloride 40 meq/ (Premix) 100 mls @ 25 mls/hr IV ONETIME ONE Stop: 07/26/20 16:49 Last Admin: 07/26/20 14:14 Dose: Not Given Documented by: Potassium Chloride 40 meq/ (Premix) 100 mls @ 25 mls/hr IV ONETIME ONE Stop: 07/27/20 08:59 Last Admin: 07/27/20 04:31 Dose: 25 mls/hr Documented by: Magnesium Sulfate 4 gm/ Premix 100 mls @ 50 mls/hr IV ONETIME ONE Stop: 07/27/20 11:29 Last Admin: 07/27/20 10:19 Dose: 50 mls/hr Documented by: Potassium Chloride/Sodium Chloride (Normal Saline With 40 Meq Kcl) 1,000 mls @ 250 mls/hr IV ONETIME ONE Stop: 07/27/20 13:44 Last Admin: 07/27/20 10:20 Dose: 250 mls/hr Documented by: Potassium Phosphate 30 mmole/ (Sodium Chloride) 510 mls @ 67.5 mls/hr IV ONETIME ONE Stop: 07/28/20 19:33 Last Admin: 07/28/20 12:33 Dose: 67.5 mls/hr Documented by: Magnesium Sulfate 2 gm/ Premix 50 mls @ 12.5 mls/hr IV ONETIME ONE Stop: 07/28/20 15:38 Last Admin: 07/28/20 12:12 Dose: 12.5 mls/hr Documented by: Magnesium Sulfate 2 gm/ Premix 50 mls @ 12.5 mls/hr IV ONETIME ONE Stop: 07/29/20 15:09 Last Admin: 07/29/20 11:42 Dose: 12.5 mls/hr Documented by: Iopamidol (Iopamidol 755 Mg/Ml 500 Ml Multipack Bottle) 100 ml IVPUSH ONETIME ONE Stop: 07/25/20 15:02 Last Admin: 07/25/20 15:01 Dose: 100 ml Documented by: Metoclopramide HCl (Metoclopramide 10 Mg/2 Ml Sdv) 5 mg IVPUSH ONETIME ONE Stop: 07/25/20 22:55 Last Admin: 07/25/20 23:48 Dose: 5 mg Documented by: Potassium Chloride (Potassium Chloride 20 Meq Tab.Er) 40 meq PO DAILY [facility] Last Admin: 07/27/20 11:13 Dose: Not Given Documented by: Potassium Chloride (Potassium Chloride 20 Meq Tab.Er) 40 meq PO ONETIME ONE Stop: 07/28/20 11:40 Last Admin: 07/28/20 12:11 Dose: 40 meq Documented by: Potassium Chloride (Potassium Chloride 20 Meq Tab.Er) 40 meq PO ONETIME ONE Stop: 07/29/20 11:11 Last Admin: 07/29/20 11:41 Dose: 40 meq Documented by: Sodium Phosphate (Phosphorus #1 250 Mg Tab) 250 mg PO ONETIME ONE Stop: 07/27/20 09:31 Last Admin: 07/27/20 10:22 Dose: 250 mg Documented by: Vancomycin HCl (Vancomycin 125 Mg Cap) 125 mg PO NOW STA Stop: 07/25/20 15:36 Last Admin: 07/25/20 15:49 Dose: 125 mg Documented by: - Exam Quality Assessment: DVT Prophylaxis General: Alert, Oriented, Cooperative, No Acute Distress HEENT: Pupils Equal, Pupils Reactive, EOMI, Mucous Membr. Moist/[place] Neck: Supple, No JVD Lungs: Clear to Auscultation, Normal Respiratory Effort Cardiovascular: Regular Rate, Regular Rhythm GI/Abdominal Exam: Normal Bowel Sounds, Soft, Non-Tender Extremities: Normal Inspection, Normal Range of Motion, Normal Capillary Refill, Pedal Edema Peripheral Pulses: 2+: Carotid (L), Carotid (R), Dorsalis Pedis (L), Dorsalis Pedis (R) Skin: Warm, Dry, Intact Neurological: No New Focal Deficit Psy/Mental Status: Alert, Normal Affect, Normal Mood - Patient Data Lab Results Last 24 hrs: Laboratory Results - last 24 hr 07/29/20 07/29/20 07/29/20 Range/Units 05:10 05:10 16:11 WBC 4.02 (4.0-11.0) K/uL RBC 2.62 L (4.50-5.90) M/uL Hgb 9.4 L (13.0-17.0) g/dL Hct 28.8 L (38.0-50.0) % MCV 109.9 H (80.0-98.0) fL MCH 35.9 H (27.0-32.0) pg MCHC 32.6 (31.0-37.0) g/dL RDW Std Deviation 76.3 H (28.0-62.0) fl RDW Coeff of Evelin 19 H (11.0-15.0) % Plt Count 124 L (150-400) K/uL MPV 10.90 (7.40-12.00) fL Add Manual Diff YES Neutrophils % (Manual) 34 L (48.0-80.0) % Band Neutrophils % 38 % Lymphocytes % (Manual) 11 L (16.0-40.0) % Monocytes % (Manual) 10 (0.0-15.0) % Metamyelocytes % 5 % Myelocytes % 2 % Nucleated RBC % 0.7 /100WBC Absolute Seg Neuts 1.4 (1.4-5.7) Band Neutrophils # 1.5 Lymphocytes # (Manual) 0.4 L (0.6-2.4) Monocytes # (Manual) 0.4 (0.0-0.8) Absolute Metamyelocyte 0.2 Absolute Myelocytes 0.1 Nucleated RBCs # 0 K/uL Sodium 138 (136-148) mmol/L Potassium 3.0 L 4.0 (3.5-5.1) mmol/L Chloride 104 (98-107) mmol/L Carbon Dioxide 25.2 (21.0-32.0) mmol/L BUN 3 L (7.0-18.0) mg/dL Creatinine 0.4 L (0.8-1.3) mg/dL Est Cr Clr Drug Dosing 197.38 mL/min Estimated GFR (MDRD) > 60.0 ml/min Glucose 102 (74-106) mg/dL Calcium 7.3 L (8.5-10.1) mg/dL Phosphorus 3.5 (2.6-4.7) mg/dL Magnesium 1.6 L 2.2 (1.8-2.4) mg/dL Total Bilirubin 0.4 (0.2-1.0) mg/dL AST 29 (15-37) IU/L ALT 44 (14-63) IU/L Alkaline Phosphatase 99 (46-116) U/L Total Protein 4.2 L (6.4-8.2) g/dL Albumin 1.5 L (3.4-5.0) g/dL Globulin 2.7 (2.6-4.0) g/dL Albumin/Globulin Ratio 0.6 L (0.9-1.6) Result Diagrams: 07/29/20 05:10 07/29/20 16:11 Rick Results Last 24 hrs: Microbiology 07/25/20 15:16 Aerobic Blood Culture - Preliminary Blood - Venous - Lab Draw NO GROWTH AFTER 4 DAYS Anaerobic Blood Culture - Preliminary NO GROWTH AFTER 4 DAYS 07/25/20 14:40 Aerobic Blood Culture - Preliminary Blood - Venous NO GROWTH AFTER 4 DAYS Anaerobic Blood Culture - Preliminary NO GROWTH AFTER 4 DAYS 07/25/20 14:25 Stool Culture - Final Stool / Feces Shiga Toxin I & II - Final Sepsis Event Note - Evaluation Sepsis Screening Result: No Definite Risk - Focused Exam Vital Signs: Vital Signs Temp Pulse Resp BP Pulse Ox 07/29/20 16:00 97.2 F 89 22 H 110/79 95 07/29/20 12:00 96.4 F L 101 H 22 H 89/53 L 97 07/29/20 08:00 96.8 F L 76 20 95/64 94 L - Problem List Review Problem List Initiated/Reviewed/Updated: Yes - My Orders Last 24 Hours: My Active Orders 07/29/20 12:08 Consult to Physical Therapy [PT Evaluation and Treatment] [CONS] Routine 07/30/20 05:11 CBC WITH AUTO DIFF [HEME] AM CMP [COMPREHENSIVE METABOLIC PN,CMP] [CHEM] AM MAGNESIUM [CHEM] AM 07/31/20 05:11 CBC WITH AUTO DIFF [HEME] AM CMP [COMPREHENSIVE METABOLIC PN,CMP] [CHEM] AM MAGNESIUM [CHEM] AM - Plan Plan:: 1. Acute moderate colitis in setting of C. difficile; Continue vancomycin p.o. and IV Flagyl Continue to hydrate, however due to swelling will reduce rate to 75 mL/h versus 125. Continue with diet as patient is tolerating diet appropriately. Continue with contact precautions GI prophylaxis: Pantoprazole 40 twice daily. Zofran as needed for nausea Hemoccult positive stool on admission but no concern of active GI bleed, stool is brown, hemoglobin is stable 2. Hypokalemia: 3.0 this morning, supplement 80 mEq, 40 p.o. and potassium chloride, recheck lab 1600. 3. Hypomagnesemia: 1.6 today Continue telemetry. EKG unremarkable. Replete IV 2 g, recheck at 1700. 4. Hypophosphatemia: Resolved, 3.5 today. 5. Macrocytic anemia: b12/folic acid studies noted to be normal, likely secondary to chemotherapy regimen. 6. Lower extremity edema: Physical examination unremarkable no signs of fluid overload on cardiopulmonary examination, however 2+ pitting edema in lower extremities. No previous history of CHF, patient has been mostly sedentary therefore encouraged movement to help redistribute fluid and also as mentioned above will reduce rate of fluids as patient is now tolerating p.o. diet and diarrhea has significantly improved. 7. Deconditioning: Consulted physical therapy to help with conditioning. 8. Past medical history of metastatic small cell lung cancer. Diagnosed in December 04, 2019. Received chemotherapy/brain radiation, resection/lung radiation on chemo q. 21-day cycles x6 cycles. Per patient last cycle 4 weeks prior; was last treatment regimen but is not sure about this until follow up with oncology. Patient also states he is no longer on dexamethasone per radiology/oncology. Full code. I's and O's per routine vitals per routine DVT prophylaxis: SCDs in light of possible GI bleed
[2020-07-29] MEDS ORDERED: Lactated Ringers 1,000 ML IV SCH (20:00)
[2020-07-30] MEDS: metroNIDAZOLE/Normal Saline 500 MG in Premix Bag 1 BAG IV SCH ×3 (00:48→17:34)
[2020-07-30] MEDS: Vancomycin 125 MG Cap PO SCH ×4 (00:48→17:34)
[2020-07-30] MEDS: Lactated Ringers 1,000 ML IV SCH ×3 (02:21→22:43)
[2020-07-30] MEDS: Gabapentin 100 MG Cap PO SCH ×3 (06:08→21:25)
[2020-07-30 06:16] LABS: BLOOD UREA NITROGEN,BUN 3 mg/dL (7.0-18.0); CHLORIDE,CL 105 mmol/L (98-107); GLUCOSE RANDOM 93 mg/dL (74-106); POTASSIUM,K 3.5 mmol/L (3.5-5.1); SODIUM,NA 138 mmol/L (136-148)
[2020-07-30] MEDS: oxyCODONE 5 MG Tab PO PRN ×3 (07:31→17:34)
[2020-07-30] MEDS: Pantoprazole 40 MG in Sodium Chloride 0.9% 10 ML IV SCH ×2 (09:16→21:24)
[2020-07-30] MEDS ORDERED: Potassium Chloride 20 MEQ Tab.ER PO ONE (12:33)
--- NOTE | 2020-07-30 12:44 | PCM.PN ---
- General Info Date of Service: 07/30/20 - Review of Systems Systems Review Comment:: patient reports stools every 2 hours, stools are more formed, no fever - Patient Data Vitals - Most Recent: Last Vital Signs Temp 36.2 C 07/30/20 11:34 Pulse 77 07/30/20 11:34 Resp 16 07/30/20 11:34 BP 99/69 07/30/20 11:34 Pulse Ox 97 07/30/20 11:34 Weight - Most Recent: 70.76 kg I&O - Last 24 Hours: Intake & Output 07/29/20 07/30/20 07/30/20 22:59 06:59 14:59 Intake Total 640 450 Output Total 0 Balance 640 450 Lab Results Last 24 Hours: Laboratory Results - last 24 hr 07/29/20 07/30/20 07/30/20 Range/Units 16:11 04:55 04:55 WBC 4.06 (4.0-11.0) K/uL RBC 2.55 L (4.50-5.90) M/uL Hgb 9.2 L (13.0-17.0) g/dL Hct 28.4 L (38.0-50.0) % MCV 111.4 H (80.0-98.0) fL MCH 36.1 H (27.0-32.0) pg MCHC 32.4 (31.0-37.0) g/dL RDW Std Deviation 77.3 H (28.0-62.0) fl RDW Coeff of Evelin 19 H (11.0-15.0) % Plt Count 133 L (150-400) K/uL MPV 10.20 (7.40-12.00) fL Add Manual Diff YES Neutrophils % (Manual) 37 L (48.0-80.0) % Band Neutrophils % 31 % Lymphocytes % (Manual) 18 (16.0-40.0) % Monocytes % (Manual) 14 (0.0-15.0) % Nucleated RBC % 0.5 /100WBC Absolute Seg Neuts 1.5 (1.4-5.7) Band Neutrophils # 1.3 Lymphocytes # (Manual) 0.7 (0.6-2.4) Monocytes # (Manual) 0.6 (0.0-0.8) Nucleated RBCs # 0 K/uL Sodium 138 (136-148) mmol/L Potassium 4.0 3.5 (3.5-5.1) mmol/L Chloride 105 (98-107) mmol/L Carbon Dioxide 26.0 (21.0-32.0) mmol/L BUN 3 L (7.0-18.0) mg/dL Creatinine 0.4 L (0.8-1.3) mg/dL Est Cr Clr Drug Dosing 197.38 mL/min Estimated GFR (MDRD) > 60.0 ml/min Glucose 93 (74-106) mg/dL Calcium 7.3 L (8.5-10.1) mg/dL Phosphorus 3.6 (2.6-4.7) mg/dL Magnesium 2.2 1.8 (1.8-2.4) mg/dL Total Bilirubin 0.3 (0.2-1.0) mg/dL AST 20 (15-37) IU/L ALT 37 (14-63) IU/L Alkaline Phosphatase 98 (46-116) U/L Total Protein 4.0 L (6.4-8.2) g/dL Albumin 1.4 L (3.4-5.0) g/dL Globulin 2.6 (2.6-4.0) g/dL Albumin/Globulin Ratio 0.5 L (0.9-1.6) Rick Results Last 24 Hours: Microbiology 07/25/20 15:16 Aerobic Blood Culture - Preliminary Blood - Venous - Lab Draw NO GROWTH AFTER 4 DAYS Anaerobic Blood Culture - Preliminary NO GROWTH AFTER 4 DAYS 07/25/20 14:40 Aerobic Blood Culture - Preliminary Blood - Venous NO GROWTH AFTER 4 DAYS Anaerobic Blood Culture - Preliminary NO GROWTH AFTER 4 DAYS 07/25/20 14:25 Stool Culture - Final Stool / Feces Shiga Toxin I & II - Final Med Orders - Current: Current Medications Albuterol/Ipratropium (Albuterol/Ipratropium 3.0-0.5 Mg/3 Ml Neb Soln) 3 ml NEB Q4HRRT PRN PRN Reason: Shortness of Breath Last Admin: 07/27/20 21:19 Dose: 3 ml Documented by: Gabapentin (Gabapentin 100 Mg Cap) 100 mg PO TID [facility]IKY Last Admin: 07/30/20 06:08 Dose: 100 mg Documented by: Pantoprazole Sodium 40 mg/ (Sodium Chloride) 10 mls @ 300 mls/hr IV BID [facility] Last Admin: 07/30/20 09:16 Dose: 300 mls/hr Documented by: Metronidazole 500 mg/ Premix 100 mls @ 100 mls/hr IV Q8H [facility] Last Admin: 07/30/20 09:23 Dose: 100 mls/hr Documented by: Lactated Ringer's (Ringers, Lactated) 1,000 mls @ 100 mls/hr IV Q13H [facility] Last Admin: 07/30/20 09:21 Dose: 75 mls/hr Documented by: Lorazepam (Lorazepam 2 Mg/Ml Sdv) 1 mg IVPUSH Q4H PRN PRN Reason: Anxiety Ondansetron HCl (Ondansetron 4 Mg/2 Ml Sdv) 4 mg IVPUSH Q4H PRN PRN Reason: Nausea Oxycodone HCl (Oxycodone 5 Mg Tab) 5 mg PO Q4H PRN PRN Reason: Pain Last Admin: 07/30/20 11:37 Dose: 5 mg Documented by: Sodium Chloride (Sodium Chloride 0.9% 10 Ml Syringe) 10 ml FLUSH ASDIRECTED PRN PRN Reason: Keep Vein Open Last Admin: 07/25/20 13:42 Dose: 10 ml Documented by: Sodium Chloride (Sodium Chloride 0.9% 2.5 Ml Syringe) 2.5 ml FLUSH ASDIRECTED PRN PRN Reason: Keep Vein Open Last Admin: 07/25/20 13:41 Dose: 2.5 ml Documented by: Vancomycin HCl (Vancomycin 125 Mg Cap) 125 mg PO QID [facility] Last Admin: 07/30/20 11:36 Dose: 125 mg Documented by: Discontinued Medications Sodium Chloride (Normal Saline) 1,000 mls @ 999 mls/hr IV .Bolus ONE Stop: 07/25/20 14:32 Last Admin: 07/25/20 13:41 Dose: 999 mls/hr Documented by: Potassium Chloride 40 meq/ (Premix) 100 mls @ 25 mls/hr IV ONETIME ONE Stop: 07/25/20 18:14 Last Admin: 07/25/20 15:47 Dose: 25 mls/hr Documented by: Pantoprazole Sodium 80 mg/ (Sodium Chloride) 20 mls @ 420 mls/hr IVPUSH ONETIME ONE Stop: 07/25/20 14:18 Last Admin: 07/25/20 15:36 Dose: 420 mls/hr Documented by: Sodium Chloride (Normal Saline) 500 mls @ 25 mls/hr IV .BOLUS [facility] Last Admin: 07/25/20 15:47 Dose: 25 mls/hr Documented by: Sodium Chloride (Normal Saline) 1,000 mls @ 200 mls/hr IV NOW STA Stop: 07/25/20 22:38 Last Infusion: 07/25/20 18:26 Dose: 999 mls/hr Documented by: Metronidazole 500 mg/ Premix 100 mls @ 100 mls/hr IV ONETIME ONE Stop: 07/25/20 19:09 Last Admin: 07/25/20 18:25 Dose: 100 mls/hr Documented by: Lactated Ringer's (Ringers, Lactated) 1,000 mls @ 125 mls/hr IV ASDIRECTED [facility] Last Admin: 07/29/20 08:58 Dose: 125 mls/hr Documented by: Magnesium Sulfate 2 gm/ Premix 50 mls @ 50 mls/hr IV ONETIME ONE Stop: 07/25/20 20:26 Last Admin: 07/25/20 21:07 Dose: 50 mls/hr Documented by: Potassium Chloride 20 meq/ (Premix) 50 mls @ 25 mls/hr IV ONETIME ONE Stop: 07/25/20 21:26 Last Admin: 07/25/20 22:29 Dose: 25 mls/hr Documented by: Potassium Chloride 40 meq/ (Premix) 100 mls @ 25 mls/hr IV ONETIME ONE Stop: 07/26/20 11:41 Last Admin: 07/26/20 09:00 Dose: 25 mls/hr Documented by: Potassium Chloride 40 meq/ (Premix) 100 mls @ 25 mls/hr IV ONETIME ONE Stop: 07/26/20 16:49 Last Admin: 07/26/20 14:14 Dose: Not Given Documented by: Potassium Chloride 40 meq/ (Premix) 100 mls @ 25 mls/hr IV ONETIME ONE Stop: 07/27/20 08:59 Last Admin: 07/27/20 04:31 Dose: 25 mls/hr Documented by: Magnesium Sulfate 4 gm/ Premix 100 mls @ 50 mls/hr IV ONETIME ONE Stop: 07/27/20 11:29 Last Admin: 07/27/20 10:19 Dose: 50 mls/hr Documented by: Potassium Chloride/Sodium Chloride (Normal Saline With 40 Meq Kcl) 1,000 mls @ 250 mls/hr IV ONETIME ONE Stop: 07/27/20 13:44 Last Admin: 07/27/20 10:20 Dose: 250 mls/hr Documented by: Potassium Phosphate 30 mmole/ (Sodium Chloride) 510 mls @ 67.5 mls/hr IV ONETIME ONE Stop: 07/28/20 19:33 Last Admin: 07/28/20 12:33 Dose: 67.5 mls/hr Documented by: Magnesium Sulfate 2 gm/ Premix 50 mls @ 12.5 mls/hr IV ONETIME ONE Stop: 07/28/20 15:38 Last Admin: 07/28/20 12:12 Dose: 12.5 mls/hr Documented by: Magnesium Sulfate 2 gm/ Premix 50 mls @ 12.5 mls/hr IV ONETIME ONE Stop: 07/29/20 15:09 Last Admin: 07/29/20 11:42 Dose: 12.5 mls/hr Documented by: Potassium Chloride/Sodium Chloride (Normal Saline With 40 Meq Kcl) 1,000 mls @ 75 mls/hr IV ONETIME ONE Stop: 07/30/20 00:30 Last Admin: 07/29/20 11:47 Dose: 125 mls/hr Documented by: Iopamidol (Iopamidol 755 Mg/Ml 500 Ml Multipack Bottle) 100 ml IVPUSH ONETIME ONE Stop: 07/25/20 15:02 Last Admin: 07/25/20 15:01 Dose: 100 ml Documented by: Metoclopramide HCl (Metoclopramide 10 Mg/2 Ml Sdv) 5 mg IVPUSH ONETIME ONE Stop: 07/25/20 22:55 Last Admin: 07/25/20 23:48 Dose: 5 mg Documented by: Potassium Chloride (Potassium Chloride 20 Meq Tab.Er) 40 meq PO DAILY [facility] Last Admin: 07/27/20 11:13 Dose: Not Given Documented by: Potassium Chloride (Potassium Chloride 20 Meq Tab.Er) 40 meq PO ONETIME ONE Stop: 07/28/20 11:40 Last Admin: 07/28/20 12:11 Dose: 40 meq Documented by: Potassium Chloride (Potassium Chloride 20 Meq Tab.Er) 40 meq PO ONETIME ONE Stop: 07/29/20 11:11 Last Admin: 07/29/20 11:41 Dose: 40 meq Documented by: Sodium Phosphate (Phosphorus #1 250 Mg Tab) 250 mg PO ONETIME ONE Stop: 07/27/20 09:31 Last Admin: 07/27/20 10:22 Dose: 250 mg Documented by: Vancomycin HCl (Vancomycin 125 Mg Cap) 125 mg PO NOW STA Stop: 07/25/20 15:36 Last Admin: 07/25/20 15:49 Dose: 125 mg Documented by: - Exam General: Alert, Oriented Neck: Supple Lungs: Clear to Auscultation, Normal Respiratory Effort Cardiovascular: Regular Rate, Regular Rhythm GI/Abdominal Exam: Normal Bowel Sounds, Soft, Non-Tender Extremities: Non-Tender, No Pedal Edema Skin: Warm, Dry, Intact Neurological: No New Focal Deficit - Patient Data Lab Results Last 24 hrs: Laboratory Results - last 24 hr 07/29/20 07/30/20 07/30/20 Range/Units 16:11 04:55 04:55 WBC 4.06 (4.0-11.0) K/uL RBC 2.55 L (4.50-5.90) M/uL Hgb 9.2 L (13.0-17.0) g/dL Hct 28.4 L (38.0-50.0) % MCV 111.4 H (80.0-98.0) fL MCH 36.1 H (27.0-32.0) pg MCHC 32.4 (31.0-37.0) g/dL RDW Std Deviation 77.3 H (28.0-62.0) fl RDW Coeff of Evelin 19 H (11.0-15.0) % Plt Count 133 L (150-400) K/uL MPV 10.20 (7.40-12.00) fL Add Manual Diff YES Neutrophils % (Manual) 37 L (48.0-80.0) % Band Neutrophils % 31 % Lymphocytes % (Manual) 18 (16.0-40.0) % Monocytes % (Manual) 14 (0.0-15.0) % Nucleated RBC % 0.5 /100WBC Absolute Seg Neuts 1.5 (1.4-5.7) Band Neutrophils # 1.3 Lymphocytes # (Manual) 0.7 (0.6-2.4) Monocytes # (Manual) 0.6 (0.0-0.8) Nucleated RBCs # 0 K/uL Sodium 138 (136-148) mmol/L Potassium 4.0 3.5 (3.5-5.1) mmol/L Chloride 105 (98-107) mmol/L Carbon Dioxide 26.0 (21.0-32.0) mmol/L BUN 3 L (7.0-18.0) mg/dL Creatinine 0.4 L (0.8-1.3) mg/dL Est Cr Clr Drug Dosing 197.38 mL/min Estimated GFR (MDRD) > 60.0 ml/min Glucose 93 (74-106) mg/dL Calcium 7.3 L (8.5-10.1) mg/dL Phosphorus 3.6 (2.6-4.7) mg/dL Magnesium 2.2 1.8 (1.8-2.4) mg/dL Total Bilirubin 0.3 (0.2-1.0) mg/dL AST 20 (15-37) IU/L ALT 37 (14-63) IU/L Alkaline Phosphatase 98 (46-116) U/L Total Protein 4.0 L (6.4-8.2) g/dL Albumin 1.4 L (3.4-5.0) g/dL Globulin 2.6 (2.6-4.0) g/dL Albumin/Globulin Ratio 0.5 L (0.9-1.6) Result Diagrams: 07/30/20 04:55 07/30/20 04:55 Rick Results Last 24 hrs: Microbiology 07/25/20 15:16 Aerobic Blood Culture - Preliminary Blood - Venous - Lab Draw NO GROWTH AFTER 4 DAYS Anaerobic Blood Culture - Preliminary NO GROWTH AFTER 4 DAYS 07/25/20 14:40 Aerobic Blood Culture - Preliminary Blood - Venous NO GROWTH AFTER 4 DAYS Anaerobic Blood Culture - Preliminary NO GROWTH AFTER 4 DAYS 07/25/20 14:25 Stool Culture - Final Stool / Feces Shiga Toxin I & II - Final Sepsis Event Note - Evaluation Sepsis Screening Result: No Definite Risk - Focused Exam Vital Signs: Vital Signs Temp Pulse Resp BP Pulse Ox 07/30/20 11:34 36.2 C 77 16 99/69 97 07/30/20 09:26 36.4 C 86 16 94/63 95 07/30/20 03:14 36.1 C 71 18 103/74 96 - Problem List Review Problem List Initiated/Reviewed/Updated: Yes - My Orders Last 24 Hours: My Active Orders 07/30/20 12:33 Potassium Chloride [Klor-Con M20] 40 meq PO ONETIME ONE - Plan Plan:: 55 yo male with pmh of small cell lung cancer admitted for c.diff colitis C.difficile: continue vancomyin po and IV flagyl, IV fluids due to continued diarrhea hypokalemia/hypomagnesia: replacing as needed.
[2020-07-31] MEDS: metroNIDAZOLE/Normal Saline 500 MG in Premix Bag 1 BAG IV SCH ×3 (00:58→17:32)
[2020-07-31] MEDS: Vancomycin 125 MG Cap PO SCH ×4 (00:58→17:32)
[2020-07-31] MEDS: Gabapentin 100 MG Cap PO SCH ×3 (05:12→21:11)
[2020-07-31 06:21] LABS: BLOOD UREA NITROGEN,BUN 4 mg/dL (7.0-18.0); CHLORIDE,CL 104 mmol/L (98-107); GLUCOSE RANDOM 87 mg/dL (74-106); POTASSIUM,K 3.7 mmol/L (3.5-5.1); SODIUM,NA 136 mmol/L (136-148)
[2020-07-31] MEDS: Pantoprazole 40 MG in Sodium Chloride 0.9% 10 ML IV SCH ×2 (09:06→21:11)
[2020-07-31] MEDS: Lactated Ringers 1,000 ML IV SCH ×2 (09:13→10:59)
[2020-07-31] MEDS ORDERED: Magnesium Sulfate/Water 2 GM in Premix Bag 1 BAG IV ONE (12:13)
--- NOTE | 2020-07-31 21:17 | PCM.PN ---
- General Info Date of Service: 07/31/20 Admission Dx/Problem (Free Text): Admission Diagnosis/Problem Admission Diagnosis/Problem Clostridium difficile colitis Subjective Update: Today is day 7 of admission for C. difficile infection, was seen and examined at bedside resting comfortably in bed, has been afebrile. Yesterday we repleted his potassium, there were no overnight events. This morning patient appears to be able to tolerate p.o. diet, denies any fever, chills, or abdominal pain Functional Status: Reports: Tolerating Diet, Ambulating - Review of Systems General: Reports: No Symptoms HEENT: Reports: No Symptoms Pulmonary: Reports: No Symptoms Cardiovascular: Reports: No Symptoms Gastrointestinal: Reports: Diarrhea (Semiformed stools) Genitourinary: Reports: No Symptoms Musculoskeletal: Reports: No Symptoms Skin: Reports: No Symptoms Neurological: Reports: No Symptoms Psychiatric: Reports: No Symptoms - Patient Data Vitals - Most Recent: Last Vital Signs Temp 97.0 F 07/31/20 16:00 Pulse 98 07/31/20 16:00 Resp 16 07/31/20 16:00 BP 112/76 07/31/20 16:00 Pulse Ox 94 L 07/31/20 16:00 Weight - Most Recent: 156 lb I&O - Last 24 Hours: Intake & Output 07/31/20 07/31/20 07/31/20 06:59 14:59 22:59 Intake Total 830 00 7894 Balance 428 44 8563 Lab Results Last 24 Hours: Laboratory Results - last 24 hr 07/31/20 07/31/20 07/31/20 Range/Units 05:10 05:10 15:13 WBC 3.97 L (4.0-11.0) K/uL RBC 2.69 L (4.50-5.90) M/uL Hgb 9.7 L (13.0-17.0) g/dL Hct 29.8 L (38.0-50.0) % MCV 110.8 H (80.0-98.0) fL MCH 36.1 H (27.0-32.0) pg MCHC 32.6 (31.0-37.0) g/dL RDW Std Deviation 76.9 H (28.0-62.0) fl RDW Coeff of Evelin 19 H (11.0-15.0) % Plt Count 166 (150-400) K/uL MPV 10.10 (7.40-12.00) fL Add Manual Diff YES Neutrophils % (Manual) 42 L (48.0-80.0) % Band Neutrophils % 23 % Lymphocytes % (Manual) 13 L (16.0-40.0) % Monocytes % (Manual) 20 H (0.0-15.0) % Eosinophils % (Manual) 2 (0.0-7.0) % Nucleated RBC % 0.0 /100WBC Absolute Seg Neuts 1.7 (1.4-5.7) Band Neutrophils # 0.9 Lymphocytes # (Manual) 0.5 L (0.6-2.4) Monocytes # (Manual) 0.8 (0.0-0.8) Eosinophils # (Manual) 0.1 (0.0-0.7) Nucleated RBCs # 0 K/uL Sodium 136 (136-148) mmol/L Potassium 3.7 (3.5-5.1) mmol/L Chloride 104 (98-107) mmol/L Carbon Dioxide 26.0 (21.0-32.0) mmol/L BUN 4 L (7.0-18.0) mg/dL Creatinine 0.4 L (0.8-1.3) mg/dL Est Cr Clr Drug Dosing 197.38 mL/min Estimated GFR (MDRD) > 60.0 ml/min Glucose 87 (74-106) mg/dL Calcium 7.4 L (8.5-10.1) mg/dL Phosphorus 4.1 (2.6-4.7) mg/dL Magnesium 1.7 L 2.2 (1.8-2.4) mg/dL Total Bilirubin 0.3 (0.2-1.0) mg/dL AST 18 (15-37) IU/L ALT 33 (14-63) IU/L Alkaline Phosphatase 109 (46-116) U/L Total Protein 4.1 L (6.4-8.2) g/dL Albumin 1.5 L (3.4-5.0) g/dL Globulin 2.6 (2.6-4.0) g/dL Albumin/Globulin Ratio 0.6 L (0.9-1.6) Med Orders - Current: Current Medications Albuterol/Ipratropium (Albuterol/Ipratropium 3.0-0.5 Mg/3 Ml Neb Soln) 3 ml NEB Q4HRRT PRN PRN Reason: Shortness of Breath Last Admin: 07/27/20 21:19 Dose: 3 ml Documented by: Gabapentin (Gabapentin 100 Mg Cap) 100 mg PO TID [facility] Last Admin: 07/31/20 21:11 Dose: 100 mg Documented by: Pantoprazole Sodium 40 mg/ (Sodium Chloride) 10 mls @ 300 mls/hr IV BID [facility] Last Admin: 07/31/20 21:11 Dose: 300 mls/hr Documented by: Metronidazole 500 mg/ Premix 100 mls @ 100 mls/hr IV Q8H [facility] Last Admin: 07/31/20 17:32 Dose: 100 mls/hr Documented by: Lactated Ringer's (Ringers, Lactated) 1,000 mls @ 100 mls/hr IV Q13H [facility] Last Admin: 07/31/20 10:59 Dose: Not Given Documented by: Lorazepam (Lorazepam 2 Mg/Ml Sdv) 1 mg IVPUSH Q4H PRN PRN Reason: Anxiety Ondansetron HCl (Ondansetron 4 Mg/2 Ml Sdv) 4 mg IVPUSH Q4H PRN PRN Reason: Nausea Oxycodone HCl (Oxycodone 5 Mg Tab) 5 mg PO Q4H PRN PRN Reason: Pain Last Admin: 07/30/20 17:34 Dose: 5 mg Documented by: Sodium Chloride (Sodium Chloride 0.9% 10 Ml Syringe) 10 ml FLUSH ASDIRECTED PRN PRN Reason: Keep Vein Open Last Admin: 07/25/20 13:42 Dose: 10 ml Documented by: Sodium Chloride (Sodium Chloride 0.9% 2.5 Ml Syringe) 2.5 ml FLUSH ASDIRECTED PRN PRN Reason: Keep Vein Open Last Admin: 07/25/20 13:41 Dose: 2.5 ml Documented by: Vancomycin HCl (Vancomycin 125 Mg Cap) 125 mg PO QID [facility] Last Admin: 07/31/20 17:32 Dose: 125 mg Documented by: Discontinued Medications Sodium Chloride (Normal Saline) 1,000 mls @ 999 mls/hr IV .Bolus ONE Stop: 07/25/20 14:32 Last Admin: 07/25/20 13:41 Dose: 999 mls/hr Documented by: Potassium Chloride 40 meq/ (Premix) 100 mls @ 25 mls/hr IV ONETIME ONE Stop: 07/25/20 18:14 Last Admin: 07/25/20 15:47 Dose: 25 mls/hr Documented by: Pantoprazole Sodium 80 mg/ (Sodium Chloride) 20 mls @ 420 mls/hr IVPUSH ONETIME ONE Stop: 07/25/20 14:18 Last Admin: 07/25/20 15:36 Dose: 420 mls/hr Documented by: Sodium Chloride (Normal Saline) 500 mls @ 25 mls/hr IV .BOLUS [facility] Last Admin: 07/25/20 15:47 Dose: 25 mls/hr Documented by: Sodium Chloride (Normal Saline) 1,000 mls @ 200 mls/hr IV NOW STA Stop: 07/25/20 22:38 Last Infusion: 07/25/20 18:26 Dose: 999 mls/hr Documented by: Metronidazole 500 mg/ Premix 100 mls @ 100 mls/hr IV ONETIME ONE Stop: 07/25/20 19:09 Last Admin: 07/25/20 18:25 Dose: 100 mls/hr Documented by: Lactated Ringer's (Ringers, Lactated) 1,000 mls @ 125 mls/hr IV ASDIRECTED [facility] Last Admin: 07/29/20 08:58 Dose: 125 mls/hr Documented by: Magnesium Sulfate 2 gm/ Premix 50 mls @ 50 mls/hr IV ONETIME ONE Stop: 07/25/20 20:26 Last Admin: 07/25/20 21:07 Dose: 50 mls/hr Documented by: Potassium Chloride 20 meq/ (Premix) 50 mls @ 25 mls/hr IV ONETIME ONE Stop: 07/25/20 21:26 Last Admin: 07/25/20 22:29 Dose: 25 mls/hr Documented by: Potassium Chloride 40 meq/ (Premix) 100 mls @ 25 mls/hr IV ONETIME ONE Stop: 07/26/20 11:41 Last Admin: 07/26/20 09:00 Dose: 25 mls/hr Documented by: Potassium Chloride 40 meq/ (Premix) 100 mls @ 25 mls/hr IV ONETIME ONE Stop: 07/26/20 16:49 Last Admin: 07/26/20 14:14 Dose: Not Given Documented by: Potassium Chloride 40 meq/ (Premix) 100 mls @ 25 mls/hr IV ONETIME ONE Stop: 07/27/20 08:59 Last Admin: 07/27/20 04:31 Dose: 25 mls/hr Documented by: Magnesium Sulfate 4 gm/ Premix 100 mls @ 50 mls/hr IV ONETIME ONE Stop: 07/27/20 11:29 Last Admin: 07/27/20 10:19 Dose: 50 mls/hr Documented by: Potassium Chloride/Sodium Chloride (Normal Saline With 40 Meq Kcl) 1,000 mls @ 250 mls/hr IV ONETIME ONE Stop: 07/27/20 13:44 Last Admin: 07/27/20 10:20 Dose: 250 mls/hr Documented by: Potassium Phosphate 30 mmole/ (Sodium Chloride) 510 mls @ 67.5 mls/hr IV ONETIME ONE Stop: 07/28/20 19:33 Last Admin: 07/28/20 12:33 Dose: 67.5 mls/hr Documented by: Magnesium Sulfate 2 gm/ Premix 50 mls @ 12.5 mls/hr IV ONETIME ONE Stop: 07/28/20 15:38 Last Admin: 07/28/20 12:12 Dose: 12.5 mls/hr Documented by: Magnesium Sulfate 2 gm/ Premix 50 mls @ 12.5 mls/hr IV ONETIME ONE Stop: 07/29/20 15:09 Last Admin: 07/29/20 11:42 Dose: 12.5 mls/hr Documented by: Potassium Chloride/Sodium Chloride (Normal Saline With 40 Meq Kcl) 1,000 mls @ 75 mls/hr IV ONETIME ONE Stop: 07/30/20 00:30 Last Admin: 07/29/20 11:47 Dose: 125 mls/hr Documented by: Magnesium Sulfate 2 gm/ Premix 50 mls @ 12.5 mls/hr IV ONETIME ONE Stop: 07/31/20 16:12 Last Admin: 07/31/20 12:58 Dose: 12.5 mls/hr Documented by: Iopamidol (Iopamidol 755 Mg/Ml 500 Ml Multipack Bottle) 100 ml IVPUSH ONETIME ONE Stop: 07/25/20 15:02 Last Admin: 07/25/20 15:01 Dose: 100 ml Documented by: Metoclopramide HCl (Metoclopramide 10 Mg/2 Ml Sdv) 5 mg IVPUSH ONETIME ONE Stop: 07/25/20 22:55 Last Admin: 07/25/20 23:48 Dose: 5 mg Documented by: Potassium Chloride (Potassium Chloride 20 Meq Tab.Er) 40 meq PO DAILY [facility] Last Admin: 07/27/20 11:13 Dose: Not Given Documented by: Potassium Chloride (Potassium Chloride 20 Meq Tab.Er) 40 meq PO ONETIME ONE Stop: 07/28/20 11:40 Last Admin: 07/28/20 12:11 Dose: 40 meq Documented by: Potassium Chloride (Potassium Chloride 20 Meq Tab.Er) 40 meq PO ONETIME ONE Stop: 07/29/20 11:11 Last Admin: 07/29/20 11:41 Dose: 40 meq Documented by: Potassium Chloride (Potassium Chloride 20 Meq Tab.Er) 40 meq PO ONETIME ONE Stop: 07/30/20 12:34 Last Admin: 07/30/20 14:13 Dose: 40 meq Documented by: Sodium Phosphate (Phosphorus #1 250 Mg Tab) 250 mg PO ONETIME ONE Stop: 07/27/20 09:31 Last Admin: 07/27/20 10:22 Dose: 250 mg Documented by: Vancomycin HCl (Vancomycin 125 Mg Cap) 125 mg PO NOW STA Stop: 07/25/20 15:36 Last Admin: 07/25/20 15:49 Dose: 125 mg Documented by: - Exam Quality Assessment: DVT Prophylaxis General: Alert, Oriented, Cooperative HEENT: Pupils Equal, Pupils Reactive, EOMI, Mucous Membr. Moist/[place] Neck: Supple, No JVD Lungs: Clear to Auscultation, Normal Respiratory Effort Cardiovascular: Regular Rate, Regular Rhythm GI/Abdominal Exam: Normal Bowel Sounds, Soft, Non-Tender Back Exam: Normal Inspection, Full Range of Motion Extremities: Normal Inspection, Normal Range of Motion, Normal Capillary Refill Peripheral Pulses: 2+: Carotid (L), Carotid (R), Dorsalis Pedis (L), Dorsalis Pedis (R) Skin: Warm, Dry, Intact Wound/Incisions: Healing Well Neurological: No New Focal Deficit Psy/Mental Status: Alert, Normal Affect, Normal Mood - Patient Data Lab Results Last 24 hrs: Laboratory Results - last 24 hr 07/31/20 07/31/20 07/31/20 Range/Units 05:10 05:10 15:13 WBC 3.97 L (4.0-11.0) K/uL RBC 2.69 L (4.50-5.90) M/uL Hgb 9.7 L (13.0-17.0) g/dL Hct 29.8 L (38.0-50.0) % MCV 110.8 H (80.0-98.0) fL MCH 36.1 H (27.0-32.0) pg MCHC 32.6 (31.0-37.0) g/dL RDW Std Deviation 76.9 H (28.0-62.0) fl RDW Coeff of Evelin 19 H (11.0-15.0) % Plt Count 166 (150-400) K/uL MPV 10.10 (7.40-12.00) fL Add Manual Diff YES Neutrophils % (Manual) 42 L (48.0-80.0) % Band Neutrophils % 23 % Lymphocytes % (Manual) 13 L (16.0-40.0) % Monocytes % (Manual) 20 H (0.0-15.0) % Eosinophils % (Manual) 2 (0.0-7.0) % Nucleated RBC % 0.0 /100WBC Absolute Seg Neuts 1.7 (1.4-5.7) Band Neutrophils # 0.9 Lymphocytes # (Manual) 0.5 L (0.6-2.4) Monocytes # (Manual) 0.8 (0.0-0.8) Eosinophils # (Manual) 0.1 (0.0-0.7) Nucleated RBCs # 0 K/uL Sodium 136 (136-148) mmol/L Potassium 3.7 (3.5-5.1) mmol/L Chloride 104 (98-107) mmol/L Carbon Dioxide 26.0 (21.0-32.0) mmol/L BUN 4 L (7.0-18.0) mg/dL Creatinine 0.4 L (0.8-1.3) mg/dL Est Cr Clr Drug Dosing 197.38 mL/min Estimated GFR (MDRD) > 60.0 ml/min Glucose 87 (74-106) mg/dL Calcium 7.4 L (8.5-10.1) mg/dL Phosphorus 4.1 (2.6-4.7) mg/dL Magnesium 1.7 L 2.2 (1.8-2.4) mg/dL Total Bilirubin 0.3 (0.2-1.0) mg/dL AST 18 (15-37) IU/L ALT 33 (14-63) IU/L Alkaline Phosphatase 109 (46-116) U/L Total Protein 4.1 L (6.4-8.2) g/dL Albumin 1.5 L (3.4-5.0) g/dL Globulin 2.6 (2.6-4.0) g/dL Albumin/Globulin Ratio 0.6 L (0.9-1.6) Result Diagrams: 07/31/20 05:10 07/31/20 05:10 Sepsis Event Note - Evaluation Sepsis Screening Result: No Definite Risk - Focused Exam Vital Signs: Vital Signs Temp Pulse Resp BP Pulse Ox 07/31/20 16:00 97.0 F 98 16 112/76 94 L 07/31/20 12:15 97.3 F 95 16 117/79 97 - Problem List Review Problem List Initiated/Reviewed/Updated: Yes - Plan Plan:: 55 yo male with pmh of small cell lung cancer admitted for c.diff colitis C.difficile: continue vancomyin po and IV flagyl, IV fluids due to continued diarrhea Hypokalemia has resolved, Hypomagnesia: replacing as needed, recheck level at 1600.
[2020-08-01] MEDS: metroNIDAZOLE/Normal Saline 500 MG in Premix Bag 1 BAG IV SCH ×3 (00:40→18:07)
[2020-08-01] MEDS: Vancomycin 125 MG Cap PO SCH ×5 (00:40→23:06)
[2020-08-01] MEDS: Lactated Ringers 1,000 ML IV SCH (00:40)
[2020-08-01] MEDS: Gabapentin 100 MG Cap PO SCH ×3 (06:06→23:00)
[2020-08-01] MEDS: oxyCODONE 5 MG Tab PO PRN ×2 (06:20→21:14)
[2020-08-01 08:01] LABS: BLOOD UREA NITROGEN,BUN 4 mg/dL (7.0-18.0); CARBON DIOXIDE,CO2 26.8 mmol/L (21.0-32.0); CHLORIDE,CL 102 mmol/L (98-107); GLUCOSE RANDOM 87 mg/dL (74-106); POTASSIUM,K 3.3 mmol/L (3.5-5.1)
[2020-08-01] MEDS: Pantoprazole 40 MG in Sodium Chloride 0.9% 10 ML IV SCH ×2 (09:07→21:16)
[2020-08-01] MEDS ORDERED: Sodium Chloride 0.9% with KCl 1,000 ML IV SCH (10:45)
[2020-08-01] MEDS ORDERED: Loperamide 2 MG Cap PO ONE (11:50)
[2020-08-01 14:21] LABS: SODIUM,NA 138 mmol/L (136-148)
--- NOTE | 2020-08-01 17:22 | PCM.PN ---
- General Info Date of Service: 08/01/20 Admission Dx/Problem (Free Text): Admission Diagnosis/Problem Admission Diagnosis/Problem Clostridium difficile colitis Subjective Update: Today is day 8 of admission for C. difficile infection, patient remains afebrile, however still continues to have loose watery stools, with increased frequency in the last day despite appropriate antibiotic treatment. Patient states overall feeling improved, however does share that he has been experiencing some abdominal discomfort this morning described as cramping, pain 4-10 on the pain scale. Otherwise, patient is able to tolerate diet. All questions and concerns were addressed at bedside Functional Status: Reports: Tolerating Diet, Ambulating, Urinating - Review of Systems General: Reports: Other (Cramping abdominal pain with recurrent diarrhea) HEENT: Reports: No Symptoms Pulmonary: Reports: No Symptoms Cardiovascular: Reports: No Symptoms Gastrointestinal: Reports: No Symptoms Genitourinary: Reports: No Symptoms Musculoskeletal: Reports: No Symptoms Skin: Reports: No Symptoms Neurological: Reports: No Symptoms Psychiatric: Reports: No Symptoms - Patient Data Vitals - Most Recent: Last Vital Signs Temp 97.2 F 08/01/20 11:32 Pulse 88 08/01/20 11:32 Resp 17 08/01/20 11:32 BP 107/77 08/01/20 11:32 Pulse Ox 94 L 08/01/20 11:32 Weight - Most Recent: 156 lb I&O - Last 24 Hours: Intake & Output 08/01/20 08/01/20 08/01/20 06:59 14:59 22:59 Intake Total 400 682 Balance 400 682 Lab Results Last 24 Hours: Laboratory Results - last 24 hr 08/01/20 08/01/20 Range/Units 07:24 07:24 WBC 4.32 (4.0-11.0) K/uL RBC 2.84 L (4.50-5.90) M/uL Hgb 10.3 L (13.0-17.0) g/dL Hct 31.2 L (38.0-50.0) % MCV 109.9 H (80.0-98.0) fL MCH 36.3 H (27.0-32.0) pg MCHC 33.0 (31.0-37.0) g/dL RDW Std Deviation 75.5 H (28.0-62.0) fl RDW Coeff of Evelin 19 H (11.0-15.0) % Plt Count 184 (150-400) K/uL MPV 9.60 (7.40-12.00) fL Neut % (Auto) 67.6 (48.0-80.0) % Lymph % (Auto) 14.8 L (16.0-40.0) % [place]urry % (Auto) 16.7 H (0.0-15.0) % Eos % (Auto) 0.7 (0.0-7.0) % Baso % (Auto) 0.2 (0.0-1.5) % Neut # (Auto) 2.9 (1.4-5.7) K/uL Lymph # (Auto) 0.6 (0.6-2.4) K/uL [place] # (Auto) 0.7 (0.0-0.8) K/uL Eos # (Auto) 0.0 (0.0-0.7) K/uL Baso # (Auto) 0.0 (0.0-0.1) K/uL Nucleated RBC % 0.0 /100WBC Nucleated RBCs # 0 K/uL Sodium 138 (136-148) mmol/L Potassium 3.3 L (3.5-5.1) mmol/L Chloride 102 (98-107) mmol/L Carbon Dioxide 26.8 (21.0-32.0) mmol/L BUN 4 L (7.0-18.0) mg/dL Creatinine 0.5 L (0.8-1.3) mg/dL Est Cr Clr Drug Dosing 157.91 mL/min Estimated GFR (MDRD) > 60.0 ml/min Glucose 87 (74-106) mg/dL Calcium 7.6 L (8.5-10.1) mg/dL Phosphorus 3.9 (2.6-4.7) mg/dL Magnesium 1.9 (1.8-2.4) mg/dL Total Bilirubin 0.3 (0.2-1.0) mg/dL AST 20 (15-37) IU/L ALT 29 (14-63) IU/L Alkaline Phosphatase 147 H (46-116) U/L Total Protein 4.7 L (6.4-8.2) g/dL Albumin 1.7 L (3.4-5.0) g/dL Globulin 3.0 (2.6-4.0) g/dL Albumin/Globulin Ratio 0.6 L (0.9-1.6) Med Orders - Current: Current Medications Albuterol/Ipratropium (Albuterol/Ipratropium 3.0-0.5 Mg/3 Ml Neb Soln) 3 ml NEB Q4HRRT PRN PRN Reason: Shortness of Breath Last Admin: 07/27/20 21:19 Dose: 3 ml Documented by: Gabapentin (Gabapentin 100 Mg Cap) 100 mg PO TID [facility] Last Admin: 08/01/20 13:37 Dose: 100 mg Documented by: Pantoprazole Sodium 40 mg/ (Sodium Chloride) 10 mls @ 300 mls/hr IV BID [facility] Last Admin: 08/01/20 09:07 Dose: 300 mls/hr Documented by: Metronidazole 500 mg/ Premix 100 mls @ 100 mls/hr IV Q8H [facility] Last Admin: 08/01/20 09:08 Dose: 100 mls/hr Documented by: Potassium Chloride/Sodium Chloride (Normal Saline With 40 Meq Kcl) 1,000 mls @ 150 mls/hr IV ASDIRECTED [facility] Stop: 08/01/20 17:24 Last Admin: 08/01/20 12:48 Dose: 150 mls/hr Documented by: Lorazepam (Lorazepam 2 Mg/Ml Sdv) 1 mg IVPUSH Q4H PRN PRN Reason: Anxiety Ondansetron HCl (Ondansetron 4 Mg/2 Ml Sdv) 4 mg IVPUSH Q4H PRN PRN Reason: Nausea Oxycodone HCl (Oxycodone 5 Mg Tab) 5 mg PO Q4H PRN PRN Reason: Pain Last Admin: 08/01/20 06:20 Dose: 5 mg Documented by: Sodium Chloride (Sodium Chloride 0.9% 10 Ml Syringe) 10 ml FLUSH ASDIRECTED PRN PRN Reason: Keep Vein Open Last Admin: 07/25/20 13:42 Dose: 10 ml Documented by: Sodium Chloride (Sodium Chloride 0.9% 2.5 Ml Syringe) 2.5 ml FLUSH ASDIRECTED PRN PRN Reason: Keep Vein Open Last Admin: 07/25/20 13:41 Dose: 2.5 ml Documented by: Vancomycin HCl (Vancomycin 125 Mg Cap) 125 mg PO QID [facility] Last Admin: 08/01/20 11:11 Dose: 125 mg Documented by: Discontinued Medications Sodium Chloride (Normal Saline) 1,000 mls @ 999 mls/hr IV .Bolus ONE Stop: 07/25/20 14:32 Last Admin: 07/25/20 13:41 Dose: 999 mls/hr Documented by: Potassium Chloride 40 meq/ (Premix) 100 mls @ 25 mls/hr IV ONETIME ONE Stop: 07/25/20 18:14 Last Admin: 07/25/20 15:47 Dose: 25 mls/hr Documented by: Pantoprazole Sodium 80 mg/ (Sodium Chloride) 20 mls @ 420 mls/hr IVPUSH ONETIME ONE Stop: 07/25/20 14:18 Last Admin: 07/25/20 15:36 Dose: 420 mls/hr Documented by: Sodium Chloride (Normal Saline) 500 mls @ 25 mls/hr IV .BOLUS [facility] Last Admin: 07/25/20 15:47 Dose: 25 mls/hr Documented by: Sodium Chloride (Normal Saline) 1,000 mls @ 200 mls/hr IV NOW STA Stop: 07/25/20 22:38 Last Infusion: 07/25/20 18:26 Dose: 999 mls/hr Documented by: Metronidazole 500 mg/ Premix 100 mls @ 100 mls/hr IV ONETIME ONE Stop: 07/25/20 19:09 Last Admin: 07/25/20 18:25 Dose: 100 mls/hr Documented by: Lactated Ringer's (Ringers, Lactated) 1,000 mls @ 125 mls/hr IV ASDIRECTED [facility] Last Admin: 07/29/20 08:58 Dose: 125 mls/hr Documented by: Magnesium Sulfate 2 gm/ Premix 50 mls @ 50 mls/hr IV ONETIME ONE Stop: 07/25/20 20:26 Last Admin: 07/25/20 21:07 Dose: 50 mls/hr Documented by: Potassium Chloride 20 meq/ (Premix) 50 mls @ 25 mls/hr IV ONETIME ONE Stop: 07/25/20 21:26 Last Admin: 07/25/20 22:29 Dose: 25 mls/hr Documented by: Potassium Chloride 40 meq/ (Premix) 100 mls @ 25 mls/hr IV ONETIME ONE Stop: 07/26/20 11:41 Last Admin: 07/26/20 09:00 Dose: 25 mls/hr Documented by: Potassium Chloride 40 meq/ (Premix) 100 mls @ 25 mls/hr IV ONETIME ONE Stop: 07/26/20 16:49 Last Admin: 07/26/20 14:14 Dose: Not Given Documented by: Potassium Chloride 40 meq/ (Premix) 100 mls @ 25 mls/hr IV ONETIME ONE Stop: 07/27/20 08:59 Last Admin: 07/27/20 04:31 Dose: 25 mls/hr Documented by: Magnesium Sulfate 4 gm/ Premix 100 mls @ 50 mls/hr IV ONETIME ONE Stop: 07/27/20 11:29 Last Admin: 07/27/20 10:19 Dose: 50 mls/hr Documented by: Potassium Chloride/Sodium Chloride (Normal Saline With 40 Meq Kcl) 1,000 mls @ 250 mls/hr IV ONETIME ONE Stop: 07/27/20 13:44 Last Admin: 07/27/20 10:20 Dose: 250 mls/hr Documented by: Potassium Phosphate 30 mmole/ (Sodium Chloride) 510 mls @ 67.5 mls/hr IV ONETIME ONE Stop: 07/28/20 19:33 Last Admin: 07/28/20 12:33 Dose: 67.5 mls/hr Documented by: Magnesium Sulfate 2 gm/ Premix 50 mls @ 12.5 mls/hr IV ONETIME ONE Stop: 07/28/20 15:38 Last Admin: 07/28/20 12:12 Dose: 12.5 mls/hr Documented by: Magnesium Sulfate 2 gm/ Premix 50 mls @ 12.5 mls/hr IV ONETIME ONE Stop: 07/29/20 15:09 Last Admin: 07/29/20 11:42 Dose: 12.5 mls/hr Documented by: Potassium Chloride/Sodium Chloride (Normal Saline With 40 Meq Kcl) 1,000 mls @ 75 mls/hr IV ONETIME ONE Stop: 07/30/20 00:30 Last Admin: 07/29/20 11:47 Dose: 125 mls/hr Documented by: Lactated Ringer's (Ringers, Lactated) 1,000 mls @ 100 mls/hr IV Q13H [facility] Last Admin: 08/01/20 00:40 Dose: 100 mls/hr Documented by: Magnesium Sulfate 2 gm/ Premix 50 mls @ 12.5 mls/hr IV ONETIME ONE Stop: 07/31/20 16:12 Last Admin: 07/31/20 12:58 Dose: 12.5 mls/hr Documented by: Iopamidol (Iopamidol 755 Mg/Ml 500 Ml Multipack Bottle) 100 ml IVPUSH ONETIME ONE Stop: 07/25/20 15:02 Last Admin: 07/25/20 15:01 Dose: 100 ml Documented by: Loperamide HCl (Loperamide 2 Mg Cap) 2 mg PO ONETIME ONE Stop: 08/01/20 11:51 Last Admin: 08/01/20 12:47 Dose: 2 mg Documented by: Metoclopramide HCl (Metoclopramide 10 Mg/2 Ml Sdv) 5 mg IVPUSH ONETIME ONE Stop: 07/25/20 22:55 Last Admin: 07/25/20 23:48 Dose: 5 mg Documented by: Potassium Chloride (Potassium Chloride 20 Meq Tab.Er) 40 meq PO DAILY [facility] Last Admin: 07/27/20 11:13 Dose: Not Given Documented by: Potassium Chloride (Potassium Chloride 20 Meq Tab.Er) 40 meq PO ONETIME ONE Stop: 07/28/20 11:40 Last Admin: 07/28/20 12:11 Dose: 40 meq Documented by: Potassium Chloride (Potassium Chloride 20 Meq Tab.Er) 40 meq PO ONETIME ONE Stop: 07/29/20 11:11 Last Admin: 07/29/20 11:41 Dose: 40 meq Documented by: Potassium Chloride (Potassium Chloride 20 Meq Tab.Er) 40 meq PO ONETIME ONE Stop: 07/30/20 12:34 Last Admin: 07/30/20 14:13 Dose: 40 meq Documented by: Sodium Phosphate (Phosphorus #1 250 Mg Tab) 250 mg PO ONETIME ONE Stop: 07/27/20 09:31 Last Admin: 07/27/20 10:22 Dose: 250 mg Documented by: Vancomycin HCl (Vancomycin 125 Mg Cap) 125 mg PO NOW STA Stop: 07/25/20 15:36 Last Admin: 07/25/20 15:49 Dose: 125 mg Documented by: - Exam General: Alert, Oriented, Cooperative HEENT: Pupils Equal, Pupils Reactive, EOMI, Mucous Membr. Moist/[place] Neck: Supple Lungs: Clear to Auscultation, Normal Respiratory Effort Cardiovascular: Regular Rate, Regular Rhythm GI/Abdominal Exam: Normal Bowel Sounds, Soft, Tender. No: Distended, Guarding, Rigid, Hernia, Mass Back Exam: Normal Inspection, Full Range of Motion Extremities: Normal Range of Motion, Non-Tender, Normal Capillary Refill, Pedal Edema Peripheral Pulses: 2+: Carotid (L), Carotid (R), Dorsalis Pedis (L), Dorsalis Pedis (R) Skin: Warm, Dry, Intact Neurological: No New Focal Deficit Psy/Mental Status: Alert, Normal Affect, Normal Mood - Patient Data Lab Results Last 24 hrs: Laboratory Results - last 24 hr 08/01/20 08/01/20 Range/Units 07:24 07:24 WBC 4.32 (4.0-11.0) K/uL RBC 2.84 L (4.50-5.90) M/uL Hgb 10.3 L (13.0-17.0) g/dL Hct 31.2 L (38.0-50.0) % MCV 109.9 H (80.0-98.0) fL MCH 36.3 H (27.0-32.0) pg MCHC 33.0 (31.0-37.0) g/dL RDW Std Deviation 75.5 H (28.0-62.0) fl RDW Coeff of Evelin 19 H (11.0-15.0) % Plt Count 184 (150-400) K/uL MPV 9.60 (7.40-12.00) fL Neut % (Auto) 67.6 (48.0-80.0) % Lymph % (Auto) 14.8 L (16.0-40.0) % Scurry % (Auto) 16.7 H (0.0-15.0) % Eos % (Auto) 0.7 (0.0-7.0) % Baso % (Auto) 0.2 (0.0-1.5) % Neut # (Auto) 2.9 (1.4-5.7) K/uL Lymph # (Auto) 0.6 (0.6-2.4) K/uL Scurry # (Auto) 0.7 (0.0-0.8) K/uL Eos # (Auto) 0.0 (0.0-0.7) K/uL Baso # (Auto) 0.0 (0.0-0.1) K/uL Nucleated RBC % 0.0 /100WBC Nucleated RBCs # 0 K/uL Sodium 138 (136-148) mmol/L Potassium 3.3 L (3.5-5.1) mmol/L Chloride 102 (98-107) mmol/L Carbon Dioxide 26.8 (21.0-32.0) mmol/L BUN 4 L (7.0-18.0) mg/dL Creatinine 0.5 L (0.8-1.3) mg/dL Est Cr Clr Drug Dosing 157.91 mL/min Estimated GFR (MDRD) > 60.0 ml/min Glucose 87 (74-106) mg/dL Calcium 7.6 L (8.5-10.1) mg/dL Phosphorus 3.9 (2.6-4.7) mg/dL Magnesium 1.9 (1.8-2.4) mg/dL Total Bilirubin 0.3 (0.2-1.0) mg/dL AST 20 (15-37) IU/L ALT 29 (14-63) IU/L Alkaline Phosphatase 147 H (46-116) U/L Total Protein 4.7 L (6.4-8.2) g/dL Albumin 1.7 L (3.4-5.0) g/dL Globulin 3.0 (2.6-4.0) g/dL Albumin/Globulin Ratio 0.6 L (0.9-1.6) Result Diagrams: 08/01/20 07:24 08/01/20 07:24 Sepsis Event Note - Evaluation Sepsis Screening Result: No Definite Risk - Focused Exam Vital Signs: Vital Signs Temp Pulse Resp BP Pulse Ox 08/01/20 11:32 97.2 F 88 17 107/77 94 L 08/01/20 07:13 97.2 F 88 15 119/83 96 - Problem List Review Problem List Initiated/Reviewed/Updated: Yes - Plan Plan:: 55 yo male with pmh of small cell lung cancer admitted for c.diff colitis 1. C.difficile colitis: Recurrent increase in bowel movements, continue vancomyin po and IV flagyl, patient tolerating p.o. fluids, IV fluids to replace insensible losses to diarrhea. Will consult infectious disease in [facility] for any recommendations. 2. Mild hypokalemia: Replete 40 mEq, recheck replete accordingly. 3.Hypomagnesia: Improved 1.9, will continue to monitor and replete as necessary 4. Hypophosphatemia: Resolved, will continue to monitor and replete as necessary
--- NOTE | 2020-08-01 19:08 | CR ---
For Patients: As a result of the Century Cures Act, medical imaging exams and procedure reports are released immediately into your electronic medical record. You may view this report before your referring provider. If you have questions, please contact your health care provider. Indication: Abdominal pain Technique: Two views of the abdomen Comparison: 12/15/2017 Findings/Impression: : Paucity of bowel gas in the majority of the abdomen and pelvis without findings of mechanical obstruction. Fluid-filled bowel segments may be present. No suspicious calcifications seen. No definite evidence of gross free air. No significant osseous abnormalities. Dictated by Micah Barriga MD @ 08/01/2020 7:05:[address] Micah Barriga @ Aug 01 2020 7:05PM
[2020-08-02] MEDS: metroNIDAZOLE/Normal Saline 500 MG in Premix Bag 1 BAG IV SCH ×3 (02:38→17:14)
[2020-08-02] MEDS: Gabapentin 100 MG Cap PO SCH ×3 (06:00→23:45)
[2020-08-02] MEDS: Vancomycin 125 MG Cap PO SCH ×4 (06:00→23:45)
[2020-08-02 06:56] LABS: BLOOD UREA NITROGEN,BUN 5 mg/dL (7.0-18.0); CARBON DIOXIDE,CO2 27.1 mmol/L (21.0-32.0); CHLORIDE,CL 106 mmol/L (98-107); GLUCOSE RANDOM 123 mg/dL (74-106); POTASSIUM,K 3.5 mmol/L (3.5-5.1); SODIUM,NA 141 mmol/L (136-148)
[2020-08-02] MEDS: Pantoprazole 40 MG in Sodium Chloride 0.9% 10 ML IV SCH ×2 (08:52→21:00)
[2020-08-02] MEDS ORDERED: Magnesium Sulfate/Water 2 GM in Premix Bag 1 BAG IV ONE (13:30)
--- NOTE | 2020-08-02 14:13 | PCM.PN ---
- General Info Date of Service: 08/02/20 Admission Dx/Problem (Free Text): Admission Diagnosis/Problem Admission Diagnosis/Problem Clostridium difficile colitis Subjective Update: Today is day 9 of admission for C. difficile infection, patient remains afebrile, stating he feels much improved. Diarrhea has reduced, states that he has had approximately 4 bowel movements within the last 12 hours, however stools appear to be some more formed. Has mild abdominal discomfort, however denies any pain, nausea, vomiting and is able to tolerate p.o. Functional Status: Reports: Tolerating Diet, Ambulating - Review of Systems General: Reports: No Symptoms HEENT: Reports: No Symptoms Pulmonary: Reports: No Symptoms Cardiovascular: Reports: No Symptoms Gastrointestinal: Reports: No Symptoms Genitourinary: Reports: No Symptoms Musculoskeletal: Reports: No Symptoms Skin: Reports: No Symptoms Neurological: Reports: No Symptoms Psychiatric: Reports: No Symptoms - Patient Data Vitals - Most Recent: Last Vital Signs Temp 97.2 F 08/02/20 12:28 Pulse 91 08/02/20 12:28 Resp 18 08/02/20 12:28 BP 103/71 08/02/20 12:28 Pulse Ox 96 08/02/20 12:28 Weight - Most Recent: 156 lb I&O - Last 24 Hours: Intake & Output 08/01/20 08/02/20 08/02/20 22:59 06:59 14:59 Intake Total 2850 300 Output Total 0 0 Balance 2850 300 Lab Results Last 24 Hours: Laboratory Results - last 24 hr 08/01/20 08/01/20 08/02/20 Range/Units 07:24 17:54 05:55 WBC (4.0-11.0) K/uL RBC (4.50-5.90) M/uL Hgb (13.0-17.0) g/dL Hct (38.0-50.0) % MCV (80.0-98.0) fL MCH (27.0-32.0) pg MCHC (31.0-37.0) g/dL RDW Std Deviation (28.0-62.0) fl RDW Coeff of Evelin (11.0-15.0) % Plt Count (150-400) K/uL MPV (7.40-12.00) fL Neut % (Auto) (48.0-80.0) % Lymph % (Auto) (16.0-40.0) % [place] % (Auto) (0.0-15.0) % Eos % (Auto) (0.0-7.0) % Baso % (Auto) (0.0-1.5) % Neut # (Auto) (1.4-5.7) K/uL Lymph # (Auto) (0.6-2.4) K/uL [place] # (Auto) (0.0-0.8) K/uL Eos # (Auto) (0.0-0.7) K/uL Baso # (Auto) (0.0-0.1) K/uL Nucleated RBC % /100WBC Nucleated RBCs # K/uL Sodium 138 141 (136-148) mmol/L Potassium 4.0 3.5 (3.5-5.1) mmol/L Chloride 106 (98-107) mmol/L Carbon Dioxide 27.1 (21.0-32.0) mmol/L BUN 5 L (7.0-18.0) mg/dL Creatinine 0.4 L (0.8-1.3) mg/dL Est Cr Clr Drug Dosing 197.38 mL/min Estimated GFR (MDRD) > 60.0 ml/min Glucose 123 H (74-106) mg/dL Calcium 7.4 L (8.5-10.1) mg/dL Phosphorus 3.6 (2.6-4.7) mg/dL Magnesium 1.6 L (1.8-2.4) mg/dL Total Bilirubin 0.2 (0.2-1.0) mg/dL AST 17 (15-37) IU/L ALT 25 (14-63) IU/L Alkaline Phosphatase 135 H (46-116) U/L Total Protein 4.3 L (6.4-8.2) g/dL Albumin 1.5 L (3.4-5.0) g/dL Globulin 2.8 (2.6-4.0) g/dL Albumin/Globulin Ratio 0.5 L (0.9-1.6) // Range/Units 05:55 WBC 3.16 L (4.0-11.0) K/uL RBC 2.51 L (4.50-5.90) M/uL Hgb 9.0 L (13.0-17.0) g/dL Hct 27.9 L (38.0-50.0) % MCV 111.2 H (80.0-98.0) fL MCH 35.9 H (27.0-32.0) pg MCHC 32.3 (31.0-37.0) g/dL RDW Std Deviation 76.2 H (28.0-62.0) fl RDW Coeff of Evelin 19 H (11.0-15.0) % Plt Count 175 (150-400) K/uL MPV 9.60 (7.40-12.00) fL Neut % (Auto) 68.0 (48.0-80.0) % Lymph % (Auto) 12.7 L (16.0-40.0) % [place] % (Auto) 18.4 H (0.0-15.0) % Eos % (Auto) 0.6 (0.0-7.0) % Baso % (Auto) 0.3 (0.0-1.5) % Neut # (Auto) 2.2 (1.4-5.7) K/uL Lymph # (Auto) 0.4 L (0.6-2.4) K/uL [place] # (Auto) 0.6 (0.0-0.8) K/uL Eos # (Auto) 0.0 (0.0-0.7) K/uL Baso # (Auto) 0.0 (0.0-0.1) K/uL Nucleated RBC % 0.0 /100WBC Nucleated RBCs # 0 K/uL Sodium (136-148) mmol/L Potassium (3.5-5.1) mmol/L Chloride (98-107) mmol/L Carbon Dioxide (21.0-32.0) mmol/L BUN (7.0-18.0) mg/dL Creatinine (0.8-1.3) mg/dL Est Cr Clr Drug Dosing mL/min Estimated GFR (MDRD) ml/min Glucose (74-106) mg/dL Calcium (8.5-10.1) mg/dL Phosphorus (2.6-4.7) mg/dL Magnesium (1.8-2.4) mg/dL Total Bilirubin (0.2-1.0) mg/dL AST (15-37) IU/L ALT (14-63) IU/L Alkaline Phosphatase (46-116) U/L Total Protein (6.4-8.2) g/dL Albumin (3.4-5.0) g/dL Globulin (2.6-4.0) g/dL Albumin/Globulin Ratio (0.9-1.6) Med Orders - Current: Current Medications Albuterol/Ipratropium (Albuterol/Ipratropium 3.0-0.5 Mg/3 Ml Neb Soln) 3 ml NEB Q4HRRT PRN PRN Reason: Shortness of Breath Last Admin: 07/27/20 21:19 Dose: 3 ml Documented by: Gabapentin (Gabapentin 100 Mg Cap) 100 mg PO TID [facility] Last Admin: 08/02/20 06:00 Dose: 100 mg Documented by: Pantoprazole Sodium 40 mg/ (Sodium Chloride) 10 mls @ 300 mls/hr IV BID [facility] Last Admin: 08/02/20 08:52 Dose: 300 mls/hr Documented by: Metronidazole 500 mg/ Premix 100 mls @ 100 mls/hr IV Q8H [facility] Last Admin: 08/02/20 08:51 Dose: 100 mls/hr Documented by: Magnesium Sulfate 2 gm/ Premix 50 mls @ 25 mls/hr IV ONETIME ONE Stop: 08/02/20 15:29 Loperamide HCl (Loperamide 2 Mg Cap) 2 mg PO DAILY [facility] Lorazepam (Lorazepam 2 Mg/Ml Sdv) 1 mg IVPUSH Q4H PRN PRN Reason: Anxiety Ondansetron HCl (Ondansetron 4 Mg/2 Ml Sdv) 4 mg IVPUSH Q4H PRN PRN Reason: Nausea Oxycodone HCl (Oxycodone 5 Mg Tab) 5 mg PO Q4H PRN PRN Reason: Pain Last Admin: 08/01/20 21:14 Dose: 5 mg Documented by: Sodium Chloride (Sodium Chloride 0.9% 10 Ml Syringe) 10 ml FLUSH ASDIRECTED PRN PRN Reason: Keep Vein Open Last Admin: 07/25/20 13:42 Dose: 10 ml Documented by: Sodium Chloride (Sodium Chloride 0.9% 2.5 Ml Syringe) 2.5 ml FLUSH ASDIRECTED PRN PRN Reason: Keep Vein Open Last Admin: 07/25/20 13:41 Dose: 2.5 ml Documented by: Vancomycin HCl (Vancomycin 125 Mg Cap) 125 mg PO QID [facility] Last Admin: 08/02/20 12:29 Dose: 125 mg Documented by: Discontinued Medications Sodium Chloride (Normal Saline) 1,000 mls @ 999 mls/hr IV .Bolus ONE Stop: 07/25/20 14:32 Last Admin: 07/25/20 13:41 Dose: 999 mls/hr Documented by: Potassium Chloride 40 meq/ (Premix) 100 mls @ 25 mls/hr IV ONETIME ONE Stop: 07/25/20 18:14 Last Admin: 07/25/20 15:47 Dose: 25 mls/hr Documented by: Pantoprazole Sodium 80 mg/ (Sodium Chloride) 20 mls @ 420 mls/hr IVPUSH ONETIME ONE Stop: 07/25/20 14:18 Last Admin: 07/25/20 15:36 Dose: 420 mls/hr Documented by: Sodium Chloride (Normal Saline) 500 mls @ 25 mls/hr IV .BOLUS [facility] Last Admin: 07/25/20 15:47 Dose: 25 mls/hr Documented by: Sodium Chloride (Normal Saline) 1,000 mls @ 200 mls/hr IV NOW STA Stop: 07/25/20 22:38 Last Infusion: 07/25/20 18:26 Dose: 999 mls/hr Documented by: Metronidazole 500 mg/ Premix 100 mls @ 100 mls/hr IV ONETIME ONE Stop: 07/25/20 19:09 Last Admin: 07/25/20 18:25 Dose: 100 mls/hr Documented by: Lactated Ringer's (Ringers, Lactated) 1,000 mls @ 125 mls/hr IV ASDIRECTED [facility] Last Admin: 07/29/20 08:58 Dose: 125 mls/hr Documented by: Magnesium Sulfate 2 gm/ Premix 50 mls @ 50 mls/hr IV ONETIME ONE Stop: 07/25/20 20:26 Last Admin: 07/25/20 21:07 Dose: 50 mls/hr Documented by: Potassium Chloride 20 meq/ (Premix) 50 mls @ 25 mls/hr IV ONETIME ONE Stop: 07/25/20 21:26 Last Admin: 07/25/20 22:29 Dose: 25 mls/hr Documented by: Potassium Chloride 40 meq/ (Premix) 100 mls @ 25 mls/hr IV ONETIME ONE Stop: 07/26/20 11:41 Last Admin: 07/26/20 09:00 Dose: 25 mls/hr Documented by: Potassium Chloride 40 meq/ (Premix) 100 mls @ 25 mls/hr IV ONETIME ONE Stop: 07/26/20 16:49 Last Admin: 07/26/20 14:14 Dose: Not Given Documented by: Potassium Chloride 40 meq/ (Premix) 100 mls @ 25 mls/hr IV ONETIME ONE Stop: 07/27/20 08:59 Last Admin: 07/27/20 04:31 Dose: 25 mls/hr Documented by: Magnesium Sulfate 4 gm/ Premix 100 mls @ 50 mls/hr IV ONETIME ONE Stop: 07/27/20 11:29 Last Admin: 07/27/20 10:19 Dose: 50 mls/hr Documented by: Potassium Chloride/Sodium Chloride (Normal Saline With 40 Meq Kcl) 1,000 mls @ 250 mls/hr IV ONETIME ONE Stop: 07/27/20 13:44 Last Admin: 07/27/20 10:20 Dose: 250 mls/hr Documented by: Potassium Phosphate 30 mmole/ (Sodium Chloride) 510 mls @ 67.5 mls/hr IV ONETIM E ONE Stop: 07/28/20 19:33 Last Admin: 07/28/20 12:33 Dose: 67.5 mls/hr Documented by: Magnesium Sulfate 2 gm/ Premix 50 mls @ 12.5 mls/hr IV ONETIME ONE Stop: 07/28/20 15:38 Last Admin: 07/28/20 12:12 Dose: 12.5 mls/hr Documented by: Magnesium Sulfate 2 gm/ Premix 50 mls @ 12.5 mls/hr IV ONETIME ONE Stop: 07/29/20 15:09 Last Admin: 07/29/20 11:42 Dose: 12.5 mls/hr Documented by: Potassium Chloride/Sodium Chloride (Normal Saline With 40 Meq Kcl) 1,000 mls @ 75 mls/hr IV ONETIME ONE Stop: 07/30/20 00:30 Last Admin: 07/29/20 11:47 Dose: 125 mls/hr Documented by: Lactated Ringer's (Ringers, Lactated) 1,000 mls @ 100 mls/hr IV Q13H [facility] Last Admin: 08/01/20 00:40 Dose: 100 mls/hr Documented by: Magnesium Sulfate 2 gm/ Premix 50 mls @ 12.5 mls/hr IV ONETIME ONE Stop: 07/31/20 16:12 Last Admin: 07/31/20 12:58 Dose: 12.5 mls/hr Documented by: Potassium Chloride/Sodium Chloride (Normal Saline With 40 Meq Kcl) 1,000 mls @ 150 mls/hr IV ASDIRECTED [facility] Stop: 08/01/20 17:24 Last Admin: 08/01/20 12:48 Dose: 150 mls/hr Documented by: Iopamidol (Iopamidol 755 Mg/Ml 500 Ml Multipack Bottle) 100 ml IVPUSH ONETIME ONE Stop: 07/25/20 15:02 Last Admin: 07/25/20 15:01 Dose: 100 ml Documented by: Loperamide HCl (Loperamide 2 Mg Cap) 2 mg PO ONETIME ONE Stop: 08/01/20 11:51 Last Admin: 08/01/20 12:47 Dose: 2 mg Documented by: Metoclopramide HCl (Metoclopramide 10 Mg/2 Ml Sdv) 5 mg IVPUSH ONETIME ONE Stop: 07/25/20 22:55 Last Admin: 07/25/20 23:48 Dose: 5 mg Documented by: Potassium Chloride (Potassium Chloride 20 Meq Tab.Er) 40 meq PO DAILY [facility] Last Admin: 07/27/20 11:13 Dose: Not Given Documented by: Potassium Chloride (Potassium Chloride 20 Meq Tab.Er) 40 meq PO ONETIME ONE Stop: 07/28/20 11:40 Last Admin: 07/28/20 12:11 Dose: 40 meq Documented by: Potassium Chloride (Potassium Chloride 20 Meq Tab.Er) 40 meq PO ONETIME ONE Stop: 07/29/20 11:11 Last Admin: 07/29/20 11:41 Dose: 40 meq Documented by: Potassium Chloride (Potassium Chloride 20 Meq Tab.Er) 40 meq PO ONETIME ONE Stop: 07/30/20 12:34 Last Admin: 07/30/20 14:13 Dose: 40 meq Documented by: Sodium Phosphate (Phosphorus #1 250 Mg Tab) 250 mg PO ONETIME ONE Stop: 07/27/20 09:31 Last Admin: 07/27/20 10:22 Dose: 250 mg Documented by: Vancomycin HCl (Vancomycin 125 Mg Cap) 125 mg PO NOW STA Stop: 07/25/20 15:36 Last Admin: 07/25/20 15:49 Dose: 125 mg Documented by: - Exam Quality Assessment: DVT Prophylaxis General: Alert, Oriented, Cooperative, No Acute Distress HEENT: Pupils Equal, Pupils Reactive, EOMI, Mucous Membr. Moist/Kiel. No: Scler al Icterus Neck: Supple, No JVD Lungs: Clear to Auscultation, Normal Respiratory Effort Cardiovascular: Regular Rate, Regular Rhythm GI/Abdominal Exam: Normal Bowel Sounds, Soft, Non-Tender Back Exam: Normal Inspection, Full Range of Motion Extremities: Normal Inspection, Normal Range of Motion, No Pedal Edema, Normal Capillary Refill Peripheral Pulses: 2+: Carotid (L), Carotid (R), Dorsalis Pedis (L), Dorsalis Pedis (R) Neurological: No New Focal Deficit Psy/Mental Status: Alert, Normal Affect, Normal Mood - Patient Data Lab Results Last 24 hrs: Laboratory Results - last 24 hr 08/01/20 08/01/20 08/02/20 Range/Units 07:24 17:54 05:55 WBC (4.0-11.0) K/uL RBC (4.50-5.90) M/uL Hgb (13.0-17.0) g/dL Hct (38.0-50.0) % MCV (80.0-98.0) fL MCH (27.0-32.0) pg MCHC (31.0-37.0) g/dL RDW Std Deviation (28.0-62.0) fl RDW Coeff of Evelin (11.0-15.0) % Plt Count (150-400) K/uL MPV (7.40-12.00) fL Neut % (Auto) (48.0-80.0) % Lymph % (Auto) (16.0-40.0) % [place] % (Auto) (0.0-15.0) % Eos % (Auto) (0.0-7.0) % Baso % (Auto) (0.0-1.5) % Neut # (Auto) (1.4-5.7) K/uL Lymph # (Auto) (0.6-2.4) K/uL [place] # (Auto) (0.0-0.8) K/uL Eos # (Auto) (0.0-0.7) K/uL Baso # (Auto) (0.0-0.1) K/uL Nucleated RBC % /100WBC Nucleated RBCs # K/uL Sodium 138 141 (136-148) mmol/L Potassium 4.0 3.5 (3.5-5.1) mmol/L Chloride 106 (98-107) mmol/L Carbon Dioxide 27.1 (21.0-32.0) mmol/L BUN 5 L (7.0-18.0) mg/dL Creatinine 0.4 L (0.8-1.3) mg/dL Est Cr Clr Drug Dosing 197.38 mL/min Estimated GFR (MDRD) > 60.0 ml/min Glucose 123 H (74-106) mg/dL Calcium 7.4 L (8.5-10.1) mg/dL Phosphorus 3.6 (2.6-4.7) mg/dL Magnesium 1.6 L (1.8-2.4) mg/dL Total Bilirubin 0.2 (0.2-1.0) mg/dL AST 17 (15-37) IU/L ALT 25 (14-63) IU/L Alkaline Phosphatase 135 H (46-116) U/L Total Protein 4.3 L (6.4-8.2) g/dL Albumin 1.5 L (3.4-5.0) g/dL Globulin 2.8 (2.6-4.0) g/dL Albumin/Globulin Ratio 0.5 L (0.9-1.6) 08/02/20 Range/Units 05:55 WBC 3.16 L (4.0-11.0) K/uL RBC 2.51 L (4.50-5.90) M/uL Hgb 9.0 L (13.0-17.0) g/dL Hct 27.9 L (38.0-50.0) % MCV 111.2 H (80.0-98.0) fL MCH 35.9 H (27.0-32.0) pg MCHC 32.3 (31.0-37.0) g/dL RDW Std Deviation 76.2 H (28.0-62.0) fl RDW Coeff of Evelin 19 H (11.0-15.0) % Plt Count 175 (150-400) K/uL MPV 9.60 (7.40-12.00) fL Neut % (Auto) 68.0 (48.0-80.0) % Lymph % (Auto) 12.7 L (16.0-40.0) % [place] % (Auto) 18.4 H (0.0-15.0) % Eos % (Auto) 0.6 (0.0-7.0) % Baso % (Auto) 0.3 (0.0-1.5) % Neut # (Auto) 2.2 (1.4-5.7) K/uL Lymph # (Auto) 0.4 L (0.6-2.4) K/uL [place] # (Auto) 0.6 (0.0-0.8) K/uL Eos # (Auto) 0.0 (0.0-0.7) K/uL Baso # (Auto) 0.0 (0.0-0.1) K/uL Nucleated RBC % 0.0 /100WBC Nucleated RBCs # 0 K/uL Sodium (136-148) mmol/L Potassium (3.5-5.1) mmol/L Chloride (98-107) mmol/L Carbon Dioxide (21.0-32.0) mmol/L BUN (7.0-18.0) mg/dL Creatinine (0.8-1.3) mg/dL Est Cr Clr Drug Dosing mL/min Estimated GFR (MDRD) ml/min Glucose (74-106) mg/dL Calcium (8.5-10.1) mg/dL Phosphorus (2.6-4.7) mg/dL Magnesium (1.8-2.4) mg/dL Total Bilirubin (0.2-1.0) mg/dL AST (15-37) IU/L ALT (14-63) IU/L Alkaline Phosphatase (46-116) U/L Total Protein (6.4-8.2) g/dL Albumin (3.4-5.0) g/dL Globulin (2.6-4.0) g/dL Albumin/Globulin Ratio (0.9-1.6) Result Diagrams: 08/02/20 05:55 08/02/20 05:55 Sepsis Event Note - Evaluation Sepsis Screening Result: No Definite Risk - Focused Exam Vital Signs: Vital Signs Temp Pulse Resp BP Pulse Ox 08/02/20 12:28 97.2 F 91 18 103/71 96 08/02/20 08:50 97.2 F 94 17 116/71 96 08/02/20 03:46 97.9 F 82 18 119/81 95 - Problem List & Annotations (1) Clostridium difficile colitis SNOMED Code(s): 275535177 Code(s): A04.72 - ENTEROCOLITIS D/T CLOSTRIDIUM DIFFICILE, NOT SPCF RECUR Status: Acute Current Visit: Yes (2) Hypomagnesemia SNOMED Code(s): 528203459 Code(s): E83.42 - HYPOMAGNESEMIA Status: Acute Current Visit: Yes - Problem List Review Problem List Initiated/Reviewed/Updated: Yes - My Orders Last 24 Hours: My Active Orders 08/02/20 13:30 Loperamide [Imodium] 2 mg PO DAILY - Plan Plan:: 55 yo male with pmh of small cell lung cancer admitted for c.diff colitis 1. C.difficile colitis: Improved, continue vancomyin po and IV flagyl, [address] Wolf in [place] infectious disease 2. Mild hypokalemia: Resolved, continue to monitor daily 3.Hypomagnesia: 1.6; will replete 2 g, recheck and replete as necessary 4. Hypophosphatemia: Resolved, will continue to monitor
[2020-08-02] MEDS: Loperamide 2 MG Cap PO SCH (14:21)
[2020-08-02] MEDS: oxyCODONE 5 MG Tab PO PRN (20:59)
[2020-08-03] MEDS: metroNIDAZOLE/Normal Saline 500 MG in Premix Bag 1 BAG IV SCH ×2 (02:29→09:48)
[2020-08-03] MEDS: Vancomycin 125 MG Cap PO SCH ×2 (05:26→13:50)
[2020-08-03] MEDS: Gabapentin 100 MG Cap PO SCH ×2 (05:26→13:50)
[2020-08-03 06:33] LABS: BLOOD UREA NITROGEN,BUN 8 mg/dL (7.0-18.0); CARBON DIOXIDE,CO2 28.3 mmol/L (21.0-32.0); CHLORIDE,CL 107 mmol/L (98-107); GLUCOSE RANDOM 110 mg/dL (74-106); POTASSIUM,K 3.7 mmol/L (3.5-5.1); SODIUM,NA 140 mmol/L (136-148)
[2020-08-03] MEDS: Loperamide 2 MG Cap PO SCH (09:39)
[2020-08-03] MEDS: Pantoprazole 40 MG in Sodium Chloride 0.9% 10 ML IV SCH (09:43)
--- NOTE | 2020-08-03 13:26 | PCM.DCSUM1 ---
Discharge Summary - Discharge Data Discharge Date: 08/03/20 Discharge Disposition: Home, Self-Care 01 Condition: Stable - Referral to Home Health Primary Care Physician: PCP None - Patient Summary/Data Consults: Consultations 07/29/20 12:08 Consult to Physical Therapy [PT Evaluation and Treatment] [CONS] Routine Hospital Course: 55-year-old male with significant past medical history of metastatic small cell carcinoma who was admitted for Clostridium Difficile colis. He presented to the ED with abdominal pain, nausea and diarreha. His stools were positive for D.difficle toxin and antigen. CT scan of the abdomen reported an acute colitis. He was treated with PO vancomycin and IV flagyl. He did have improvement in his diarrhea and after 9 days feels comfortable going home. He was discharged to take oral vancomycin for five more days. - Discharge Plan Prescriptions/Med Rec: RX: Loperamide [Imodium] 2 mg PO DAILY PRN #7 cap PRN Reason: Diarrhea RX: Vancomycin [Vancocin 125 MG Capsule] 125 mg PO QID #20 cap Home Medications: Home Meds RX: Ondansetron [Zofran Odt] 8 mg PO ASDIRECTED 07/03/20 [History] RX: oxyCODONE HCl/Acetaminophen [Oxycodone-Acetaminophen 5-325] 1 tab PO ASDIRECTED 07/03/20 [History] RX: Pantoprazole [ProTONIX] 40 mg PO DAILY #30 tab.cr 07/05/20 [Rx] RX: Loperamide [Imodium] 2 mg PO DAILY PRN #7 cap 08/03/20 [Rx] RX: Vancomycin [Vancocin 125 MG Capsule] 125 mg PO QID #20 cap 08/03/20 [Rx] Patient Handouts: Clostridioides Difficile Infection, [id number] Referrals: Alyse Moon PA [Physician Engraver Signature] - 08/04/20 2:00 pm - Discharge Summary/Plan Comment DC Time >30 min.: No - Patient Data Vitals - Most Recent: Last Vital Signs Temp 36.6 C 08/03/20 09:49 Pulse 100 08/03/20 09:49 Resp 20 08/03/20 09:49 BP 109/72 08/03/20 09:49 Pulse Ox 97 08/03/20 09:49 Weight - Most Recent: 70.76 kg I&O - Last 24 hours: Intake & Output 08/02/20 08/03/20 08/03/20 22:59 06:59 14:59 Intake Total 1020 450 Output Total 0 Balance 1020 450 Lab Results - Last 24 hrs: Laboratory Results - last 24 hr 08/02/20 08/03/20 08/03/20 Range/Units 16:05 05:18 05:18 WBC 3.94 L (4.0-11.0) K/uL RBC 2.43 L (4.50-5.90) M/uL Hgb 8.7 L (13.0-17.0) g/dL Hct 27.0 L (38.0-50.0) % MCV 111.1 H (80.0-98.0) fL MCH 35.8 H (27.0-32.0) pg MCHC 32.2 (31.0-37.0) g/dL RDW Std Deviation 76.1 H (28.0-62.0) fl RDW Coeff of Evelin 19 H (11.0-15.0) % Plt Count 179 (150-400) K/uL MPV 9.40 (7.40-12.00) fL Add Manual Diff YES Neutrophils % (Manual) 64 (48.0-80.0) % Band Neutrophils % 3 % Lymphocytes % (Manual) 16 (16.0-40.0) % Monocytes % (Manual) 15 (0.0-15.0) % Eosinophils % (Manual) 2 (0.0-7.0) % Nucleated RBC % 0.0 /100WBC Absolute Seg Neuts 2.5 (1.4-5.7) Band Neutrophils # 0.1 Lymphocytes # (Manual) 0.6 (0.6-2.4) Monocytes # (Manual) 0.6 (0.0-0.8) Eosinophils # (Manual) 0.1 (0.0-0.7) Nucleated RBCs # 0 K/uL Sodium 140 (136-148) mmol/L Potassium 3.7 (3.5-5.1) mmol/L Chloride 107 (98-107) mmol/L Carbon Dioxide 28.3 (21.0-32.0) mmol/L BUN 8 (7.0-18.0) mg/dL Creatinine 0.4 L (0.8-1.3) mg/dL Est Cr Clr Drug Dosing 197.38 mL/min Estimated GFR (MDRD) > 60.0 ml/min Glucose 110 H (74-106) mg/dL Calcium 7.3 L (8.5-10.1) mg/dL Phosphorus 3.5 (2.6-4.7) mg/dL Magnesium 2.3 1.9 (1.8-2.4) mg/dL Total Bilirubin 0.2 (0.2-1.0) mg/dL AST 16 (15-37) IU/L ALT 24 (14-63) IU/L Alkaline Phosphatase 140 H (46-116) U/L Total Protein 4.6 L (6.4-8.2) g/dL Albumin 1.6 L (3.4-5.0) g/dL Globulin 3.0 (2.6-4.0) g/dL Albumin/Globulin Ratio 0.5 L (0.9-1.6) Med Orders - Current: Current Medications Albuterol/Ipratropium (Albuterol/Ipratropium 3.0-0.5 Mg/3 Ml Neb Soln) 3 ml NEB Q4HRRT PRN PRN Reason: Shortness of Breath Last Admin: 07/27/20 21:19 Dose: 3 ml Documented by: Gabapentin (Gabapentin 100 Mg Cap) 100 mg PO TID [facility] Last Admin: 08/03/20 05:26 Dose: 100 mg Documented by: Pantoprazole Sodium 40 mg/ (Sodium Chloride) 10 mls @ 300 mls/hr IV BID [facility] Last Admin: 08/03/20 09:43 Dose: 300 mls/hr Documented by: Metronidazole 500 mg/ Premix 100 mls @ 100 mls/hr IV Q8H [facility] Last Admin: 08/03/20 09:48 Dose: 100 mls/hr Documented by: Loperamide HCl (Loperamide 2 Mg Cap) 2 mg PO DAILY [facility] Last Admin: 08/03/20 09:39 Dose: 2 mg Documented by: Lorazepam (Lorazepam 2 Mg/Ml Sdv) 1 mg IVPUSH Q4H PRN PRN Reason: Anxiety Ondansetron HCl (Ondansetron 4 Mg/2 Ml Sdv) 4 mg IVPUSH Q4H PRN PRN Reason: Nausea Oxycodone HCl (Oxycodone 5 Mg Tab) 5 mg PO Q4H PRN PRN Reason: Pain Last Admin: 08/02/20 20:59 Dose: 5 mg Documented by: Sodium Chloride (Sodium Chloride 0.9% 10 Ml Syringe) 10 ml FLUSH ASDIRECTED PRN PRN Reason: Keep Vein Open Last Admin: 07/25/20 13:42 Dose: 10 ml Documented by: Sodium Chloride (Sodium Chloride 0.9% 2.5 Ml Syringe) 2.5 ml FLUSH ASDIRECTED PRN PRN Reason: Keep Vein Open Last Admin: 07/25/20 13:41 Dose: 2.5 ml Documented by: Vancomycin HCl (Vancomycin 125 Mg Cap) 125 mg PO QID RIKY Last Admin: 08/03/20 05:26 Dose: 125 mg Documented by: Discontinued Medications Sodium Chloride (Normal Saline) 1,000 mls @ 999 mls/hr IV .Bolus ONE Stop: 07/25/20 14:32 Last Admin: 07/25/20 13:41 Dose: 999 mls/hr Documented by: Potassium Chloride 40 meq/ (Premix) 100 mls @ 25 mls/hr IV ONETIME ONE Stop: 07/25/20 18:14 Last Admin: 07/25/20 15:47 Dose: 25 mls/hr Documented by: Pantoprazole Sodium 80 mg/ (Sodium Chloride) 20 mls @ 420 mls/hr IVPUSH ONETIME ONE Stop: 07/25/20 14:18 Last Admin: 07/25/20 15:36 Dose: 420 mls/hr Documented by: Sodium Chloride (Normal Saline) 500 mls @ 25 mls/hr IV .BOLUS RIKY Last Admin: 07/25/20 15:47 Dose: 25 mls/hr Documented by: Sodium Chloride (Normal Saline) 1,000 mls @ 200 mls/hr IV NOW STA Stop: 07/25/20 22:38 Last Infusion: 07/25/20 18:26 Dose: 999 mls/hr Documented by: Metronidazole 500 mg/ Premix 100 mls @ 100 mls/hr IV ONETIME ONE Stop: 07/25/20 19:09 Last Admin: 07/25/20 18:25 Dose: 100 mls/hr Documented by: Lactated Ringer's (Ringers, Lactated) 1,000 mls @ 125 mls/hr IV ASDIRECTED [facility] Last Admin: 07/29/20 08:58 Dose: 125 mls/hr Documented by: Magnesium Sulfate 2 gm/ Premix 50 mls @ 50 mls/hr IV ONETIME ONE Stop: 07/25/20 20:26 Last Admin: 07/25/20 21:07 Dose: 50 mls/hr Documented by: Potassium Chloride 20 meq/ (Premix) 50 mls @ 25 mls/hr IV ONETIME ONE Stop: 07/25/20 21:26 Last Admin: 07/25/20 22:29 Dose: 25 mls/hr Documented by: Potassium Chloride 40 meq/ (Premix) 100 mls @ 25 mls/hr IV ONETIME ONE Stop: 07/26/20 11:41 Last Admin: 07/26/20 09:00 Dose: 25 mls/hr Documented by: Potassium Chloride 40 meq/ (Premix) 100 mls @ 25 mls/hr IV ONETIME ONE Stop: 07/26/20 16:49 Last Admin: 07/26/20 14:14 Dose: Not Given Documented by: Potassium Chloride 40 meq/ (Premix) 100 mls @ 25 mls/hr IV ONETIME ONE Stop: 07/27/20 08:59 Last Admin: 07/27/20 04:31 Dose: 25 mls/hr Documented by: Magnesium Sulfate 4 gm/ Premix 100 mls @ 50 mls/hr IV ONETIME ONE Stop: 07/27/20 11:29 Last Admin: 07/27/20 10:19 Dose: 50 mls/hr Documented by: Potassium Chloride/Sodium Chloride (Normal Saline With 40 Meq Kcl) 1,000 mls @ 250 mls/hr IV ONETIME ONE Stop: 07/27/20 13:44 Last Admin: 07/27/20 10:20 Dose: 250 mls/hr Documented by: Potassium Phosphate 30 mmole/ (Sodium Chloride) 510 mls @ 67.5 mls/hr IV ONETIME ONE Stop: 07/28/20 19:33 Last Admin: 07/28/20 12:33 Dose: 67.5 mls/hr Documented by: Magnesium Sulfate 2 gm/ Premix 50 mls @ 12.5 mls/hr IV ONETIME ONE Stop: 07/28/20 15:38 Last Admin: 07/28/20 12:12 Dose: 12.5 mls/hr Documented by: Magnesium Sulfate 2 gm/ Premix 50 mls @ 12.5 mls/hr IV ONETIME ONE Stop: 07/29/20 15:09 Last Admin: 07/29/20 11:42 Dose: 12.5 mls/hr Documented by: Potassium Chloride/Sodium Chloride (Normal Saline With 40 Meq Kcl) 1,000 mls @ 75 mls/hr IV ONETIME ONE Stop: 07/30/20 00:30 Last Admin: 07/29/20 11:47 Dose: 125 mls/hr Documented by: Lactated Ringer's (Ringers, Lactated) 1,000 mls @ 100 mls/hr IV Q13H [facility] Last Admin: 08/01/20 00:40 Dose: 100 mls/hr Documented by: Magnesium Sulfate 2 gm/ Premix 50 mls @ 12.5 mls/hr IV ONETIME ONE Stop: 07/31/20 16:12 Last Admin: 07/31/20 12:58 Dose: 12.5 mls/hr Documented by: Potassium Chloride/Sodium Chloride (Normal Saline With 40 Meq Kcl) 1,000 mls @ 150 mls/hr IV ASDIRECTED [facility] Stop: 08/01/20 17:24 Last Admin: 08/01/20 12:48 Dose: 150 mls/hr Documented by: Magnesium Sulfate 2 gm/ Premix 50 mls @ 25 mls/hr IV ONETIME ONE Stop: 08/02/20 15:29 Last Admin: 08/02/20 14:21 Dose: 25 mls/hr Documented by: Iopamidol (Iopamidol 755 Mg/Ml 500 Ml Multipack Bottle) 100 ml IVPUSH ONETIME ONE Stop: 07/25/20 15:02 Last Admin: 07/25/20 15:01 Dose: 100 ml Documented by: Loperamide HCl (Loperamide 2 Mg Cap) 2 mg PO ONETIME ONE Stop: 08/01/20 11:51 Last Admin: 08/01/20 12:47 Dose: 2 mg Documented by: Metoclopramide HCl (Metoclopramide 10 Mg/2 Ml Sdv) 5 mg IVPUSH ONETIME ONE Stop: 07/25/20 22:55 Last Admin: 07/25/20 23:48 Dose: 5 mg Documented by: Potassium Chloride (Potassium Chloride 20 Meq Tab.Er) 40 meq PO DAILY [facility]IKY Last Admin: 07/27/20 11:13 Dose: Not Given Documented by: Potassium Chloride (Potassium Chloride 20 Meq Tab.Er) 40 meq PO ONETIME ONE Stop: 07/28/20 11:40 Last Admin: 07/28/20 12:11 Dose: 40 meq Documented by: Potassium Chloride (Potassium Chloride 20 Meq Tab.Er) 40 meq PO ONETIME ONE Stop: 07/29/20 11:11 Last Admin: 07/29/20 11:41 Dose: 40 meq Documented by: Potassium Chloride (Potassium Chloride 20 Meq Tab.Er) 40 meq PO ONETIME ONE Stop: 07/30/20 12:34 Last Admin: 07/30/20 14:13 Dose: 40 meq Documented by: Sodium Phosphate (Phosphorus #1 250 Mg Tab) 250 mg PO ONETIME ONE Stop: 07/27/20 09:31 Last Admin: 07/27/20 10:22 Dose: 250 mg Documented by: Vancomycin HCl (Vancomycin 125 Mg Cap) 125 mg PO NOW STA Stop: 07/25/20 15:36 Last Admin: 07/25/20 15:49 Dose: 125 mg Documented by:
== END 2020-08-03 14:10 | disposition home or self-care (01) | DRG 248 ==
LOC: MW.ED 13:02 → MW.MS 18:24 → UNDOADMIN 18:24
PROVIDERS: ADMIT Student in an Organized Health Care Education/Training Program; ATTEND Student in an Organized Health Care Education/Training Program
DX: A04.72 Enterocolitis due to Clostridium difficile, not specified as recurrent (principal); C34.90 Malignant neoplasm of unspecified part of unspecified bronchus or lung; C79.31 Secondary malignant neoplasm of brain; E83.42 Hypomagnesemia; E83.39 Other disorders of phosphorus metabolism; R11.2 Nausea with vomiting, unspecified; D64.81 Anemia due to antineoplastic chemotherapy; T45.1X5A Adverse effect of antineoplastic and immunosuppressive drugs, initial encounter; Z20.822 Contact with and (suspected) exposure to COVID-19; E87.6 Hypokalemia; E78.00 Pure hypercholesterolemia, unspecified; J43.9 Emphysema, unspecified; K44.9 Diaphragmatic hernia without obstruction or gangrene; K76.0 Fatty (change of) liver, not elsewhere classified; R91.1 Solitary pulmonary nodule; R74.01 Elevation of levels of liver transaminase levels; D53.9 Nutritional anemia, unspecified; E86.0 Dehydration; D84.9 Immunodeficiency, unspecified; F17.200 Nicotine dependence, unspecified, uncomplicated; R53.81 Other malaise
CPT/HCPCS: 0240U; 36415; 71275; 71275-26; 74018; 74018-26; 74177; 74177-26; 80048; 80053; 81001; 82607; 82746; 83605; 83735; 84100; 84132; 84484; 85014; 85018; 85025; 85610; 86850; 86900; 86901; 87040; 87045; 87046; 87324; 87328; 87329; 87449; 87899; 93005; 96365; 96366; 96375; 97112-GP; 97162-GP; 99285-25; A9270-GY; C9113; J1642; J2765; J3475; J3480; J3490; J7030; J7040; J7120; J7620-GY; Q9967

== ENCOUNTER 2020-10-12 09:33 | Inpatient (IN) | payer BC ==
[2020-10-12] MEDS ORDERED: Sodium Chloride 0.9% 2.5 ML Syringe FLUSH PRN (09:57)
[2020-10-12] MEDS ORDERED: Sodium Chloride 0.9% 10 ML Syringe FLUSH PRN (09:57)
--- NOTE | 2020-10-12 09:58 | EDM.PDOC ---
ED HPI GENERAL MEDICAL PROBLEM - General Chief Complaint: General Stated Complaint: general assistance Time Seen by Provider: 10/12/20 09:49 Source of Information: Reports: Patient History Limitations: Reports: No Limitations - History of Present Illness INITIAL COMMENTS - FREE TEXT/NARRATIVE: HISTORY AND PHYSICAL: History of present illness: A 55-year-old male who presents to the emergency room with complaints of generalized weakness, falls, chest pain, shortness of breath and diarrhea. 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 Patient's initial complaint upon arrival is left hip and knee pain. He states he has had frequent falls over the past several months, was concerned that the last fall he had (a few days ago) he had fallen on his left hip, hit his head and "blacked out briefly". States his left leg is so painful he is hardly able to walk on it. Secondly he mentions that this is also chronic pain as he was told it was likely rate related to his chemo/radiation therapy. He states he generally feels unwell and believes he should be admitted. He states he has intermittent chest pain and shortness of breath, states this has been going on for weeks to months (unable to give me a timeframe in which this started). He also has had diarrhea since his last admission on 07/26/2020. He states at that time he was diagnosed with C. difficile and was hospitalized for several days. He also mentions he has "a lot of problems with my potassium and magnesium". Patient denies any fever, chills, headache, change in vision, syncope or near syncope. Denies any hemoptysis or cough. Denies any abdominal pain, nausea, vomiting, diarrhea, constipation or dysuria. Has not noted any blood in urine or stool. Patient has not been eating and drinking appropriately. Oncologist: Dr Rodney and Kobe from [facility] Review of systems: As per history of present illness and below otherwise all systems reviewed and negative. Past medical history: As per history of present illness and as reviewed below otherwise noncontributory. Surgical history: As per history of present illness and as reviewed below otherwise noncontributory. Social history: See social history for further information Family history: As per history of present illness and as reviewed below otherwise n oncontributory. Physical exam: General: Well developed and well nourished 55 year old male. Alert and orientated x 3. Nontoxic in appearance and in no acute distress. Vital signs are stable and have been reviewed by me. Nursing notes were reviewed. HEENT: Atraumatic, normocephalic, pupils equal and reactive bilaterally, negative for conjunctival pallor or scleral icterus, mucous membranes moist, trachea midline. No drooling or trismus noted. No meningeal signs. No hot potato voice noted. Lungs: Clear to auscultation bilaterally. No wheezes, rales, or rhonchi. Chest nontender. Normal work of breathing, no accessory muscles used. Heart: S1S2, regular rate with tachycardia rate of 105. No peripheral edema Abdomen: Soft, nondistended, nontender. Normoactive bowel sounds. Negative for masses or costovertebral tenderness. C-spine/Back: No pinpoint vertebral tenderness upon palpation. No crepitus, step-offs or obvious deformities. Denies any urinary or fecal incontinence. Denies any numbness, tingling or saddle paresthesia. No concerns of serious infection, fracture or cord compression, or cauda equina syndrome. Deep tendon reflexes brisk bilaterally. Skin: Intact, warm, dry. No lesions or rashes noted. Hematologic: No petechiae or purpra. Mucosa appropriate color and normal nail bed color and refill. Extremities: Atraumatic, moves all extremities per self without difficulty or de ficits, negative for cords or calf pain. Neurovascular unremarkable. Neuro: Awake, alert, oriented. Cranial nerves II through XII unremarkable. Cerebellum unremarkable. Motor and sensory unremarkable throughout. Exam nonfocal. Psychiatric: Mood and affect are appropriate. Normal thought process. Answering questions appropriately. Notes: *This patient was seen and evaluated during the 2019 SARS-CoV-2 novel coronavirus pandemic period. Community viral transmission is ongoing at time of this encounter and the emergency department is operating under pandemic response procedures. 10/02/2020: MRI of the brain shows numerous small ring-enhancing lesions in the supratentorial and infra tentorial brain, typical for metastasis. These have considerably progressed from 01/09/2020. Many of these are associated with petechial hemorrhage. No global mass-effect. No space-occupying hemorrhage. No ventricular obstruction. Treatment related changes noted. Reviewing the patient's oncology note from 10/06/2020: Patient has been struggling with ambulation and self-care. He has noted progressive worsening of balance and increased falls at home. It is noted he was prescribed a walker and continues to have reduced strength to be able to perform these activities. It is noted that he complains of left thigh pain. Dr. Bullock's note mentions that there are over 20 recurrent/new lesions. Provider does not feel that further palliative radiation therapy to the brain would be benefit for him. There are neurological deficit that he is suffering are likely due to disruption of neurological tracks some cells as opposed to purely temporary disruption from vasogenic edema or tumor or mass-effect. They did discuss doing a hospice consult. Patient is a 55-year-old male who presents to the emergency room with multiple vague complaints. Initial concern was his left lower extremity. After reviewing his oncology notes it looks like he has chronic pain and weakness of the left lower extremity. Patient reports he fell a few days ago landing on his left hip and since has not been able to walk on it. I have witnessed him ambulating, he says it is painful. When discussing imaging he states that his head, neck and left lower extremity are painful and would like imaging of this. I do note he has had a recent MRI, will get a CT today as it is the weekend to make sure there are no changes from his falls (fell since the MRI). While completing a review of systems he does state he has acute on chronic shortness of breath, chest pain, weakness and abnormal labs that he feels he should be admitted for. Patient appears flat and in low spirits when talking about his oncology prognosis. Patient does appear to have chronic hypocalcemia, low readings since 07/04/2020, today at 7.7. AST and ALT are elevated. Negative COVID testing. CT head shows no acute intracranial hemorrhage. Multiple supratentorial and infratentorial lesions, including the notable lesion within the right thalamus, were better characterized on prior MRI. Postsurgical changes of prior left suboccipital craniotomy with encephalomalacia involving the left cerebellar hemisphere and left brachium pontis. CT of cervical spine shows no acute findings. Multilevel cervical spondylosis. I have talked with the patient about today's findings, in addition to providing specific details for plan of care. Patient states he physically is unable to take care of himself at home. He does live with his brother. He states he is "embarrassed that I have to call out for my brother to help me just go to the bathroom". I discussed that in his note it mentions hospice. Patient states he wants to go on hospice stating "it is time". He is tearful. Dr. Shelton was consulted on this case and she is agreeable to keeping him for inpatient. Due to patient wanting to go on hospice I do not feel he needs to be on telemetry at this time. Diagnostics: CBC, CMP, Troponin, EKG, Magnesium, UA, Head/C-spine CT, Hip/Knee x-ray, CXR Therapeutics: NS @ 125mls/hr Impression: Hypocalcemia Weakness Frequent falls Plan: Inpatient admission to [facility] Definitive disposition and diagnosis as appropriate pending reevaluation and review of above. Left Hip Pain Score (Numeric/FACES): 8 - Related Data Allergies Allergy/AdvReac Type Severity Reaction Status Date / Time No Known Allergies Allergy Verified 07/25/20 21:12 Home Meds: Home Meds Ondansetron [Zofran Odt] 8 mg PO ASDIRECTED 07/03/20 [History] oxyCODONE HCl/Acetaminophen [Oxycodone-Acetaminophen 5-325] 1 tab PO ASDIRECTED 07/03/20 [History] Pantoprazole [ProTONIX] 40 mg PO DAILY #30 tab.cr 07/05/20 [Rx] Loperamide [Imodium] 2 mg PO DAILY PRN #7 cap 08/03/20 [Rx] Vancomycin [Vancocin 125 MG Capsule] 125 mg PO QID #20 cap 08/03/20 [Rx] Past Medical History - Past Health History Medical/Surgical History: Denies Medical/Surgical History HEENT History: Reports: Other (See Below) Other HEENT History: wears glasses Cardiovascular History: Reports: High Cholesterol Respiratory History: Reports: Other (See Below) Other Respiratory History: non-small cell lung cancer Gastrointestinal History: Reports: Other (See Below) Other Gastrointestinal History: nausea Genitourinary History: Reports: None Musculoskeletal History: Reports: Fracture, Other (See Below) Other Musculoskeletal History: hx fx collarbone & "seperated" shoulder Neurological History: Reports: Other (See Below) Other Neuro History: malignant brain tumor with mets to the lung Psychiatric History: Reports: None Endocrine/Metabolic History: Reports: None Hematologic History: Reports: None Immunologic History: Reports: None Oncologic (Cancer) History: Reports: Brain, Lung Other Oncologic History: non-small cell lung cancer metastatic to brain Dermatologic History: Reports: None - Infectious Disease History Infectious Disease History: Reports: Chicken Pox - Past Surgical History Head Surgeries/Procedures: Reports: Craniotomy HEENT Surgical History: Reports: None Cardiovascular Surgical History: Reports: None Respiratory Surgical History: Reports: None GI Surgical History: Reports: Hernia, Abdominal Male Surgical History: Reports: None Endocrine Surgical History: Reports: None Neurological Surgical History: Reports: Other (See Below) Other Neurological Surgeries/Procedures: craniotomy & partial tumor removal about 5- 6 months ago Musculoskeletal Surgical History: Reports: None Oncologic Surgical History: Reports: Other (See Below) Other Oncologic Surgeries/Procedures: craniotomy with partial tumor removal Dermatological Surgical History: Reports: Other (See Below) Social & Family History - Family History Family Medical History: No Pertinent Family History - Caffeine Use Caffeine Use: Reports: None ED ROS GENERAL - Review of Systems Review Of Systems: Comprehensive ROS is negative, except as noted in HPI. ED EXAM, GENERAL - Physical Exam Exam: See Below (See dictation) Course - Vital Signs Last Recorded V/S: Last Vital Signs Temp 97.4 F 10/12/20 09:35 Pulse 121 H 10/12/20 09:35 Resp 19 10/12/20 09:35 BP 124/82 10/12/20 09:35 Pulse Ox 92 L 10/12/20 09:35 - Orders/Labs/Meds Orders: Active Orders 24 hr Category Date Time Status Admission Status [Patient Status] [ADT] Stat ADT 10/12/20 11:57 Ordered EKG Documentation Completion [RC] STAT Care 10/12/20 09:57 Active UA RFX DANIS AND CULT IF INDIC [URIN] Stat Lab 10/12/20 11:08 Ordered Sodium Chloride 0.9% [Saline Flush] Med 10/12/20 09:57 Active 10 ml FLUSH ASDIRECTED PRN Sodium Chloride 0.9% [Saline Flush] Med 10/12/20 09:57 Active 2.5 ml FLUSH ASDIRECTED PRN Saline Lock Insert [OM.PC] Stat Oth 10/12/20 09:57 Ordered Medication Orders Sodium Chloride (Sodium Chloride 0.9% 10 Ml Syringe) 10 ml FLUSH ASDIRECTED PRN PRN Reason: Keep Vein Open Sodium Chloride (Sodium Chloride 0.9% 2.5 Ml Syringe) 2.5 ml FLUSH ASDIRECTED PRN PRN Reason: Keep Vein Open Labs: Laboratory Tests 10/12/20 10/12/20 10/12/20 Range/Units 10:05 10:05 10:10 WBC 8.67 (4.0-11.0) K/uL RBC 4.07 L (4.50-5.90) M/uL Hgb 14.4 (13.0-17.0) g/dL Hct 44.0 (38.0-50.0) % MCV 108.1 H (80.0-98.0) fL MCH 35.4 H (27.0-32.0) pg MCHC 32.7 (31.0-37.0) g/dL RDW Std Deviation 58.3 (28.0-62.0) fl RDW Coeff of Evelin 15 (11.0-15.0) % Plt Count 213 (150-400) K/uL MPV 8.90 (7.40-12.00) fL Neut % (Auto) 80.7 H (48.0-80.0) % Lymph % (Auto) 5.4 L (16.0-40.0) % [place] % (Auto) 13.8 (0.0-15.0) % Eos % (Auto) 0.0 (0.0-7.0) % Baso % (Auto) 0.1 (0.0-1.5) % Neut # (Auto) 7.0 H (1.4-5.7) K/uL Lymph # (Auto) 0.5 L (0.6-2.4) K/uL [place] # (Auto) 1.2 H (0.0-0.8) K/uL Eos # (Auto) 0.0 (0.0-0.7) K/uL Baso # (Auto) 0.0 (0.0-0.1) K/uL Nucleated RBC % 0.0 /100WBC Nucleated RBCs # 0 K/uL Sodium 141 (136-148) mmol/L Potassium 3.5 (3.5-5.1) mmol/L Chloride 100 (98-107) mmol/L Carbon Dioxide 18.0 L (21.0-32.0) mmol/L BUN 8 (7.0-18.0) mg/dL Creatinine 0.6 L (0.8-1.3) mg/dL Est Cr Clr Drug Dosing 135.45 mL/min Estimated GFR (MDRD) > 60.0 ml/min Glucose 96 (74-106) mg/dL Calcium 7.7 L (8.5-10.1) mg/dL Magnesium 1.7 L (1.8-2.4) mg/dL Total Bilirubin 0.8 (0.2-1.0) mg/dL AST 349 H (15-37) IU/L ALT 234 H (14-63) IU/L Alkaline Phosphatase 308 H (46-116) U/L Troponin I < 0.050 (0.000-0.056) ng/mL Total Protein 6.5 (6.4-8.2) g/dL Albumin 2.5 L (3.4-5.0) g/dL Globulin 4.0 (2.6-4.0) g/dL Albumin/Globulin Ratio 0.6 L (0.9-1.6) SARS-CoV-2 RNA (GRZEGORZ) NEGATIVE (NEGATIVE) Meds: Medications Generic Name Dose Route Start Last Admin Trade Name Freq PRN Reason Stop Dose Admin Sodium Chloride 10 ml 10/12/20 09:57 Sodium Chloride 0.9% 10 Ml Syringe FLUSH ASDIRECTED PRN Keep Vein Open Sodium Chloride 2.5 ml 10/12/20 09:57 Sodium Chloride 0.9% 2.5 Ml Syringe FLUSH ASDIRECTED PRN Keep Vein Open Departure - Departure Time of Disposition: 12:02 Disposition: Admitted As Inpatient 67 Clinical Impression: Weakness, Frequent falls, Metastatic cancer, Hypocalcemia - Discharge Information Referrals: PCP,None [Ordering Only Provider] - Forms: ED Department Discharge Sepsis Event Note (ED) - Focused Exam Vital Signs: Vital Signs Temp Pulse Resp BP Pulse Ox 10/12/20 09:35 97.4 F 121 H 19 124/82 92 L - My Orders Last 24 Hours: My Active Orders 10/12/20 09:57 EKG Documentation Completion [RC] STAT Sodium Chloride 0.9% [Saline Flush] 10 ml FLUSH ASDIRECTED PRN Sodium Chloride 0.9% [Saline Flush] 2.5 ml FLUSH ASDIRECTED PRN Saline Lock Insert [OM.PC] Stat 10/12/20 11:08 UA RFX DANIS AND CULT IF INDIC [URIN] Stat 10/12/20 11:57 Admission Status [Patient Status] [ADT] Stat - Assessment/Plan Last 24 Hours: My Active Orders 10/12/20 09:57 EKG Documentation Completion [RC] STAT Sodium Chloride 0.9% [Saline Flush] 10 ml FLUSH ASDIRECTED PRN Sodium Chloride 0.9% [Saline Flush] 2.5 ml FLUSH ASDIRECTED PRN Saline Lock Insert [OM.PC] Stat 10/12/20 11:08 UA RFX DANIS AND CULT IF INDIC [URIN] Stat 10/12/20 11:57 Admission Status [Patient Status] [ADT] Stat
[2020-10-12 10:35] LABS: BLOOD UREA NITROGEN,BUN 8 mg/dL (7.0-18.0); CHLORIDE,CL 100 mmol/L (98-107); GLUCOSE RANDOM 96 mg/dL (74-106); POTASSIUM,K 3.5 mmol/L (3.5-5.1); SODIUM,NA 141 mmol/L (136-148)
--- NOTE | 2020-10-12 11:38 | CT ---
INDICATION: Recent and recurrent falls. Metastatic lung carcinoma to the brain status post resection and whole-brain radiation treatment. Technique Noncontrast CT images were acquired through the brain. COMPARISON: MRI brain 10/02/2020, CT brain 07/03/2020. FINDINGS: Mild diffuse cerebral volume loss. No midline shift or hydrocephalus. Multiple supratentorial and infratentorial lesions, including the notable hypoattenuating lesion within the right thalamus, were better characterized on prior MRI. Multiple punctate supratentorial calcifications, not significantly changed. No acute intracranial hemorrhage or pathologic extra-axial fluid collection. 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 Postsurgical changes of prior left suboccipital craniotomy with encephalomalacia in the left cerebellar hemisphere and left brachium pontis. Intracranial atherosclerotic calcifications. The globes are symmetric. No calvarial fracture. Minimal left maxillary sinus mucosal thickening. The mastoid air cells are clear. IMPRESSION: 1. No acute intracranial hemorrhage. 2. Multiple supratentorial and infratentorial lesions, including the notable lesion within the right thalamus, were better characterized on prior MRI. 3. Postsurgical changes of prior left suboccipital craniotomy with encephalomalacia involving the left cerebellar hemisphere and left brachium pontis. Please note that all CT scans at this facility use dose modulation, iterative reconstruction, and/or weight-based dosing when appropriate to reduce radiation dose to as low as reasonably achievable. Dictated by Tra Carroll MD @ 10/12/2020 11:35:[address] Tra Carroll @ Oct 12 2020 11:35AM
--- NOTE | 2020-10-12 11:44 | CT ---
INDICATION: Neck pain. Recurrent falls. Metastatic lung cancer. TECHNIQUE: Noncontrast CT images were acquired through the cervical spine. COMPARISON: PET-CT 09/16/2020. FINDINGS: Straightening of the cervical lordosis. No acute fracture or traumatic subluxation. Trace retrolisthesis of C5 on C6 and C6 on C7. Multilevel facet arthropathy and uncinate spurring contributing up to moderate left neural foraminal narrowing at C6-7. Shallow posterior disc osteophyte complex at C5-6 minimally narrows the spinal canal. No high-grade spinal canal stenosis. No concerning opacities in the visualized lungs. IMPRESSION: 1. No acute fracture or traumatic subluxation. 2. Multilevel cervical spondylosis. Please note that all CT scans at this facility use dose modulation, iterative reconstruction, and/or weight-based dosing when appropriate to reduce radiation dose to as low as reasonably achievable. Dictated by Tra Carroll MD @ 10/12/2020 11:42:[address] Tra Carroll @ Oct 12 2020 11:42AM
--- NOTE | 2020-10-12 11:50 | CR ---
INDICATION: Chest pain. History of lung cancer. COMPARISON: Chest x-ray dated 03 Jul 2020. FINDINGS: A single portable chest x-ray shows a left-sided Port-A-Cath. Normal cardiac silhouette. Tortuous aorta. The lungs show no focal pulmonary opacities. Sharp pleural margins. No pneumothorax. IMPRESSION: 1. No evidence of acute pulmonary abnormalities. Dictated by Bethel Parks MD @ 10/12/2020 11:48:[address] Bethel Parks @ Oct 12 2020 11:48AM
--- NOTE | 2020-10-12 11:52 | CR ---
INDICATION: Fall. Pain. FINDINGS: A single frontal view of the pelvis along with 2 views of the left hip show no evidence of acute fracture or dislocation. The hip joints appear intact. No other bony or soft tissue abnormalities identified. Dictated by Bethel Parks MD @ 10/12/2020 11:51:[address] Bethel Parks @ Oct 12 2020 11:51AM
--- NOTE | 2020-10-12 11:55 | CR ---
INDICATION: Knee pain. Fall. FINDINGS: Three views of the left knee show no evidence of acute fracture or dislocation. No other bony or soft tissue abnormalities identified. Dictated by Bethel Parks MD @ 10/12/2020 11:53:[address] Bethel Parks @ Oct 12 2020 11:53AM
[2020-10-12] MEDS ORDERED: Sodium Chloride 0.9% 1,000 ML IV ONE (12:03)
--- NOTE | 2020-10-12 13:58 | PCM.HP.2 ---
H&P History of Present Illness - General Date of Service: 10/12/20 Admit Problem/Dx: Admission Diagnosis/Problem Admission Diagnosis/Problem Weakness - History of Present Illness Initial Comments - Free Text/Narative: A 55-year-old male who presents to the emergency room with complaints of progressive generalized weakness, falls, left hip and knee pain, chest pain, shortness of breath and loose stools. 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 Patient's initial complaint upon arrival is left hip and knee pain. He states he has had frequent falls over the past several months, was concerned that he recently had fallen on his left hip, hit his head and "blacked out briefly". States his left leg which is mostly chronic is so painful he is hardly able to walk on it. He states he has intermittent chest pain and shortness of breath, states this has been going on for few weeks now. He also has had diarrhea since his last admission on 07/26/2020. He states at that time he was diagnosed with C. difficile and was hospitalized for several days. Denies any hemoptysis or cough. Denies any abdominal pain, nausea, vomiting, constipation or dysuria. Has not noted any blood in urine or stool. Patient has not been eating and drinking appropriately. Recently had Cdiff diarrhea for which he was treated 10/02/2020: MRI of the brain shows numerous small ring-enhancing lesions in the supratentorial and infra tentorial brain, typical for metastasis. These have considerably progressed from 01/09/2020. Many of these are associated with petechial hemorrhage. No global mass-effect. No space-occupying hemorrhage. No ventricular obstruction. Treatment related changes noted. Reviewing the patient's oncology note from 10/06/2020: progressive worsening of balance and increased falls at home. It is noted he was prescribed a walker and continues to have reduced strength to perform ADLS. Dr. Bullock's note mentions that there are over 20 recurrent/new lesions. Provider does not feel that further palliative radiation therapy to the brain would be benefit for him. There are neurological deficit that he is suffering are likely due to disruption of neurological tracks some cells as opposed to purely temporary disruption from vasogenic edema or tumor or mass-effect. They did discuss doing a hospice consult. Labs in ER showed Ca of 7.7. AST and ALT are elevated. Negative COVID testing, troponin negative, mag was low CT head shows no acute intracranial hemorrhage. Multiple supratentorial and infratentorial lesions, including the notable lesion within the right thalamus, were better characterized on prior MRI. Postsurgical changes of prior left suboccipital craniotomy with encephalomalacia involving the left cerebellar hemisphere and left brachium pontis. CT of cervical spine shows no acute findings. Multilevel cervical spondylosis. Patient was admitted for further care. Goals of care were discussed, patient is increased in hospice consult and feels like he is ready to trsnasition to confort /pallative care and would like to talk to hospice about transition, sttaes his brother is aware of his wishes.. Patient is DNR/DNI. Left Hip Pain Score (Numeric/FACES): 8 - Related Data Allergies/Adverse Reactions: Allergies Allergy/AdvReac Type Severity Reaction Status Date / Time No Known Allergies Allergy Verified 10/12/20 18:40 Home Medications: Home Meds Ondansetron [Zofran Odt] 8 mg PO ASDIRECTED 07/03/20 [History] oxyCODONE HCl/Acetaminophen [Oxycodone-Acetaminophen 5-325] 1 tab PO ASDIRECTED 07/03/20 [History] Past Medical History - Past Health History Medical/Surgical History: Denies Medical/Surgical History HEENT History: Reports: Other (See Below) Other HEENT History: wears glasses Cardiovascular History: Reports: High Cholesterol Respiratory History: Reports: Other (See Below) Other Respiratory History: non-small cell lung cancer Gastrointestinal History: Reports: Other (See Below) Other Gastrointestinal History: nausea Genitourinary History: Reports: None Musculoskeletal History: Reports: Fracture, Other (See Below) Other Musculoskeletal History: hx fx collarbone & "seperated" shoulder Neurological History: Reports: Other (See Below) Other Neuro History: malignant brain tumor with mets to the lung Psychiatric History: Reports: None Endocrine/Metabolic History: Reports: None Hematologic History: Reports: None Immunologic History: Reports: None Oncologic (Cancer) History: Reports: Brain, Lung Other Oncologic History: non-small cell lung cancer metastatic to brain Dermatologic History: Reports: None - Infectious Disease History Infectious Disease History: Reports: Chicken Pox - Past Surgical History Head Surgeries/Procedures: Reports: Craniotomy HEENT Surgical History: Reports: None Cardiovascular Surgical History: Reports: None Respiratory Surgical History: Reports: None GI Surgical History: Reports: Hernia, Abdominal Male Surgical History: Reports: None Endocrine Surgical History: Reports: None Neurological Surgical History: Reports: Other (See Below) Other Neurological Surgeries/Procedures: craniotomy & partial tumor removal about 5- 6 months ago Musculoskeletal Surgical History: Reports: None Oncologic Surgical History: Reports: Other (See Below) Other Oncologic Surgeries/Procedures: craniotomy with partial tumor removal Dermatological Surgical History: Reports: Other (See Below) Social & Family History - Family History Family Medical History: No Pertinent Family History HEENT: Reports: None Cardiac: Reports: None Respiratory: Reports: None GI: Reports: None : Reports: Dialysis Other Family History: mother was on dialysis OBGYN: Reports: None Musculoskeletal: Reports: None Neurological: Reports: None Psychiatric: Reports: None Endocrine/Metabolic: Reports: Diabetes, type II Hematologic: Reports: None Immunologic: Reports: None Dermatologic: Reports: None Oncologic: Reports: Colon, Lung, Metastatic - Tobacco Use Tobacco Use Status *Q: Current Every Day Tobacco User Years of Tobacco use: 30 Packs/Tins Daily: 2 Second Hand Smoke Exposure: Yes - Caffeine Use Caffeine Use: Reports: Tea - Alcohol Use Days Per Week of Alcohol Use: 7 Number of Drinks Per Day: 2 Total Drinks Per Week: 14 Date of Last Drink: 10/11/20 - Recreational Drug Use Recreational Drug Use: No H&P Review of Systems - Review of Systems: Review Of Systems: See Below General: Reports: Malaise, Weakness, Fatigue, Decreased Appetite, Weight Loss. Denies: Fever, Chills HEENT: Denies: Contact Lenses, Dysphasia Pulmonary: Reports: Shortness of Breath, Cough, Sputum. Denies: Wheezing, Pleuritic Chest Pain Cardiovascular: Reports: Chest Pain (chronic), Dyspnea on Exertion. Denies: Palpitations, Orthopnea, Syncope, Claudication Gastrointestinal: Reports: Anorexia. Denies: Abdominal Pain, Black Stool, Bloody Stool, Difficulty Swallowing, Distension, Flatus, Nausea Genitourinary: Denies: Dysuria, Frequency Musculoskeletal: Reports: Back Pain, Leg Pain, Joint Pain. Denies: Neck Pain, Shoulder Pain Skin: Reports: Pallor. Denies: Jaundice, Mottled Psychiatric: Reports: Mood Lability, Anxiety. Denies: Confusion, Suicidal Ideation, Homicidal Ideation, Hallucinations (Auditory) Neurological: Reports: Syncope, Difficulty Walking, Weakness. Denies: Confusion, Dizziness, Headache, Numbness, Tingling, Tremors, Trouble Speaking Exam - Exam Exam: See Below - Vital Signs Vital Signs: Last Vital Signs Temp 36.3 C 10/12/20 09:35 Pulse 105 H 10/12/20 12:06 Resp 18 10/12/20 12:06 BP 123/68 10/12/20 12:06 Pulse Ox 94 L 10/12/20 12:06 Weight: 70.08 kg - Exam Quality Assessment: Supplemental Oxygen General: Alert, Oriented, Cooperative, Mild Distress HEENT: Conjunctiva Clear Neck: Supple Lungs: Clear to Auscultation, Normal Respiratory Effort Cardiovascular: Regular Rate, Regular Rhythm GI/Abdominal Exam: Normal Bowel Sounds, Soft, Non-Tender Extremities: Normal Inspection, Normal Range of Motion, Leg Pain Skin: Warm, Dry - Patient Data Lab Results Last 24 hrs: Laboratory Results - last 24 hr 10/12/20 10/12/20 10/12/20 Range/Units 10:05 10:05 10:10 WBC 8.67 (4.0-11.0) K/uL RBC 4.07 L (4.50-5.90) M/uL Hgb 14.4 (13.0-17.0) g/dL Hct 44.0 (38.0-50.0) % MCV 108.1 H (80.0-98.0) fL MCH 35.4 H (27.0-32.0) pg MCHC 32.7 (31.0-37.0) g/dL RDW Std Deviation 58.3 (28.0-62.0) fl RDW Coeff of Evelin 15 (11.0-15.0) % Plt Count 213 (150-400) K/uL MPV 8.90 (7.40-12.00) fL Neut % (Auto) 80.7 H (48.0-80.0) % Lymph % (Auto) 5.4 L (16.0-40.0) % Charlton % (Auto) 13.8 (0.0-15.0) % Eos % (Auto) 0.0 (0.0-7.0) % Baso % (Auto) 0.1 (0.0-1.5) % Neut # (Auto) 7.0 H (1.4-5.7) K/uL Lymph # (Auto) 0.5 L (0.6-2.4) K/uL Charlton # (Auto) 1.2 H (0.0-0.8) K/uL Eos # (Auto) 0.0 (0.0-0.7) K/uL Baso # (Auto) 0.0 (0.0-0.1) K/uL Nucleated RBC % 0.0 /100WBC Nucleated RBCs # 0 K/uL Sodium 141 (136-148) mmol/L Potassium 3.5 (3.5-5.1) mmol/L Chloride 100 (98-107) mmol/L Carbon Dioxide 18.0 L (21.0-32.0) mmol/L BUN 8 (7.0-18.0) mg/dL Creatinine 0.6 L (0.8-1.3) mg/dL Est Cr Clr Drug Dosing 135.45 mL/min Estimated GFR (MDRD) > 60.0 ml/min Glucose 96 (74-106) mg/dL Calcium 7.7 L (8.5-10.1) mg/dL Magnesium 1.7 L (1.8-2.4) mg/dL Total Bilirubin 0.8 (0.2-1.0) mg/dL AST 349 H (15-37) IU/L ALT 234 H (14-63) IU/L Alkaline Phosphatase 308 H (46-116) U/L Troponin I < 0.050 (0.000-0.056) ng/mL Total Protein 6.5 (6.4-8.2) g/dL Albumin 2.5 L (3.4-5.0) g/dL Globulin 4.0 (2.6-4.0) g/dL Albumin/Globulin Ratio 0.6 L (0.9-1.6) SARS-CoV-2 RNA (GRZEGORZ) NEGATIVE (NEGATIVE) Result Diagrams: 10/12/20 10:05 10/12/20 10:05 Sepsis Event Note - Focused Exam Vital Signs: Vital Signs Temp Pulse Resp BP Pulse Ox 10/12/20 12:06 105 H 18 123/68 94 L 10/12/20 09:35 36.3 C 121 H 19 124/82 92 L - Problem List (1) Frequent falls SNOMED Code(s): 442605324 ICD Code: R29.6 - REPEATED FALLS Status: Acute Current Visit: Yes (2) Metastatic cancer SNOMED Code(s): 172441146 ICD Code: C79.9 - SECONDARY MALIGNANT NEOPLASM OF UNSPECIFIED SITE Status: Acute Current Visit: Yes (3) Weakness SNOMED Code(s): 00420400 ICD Code: R53.1 - WEAKNESS Status: Acute Current Visit: Yes (4) Ambulatory dysfunction SNOMED Code(s): 865147258 ICD Code: R26.2 - DIFFICULTY IN WALKING, NOT ELSEWHERE CLASSIFIED Status: Acute Current Visit: Yes (5) Impaired mobility and ADLs SNOMED Code(s): 600479372, 413940012 ICD Code: Z74.09 - OTHER REDUCED MOBILITY; Z78.9 - OTHER SPECIFIED HEALTH STATUS Status: Acute Current Visit: Yes (6) Hypomagnesemia SNOMED Code(s): 923742295 ICD Code: E83.42 - HYPOMAGNESEMIA Status: Acute Current Visit: Yes Problem List Initiated/Reviewed/Updated: Yes Orders Last 24hrs: Active Orders 24 hr Category Date Time Status Admission Status [Patient Status] [ADT] Stat ADT 10/12/20 11:57 Active EKG Documentation Completion [RC] STAT Care 10/12/20 09:57 Active UA RFX DANIS AND CULT IF INDIC [URIN] Stat Lab 10/12/20 11:08 Ordered Sodium Chloride 0.9% [Normal Saline] 1,000 ml Med 10/12/20 12:03 Active IV STAT Sodium Chloride 0.9% [Saline Flush] Med 10/12/20 09:57 Active 10 ml FLUSH ASDIRECTED PRN Sodium Chloride 0.9% [Saline Flush] Med 10/12/20 09:57 Active 2.5 ml FLUSH ASDIRECTED PRN Saline Lock Insert [OM.PC] Stat Oth 10/12/20 09:57 Ordered Medication Orders Sodium Chloride (Normal Saline) 1,000 mls @ 125 mls/hr IV STAT ONE Stop: 10/12/20 20:02 Last Admin: 10/12/20 12:13 Dose: 125 mls/hr Documented by: LIZBET Sodium Chloride (Sodium Chloride 0.9% 10 Ml Syringe) 10 ml FLUSH ASDIRECTED PRN PRN Reason: Keep Vein Open Last Admin: 10/12/20 12:13 Dose: 10 ml Documented by: LIZBET Sodium Chloride (Sodium Chloride 0.9% 2.5 Ml Syringe) 2.5 ml FLUSH ASDIRECTED PRN PRN Reason: Keep Vein Open Last Admin: 10/12/20 12:14 Dose: 2.5 ml Documented by: LIZBET Assessment/Plan Comment:: 55 y/o M admitted for weakness, deconditioning secondary to metastatic cancer Per Oncology notes and recent MRI cancer seems to be spreading, NO concern of infection today Imaging negative for any fractures or intracranial bleeding Patient is interested in establishing home hospice for comfort, states he cannot tolerate chemo anymore start IV fluids for hydration IV morphine for pain IV zofran and IV PPI DuoNebs as needed Fall precaution Magnesium repletion Hospice consult to establish [facility]olas of care probable transition to comfort measures in AM once patient talks to hospice services
[2020-10-12] MEDS ORDERED: Magnesium Sulfate/Water 4 GM in Premix Bag 1 BAG IV ONE (14:00)
[2020-10-12] MEDS ORDERED: Pantoprazole 40 MG in Sodium Chloride 0.9% 10 ML IV SCH (14:15)
[2020-10-12] MEDS: Morphine 2 MG/ML SYRINGE IVPUSH PRN ×2 (14:30→19:43)
[2020-10-12] MEDS: Enoxaparin 40 MG/0.4 ML Syringe SUBCUT SCH (14:34)
--- NOTE | 2020-10-12 17:27 | PCM.EKG ---
#1 Interpretation EKG Date: 10/12/20 Time: 09:42 Rhythm: NSR Rate (Beats/Min): 117 [place]: Normal P-Wave: Present QRS: Normal ST-T: Normal QT: Prolonged Comparison: No Change (07/25/20) EKG Interpretation Comments: Sinus Rhythm with prolonged QT
[2020-10-12] MEDS: Lactated Ringers 1,000 ML IV SCH (17:29)
[2020-10-12] MEDS: Ondansetron 4 MG/2 ML SDV IVPUSH PRN (21:06)
[2020-10-12] MEDS ORDERED: Calcium Carbonate 500 MG Tab.Chew PO PRN (23:40)
[2020-10-12] MEDS ORDERED: LORazepam 2 MG/ML SDV IVPUSH PRN ×2 (23:43→23:56)
[2020-10-13] MEDS: Aluminum Hydroxide/Magnesium Hydroxide/Simethicone Susp 30 ML Cup PO PRN (00:15)
[2020-10-13] MEDS: Pantoprazole 40 MG in Sodium Chloride 0.9% 10 ML IV SCH (00:16)
[2020-10-13] MEDS: Morphine 2 MG/ML SYRINGE IVPUSH PRN ×4 (01:06→17:00)
[2020-10-13] MEDS: Ondansetron 4 MG/2 ML SDV IVPUSH PRN ×3 (01:06→12:00)
[2020-10-13] MEDS: Lactated Ringers 1,000 ML IV SCH (02:47)
[2020-10-13 06:16] LABS: BLOOD UREA NITROGEN,BUN 4 mg/dL (7.0-18.0); CARBON DIOXIDE,CO2 21.5 mmol/L (21.0-32.0); CHLORIDE,CL 100 mmol/L (98-107); GLUCOSE RANDOM 68 mg/dL (74-106); POTASSIUM,K 2.8 mmol/L (3.5-5.1); SODIUM,NA 138 mmol/L (136-148)
[2020-10-13] MEDS ORDERED: Potassium Phosphates 30 MMOLE, Magnesium Sulfate 2 GM in Sodium Chloride 0.9% 500 ML IV ONE (08:36)
[2020-10-13] MEDS ORDERED: Potassium Chloride 20 MEQ Tab.ER PO ONE (08:36)
[2020-10-13] MEDS ORDERED: Pantoprazole 40 MG in Sodium Chloride 0.9% 10 ML IV SCH (09:00)
[2020-10-13] MEDS ORDERED: Pantoprazole 40 MG Vial IV SCH (09:00)
[2020-10-13] MEDS: Vancomycin 125 MG Cap PO SCH ×3 (09:27→18:02)
[2020-10-13] MEDS ORDERED: Sodium Chloride 0.9% 500 ML IV ONE (09:34)
--- NOTE | 2020-10-13 11:41 | PCM.PN ---
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 Patient C. difficile antigen resulted positive. Patient would like to transition to palliative care and set up home hospice. Hospice consult has been placed and will see him later today. Patient was advised that his C. difficile returned positive and will be started on p.o. vancomycin. He continues to have medial left knee pain which returns after 6 hours of his morphine dose. Patient had 4 loose bowel movements this morning. Patient has good appetite and is eating breakfast. He continues to have nausea which is controlled with Zofran. Denies abdominal pain, dysuria, bloody stools, headaches. - Review of Systems General: Reports: Weakness, Fatigue. Denies: Fever, Chills HEENT: Reports: No Symptoms Pulmonary: Reports: Shortness of Breath, Cough, Sputum Cardiovascular: Denies: Chest Pain, Palpitations Gastrointestinal: Reports: Diarrhea. Denies: Abdominal Pain Genitourinary: Denies: Dysuria Musculoskeletal: Reports: Leg Pain Neurological: Denies: Dizziness, Headache - Patient Data Vitals - Most Recent: Last Vital Signs Temp 100.2 F 10/13/20 08:14 Pulse 98 10/13/20 08:14 Resp 20 10/13/20 08:14 BP 119/75 10/13/20 08:14 Pulse Ox 90 L 10/13/20 08:14 Weight - Most Recent: 154 lb 8 oz I&O - Last 24 Hours: Intake & Output 10/12/20 10/13/20 10/13/20 22:59 06:59 14:59 Intake Total 480 2035 Output Total 0 470 Balance 480 1565 Lab Results Last 24 Hours: Laboratory Results - last 24 hr 10/12/20 10/13/20 10/13/20 Range/Units 20:30 05:25 05:25 WBC 5.60 (4.0-11.0) K/uL RBC 3.54 L (4.50-5.90) M/uL Hgb 12.3 L (13.0-17.0) g/dL Hct 37.1 L (38.0-50.0) % MCV 104.8 H (80.0-98.0) fL MCH 34.7 H (27.0-32.0) pg MCHC 33.2 (31.0-37.0) g/dL RDW Std Deviation 54.8 (28.0-62.0) fl RDW Coeff of Evelin 14 (11.0-15.0) % Plt Count 181 (150-400) K/uL MPV 9.00 (7.40-12.00) fL Neut % (Auto) 75.9 (48.0-80.0) % Lymph % (Auto) 11.6 L (16.0-40.0) % Blair % (Auto) 12.1 (0.0-15.0) % Eos % (Auto) 0.2 (0.0-7.0) % Baso % (Auto) 0.2 (0.0-1.5) % Neut # (Auto) 4.3 (1.4-5.7) K/uL Lymph # (Auto) 0.7 (0.6-2.4) K/uL Blair # (Auto) 0.7 (0.0-0.8) K/uL Eos # (Auto) 0.0 (0.0-0.7) K/uL Baso # (Auto) 0.0 (0.0-0.1) K/uL Nucleated RBC % 0.0 /100WBC Nucleated RBCs # 0 K/uL Sodium 138 (136-148) mmol/L Potassium 2.8 L (3.5-5.1) mmol/L Chloride 100 (98-107) mmol/L Carbon Dioxide 21.5 (21.0-32.0) mmol/L BUN 4 L (7.0-18.0) mg/dL Creatinine 0.6 L (0.8-1.3) mg/dL Est Cr Clr Drug Dosing 131.59 mL/min Estimated GFR (MDRD) > 60.0 ml/min Glucose 68 L (74-106) mg/dL POC Glucose (70-99) mg/dL Calcium 7.4 L (8.5-10.1) mg/dL Phosphorus 1.1 L (2.6-4.7) mg/dL Magnesium 1.8 (1.8-2.4) mg/dL Total Bilirubin 0.8 (0.2-1.0) mg/dL AST 248 H (15-37) IU/L ALT 183 H (14-63) IU/L Alkaline Phosphatase 296 H (46-116) U/L Total Protein 5.6 L (6.4-8.2) g/dL Albumin 2.2 L (3.4-5.0) g/dL Globulin 3.4 (2.6-4.0) g/dL Albumin/Globulin Ratio 0.7 L (0.9-1.6) Urine Color YELLOW Urine Appearance HAZY Urine pH 6.0 (5.0-8.0) Ur Specific [place] >= 1.030 (1.001-1.035) Urine Protein 30 H (NEGATIVE) mg/dL Urine Glucose (UA) NEGATIVE (NEGATIVE) mg/dL Urine Ketones >=80 (NEGATIVE) mg/dL Urine Occult Blood SMALL H (NEGATIVE) Urine Nitrite NEGATIVE (NEGATIVE) Urine Bilirubin NEGATIVE (NEGATIVE) Urine Urobilinogen 0.2 (<2.0) EU/dL Ur Leukocyte Esterase NEGATIVE (NEGATIVE) Urine RBC 0-3 (0-2/HPF) Urine WBC 0-1 (0-5/HPF) Ur Epithelial Cells RARE (NONE-FEW) Urine Bacteria FEW (NEGATIVE) Urinalysis Comment 10/13/20 Range/Units 06:36 WBC (4.0-11.0) K/uL RBC (4.50-5.90) M/uL Hgb (13.0-17.0) g/dL Hct (38.0-50.0) % MCV (80.0-98.0) fL MCH (27.0-32.0) pg MCHC (31.0-37.0) g/dL RDW Std Deviation (28.0-62.0) fl RDW Coeff of Evelin (11.0-15.0) % Plt Count (150-400) K/uL MPV (7.40-12.00) fL Neut % (Auto) (48.0-80.0) % Lymph % (Auto) (16.0-40.0) % Blair % (Auto) (0.0-15.0) % Eos % (Auto) (0.0-7.0) % Baso % (Auto) (0.0-1.5) % Neut # (Auto) (1.4-5.7) K/uL Lymph # (Auto) (0.6-2.4) K/uL [place] # (Auto) (0.0-0.8) K/uL Eos # (Auto) (0.0-0.7) K/uL Baso # (Auto) (0.0-0.1) K/uL Nucleated RBC % /100WBC Nucleated RBCs # K/uL Sodium (136-148) mmol/L Potassium (3.5-5.1) mmol/L Chloride (98-107) mmol/L Carbon Dioxide (21.0-32.0) mmol/L BUN (7.0-18.0) mg/dL Creatinine (0.8-1.3) mg/dL Est Cr Clr Drug Dosing mL/min Estimated GFR (MDRD) ml/min Glucose (74-106) mg/dL POC Glucose 75 (70-99) mg/dL Calcium (8.5-10.1) mg/dL Phosphorus (2.6-4.7) mg/dL Magnesium (1.8-2.4) mg/dL Total Bilirubin (0.2-1.0) mg/dL AST (15-37) IU/L ALT (14-63) IU/L Alkaline Phosphatase (46-116) U/L Total Protein (6.4-8.2) g/dL Albumin (3.4-5.0) g/dL Globulin (2.6-4.0) g/dL Albumin/Globulin Ratio (0.9-1.6) Urine Color Urine Appearance Urine pH (5.0-8.0) Ur Specific [place] (1.001-1.035) Urine Protein (NEGATIVE) mg/dL Urine Glucose (UA) (NEGATIVE) mg/dL Urine Ketones (NEGATIVE) mg/dL Urine Occult Blood (NEGATIVE) Urine Nitrite (NEGATIVE) Urine Bilirubin (NEGATIVE) Urine Urobilinogen (<2.0) EU/dL Ur Leukocyte Esterase (NEGATIVE) Urine RBC (0-2/HPF) Urine WBC (0-5/HPF) Ur Epithelial Cells (NONE-FEW) Urine Bacteria (NEGATIVE) Urinalysis Comment Rick Results Last 24 Hours: Microbiology 10/13/20 04:20 C. difficile Antigen & Toxins A,B - Final Stool / Feces Med Orders - Current: Current Medications Al Hydroxide/Mg Hydroxide (Aluminum Hydroxide/Magnesium Hydroxide/Simethicone Susp 30 Ml Cup) 30 ml PO Q6H PRN PRN Reason: Indigestion Last Admin: 10/13/20 00:15 Dose: 30 ml Documented by: Albuterol/Ipratropium (Albuterol/Ipratropium 3.0-0.5 Mg/3 Ml Neb Soln) 3 ml NEB Q4HRRT PRN PRN Reason: Shortness Of Breath/wheezing Enoxaparin Sodium (Enoxaparin 40 Mg/0.4 Ml Syringe) 40 mg SUBCUT Q24H [facility] Last Admin: 10/12/20 14:34 Dose: 40 mg Documented by: Guaifenesin/Codeine Phosphate (Codeine/Guaifenesin 10-100 Mg/5 Ml Syrup 5 Ml Cup) 5 ml PO Q4H PRN PRN Reason: Cough Lactated Ringer's (Ringers, Lactated) 1,000 mls @ 100 mls/hr IV ASDIRECTED [facility] Last Admin: 10/13/20 02:47 Dose: 100 mls/hr Documented by: Pantoprazole Sodium 40 mg/ (Sodium Chloride) 10 mls @ 200 mls/hr IV Q24H [facility] Last Admin: 10/13/20 00:16 Dose: 200 mls/hr Documented by: Potassium Phosphate 30 mmole/Magnesium Sulfate 2 gm/ Sodium Chloride 514 mls @ 67 mls/hr IV ONETIME ONE Stop: 10/13/20 16:16 Last Admin: 10/13/20 09:29 Dose: 67 mls/hr Documented by: Sodium Chloride (Normal Saline) 500 mls @ 60 mls/hr IV ONETIME ONE Stop: 10/13/20 17:53 Last Admin: 10/13/20 10:15 Dose: 60 mls/hr Documented by: Lorazepam (Lorazepam 2 Mg/Ml Sdv) 0.5 mg IVPUSH Q4H PRN PRN Reason: Anxiety Morphine Sulfate (Morphine 2 Mg/Ml Syringe) 1 mg IVPUSH Q3H PRN PRN Reason: Pain (severe 7-10) Stop: 10/13/20 13:59 Last Admin: 10/13/20 05:38 Dose: 1 mg Documented by: Ondansetron HCl (Ondansetron 4 Mg/2 Ml Sdv) 4 mg IVPUSH Q4H PRN PRN Reason: Nausea/Vomiting Last Admin: 10/13/20 05:35 Dose: 4 mg Documented by: Sodium Chloride (Sodium Chloride 0.9% 10 Ml Syringe) 10 ml FLUSH ASDIRECTED PRN PRN Reason: Keep Vein Open Last Admin: 10/12/20 12:13 Dose: 10 ml Documented by: Sodium Chloride (Sodium Chloride 0.9% 2.5 Ml Syringe) 2.5 ml FLUSH ASDIRECTED PRN PRN Reason: Keep Vein Open Last Admin: 10/12/20 12:14 Dose: 2.5 ml Documented by: Vancomycin HCl (Vancomycin 125 Mg Cap) 250 mg PO QID RIKY Last Admin: 10/13/20 09:27 Dose: 250 mg Documented by: Discontinued Medications Sodium Chloride (Normal Saline) 1,000 mls @ 125 mls/hr IV STAT ONE Stop: 10/12/20 20:02 Last Admin: 10/12/20 12:13 Dose: 125 mls/hr Documented by: Magnesium Sulfate 4 gm/ Premix 100 mls @ 50 mls/hr IV ONETIME ONE Stop: 10/12/20 15:59 Last Admin: 10/12/20 14:32 Dose: 50 mls/hr Documented by: Pantoprazole Sodium 40 mg/ (Sodium Chloride) 10 mls @ 200 mls/hr IV Q24H RIKY Pantoprazole Sodium 40 mg/ (Sodium Chloride) 10 mls @ 200 mls/hr IV Q24H RIKY Lorazepam (Lorazepam 2 Mg/Ml Sdv) 0.5 mg IVPUSH Q4H PRN PRN Reason: Anxiety Pantoprazole Sodium (Pantoprazole 40 Mg Vial) 40 mg IV DAILY RIKY Potassium Chloride (Potassium Chloride 20 Meq Tab.Er) 40 meq PO ONETIME ONE Stop: 10/13/20 08:37 Last Admin: 10/13/20 09:27 Dose: 40 meq Documented by: - Exam Central Line Total Time: 0Days 3Hours General: Alert, Oriented, Cooperative, Mild Distress HEENT: Pupils Equal. No: Scleral Icterus Neck: Supple Lungs: Normal Respiratory Effort Cardiovascular: Regular Rate GI/Abdominal Exam: Soft, No Distention Extremities: Leg Pain (L medial knee tender.) Skin: No: Rash Neurological: No New Focal Deficit - Patient Data Lab Results Last 24 hrs: Laboratory Results - last 24 hr 10/12/20 10/13/20 10/13/20 Range/Units 20:30 05:25 05:25 WBC 5.60 (4.0-11.0) K/uL RBC 3.54 L (4.50-5.90) M/uL Hgb 12.3 L (13.0-17.0) g/dL Hct 37.1 L (38.0-50.0) % MCV 104.8 H (80.0-98.0) fL MCH 34.7 H (27.0-32.0) pg MCHC 33.2 (31.0-37.0) g/dL RDW Std Deviation 54.8 (28.0-62.0) fl RDW Coeff of Evelin 14 (11.0-15.0) % Plt Count 181 (150-400) K/uL MPV 9.00 (7.40-12.00) fL Neut % (Auto) 75.9 (48.0-80.0) % Lymph % (Auto) 11.6 L (16.0-40.0) % [place] % (Auto) 12.1 (0.0-15.0) % Eos % (Auto) 0.2 (0.0-7.0) % Baso % (Auto) 0.2 (0.0-1.5) % Neut # (Auto) 4.3 (1.4-5.7) K/uL Lymph # (Auto) 0.7 (0.6-2.4) K/uL [place] # (Auto) 0.7 (0.0-0.8) K/uL Eos # (Auto) 0.0 (0.0-0.7) K/uL Baso # (Auto) 0.0 (0.0-0.1) K/uL Nucleated RBC % 0.0 /100WBC Nucleated RBCs # 0 K/uL Sodium 138 (136-148) mmol/L Potassium 2.8 L (3.5-5.1) mmol/L Chloride 100 (98-107) mmol/L Carbon Dioxide 21.5 (21.0-32.0) mmol/L BUN 4 L (7.0-18.0) mg/dL Creatinine 0.6 L (0.8-1.3) mg/dL Est Cr Clr Drug Dosing 131.59 mL/min Estimated GFR (MDRD) > 60.0 ml/min Glucose 68 L (74-106) mg/dL POC Glucose (70-99) mg/dL Calcium 7.4 L (8.5-10.1) mg/dL Phosphorus 1.1 L (2.6-4.7) mg/dL Magnesium 1.8 (1.8-2.4) mg/dL Total Bilirubin 0.8 (0.2-1.0) mg/dL AST 248 H (15-37) IU/L ALT 183 H (14-63) IU/L Alkaline Phosphatase 296 H (46-116) U/L Total Protein 5.6 L (6.4-8.2) g/dL Albumin 2.2 L (3.4-5.0) g/dL Globulin 3.4 (2.6-4.0) g/dL Albumin/Globulin Ratio 0.7 L (0.9-1.6) Urine Color YELLOW Urine Appearance HAZY Urine pH 6.0 (5.0-8.0) Ur Specific [place] >= 1.030 (1.001-1.035) Urine Protein 30 H (NEGATIVE) mg/dL Urine Glucose (UA) NEGATIVE (NEGATIVE) mg/dL Urine Ketones >=80 (NEGATIVE) mg/dL Urine Occult Blood SMALL H (NEGATIVE) Urine Nitrite NEGATIVE (NEGATIVE) Urine Bilirubin NEGATIVE (NEGATIVE) Urine Urobilinogen 0.2 (<2.0) EU/dL Ur Leukocyte Esterase NEGATIVE (NEGATIVE) Urine RBC 0-3 (0-2/HPF) Urine WBC 0-1 (0-5/HPF) Ur Epithelial Cells RARE (NONE-FEW) Urine Bacteria FEW (NEGATIVE) Urinalysis Comment 10/13/20 Range/Units 06:36 WBC (4.0-11.0) K/uL RBC (4.50-5.90) M/uL Hgb (13.0-17.0) g/dL Hct (38.0-50.0) % MCV (80.0-98.0) fL MCH (27.0-32.0) pg MCHC (31.0-37.0) g/dL RDW Std Deviation (28.0-62.0) fl RDW Coeff of Evelin (11.0-15.0) % Plt Count (150-400) K/uL MPV (7.40-12.00) fL Neut % (Auto) (48.0-80.0) % Lymph % (Auto) (16.0-40.0) % [place] % (Auto) (0.0-15.0) % Eos % (Auto) (0.0-7.0) % Baso % (Auto) (0.0-1.5) % Neut # (Auto) (1.4-5.7) K/uL Lymph # (Auto) (0.6-2.4) K/uL [place] # (Auto) (0.0-0.8) K/uL Eos # (Auto) (0.0-0.7) K/uL Baso # (Auto) (0.0-0.1) K/uL Nucleated RBC % /100WBC Nucleated RBCs # K/uL Sodium (136-148) mmol/L Potassium (3.5-5.1) mmol/L Chloride (98-107) mmol/L Carbon Dioxide (21.0-32.0) mmol/L BUN (7.0-18.0) mg/dL Creatinine (0.8-1.3) mg/dL Est Cr Clr Drug Dosing mL/min Estimated GFR (MDRD) ml/min Glucose (74-106) mg/dL POC Glucose 75 (70-99) mg/dL Calcium (8.5-10.1) mg/dL Phosphorus (2.6-4.7) mg/dL Magnesium (1.8-2.4) mg/dL Total Bilirubin (0.2-1.0) mg/dL AST (15-37) IU/L ALT (14-63) IU/L Alkaline Phosphatase (46-116) U/L Total Protein (6.4-8.2) g/dL Albumin (3.4-5.0) g/dL Globulin (2.6-4.0) g/dL Albumin/Globulin Ratio (0.9-1.6) Urine Color Urine Appearance Urine pH (5.0-8.0) Ur Specific [place] (1.001-1.035) Urine Protein (NEGATIVE) mg/dL Urine Glucose (UA) (NEGATIVE) mg/dL Urine Ketones (NEGATIVE) mg/dL Urine Occult Blood (NEGATIVE) Urine Nitrite (NEGATIVE) Urine Bilirubin (NEGATIVE) Urine Urobilinogen (<2.0) EU/dL Ur Leukocyte Esterase (NEGATIVE) Urine RBC (0-2/HPF) Urine WBC (0-5/HPF) Ur Epithelial Cells (NONE-FEW) Urine Bacteria (NEGATIVE) Urinalysis Comment Result Diagrams: 10/13/20 05:25 10/13/20 05:25 Rick Results Last 24 hrs: Microbiology 10/13/20 04:20 C. difficile Antigen & Toxins A,B - Final Stool / Feces Sepsis Event Note - Evaluation Sepsis Screening Result: No Definite Risk - Focused Exam Vital Signs: Vital Signs Temp Pulse Resp BP Pulse Ox 10/13/20 08:14 100.2 F 98 20 119/75 90 L 10/13/20 05:37 20 114/78 92 L 10/13/20 04:00 99.2 F 90 20 128/79 92 L 10/13/20 00:31 99.1 F 93 20 125/81 92 L - Problem List & Annotations (1) C. difficile diarrhea SNOMED Code(s): 0595522608417 Code(s): A04.72 - ENTEROCOLITIS D/T CLOSTRIDIUM DIFFICILE, NOT SPCF RECUR Status: Acute Current Visit: Yes (2) Ambulatory dysfunction SNOMED Code(s): 484025305 Code(s): R26.2 - DIFFICULTY IN WALKING, NOT ELSEWHERE CLASSIFIED Status: Acute Current Visit: Yes (3) Hypomagnesemia SNOMED Code(s): 072783360 Code(s): E83.42 - HYPOMAGNESEMIA Status: Acute Current Visit: Yes (4) Impaired mobility and ADLs SNOMED Code(s): 410506939, 794251171 Code(s): Z74.09 - OTHER REDUCED MOBILITY; Z78.9 - OTHER SPECIFIED HEALTH STATUS Status: Acute Current Visit: Yes (5) Metastatic cancer SNOMED Code(s): 474081641 Code(s): C79.9 - SECONDARY MALIGNANT NEOPLASM OF UNSPECIFIED SITE Status: Acute Current Visit: Yes (6) Dehydration SNOMED Code(s): 40595363 Code(s): E86.0 - DEHYDRATION Status: Acute Current Visit: No (7) Hypokalemia SNOMED Code(s): 71068362 Code(s): E87.6 - HYPOKALEMIA Status: Acute Current Visit: No (8) Nausea & vomiting SNOMED Code(s): 57322414 Code(s): R11.2 - NAUSEA WITH VOMITING, UNSPECIFIED Status: Acute Current Visit: No - Problem List Review Problem List Initiated/Reviewed/Updated: Yes - My Orders Last 24 Hours: My Active Orders 10/12/20 19:01 Codeine/guaiFENesin [Robitussin AC] 5 ml PO Q4H PRN - Plan Plan:: 55 y/o M admitted for weakness, deconditioning secondary to metastatic cancer Per Oncology notes and recent MRI cancer seems to be spreading, Patient stools positive for C. difficile. Start vancomycin 250 mg p.o. 4 times daily. Continue lactated Ringer's 125 mL/h. DuoNebs as needed. Maalox as needed. Robitussin as needed for cough. Ativan 0.5 mg q4hr prn. Morphine 1 mg q3hr prn. Zofran prn. Protonix 40 mg daily. Replete potassium, Phos and magnesium. Magnesium sulfate 4 g. Potassium ch loride 40 mEq p.o. K-Phos 30 mmol IV. Hospice care has been consulted and will see the patient today. We will follow up with recommendation. Patient is interested in setting up home hospice for palliative management and goals of care discussion.
[2020-10-13] MEDS: Enoxaparin 40 MG/0.4 ML Syringe SUBCUT SCH (13:52)
[2020-10-13] MEDS: Nicotine 14 MG/24 Hr Patch TRDERM SCH (15:07)
[2020-10-13 16:07] LABS: POTASSIUM,K 3.2 mmol/L (3.5-5.1)
[2020-10-13] MEDS ORDERED: Potassium Chloride Riders 40 MEQ in Premix Bag 1 BAG IV ONE (17:15)
[2020-10-13] MEDS ORDERED: Potassium Phosphates 3 mMole/ML 15 ML SDV IV ONE (17:45)
[2020-10-13] MEDS ORDERED: POTASSIUM PHOSPHATES IV ONE (17:45)
[2020-10-13] MEDS ORDERED: SODIUM CHLORIDE IV ONE (17:45)
[2020-10-13] MEDS: Phosphorus #1 250 MG Tab PO SCH (18:01)
[2020-10-13] MEDS: Dexamethasone 4 MG Tab PO SCH (18:03)
[2020-10-13] MEDS: Acetaminophen/oxyCODONE 325-5 MG Tab PO SCH (20:57)
[2020-10-14] MEDS: Morphine 2 MG/ML SYRINGE IVPUSH PRN ×3 (00:04→18:03)
[2020-10-14] MEDS: Pantoprazole 40 MG in Sodium Chloride 0.9% 10 ML IV SCH (00:06)
[2020-10-14] MEDS: Vancomycin 125 MG Cap PO SCH ×4 (00:08→17:57)
[2020-10-14] MEDS: Phosphorus #1 250 MG Tab PO SCH ×4 (00:08→17:58)
[2020-10-14] MEDS: Lactated Ringers 1,000 ML IV SCH ×2 (02:05→16:26)
[2020-10-14] MEDS: Aluminum Hydroxide/Magnesium Hydroxide/Simethicone Susp 30 ML Cup PO PRN (05:14)
[2020-10-14] MEDS: Codeine/guaiFENesin 10-100 MG/5 ML Syrup 5 ML Cup PO PRN (05:15)
[2020-10-14 06:34] LABS: BLOOD UREA NITROGEN,BUN 2 mg/dL (7.0-18.0); CHLORIDE,CL 100 mmol/L (98-107); GLUCOSE RANDOM 141 mg/dL (74-106); SODIUM,NA 136 mmol/L (136-148)
[2020-10-14] MEDS ORDERED: Potassium Phosphates 3 mMole/ML 15 ML SDV IV ONE (07:59)
[2020-10-14] MEDS ORDERED: Magnesium Sulfate/Water 4 GM in Premix Bag 1 BAG IV ONE (08:09)
[2020-10-14] MEDS: Dexamethasone 4 MG Tab PO SCH (08:46)
[2020-10-14] MEDS: Acetaminophen/oxyCODONE 325-5 MG Tab PO SCH (08:46)
[2020-10-14] MEDS: Nicotine 14 MG/24 Hr Patch TRDERM SCH (08:47)
[2020-10-14] MEDS ORDERED: Potassium Chloride 20 MEQ Tab.ER PO ONE (09:00)
[2020-10-14] MEDS ORDERED: POTASSIUM PHOSPHATES IV ONE (09:00)
[2020-10-14] MEDS ORDERED: SODIUM CHLORIDE IV ONE (09:00)
[2020-10-14] MEDS ORDERED: MAGNESIUM SULFATE IV ONE (09:00)
[2020-10-14] MEDS: Enoxaparin 40 MG/0.4 ML Syringe SUBCUT SCH (14:08)
--- NOTE | 2020-10-14 15:15 | PCM.PN ---
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 Patient C. difficile antigen resulted positive. Patient diarrhea has improved. 1 bowel movement last night, nonwatery nonbloody. Patient spoke with hospice and will be going home on home hospice. His brother is seen at bedside with the patient today and is concerned that the patient needs 20/09 care. Patient does not of insurance. Patient will speak to social work today. His brother will also speak to social work and hospice. Patient continues to have breakthrough pain. We will transition to OxyContin. Denies abdominal pain, dy suria, bloody stools, headaches. - Review of Systems General: Reports: Weakness, Fatigue Pulmonary: Reports: Cough. Denies: Pleuritic Chest Pain Cardiovascular: Denies: Chest Pain, Palpitations Musculoskeletal: Reports: Leg Pain - Patient Data Vitals - Most Recent: Last Vital Signs Temp 97.8 F 10/14/20 12:00 Pulse 66 10/14/20 12:00 Resp 18 10/14/20 12:00 BP 120/74 10/14/20 12:00 Pulse Ox 91 L 10/14/20 12:00 Weight - Most Recent: 154 lb 8 oz I&O - Last 24 Hours: Intake & Output 10/14/20 10/14/20 10/14/20 06:59 14:59 22:59 Intake Total 2299 Output Total 850 Balance 1449 Lab Results Last 24 Hours: Laboratory Results - last 24 hr 10/13/20 10/14/20 10/14/20 Range/Units 15:27 05:40 05:40 WBC 4.54 (4.0-11.0) K/uL RBC 3.58 L (4.50-5.90) M/uL Hgb 12.3 L (13.0-17.0) g/dL Hct 37.0 L (38.0-50.0) % MCV 103.4 H (80.0-98.0) fL MCH 34.4 H (27.0-32.0) pg MCHC 33.2 (31.0-37.0) g/dL RDW Std Deviation 52.4 (28.0-62.0) fl RDW Coeff of Evelin 14 (11.0-15.0) % Plt Count 176 (150-400) K/uL MPV 9.20 (7.40-12.00) fL Neut % (Auto) 75.1 (48.0-80.0) % Lymph % (Auto) 13.7 L (16.0-40.0) % [place] % (Auto) 11.2 (0.0-15.0) % Eos % (Auto) 0.0 (0.0-7.0) % Baso % (Auto) 0.0 (0.0-1.5) % Neut # (Auto) 3.4 (1.4-5.7) K/uL Lymph # (Auto) 0.6 (0.6-2.4) K/uL [place] # (Auto) 0.5 (0.0-0.8) K/uL Eos # (Auto) 0.0 (0.0-0.7) K/uL Baso # (Auto) 0.0 (0.0-0.1) K/uL Nucleated RBC % 0.0 /100WBC Nucleated RBCs # 0 K/uL Sodium 136 (136-148) mmol/L Potassium 3.2 L 3.0 L (3.5-5.1) mmol/L Chloride 100 (98-107) mmol/L Carbon Dioxide 30.0 (21.0-32.0) mmol/L BUN 2 L (7.0-18.0) mg/dL Creatinine 0.5 L (0.8-1.3) mg/dL Est Cr Clr Drug Dosing 157.91 mL/min Estimated GFR (MDRD) > 60.0 ml/min Glucose 141 H (74-106) mg/dL Calcium 7.6 L (8.5-10.1) mg/dL Phosphorus 1.5 L 2.1 L (2.6-4.7) mg/dL Magnesium 2.0 1.6 L (1.8-2.4) mg/dL Total Bilirubin 0.5 (0.2-1.0) mg/dL AST 129 H (15-37) IU/L ALT 142 H (14-63) IU/L Alkaline Phosphatase 264 H (46-116) U/L Total Protein 5.6 L (6.4-8.2) g/dL Albumin 2.3 L (3.4-5.0) g/dL Globulin 3.3 (2.6-4.0) g/dL Albumin/Globulin Ratio 0.7 L (0.9-1.6) Rick Results Last 24 Hours: Microbiology 10/13/20 04:20 Clostridioides difficile (PCR) - Final Stool / Feces Med Orders - Current: Current Medications Al Hydroxide/Mg Hydroxide (Aluminum Hydroxide/Magnesium Hydroxide/Simethicone Susp 30 Ml Cup) 30 ml PO Q6H PRN PRN Reason: Indigestion Last Admin: 10/14/20 05:14 Dose: 30 ml Documented by: Albuterol/Ipratropium (Albuterol/Ipratropium 3.0-0.5 Mg/3 Ml Neb Soln) 3 ml NEB Q4HRRT PRN PRN Reason: Shortness Of Breath/wheezing Dexamethasone (Dexamethasone 4 Mg Tab) 4 mg PO DAILY [facility] Last Admin: 10/14/20 08:46 Dose: 4 mg Documented by: Enoxaparin Sodium (Enoxaparin 40 Mg/0.4 Ml Syringe) 40 mg SUBCUT Q24H [facility] Last Admin: 10/14/20 14:08 Dose: 40 mg Documented by: Guaifenesin/Codeine Phosphate (Codeine/Guaifenesin 10-100 Mg/5 Ml Syrup 5 Ml Cup ) 5 ml PO Q4H PRN PRN Reason: Cough Last Admin: 10/14/20 05:15 Dose: 5 ml Documented by: Lactated Ringer's (Ringers, Lactated) 1,000 mls @ 100 mls/hr IV ASDIRECTED [facility] Last Admin: 10/14/20 02:05 Dose: 100 mls/hr Documented by: Pantoprazole Sodium 40 mg/ (Sodium Chloride) 10 mls @ 200 mls/hr IV Q24H [facility] Last Admin: 10/14/20 00:06 Dose: 200 mls/hr Documented by: Lorazepam (Lorazepam 2 Mg/Ml Sdv) 0.5 mg IVPUSH Q4H PRN PRN Reason: Anxiety Morphine Sulfate (Morphine 2 Mg/Ml Syringe) 1 mg IVPUSH Q3H PRN PRN Reason: Pain (severe 7-10) Last Admin: 10/14/20 05:05 Dose: 1 mg Documented by: Nicotine (Nicotine 14 Mg/24 Hr Patch) 14 mg TRDERM DAILY [facility] Last Admin: 10/14/20 08:47 Dose: 14 mg Documented by: Ondansetron HCl (Ondansetron 4 Mg/2 Ml Sdv) 4 mg IVPUSH Q4H PRN PRN Reason: Nausea/Vomiting Last Admin: 10/13/20 12:00 Dose: 4 mg Documented by: Oxycodone/Acetaminophen (Acetaminophen/Oxycodone 325-5 Mg Tab) 1 tab PO BID [facility] Last Admin: 10/14/20 08:46 Dose: 1 tab Documented by: Sodium Chloride (Sodium Chloride 0.9% 10 Ml Syringe) 10 ml FLUSH ASDIRECTED PRN PRN Reason: Keep Vein Open Last Admin: 10/12/20 12:13 Dose: 10 ml Documented by: Sodium Chloride (Sodium Chloride 0.9% 2.5 Ml Syringe) 2.5 ml FLUSH ASDIRECTED PRN PRN Reason: Keep Vein Open Last Admin: 10/12/20 12:14 Dose: 2.5 ml Documented by: Sodium Phosphate (Phosphorus #1 250 Mg Tab) 250 mg PO QID [facility] Last Admin: 10/14/20 12:31 Dose: 250 mg Documented by: Vancomycin HCl (Vancomycin 125 Mg Cap) 250 mg PO QID [facility] Last Admin: 10/14/20 12:31 Dose: 250 mg Documented by: Discontinued Medications Sodium Chloride (Normal Saline) 1,000 mls @ 125 mls/hr IV STAT ONE Stop: 10/12/20 20:02 Last Admin: 10/12/20 12:13 Dose: 125 mls/hr Documented by: Magnesium Sulfate 4 gm/ Premix 100 mls @ 50 mls/hr IV ONETIME ONE Stop: 10/12/20 15:59 Last Admin: 10/12/20 14:32 Dose: 50 mls/hr Documented by: Pantoprazole Sodium 40 mg/ (Sodium Chloride) 10 mls @ 200 mls/hr IV Q24H [facility] Pantoprazole Sodium 40 mg/ (Sodium Chloride) 10 mls @ 200 mls/hr IV Q24H [facility] Potassium Phosphate 30 mmole/Magnesium Sulfate 2 gm/ Sodium Chloride 514 mls @ 67 mls/hr IV ONETIME ONE Stop: 10/13/20 16:16 Last Admin: 10/13/20 09:29 Dose: 67 mls/hr Documented by: Sodium Chloride (Normal Saline) 500 mls @ 60 mls/hr IV ONETIME ONE Stop: 10/13/20 17:53 Last Admin: 10/13/20 10:15 Dose: 60 mls/hr Documented by: Potassium Phosphate 22 mmole/ (Sodium Chloride) 507.3333 mls @ 126.833 mls/hr IV ONETIME ONE Stop: 10/13/20 21:44 Last Admin: 10/13/20 18:04 Dose: 126.833 mls/hr Documented by: Magnesium Sulfate 4 gm/Potassium Phosphate 22 mmole/Sodium Chloride 515.3333 mls @ 125 mls/hr IV ONETIME ONE Stop: 10/14/20 13:07 Last Admin: 10/14/20 09:38 Dose: 125 mls/hr Documented by: Lorazepam (Lorazepam 2 Mg/Ml Sdv) 0.5 mg IVPUSH Q4H PRN PRN Reason: Anxiety Morphine Sulfate (Morphine 2 Mg/Ml Syringe) 1 mg IVPUSH Q3H PRN PRN Reason: Pain (severe 7-10) Stop: 10/13/20 13:59 Last Admin: 10/13/20 12:07 Dose: 1 mg Documented by: Pantoprazole Sodium (Pantoprazole 40 Mg Vial) 40 mg IV DAILY [facility] Potassium Chloride (Potassium Chloride 20 Meq Tab.Er) 40 meq PO ONETIME ONE Stop: 10/13/20 08:37 Last Admin: 10/13/20 09:27 Dose: 40 meq Documented by: Potassium Chloride (Potassium Chloride 20 Meq Tab.Er) 40 meq PO ONETIME ONE Stop: 10/14/20 09:01 Last Admin: 10/14/20 08:46 Dose: 40 meq Documented by: - Exam Central Line Total Time: 1Days 15Hours General: Alert, Oriented, No Acute Distress HEENT: Pupils Equal Neck: Supple Lungs: Clear to Auscultation Cardiovascular: Regular Rate, Regular Rhythm GI/Abdominal Exam: Normal Bowel Sounds Extremities: Normal Inspection Neurological: No New Focal Deficit - Patient Data Lab Results Last 24 hrs: Laboratory Results - last 24 hr 10/13/20 10/14/20 10/14/20 Range/Units 15:27 05:40 05:40 WBC 4.54 (4.0-11.0) K/uL RBC 3.58 L (4.50-5.90) M/uL Hgb 12.3 L (13.0-17.0) g/dL Hct 37.0 L (38.0-50.0) % MCV 103.4 H (80.0-98.0) fL MCH 34.4 H (27.0-32.0) pg MCHC 33.2 (31.0-37.0) g/dL RDW Std Deviation 52.4 (28.0-62.0) fl RDW Coeff of Evelin 14 (11.0-15.0) % Plt Count 176 (150-400) K/uL MPV 9.20 (7.40-12.00) fL Neut % (Auto) 75.1 (48.0-80.0) % Lymph % (Auto) 13.7 L (16.0-40.0) % [place] % (Auto) 11.2 (0.0-15.0) % Eos % (Auto) 0.0 (0.0-7.0) % Baso % (Auto) 0.0 (0.0-1.5) % Neut # (Auto) 3.4 (1.4-5.7) K/uL Lymph # (Auto) 0.6 (0.6-2.4) K/uL [place] # (Auto) 0.5 (0.0-0.8) K/uL Eos # (Auto) 0.0 (0.0-0.7) K/uL Baso # (Auto) 0.0 (0.0-0.1) K/uL Nucleated RBC % 0.0 /100WBC Nucleated RBCs # 0 K/uL Sodium 136 (136-148) mmol/L Potassium 3.2 L 3.0 L (3.5-5.1) mmol/L Chloride 100 (98-107) mmol/L Carbon Dioxide 30.0 (21.0-32.0) mmol/L BUN 2 L (7.0-18.0) mg/dL Creatinine 0.5 L (0.8-1.3) mg/dL Est Cr Clr Drug Dosing 157.91 mL/min Estimated GFR (MDRD) > 60.0 ml/min Glucose 141 H (74-106) mg/dL Calcium 7.6 L (8.5-10.1) mg/dL Phosphorus 1.5 L 2.1 L (2.6-4.7) mg/dL Magnesium 2.0 1.6 L (1.8-2.4) mg/dL Total Bilirubin 0.5 (0.2-1.0) mg/dL AST 129 H (15-37) IU/L ALT 142 H (14-63) IU/L Alkaline Phosphatase 264 H (46-116) U/L Total Protein 5.6 L (6.4-8.2) g/dL Albumin 2.3 L (3.4-5.0) g/dL Globulin 3.3 (2.6-4.0) g/dL Albumin/Globulin Ratio 0.7 L (0.9-1.6) Result Diagrams: 10/14/20 05:40 10/14/20 15:11 Rick Results Last 24 hrs: Microbiology 10/13/20 04:20 Clostridioides difficile (PCR) - Final Stool / Feces Sepsis Event Note - Evaluation Sepsis Screening Result: No Definite Risk - Focused Exam Vital Signs: Vital Signs Temp Pulse Resp BP Pulse Ox 10/14/20 12:00 97.8 F 66 18 120/74 91 L 10/14/20 08:50 98.4 F 79 20 108/72 90 L 10/14/20 05:10 97.9 F 71 19 113/80 91 L - Problem List & Annotations (1) C. difficile diarrhea SNOMED Code(s): 8449577322615 Code(s): A04.72 - ENTEROCOLITIS D/T CLOSTRIDIUM DIFFICILE, NOT SPCF RECUR Status: Acute Current Visit: Yes (2) Ambulatory dysfunction SNOMED Code(s): 301516619 Code(s): R26.2 - DIFFICULTY IN WALKING, NOT ELSEWHERE CLASSIFIED Status: Acute Current Visit: Yes (3) Hypomagnesemia SNOMED Code(s): 885086429 Code(s): E83.42 - HYPOMAGNESEMIA Status: Acute Current Visit: Yes (4) Impaired mobility and ADLs SNOMED Code(s): 144932583, 456908952 Code(s): Z74.09 - OTHER REDUCED MOBILITY; Z78.9 - OTHER SPECIFIED HEALTH STATUS Status: Acute Current Visit: Yes (5) Metastatic cancer SNOMED Code(s): 180621294 Code(s): C79.9 - SECONDARY MALIGNANT NEOPLASM OF UNSPECIFIED SITE Status: Acute Current Visit: Yes (6) Dehydration SNOMED Code(s): 45383600 Code(s): E86.0 - DEHYDRATION Status: Acute Current Visit: No (7) Hypokalemia SNOMED Code(s): 52244867 Code(s): E87.6 - HYPOKALEMIA Status: Acute Current Visit: No (8) Nausea & vomiting SNOMED Code(s): 67912463 Code(s): R11.2 - NAUSEA WITH VOMITING, UNSPECIFIED Status: Acute Current Visit: No - Problem List Review Problem List Initiated/Reviewed/Updated: Yes - My Orders Last 24 Hours: My Active Orders 10/13/20 14:45 Nicotine [Habitrol] 14 mg TRDERM DAILY 10/13/20 15:57 Morphine 1 mg IVPUSH Q3H PRN 10/13/20 17:05 Consult to Physical Therapy [PT Evaluation and Treatment] [CONS] Routine 10/13/20 17:15 dexAMETHasone 4 mg PO DAILY 10/13/20 18:00 Phosphorus #1 [Neutra-Phos] 250 mg PO QID 10/13/20 21:00 Acetaminophen/oxyCODONE [Percocet 325-5 MG] 1 tab PO BID 10/15/20 05:11 CBC WITH AUTO DIFF [HEME] AM COMPREHENSIVE METABOLIC PN,CMP [CHEM] AM MAGNESIUM [CHEM] AM PHOSPHORUS [CHEM] AM 10/16/20 05:11 CBC WITH AUTO DIFF [HEME] AM COMPREHENSIVE METABOLIC PN,CMP [CHEM] AM MAGNESIUM [CHEM] AM PHOSPHORUS [CHEM] AM - Plan Plan:: Continue vancomycin 55 y/o M admitted for weakness, deconditioning secondary to metastatic cancer Per Oncology notes and recent MRI cancer seems to be spreading, Patient stools positive for C. difficile. Continue vancomycin 250 mg p.o. 4 times daily. Continue lactated Ringer's 100 mL/h. DuoNebs as needed. Maalox as needed. Robitussin as needed for cough. Ativan 0.5 mg q4hr prn. Discontinue Percocet. We will start OxyContin 10 mg twice daily scheduled. Morphine 1 mg q3hr prn. Zofran prn. Protonix 40 mg daily. Continue dexamethasone 4 mg for leg pain. Patient continues to have low potassium, magnesium and phosphorus. Patient given K-Phos x2. Repleted again this morning. 4 g IV magnesium. Neutra-Phos p.o. We will start potassium chloride 20 twice daily p.o. Hospice care has been consulted and spoke with the patient yesterday. Patient's brother will also speak with them. Likely discharge tomorrow.
[2020-10-14 16:11] LABS: POTASSIUM,K 3.8 mmol/L (3.5-5.1)
[2020-10-14] MEDS ORDERED: Potassium Chloride 20 MEQ Tab.ER PO SCH (21:00)
[2020-10-14] MEDS: oxyCODONE ER 10 MG TAB.ER PO SCH (21:09)
[2020-10-14] MEDS: Albuterol/Ipratropium 3.0-0.5 MG/3 ML Neb Soln NEB PRN (23:09)
[2020-10-15] MEDS: Morphine 2 MG/ML SYRINGE IVPUSH PRN ×4 (00:13→18:19)
[2020-10-15] MEDS: Pantoprazole 40 MG in Sodium Chloride 0.9% 10 ML IV SCH (00:14)
[2020-10-15] MEDS: Phosphorus #1 250 MG Tab PO SCH ×4 (00:16→18:01)
[2020-10-15] MEDS: Vancomycin 125 MG Cap PO SCH ×4 (00:16→18:01)
[2020-10-15] MEDS: Lactated Ringers 1,000 ML IV SCH (03:00)
[2020-10-15] MEDS: Albuterol/Ipratropium 3.0-0.5 MG/3 ML Neb Soln NEB PRN ×2 (04:41→10:44)
[2020-10-15 06:10] LABS: BLOOD UREA NITROGEN,BUN 2 mg/dL (7.0-18.0); CARBON DIOXIDE,CO2 31.1 mmol/L (21.0-32.0); CHLORIDE,CL 101 mmol/L (98-107); GLUCOSE RANDOM 133 mg/dL (74-106); SODIUM,NA 138 mmol/L (136-148)
[2020-10-15] MEDS ORDERED: Potassium Chloride Riders 40 MEQ in Premix Bag 1 BAG IV ONE ×2 (07:54→23:00)
[2020-10-15] MEDS ORDERED: Potassium Chloride 20 MEQ Tab.ER PO ONE (07:55)
[2020-10-15] MEDS ORDERED: Magnesium Sulfate/Water 4 GM in Premix Bag 1 BAG IV ONE (08:02)
[2020-10-15] MEDS: oxyCODONE ER 10 MG TAB.ER PO SCH ×2 (08:43→21:24)
[2020-10-15] MEDS: Dexamethasone 4 MG Tab PO SCH (08:43)
[2020-10-15] MEDS: Nicotine 14 MG/24 Hr Patch TRDERM SCH (08:43)
--- NOTE | 2020-10-15 09:23 | PCM.PN ---
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 Patient C. difficile antigen resulted positive. Patient diarrhea has improved, he not having watery diarrhea but states he is passing "wet gas." Patient and his brother spoke with hospice and decided for home hospice care but state they require 24/7 care. Social work is contacting the [place] and gave the family a medicaid application. Pain controlled with OxyContin bid and morphine for breakthrough. He required 3mg morphine yesterday. Denies abdominal pain, dysuria, bloody stools, headaches. - Review of Systems General: Reports: Weakness. Denies: Fever, Chills HEENT: Reports: No Symptoms Pulmonary: Reports: Cough. Denies: Pleuritic Chest Pain Cardiovascular: Denies: Chest Pain Gastrointestinal: Denies: Abdominal Pain, Constipation, Decreased Appetite, Diarrhea, Hematochezia, Melena, Vomiting Genitourinary: Reports: No Symptoms Musculoskeletal: Reports: Leg Pain Skin: Reports: No Symptoms Neurological: Reports: No Symptoms - Patient Data Vitals - Most Recent: Last Vital Signs Temp 97.9 F 10/15/20 09:09 Pulse 80 10/15/20 09:09 Resp 18 10/15/20 09:09 BP 126/79 10/15/20 09:09 Pulse Ox 93 L 10/15/20 09:09 Weight - Most Recent: 154 lb 8 oz I&O - Last 24 Hours: Intake & Output 10/14/20 10/15/20 10/15/20 22:59 06:59 14:59 Intake Total 900 890 Output Total 700 Balance 900 190 Lab Results Last 24 Hours: Laboratory Results - last 24 hr 10/14/20 10/15/20 10/15/20 Range/Units 15:11 05:20 05:20 WBC 9.82 (4.0-11.0) K/uL RBC 3.50 L (4.50-5.90) M/uL Hgb 12.0 L (13.0-17.0) g/dL Hct 36.2 L (38.0-50.0) % MCV 103.4 H (80.0-98.0) fL MCH 34.3 H (27.0-32.0) pg MCHC 33.1 (31.0-37.0) g/dL RDW Std Deviation 53.1 (28.0-62.0) fl RDW Coeff of Evelin 14 (11.0-15.0) % Plt Count 168 (150-400) K/uL MPV 9.30 (7.40-12.00) fL Neut % (Auto) 81.0 H (48.0-80.0) % Lymph % (Auto) 11.9 L (16.0-40.0) % [place] % (Auto) 6.9 (0.0-15.0) % Eos % (Auto) 0.1 (0.0-7.0) % Baso % (Auto) 0.1 (0.0-1.5) % Neut # (Auto) 8.0 H (1.4-5.7) K/uL Lymph # (Auto) 1.2 (0.6-2.4) K/uL [place] # (Auto) 0.7 (0.0-0.8) K/uL Eos # (Auto) 0.0 (0.0-0.7) K/uL Baso # (Auto) 0.0 (0.0-0.1) K/uL Nucleated RBC % 0.0 /100WBC Nucleated RBCs # 0 K/uL Sodium 138 (136-148) mmol/L Potassium 3.8 3.0 L (3.5-5.1) mmol/L Chloride 101 (98-107) mmol/L Carbon Dioxide 31.1 (21.0-32.0) mmol/L BUN 2 L (7.0-18.0) mg/dL Creatinine 0.6 L (0.8-1.3) mg/dL Est Cr Clr Drug Dosing 131.59 mL/min Estimated GFR (MDRD) > 60.0 ml/min Glucose 133 H (74-106) mg/dL Calcium 7.9 L (8.5-10.1) mg/dL Phosphorus 2.8 2.7 (2.6-4.7) mg/dL Magnesium 2.5 H 1.7 L (1.8-2.4) mg/dL Total Bilirubin 0.4 (0.2-1.0) mg/dL AST 84 H (15-37) IU/L ALT 119 H (14-63) IU/L Alkaline Phosphatase 227 H (46-116) U/L Total Protein 5.6 L (6.4-8.2) g/dL Albumin 2.4 L (3.4-5.0) g/dL Globulin 3.2 (2.6-4.0) g/dL Albumin/Globulin Ratio 0.8 L (0.9-1.6) Rick Results Last 24 Hours: Microbiology 10/13/20 04:20 Clostridioides difficile (PCR) - Final Stool / Feces Med Orders - Current: Current Medications Al Hydroxide/Mg Hydroxide (Aluminum Hydroxide/Magnesium Hydroxide/Simethicone Susp 30 Ml Cup) 30 ml PO Q6H PRN PRN Reason: Indigestion Last Admin: 10/14/20 05:14 Dose: 30 ml Documented by: Albuterol/Ipratropium (Albuterol/Ipratropium 3.0-0.5 Mg/3 Ml Neb Soln) 3 ml NEB Q4HRRT PRN PRN Reason: Shortness Of Breath/wheezing Last Admin: 10/15/20 04:41 Dose: 3 ml Documented by: Dexamethasone (Dexamethasone 4 Mg Tab) 4 mg PO DAILY [facility] Last Admin: 10/15/20 08:43 Dose: 4 mg Documented by: Enoxaparin Sodium (Enoxaparin 40 Mg/0.4 Ml Syringe) 40 mg SUBCUT Q24H [facility] Last Admin: 10/14/20 14:08 Dose: 40 mg Documented by: Guaifenesin/Codeine Phosphate (Codeine/Guaifenesin 10-100 Mg/5 Ml Syrup 5 Ml Cup) 5 ml PO Q4H PRN PRN Reason: Cough Last Admin: 10/14/20 05:15 Dose: 5 ml Documented by: Lactated Ringer's (Ringers, Lactated) 1,000 mls @ 100 mls/hr IV ASDIRECTED [facility] Last Admin: 10/15/20 03:00 Dose: 100 mls/hr Documented by: Pantoprazole Sodium 40 mg/ (Sodium Chloride) 10 mls @ 200 mls/hr IV Q24H [facility] Last Admin: 10/15/20 00:14 Dose: 200 mls/hr Documented by: Potassium Chloride 40 meq/ (Premix) 100 mls @ 25 mls/hr IV ONETIME ONE Stop: 10/15/20 11:53 Magnesium Sulfate 4 gm/ Premix 100 mls @ 33.333 mls/hr IV ONETIME ONE Stop: 10/15/20 11:01 Last Admin: 10/15/20 08:42 Dose: 33.333 mls/hr Documented by: Lorazepam (Lorazepam 2 Mg/Ml Sdv) 0.5 mg IVPUSH Q4H PRN PRN Reason: Anxiety Morphine Sulfate (Morphine 2 Mg/Ml Syringe) 1 mg IVPUSH Q3H PRN PRN Reason: Pain (severe 7-10) Last Admin: 10/15/20 04:41 Dose: 1 mg Documented by: Nicotine (Nicotine 14 Mg/24 Hr Patch) 14 mg TRDERM DAILY [facility] Last Admin: 10/14/20 08:47 Dose: 14 mg Documented by: Ondansetron HCl (Ondansetron 4 Mg/2 Ml Sdv) 4 mg IVPUSH Q4H PRN PRN Reason: Nausea/Vomiting Last Admin: 10/13/20 12:00 Dose: 4 mg Documented by: Oxycodone HCl (Oxycodone Er 10 Mg Tab.Er) 10 mg PO Q12HR [facility] Last Admin: 10/15/20 08:43 Dose: 10 mg Documented by: Sodium Chloride (Sodium Chloride 0.9% 10 Ml Syringe) 10 ml FLUSH ASDIRECTED PRN PRN Reason: Keep Vein Open Last Admin: 10/12/20 12:13 Dose: 10 ml Documented by: Sodium Chloride (Sodium Chloride 0.9% 2.5 Ml Syringe) 2.5 ml FLUSH ASDIRECTED PRN PRN Reason: Keep Vein Open Last Admin: 10/12/20 12:14 Dose: 2.5 ml Documented by: Sodium Phosphate (Phosphorus #1 250 Mg Tab) 250 mg PO QID [facility] Last Admin: 10/15/20 05:18 Dose: 250 mg Documented by: Vancomycin HCl (Vancomycin 125 Mg Cap) 250 mg PO QID [facility] Last Admin: 10/15/20 05:18 Dose: 250 mg Documented by: Discontinued Medications Sodium Chloride (Normal Saline) 1,000 mls @ 125 mls/hr IV STAT ONE Stop: 10/12/20 20:02 Last Admin: 10/12/20 12:13 Dose: 125 mls/hr Documented by: Magnesium Sulfate 4 gm/ Premix 100 mls @ 50 mls/hr IV ONETIME ONE Stop: 10/12/20 15:59 Last Admin: 10/12/20 14:32 Dose: 50 mls/hr Documented by: Pantoprazole Sodium 40 mg/ (Sodium Chloride) 10 mls @ 200 mls/hr IV Q24H [facility] Pantoprazole Sodium 40 mg/ (Sodium Chloride) 10 mls @ 200 mls/hr IV Q24H [facility] Potassium Phosphate 30 mmole/Magnesium Sulfate 2 gm/ Sodium Chloride 514 mls @ 67 mls/hr IV ONETIME ONE Stop: 10/13/20 16:16 Last Admin: 10/13/20 09:29 Dose: 67 mls/hr Documented by: Sodium Chloride (Normal Saline) 500 mls @ 60 mls/hr IV ONETIME ONE Stop: 10/13/20 17:53 Last Admin: 10/13/20 10:15 Dose: 60 mls/hr Documented by: Potassium Phosphate 22 mmole/ (Sodium Chloride) 507.3333 mls @ 126.833 mls/hr IV ONETIME ONE Stop: 10/13/20 21:44 Last Admin: 10/13/20 18:04 Dose: 126.833 mls/hr Documented by: Magnesium Sulfate 4 gm/Potassium Phosphate 22 mmole/Sodium Chloride 515.3333 mls @ 125 mls/hr IV ONETIME ONE Stop: 10/14/20 13:07 Last Admin: 10/14/20 09:38 Dose: 125 mls/hr Documented by: Lorazepam (Lorazepam 2 Mg/Ml Sdv) 0.5 mg IVPUSH Q4H PRN PRN Reason: Anxiety Morphine Sulfate (Morphine 2 Mg/Ml Syringe) 1 mg IVPUSH Q3H PRN PRN Reason: Pain (severe 7-10) Stop: 10/13/20 13:59 Last Admin: 10/13/20 12:07 Dose: 1 mg Documented by: Oxycodone/Acetaminophen (Acetaminophen/Oxycodone 325-5 Mg Tab) 1 tab PO BID [facility] Last Admin: 10/14/20 08:46 Dose: 1 tab Documented by: Pantoprazole Sodium (Pantoprazole 40 Mg Vial) 40 mg IV DAILY [facility] Potassium Chloride (Potassium Chloride 20 Meq Tab.Er) 40 meq PO ONETIME ONE Stop: 10/13/20 08:37 Last Admin: 10/13/20 09:27 Dose: 40 meq Documented by: Potassium Chloride (Potassium Chloride 20 Meq Tab.Er) 40 meq PO ONETIME ONE Stop: 10/14/20 09:01 Last Admin: 10/14/20 08:46 Dose: 40 meq Documented by: Potassium Chloride (Potassium Chloride 20 Meq Tab.Er) 20 meq PO BID [facility] Last Admin: 10/14/20 21:09 Dose: 20 meq Documented by: Potassium Chloride (Potassium Chloride 20 Meq Tab.Er) 40 meq PO ONETIME ONE Stop: 10/15/20 07:56 Last Admin: 10/15/20 08:42 Dose: 40 meq Documented by: - Exam Central Line Total Time: 2Days 11Hours General: Alert, Oriented, Cooperative HEENT: Pupils Equal Neck: Supple, No JVD Lungs: Normal Respiratory Effort, Decreased Breath Sounds Cardiovascular: Regular Rate, Regular Rhythm GI/Abdominal Exam: Normal Bowel Sounds, Soft, Non-Tender Extremities: Normal Inspection, Normal Range of Motion, No Pedal Edema. No: Juan A's Sign, Leg Pain Peripheral Pulses: 2+: Dorsalis Pedis (L), Dorsalis Pedis (R) Skin: Warm, Dry, Intact Neurological: No New Focal Deficit - Patient Data Lab Results Last 24 hrs: Laboratory Results - last 24 hr 10/14/20 10/15/20 10/15/20 Range/Units 15:11 05:20 05:20 WBC 9.82 (4.0-11.0) K/uL RBC 3.50 L (4.50-5.90) M/uL Hgb 12.0 L (13.0-17.0) g/dL Hct 36.2 L (38.0-50.0) % MCV 103.4 H (80.0-98.0) fL MCH 34.3 H (27.0-32.0) pg MCHC 33.1 (31.0-37.0) g/dL RDW Std Deviation 53.1 (28.0-62.0) fl RDW Coeff of Evelin 14 (11.0-15.0) % Plt Count 168 (150-400) K/uL MPV 9.30 (7.40-12.00) fL Neut % (Auto) 81.0 H (48.0-80.0) % Lymph % (Auto) 11.9 L (16.0-40.0) % [place] % (Auto) 6.9 (0.0-15.0) % Eos % (Auto) 0.1 (0.0-7.0) % Baso % (Auto) 0.1 (0.0-1.5) % Neut # (Auto) 8.0 H (1.4-5.7) K/uL Lymph # (Auto) 1.2 (0.6-2.4) K/uL [place] # (Auto) 0.7 (0.0-0.8) K/uL Eos # (Auto) 0.0 (0.0-0.7) K/uL Baso # (Auto) 0.0 (0.0-0.1) K/uL Nucleated RBC % 0.0 /100WBC Nucleated RBCs # 0 K/uL Sodium 138 (136-148) mmol/L Potassium 3.8 3.0 L (3.5-5.1) mmol/L Chloride 101 (98-107) mmol/L Carbon Dioxide 31.1 (21.0-32.0) mmol/L BUN 2 L (7.0-18.0) mg/dL Creatinine 0.6 L (0.8-1.3) mg/dL Est Cr Clr Drug Dosing 131.59 mL/min Estimated GFR (MDRD) > 60.0 ml/min Glucose 133 H (74-106) mg/dL Calcium 7.9 L (8.5-10.1) mg/dL Phosphorus 2.8 2.7 (2.6-4.7) mg/dL Magnesium 2.5 H 1.7 L (1.8-2.4) mg/dL Total Bilirubin 0.4 (0.2-1.0) mg/dL AST 84 H (15-37) IU/L ALT 119 H (14-63) IU/L Alkaline Phosphatase 227 H (46-116) U/L Total Protein 5.6 L (6.4-8.2) g/dL Albumin 2.4 L (3.4-5.0) g/dL Globulin 3.2 (2.6-4.0) g/dL Albumin/Globulin Ratio 0.8 L (0.9-1.6) Result Diagrams: 10/15/20 05:20 10/15/20 05:20 Rick Results Last 24 hrs: Microbiology 10/13/20 04:20 Clostridioides difficile (PCR) - Final Stool / Feces Sepsis Event Note - Evaluation Sepsis Screening Result: No Definite Risk - Focused Exam Vital Signs: Vital Signs Temp Pulse Resp BP Pulse Ox 10/15/20 09:09 97.9 F 80 18 126/79 93 L 10/15/20 04:44 98.2 F 88 19 121/74 92 L 10/15/20 04:00 96 10/15/20 00:11 98.2 F 89 18 124/84 91 L 10/14/20 23:00 82 19 90 L - Problem List & Annotations (1) C. difficile diarrhea SNOMED Code(s): 2327278371697 Code(s): A04.72 - ENTEROCOLITIS D/T CLOSTRIDIUM DIFFICILE, NOT SPCF RECUR Status: Acute Current Visit: Yes (2) Ambulatory dysfunction SNOMED Code(s): 113790069 Code(s): R26.2 - DIFFICULTY IN WALKING, NOT ELSEWHERE CLASSIFIED Status: Acute Current Visit: Yes (3) Hypomagnesemia SNOMED Code(s): 049247587 Code(s): E83.42 - HYPOMAGNESEMIA Status: Acute Current Visit: Yes (4) Impaired mobility and ADLs SNOMED Code(s): 793034602, 958503277 Code(s): Z74.09 - OTHER REDUCED MOBILITY; Z78.9 - OTHER SPECIFIED HEALTH STATUS Status: Acute Current Visit: Yes (5) Metastatic cancer SNOMED Code(s): 104856923 Code(s): C79.9 - SECONDARY MALIGNANT NEOPLASM OF UNSPECIFIED SITE Status: Acute Current Visit: Yes (6) Dehydration SNOMED Code(s): 56825329 Code(s): E86.0 - DEHYDRATION Status: Acute Current Visit: No (7) Hypokalemia SNOMED Code(s): 44945683 Code(s): E87.6 - HYPOKALEMIA Status: Acute Current Visit: No (8) Nausea & vomiting SNOMED Code(s): 45287863 Code(s): R11.2 - NAUSEA WITH VOMITING, UNSPECIFIED Status: Acute Current Visit: No - Problem List Review Problem List Initiated/Reviewed/Updated: Yes - My Orders Last 24 Hours: My Active Orders 10/14/20 21:00 oxyCODONE ER [OxyCONTIN] 10 mg PO Q12HR 10/15/20 07:54 Potassium Chloride Riders [KCL in Water 40 MEQ/100 ML] 40 meq Premix Bag 1 bag IV ONETIME 10/15/20 08:02 Magnesium Sulfate/Water [Magnesium Sulfate in Water 4 GM/100 ML] 4 gm Premix Bag 1 bag IV ONETIME 10/16/20 05:11 CBC WITH AUTO DIFF [HEME] AM COMPREHENSIVE METABOLIC PN,CMP [CHEM] AM MAGNESIUM [CHEM] AM PHOSPHORUS [CHEM] AM - Plan Plan:: 55 y/o M admitted for weakness, deconditioning secondary to metastatic cancer. Per Oncology notes and recent MRI cancer seems to be spreading. Continue vancomycin 250mg qid po for C. difficile. Diarrhea improving. Patient continues to have low potassium & magnesium. Replete potassium - 40 IV and 40po. Start 60mg po potassium daily. Replete mag - 4 g IV magnesium. Continue Neutra-Phos p.o. Discontinue IVF. DuoNebs as needed. Maalox as needed. Robitussin as needed for cough. Ativan 0.5 mg q4hr prn. Pain controlled with OxyContin 10 mg twice daily scheduled. Morphine 1 mg q3hr prn. Zofran prn. Protonix 40 mg daily. Continue dexamethasone 4 mg for leg pain. Social work and hospice working on care for once pt is discharged.
[2020-10-15] MEDS: Enoxaparin 40 MG/0.4 ML Syringe SUBCUT SCH (14:51)
[2020-10-15] MEDS ORDERED: Potassium Chloride 20 MEQ Tab.ER PO SCH ×2 (21:00)
[2020-10-16] MEDS: Morphine 2 MG/ML SYRINGE IVPUSH PRN ×2 (00:02→04:26)
[2020-10-16] MEDS: Pantoprazole 40 MG in Sodium Chloride 0.9% 10 ML IV SCH (00:04)
[2020-10-16] MEDS: Vancomycin 125 MG Cap PO SCH ×2 (00:06→05:27)
[2020-10-16] MEDS: Phosphorus #1 250 MG Tab PO SCH ×2 (00:08→05:30)
[2020-10-16] MEDS: Codeine/guaiFENesin 10-100 MG/5 ML Syrup 5 ML Cup PO PRN (04:24)
[2020-10-16 06:17] LABS: BLOOD UREA NITROGEN,BUN 4 mg/dL (7.0-18.0); CARBON DIOXIDE,CO2 30.2 mmol/L (21.0-32.0); CHLORIDE,CL 99 mmol/L (98-107); GLUCOSE RANDOM 101 mg/dL (74-106); POTASSIUM,K 3.7 mmol/L (3.5-5.1); SODIUM,NA 135 mmol/L (136-148)
[2020-10-16] MEDS: Dexamethasone 4 MG Tab PO SCH (08:31)
[2020-10-16] MEDS: Nicotine 14 MG/24 Hr Patch TRDERM SCH (08:31)
[2020-10-16] MEDS: oxyCODONE ER 10 MG TAB.ER PO SCH (08:31)
[2020-10-16] MEDS ORDERED: Potassium Chloride 20 MEQ Tab.ER PO SCH (09:00)
--- NOTE | 2020-10-16 09:08 | PCM.DCSUM1 ---
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 Patient was admitted for deconditioning secondary to metastatic cancer. Per oncology note from 10/06/2020 his cancer spreading and patient had progressive worsening balance and increased falls at home. Dr. Bullock's note mentions there are over 20 new lesions in his brain, and he felt further palliative radiation therapy to the brain would not be beneficial. Hospice consult was discussed with Dr. Bullock but no decision made. MRI brain on 10/02/2020 showed numerous small ring-enhancing lesions in the supratentorial and infratentorial brain typical for metastasis. No space-occupying lesion. In the ER patient's calcium 7.7. AST and ALT were elevated. Troponins were negative. Magnesium was low. CT scan showed no intracranial hemorrhage. Multiple lesions including the notable lesion within the right thalamus were seen, which were characterized on his prior MRI. Patient was admitted for further care, goals of care were discussed and he met with hospice. It was decided to set up home hospice and transfer to comfort care once he left the hospital but his brother stated that the patient cannot come home due to no support. Patient lives with his brother in an apartment here in [place], and his brother works. Social work provided Medicaid forms. Patient stools tested positive for C. difficile and he was started on vancomycin p.o. Diarrhea improved during his stay and he will be discharged on 11 days of vancomycin p.o. Patient received IV fluids. DuoNebs as needed. His pain regimen was changed to OxyContin 10 mg twice daily and as needed morphine for breakthrough pain. Hospice recommended dexamethasone 4 mg daily for left knee pain. Patient noticed improvement with this. Patient required potassium and magnesium repletion. Physical therapy cleared the patient. Patient's BMP within normal limits. Patient discharged and will see his PCP Dr. Wilcox today at 1430 for assessment and seeming care for comfort care measures. Patient is ambulatory. Patient will go home on hospice care. - Discharge Data Discharge Date: 10/16/20 Discharge Disposition: Home, Self-Care 01 Condition: Good - Referral to Home Health Reason for Homebound Status: Terminal cancer Primary Care Physician: Nirav Bullock MD Skilled Need: Home hospice. - Discharge Diagnosis/Problem(s) (1) C. difficile diarrhea SNOMED Code(s): 0947292220633 ICD Code: A04.72 - ENTEROCOLITIS D/T CLOSTRIDIUM DIFFICILE, NOT SPCF RECUR Status: Acute (2) Ambulatory dysfunction SNOMED Code(s): 092202106 ICD Code: R26.2 - DIFFICULTY IN WALKING, NOT ELSEWHERE CLASSIFIED Status: Acute (3) Hypomagnesemia SNOMED Code(s): 606106531 ICD Code: E83.42 - HYPOMAGNESEMIA Status: Acute (4) Impaired mobility and ADLs SNOMED Code(s): 288440633, 318486598 ICD Code: Z74.09 - OTHER REDUCED MOBILITY; Z78.9 - OTHER SPECIFIED HEALTH STATUS Status: Acute (5) Metastatic cancer SNOMED Code(s): 895634528 ICD Code: C79.9 - SECONDARY MALIGNANT NEOPLASM OF UNSPECIFIED SITE Status: Acute (6) Dehydration SNOMED Code(s): 38374213 ICD Code: E86.0 - DEHYDRATION Status: Acute (7) Hypokalemia SNOMED Code(s): 92435039 ICD Code: E87.6 - HYPOKALEMIA Status: Acute (8) Nausea & vomiting SNOMED Code(s): 33038579 ICD Code: R11.2 - NAUSEA WITH VOMITING, UNSPECIFIED Status: Acute - Patient Summary/Data Consults: Consultations 10/12/20 14:02 Consult to Hospice [CONS] Routine 10/13/20 17:05 Consult to Physical Therapy [PT Evaluation and Treatment] [CONS] Routine 10/14/20 10:45 Consult to Case Management/Sample Supervisor [CONS] Routine 10/16/20 08:59 Consult to Hospice [CONS] Routine - Patient Instructions Diet: Regular Diet as Tolerated Diet, Other: Other/Special Instructions: Home hospice will be taking care of your comfort care measures going forward. Your appointment with PCP Dr. Wilcox is 10/16/2020 at 230PM. He will assess you and you can discuss comfort care measures. You are being given the follow prescriptions: 1. Vancomycin 125mg every 6 hours, for 11 more days. 2. Dexamethasone 4mg daily for your bone pain in your leg. 3. Potassium supplement 20mg twice a day. 4. Oxycontin 10mg twice a day for 7 days. PCP for refill. Please finalize goals of care with hospice health. - Discharge Plan *PRESCRIPTION DRUG MONITORING PROGRAM REVIEWED*: Not Applicable *COPY OF PRESCRIPTION DRUG MONITORING REPORT IN PATIENT [place]: Not Applicable Prescriptions/Med Rec: dexAMETHasone [Dexamethasone] 4 mg PO DAILY 7 Days #7 tablet Potassium Chloride [Klor-Con M20] 20 meq PO BID 7 Days #14 tab.er oxyCODONE ER [OxyCONTIN] 10 mg PO Q12HR 7 Days #14 tab.er Vancomycin [Vancocin 125 MG Capsule] 250 mg PO QID 11 Days #44 cap Home Medications: Home Meds Ondansetron [Zofran Odt] 8 mg PO ASDIRECTED 07/03/20 [History] Potassium Chloride [Klor-Con M20] 20 meq PO BID 7 Days #14 tab.er 10/16/20 [Rx] Vancomycin [Vancocin 125 MG Capsule] 250 mg PO QID 11 Days #44 cap 10/16/20 [Rx] dexAMETHasone [Dexamethasone] 4 mg PO DAILY 7 Days #7 tablet 10/16/20 [Rx] oxyCODONE ER [OxyCONTIN] 10 mg PO Q12HR 7 Days #14 tab.er 10/16/20 [Rx] Patient Handouts: Potassium Chloride Extended-Release Capsules, Oxycodone tablets or capsules, Weakness, [id number], Hospice, Dexamethasone tablets, Vancomycin capsules Referrals: Garrick Wilcox MD [Ordering Only Provider] - 10/16/20 2:30 pm - Discharge Summary/Plan Comment DC Time >30 min.: Yes Total # of Minutes for Discharge Time: 60 - General Info Admission Dx/Problem (Free Text: Admission Diagnosis/Problem Admission Diagnosis/Problem Weakness Functional Status: Reports: Pain Controlled, Ambulating - Review of Systems General: Reports: Weakness. Denies: Fever, Fatigue HEENT: Reports: No Symptoms Pulmonary: Reports: Cough Cardiovascular: Reports: No Symptoms Gastrointestinal: Reports: Diarrhea. Denies: Abdominal Pain, Decreased Appetite Genitourinary: Reports: No Symptoms Musculoskeletal: Reports: Leg Pain Skin: Reports: No Symptoms Neurological: Reports: No Symptoms - Patient Data Vitals - Most Recent: Last Vital Signs Temp 97.9 F 10/16/20 08:58 Pulse 84 10/16/20 08:58 Resp 18 10/16/20 08:58 BP 127/89 08/19/21 08:58 Pulse Ox 93 L 10/16/20 08:58 Weight - Most Recent: 154 lb 8 oz I&O - Last 24 hours: Intake & Output 10/15/20 10/16/20 10/16/20 22:59 06:59 14:59 Intake Total 450 750 Output Total 650 Balance 450 100 Lab Results - Last 24 hrs: Laboratory Results - last 24 hr 10/15/20 10/16/20 10/16/20 Range/Units 15:45 05:30 05:30 WBC 11.99 H (4.0-11.0) K/uL RBC 3.66 L (4.50-5.90) M/uL Hgb 12.7 L (13.0-17.0) g/dL Hct 38.1 (38.0-50.0) % MCV 104.1 H (80.0-98.0) fL MCH 34.7 H (27.0-32.0) pg MCHC 33.3 (31.0-37.0) g/dL RDW Std Deviation 54.8 (28.0-62.0) fl RDW Coeff of Evelin 14 (11.0-15.0) % Plt Count 180 (150-400) K/uL MPV 9.60 (7.40-12.00) fL Neut % (Auto) 85.9 H (48.0-80.0) % Lymph % (Auto) 6.2 L (16.0-40.0) % Edwards % (Auto) 7.6 (0.0-15.0) % Eos % (Auto) 0.2 (0.0-7.0) % Baso % (Auto) 0.1 (0.0-1.5) % Neut # (Auto) 10.3 H (1.4-5.7) K/uL Lymph # (Auto) 0.7 (0.6-2.4) K/uL Edwards # (Auto) 0.9 H (0.0-0.8) K/uL Eos # (Auto) 0.0 (0.0-0.7) K/uL Baso # (Auto) 0.0 (0.0-0.1) K/uL Nucleated RBC % 0.0 /100WBC Nucleated RBCs # 0 K/uL Sodium 135 L (136-148) mmol/L Potassium 3.6 3.7 (3.5-5.1) mmol/L Chloride 99 (98-107) mmol/L Carbon Dioxide 30.2 (21.0-32.0) mmol/L BUN 4 L (7.0-18.0) mg/dL Creatinine 0.4 L (0.8-1.3) mg/dL Est Cr Clr Drug Dosing 197.38 mL/min Estimated GFR (MDRD) > 60.0 ml/min Glucose 101 (74-106) mg/dL Calcium 8.2 L (8.5-10.1) mg/dL Total Bilirubin 0.4 (0.2-1.0) mg/dL AST 75 H (15-37) IU/L ALT 112 H (14-63) IU/L Alkaline Phosphatase 212 H (46-116) U/L Total Protein 6.0 L (6.4-8.2) g/dL Albumin 2.5 L (3.4-5.0) g/dL Globulin 3.5 (2.6-4.0) g/dL Albumin/Globulin Ratio 0.7 L (0.9-1.6) Med Orders - Current: Current Medications Al Hydroxide/Mg Hydroxide (Aluminum Hydroxide/Magnesium Hydroxide/Simethicone Susp 30 Ml Cup) 30 ml PO Q6H PRN PRN Reason: Indigestion Last Admin: 10/14/20 05:14 Dose: 30 ml Documented by: Albuterol/Ipratropium (Albuterol/Ipratropium 3.0-0.5 Mg/3 Ml Neb Soln) 3 ml NEB Q4HRRT PRN PRN Reason: Shortness Of Breath/wheezing Last Admin: 10/15/20 10:44 Dose: 3 ml Documented by: Dexamethasone (Dexamethasone 4 Mg Tab) 4 mg PO DAILY [facility] Last Admin: 10/16/20 08:31 Dose: 4 mg Documented by: Enoxaparin Sodium (Enoxaparin 40 Mg/0.4 Ml Syringe) 40 mg SUBCUT Q24H [facility] Last Admin: 10/15/20 14:51 Dose: 40 mg Documented by: Guaifenesin/Codeine Phosphate (Codeine/Guaifenesin 10-100 Mg/5 Ml Syrup 5 Ml Cup) 5 ml PO Q4H PRN PRN Reason: Cough Last Admin: 10/16/20 04:24 Dose: 5 ml Documented by: Pantoprazole Sodium 40 mg/ (Sodium Chloride) 10 mls @ 200 mls/hr IV Q24H [facility] Last Admin: 10/16/20 00:04 Dose: 200 mls/hr Documented by: Lorazepam (Lorazepam 2 Mg/Ml Sdv) 0.5 mg IVPUSH Q4H PRN PRN Reason: Anxiety Morphine Sulfate (Morphine 2 Mg/Ml Syringe) 1 mg IVPUSH Q3H PRN PRN Reason: Pain (severe 7-10) Last Admin: 10/16/20 04:26 Dose: 1 mg Documented by: Nicotine (Nicotine 14 Mg/24 Hr Patch) 14 mg TRDERM DAILY [facility] Last Admin: 10/16/20 08:31 Dose: 14 mg Documented by: Ondansetron HCl (Ondansetron 4 Mg/2 Ml Sdv) 4 mg IVPUSH Q4H PRN PRN Reason: Nausea/Vomiting Last Admin: 10/13/20 12:00 Dose: 4 mg Documented by: Oxycodone HCl (Oxycodone Er 10 Mg Tab.Er) 10 mg PO Q12HR [facility] Last Admin: 10/16/20 08:31 Dose: 10 mg Documented by: Potassium Chloride (Potassium Chloride 20 Meq Tab.Er) 40 meq PO BEDTIME [facility] Last Admin: 10/15/20 21:25 Dose: 40 meq Documented by: Sodium Chloride (Sodium Chloride 0.9% 10 Ml Syringe) 10 ml FLUSH ASDIRECTED PRN PRN Reason: Keep Vein Open Last Admin: 10/12/20 12:13 Dose: 10 ml Documented by: Sodium Chloride (Sodium Chloride 0.9% 2.5 Ml Syringe) 2.5 ml FLUSH ASDIRECTED PRN PRN Reason: Keep Vein Open Last Admin: 10/12/20 12:14 Dose: 2.5 ml Documented by: Sodium Phosphate (Phosphorus #1 250 Mg Tab) 250 mg PO QID [facility] Last Admin: 10/16/20 05:30 Dose: 250 mg Documented by: Vancomycin HCl (Vancomycin 125 Mg Cap) 250 mg PO QID [facility] Last Admin: 10/16/20 05:27 Dose: 250 mg Documented by: Discontinued Medications Sodium Chloride (Normal Saline) 1,000 mls @ 125 mls/hr IV STAT ONE Stop: 10/12/20 20:02 Last Admin: 10/12/20 12:13 Dose: 125 mls/hr Documented by: Magnesium Sulfate 4 gm/ Premix 100 mls @ 50 mls/hr IV ONETIME ONE Stop: 10/12/20 15:59 Last Admin: 10/12/20 14:32 Dose: 50 mls/hr Documented by: Lactated Ringer's (Ringers, Lactated) 1,000 mls @ 100 mls/hr IV ASDIRECTED RIKY Last Admin: 10/15/20 03:00 Dose: 100 mls/hr Documented by: Pantoprazole Sodium 40 mg/ (Sodium Chloride) 10 mls @ 200 mls/hr IV Q24H RIKY Pantoprazole Sodium 40 mg/ (Sodium Chloride) 10 mls @ 200 mls/hr IV Q24H RIKY Potassium Phosphate 30 mmole/Magnesium Sulfate 2 gm/ Sodium Chloride 514 mls @ 67 mls/hr IV ONETIME ONE Stop: 10/13/20 16:16 Last Admin: 10/13/20 09:29 Dose: 67 mls/hr Documented by: Sodium Chloride (Normal Saline) 500 mls @ 60 mls/hr IV ONETIME ONE Stop: 10/13/20 17:53 Last Admin: 10/13/20 10:15 Dose: 60 mls/hr Documented by: Potassium Phosphate 22 mmole/ (Sodium Chloride) 507.3333 mls @ 126.833 mls/hr IV ONETIME ONE Stop: 10/13/20 21:44 Last Admin: 10/13/20 18:04 Dose: 126.833 mls/hr Documented by: Magnesium Sulfate 4 gm/Potassium Phosphate 22 mmole/Sodium Chloride 515.3333 mls @ 125 mls/hr IV ONETIME ONE Stop: 10/14/20 13:07 Last Admin: 10/14/20 09:38 Dose: 125 mls/hr Documented by: Potassium Chloride 40 meq/ (Premix) 100 mls @ 25 mls/hr IV ONETIME ONE Stop: 10/15/20 11:53 Last Admin: 10/15/20 11:02 Dose: 25 mls/hr Documented by: Magnesium Sulfate 4 gm/ Premix 100 mls @ 33.333 mls/hr IV ONETIME ONE Stop: 10/15/20 11:01 Last Admin: 10/15/20 08:42 Dose: 33.333 mls/hr Documented by: Potassium Chloride 40 meq/ (Premix) 100 mls @ 25 mls/hr IV ONETIME ONE Stop: 10/16/20 02:59 Last Admin: 10/16/20 00:13 Dose: 25 mls/hr Documented by: Lorazepam (Lorazepam 2 Mg/Ml Sdv) 0.5 mg IVPUSH Q4H PRN PRN Reason: Anxiety Morphine Sulfate (Morphine 2 Mg/Ml Syringe) 1 mg IVPUSH Q3H PRN PRN Reason: Pain (severe 7-10) Stop: 10/13/20 13:59 Last Admin: 10/13/20 12:07 Dose: 1 mg Documented by: Oxycodone/Acetaminophen (Acetaminophen/Oxycodone 325-5 Mg Tab) 1 tab PO BID [facility] Last Admin: 10/14/20 08:46 Dose: 1 tab Documented by: Pantoprazole Sodium (Pantoprazole 40 Mg Vial) 40 mg IV DAILY [facility] Potassium Chloride (Potassium Chloride 20 Meq Tab.Er) 40 meq PO ONETIME ONE Stop: 10/13/20 08:37 Last Admin: 10/13/20 09:27 Dose: 40 meq Documented by: Potassium Chloride (Potassium Chloride 20 Meq Tab.Er) 40 meq PO ONETIME ONE Stop: 10/14/20 09:01 Last Admin: 10/14/20 08:46 Dose: 40 meq Documented by: Potassium Chloride (Potassium Chloride 20 Meq Tab.Er) 20 meq PO BID [facility] Last Admin: 10/14/20 21:09 Dose: 20 meq Documented by: Potassium Chloride (Potassium Chloride 20 Meq Tab.Er) 40 meq PO ONETIME ONE Stop: 10/15/20 07:56 Last Admin: 10/15/20 08:42 Dose: 40 meq Documented by: Potassium Chloride (Potassium Chloride 20 Meq Tab.Er) 20 meq PO BEDTIME [facility] Potassium Chloride (Potassium Chloride 20 Meq Tab.Er) 40 meq PO DAILY RIKY - Exam Quality Assessment: Denies: Supplemental Oxygen General: Reports: Alert, Oriented, Cooperative HEENT: Reports: Pupils Equal Neck: Reports: Supple Lungs: Reports: Decreased Breath Sounds. Denies: Crackles Cardiovascular: Reports: Regular Rate, Regular Rhythm GI/Abdominal Exam: Soft, Non-Tender, No Distention Extremities: Normal Inspection, Normal Range of Motion. No: Pedal Edema Skin: Reports: Warm, Dry, Intact Neurological: Reports: No New Focal Deficit
== END 2020-10-16 09:55 | disposition home or self-care (01) | DRG 861 ==
LOC: MW.ED 09:33 → MW.MS 11:57
PROVIDERS: ADMIT Student in an Organized Health Care Education/Training Program; ATTEND Student in an Organized Health Care Education/Training Program
DX: R53.81 Other malaise (principal); A04.72 Enterocolitis due to Clostridium difficile, not specified as recurrent; E83.42 Hypomagnesemia; E86.0 Dehydration; E87.6 Hypokalemia; E78.00 Pure hypercholesterolemia, unspecified; Z51.5 Encounter for palliative care; Z66 Do not resuscitate; Z20.822 Contact with and (suspected) exposure to COVID-19; F17.200 Nicotine dependence, unspecified, uncomplicated; R29.6 Repeated falls; R26.2 Difficulty in walking, not elsewhere classified; C79.31 Secondary malignant neoplasm of brain; C34.90 Malignant neoplasm of unspecified part of unspecified bronchus or lung; E83.51 Hypocalcemia; Z98.890 Other specified postprocedural states; Z78.9 Other specified health status; Z79.899 Other long term (current) drug therapy
CPT/HCPCS: 36415; 70450; 70450-26; 71045; 71045-26; 72125; 72125-26; 73502-26-LT; 73502-LT; 73562-26-LT; 73562-LT; 80053; 81001; 82947; 83735; 84100; 84132; 84484; 85025; 87324; 87493; 93005; 97161-GP; 99285-25; A9270-GY; C9113; J1650; J2270; J2405; J3475; J3480; J7030; J7040; J7120; J7620-GY; J8540; U0002

== ENCOUNTER 2020-10-30 10:42 | Emergency (ER) | payer OTHER, BC ==
--- NOTE | 2020-10-30 10:46 | PCM.EKG ---
#1 Interpretation EKG Date: 10/30/20 Time: 10:40 Rhythm: NSR Rate (Beats/Min): 95 P-Wave: Present QRS: Normal ST-T: Normal QT: Normal MN/PQ Interval: 127 EKG Interpretation Comments: no ischemic changes identified
--- NOTE | 2020-10-30 10:52 | EDM.PDOC ---
ED HPI GENERAL MEDICAL PROBLEM - General Stated Complaint: WEAKNESS Time Seen by Provider: 10/30/20 10:46 Source of Information: Reports: Patient History Limitations: Reports: No Limitations - History of Present Illness INITIAL COMMENTS - FREE TEXT/NARRATIVE: HISTORY AND PHYSICAL: History of present illness: Patient is a 55-year-old male who presents to the emergency room by ambulance with complaints of dizziness, weakness, falls, left hip and elbow pain. He states he has been having frequent falls at home and can no longer "move around" at home. He states his whole left side of his body hurts with movement, does have chronic left sided hip and leg pain. 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 Patient denies any fever, chills, headache, change in vision, syncope or near syncope. Denies any chest pain, back pain, shortness of breath or cough. Denies any abdominal pain, nausea, vomiting, diarrhea, constipation or dysuria. Has not noted any blood in urine or stool. Patient has been eating and drinking appropriately. Review of systems: As per history of present illness and below otherwise all systems reviewed and negative. Past medical history: As per history of present illness and as reviewed below otherwise noncontributory. Surgical history: As per history of present illness and as reviewed below otherwise no ncontributory. Social history: See social history for further information Family history: As per history of present illness and as reviewed below otherwise noncontributory. Physical exam: General: Well developed and well nourished 55-year-old male. Alert and orientated x 3. Nontoxic in appearance and in no acute distress. Vital signs are stable and have been reviewed by me. Nursing notes were reviewed. HEENT: Atraumatic, normocephalic, pupils equal and reactive bilaterally, negative for conjunctival pallor or scleral icterus, mucous membranes moist, TMs normal bilaterally, throat clear, neck supple, nontender, trachea midline. No drooling or trismus noted. No meningeal signs. No hot potato voice noted. Lungs: Clear to auscultation bilaterally. No wheezes, rales, or rhonchi. Chest nontender. Normal work of breathing, no accessory muscles used. Heart: S1S2, regular rate and rhythm without overt murmur, gallops, or rubs. No JVD. No peripheral edema Abdomen: Soft, nondistended, nontender. Normoactive bowel sounds. Negative for masses or costovertebral tenderness. Pelvis: Stable nontender. C-spine/Back: No pinpoint vertebral tenderness upon palpation. No crepitus, step-offs or obvious deformities. Patient is ambulatory into the emergency room without difficulty or deficit. Able to rock back on heels and walk on toes. Denies any urinary or fecal incontinence. Denies any numbness, tingling or saddle paresthesia. No concerns of serious infection, fracture or cord compression, or cauda equina syndrome. Deep tendon reflexes brisk bilaterally. Skin: Intact, warm, dry. No lesions or rashes noted. Hematologic: No petechiae or purpra. Mucosa appropriate color and normal nail bed color and refill. Extremities: Atraumatic, moves all extremities per self without difficulty or deficits, negative for cords or calf pain. Neurovascular unremarkable. Neuro: Awake, alert, oriented. Cranial nerves II through XII unremarkable. Cerebellum unremarkable. Motor and sensory unremarkable throughout. Exam nonfocal. Psychiatric: Mood and affect are appropriate. Normal thought process. Answering questions appropriately. Please note that the patient was seen and evaluated during the 2019 SARS-CoV-2 novel coronavirus pandemic period. Community viral transmission is ongoing at time of this encounter and the emergency department is operating under pandemic response procedures. Medical Decision Makin10/02/20: MRI of the brain shows numerous small ring-enhancing lesions in the supratentorial and infratentorial brain, typical for metastasis. These have considerably progressed from 01/09/2020. Many of these are associated with petechial hemorrhage. No global mass-effect. No space-occupying hemorrhage. No ventricular obstruction. Treatment related changes noted. Reviewing the patient's oncology note from 10/06/2020: Progressive worsening of balance and increased falls at home. He was prescribed a walker to help reduce falls and increase strength. Dr. Bullock's note mentions that there is over 20 recurrent/new lesions. Provider does not feel that further palliative radiation therapy to the brain would be of benefit to him. There are neurological deficits that he is suffering likely due to disruption of neurological tracks. They did discuss doing a hospice consult. 1130: Nicole Russell, Rn Admissions is here to see patient. Patient does appear somewhat confused as he initially was talking about how he may be starting his cancer treatments again soon but then a few moments later discussing awaiting [facility] for his hospice care. After the agency service coordinator spoke with the patient, he states that he was confused and had called the ambulance. He states "they came to my house so fast" and he thought he was reaching out for help from the hospice staff. He does want to sign out AGAINST MEDICAL ADVICE as he does not want to lose his hospice privileges. The coordinator states that he will likely be placed tomorrow afternoon, this is already been arranged. Patient's vital signs are stable. He is aware that we are not refusing emergency care and he is more than welcome to stay and have further testing/treatment if necessary. Prefers to call his brother for transport back to home. Diagnostics: CBC, CMP, magnesium, UA, troponin, EKG, COVID-19 Therapeutics: IV fluid 125mls/hr, scopolamine patch, Zofran Impression: Weakness Metastatic cancer Definitive disposition and diagnosis as appropriate pending reevaluation and review of above. - Related Data Allergies Allergy/AdvReac Type Severity Reaction Status Date / Time No Known Allergies Allergy Verified 10/30/20 11:11 Home Meds: Home Meds Ondansetron [Zofran Odt] 8 mg PO ASDIRECTED 07/03/20 [History] Potassium Chloride [Klor-Con M20] 20 meq PO BID 7 Days #14 tab.er 10/16/20 [Rx] Vancomycin [Vancocin 125 MG Capsule] 250 mg PO QID 11 Days #44 cap 10/16/20 [Rx] dexAMETHasone [Dexamethasone] 4 mg PO DAILY 7 Days #7 tablet 10/16/20 [Rx] oxyCODONE ER [OxyCONTIN] 10 mg PO Q12HR 7 Days #14 tab.er 10/16/20 [Rx] Past Medical History - Past Health History Medical/Surgical History: Denies Medical/Surgical History HEENT History: Reports: Other (See Below) Other HEENT History: wears glasses Cardiovascular History: Reports: High Cholesterol Respiratory History: Reports: Other (See Below) Other Respiratory History: non-small cell lung cancer Gastrointestinal History: Reports: Other (See Below) Other Gastrointestinal History: nausea Genitourinary History: Reports: None Musculoskeletal History: Reports: Fracture, Other (See Below) Other Musculoskeletal History: hx fx collarbone & "seperated" shoulder Neurological History: Reports: Other (See Below) Other Neuro History: malignant brain tumor with mets to the lung Psychiatric History: Reports: None Endocrine/Metabolic History: Reports: None Hematologic History: Reports: None Immunologic History: Reports: None Oncologic (Cancer) History: Reports: Brain, Lung Other Oncologic History: non-small cell lung cancer metastatic to brain Dermatologic History: Reports: None - Infectious Disease History Infectious Disease History: Reports: Chicken Pox - Past Surgical History Head Surgeries/Procedures: Reports: Craniotomy HEENT Surgical History: Reports: None Cardiovascular Surgical History: Reports: None Respiratory Surgical History: Reports: None GI Surgical History: Reports: Hernia, Abdominal Male Surgical History: Reports: None Endocrine Surgical History: Reports: None Neurological Surgical History: Reports: Other (See Below) Other Neurological Surgeries/Procedures: craniotomy & partial tumor removal about 5- 6 months ago Musculoskeletal Surgical History: Reports: None Oncologic Surgical History: Reports: Other (See Below) Other Oncologic Surgeries/Procedures: craniotomy with partial tumor removal Dermatological Surgical History: Reports: Other (See Below) Social & Family History - Family History Family Medical History: No Pertinent Family History HEENT: Reports: None Cardiac: Reports: None Respiratory: Reports: None GI: Reports: None : Reports: Dialysis Other Family History: mother was on dialysis OBGYN: Reports: None Musculoskeletal: Reports: None Neurological: Reports: None Psychiatric: Reports: None Endocrine/Metabolic: Reports: Diabetes, type II Hematologic: Reports: None Immunologic: Reports: None Dermatologic: Reports: None Oncologic: Reports: Colon, Lung, Metastatic - Caffeine Use Caffeine Use: Reports: Tea ED ROS GENERAL - Review of Systems Review Of Systems: Comprehensive ROS is negative, except as noted in HPI. ED EXAM, GENERAL - Physical Exam Exam: See Below (See dictation) Course - Vital Signs Last Recorded V/S: Last Vital Signs Temp Pulse 99 10/30/20 11:00 Resp BP 132/85 10/30/20 11:00 Pulse Ox 94 L 10/30/20 11:00 - Orders/Labs/Meds Orders: Active Orders 24 hr Category Date Time Status EKG Documentation Completion [RC] STAT Care 10/30/20 10:53 Active Chest 1V Frontal [CR] Stat Exams 10/30/20 11:00 Taken CBC WITH AUTO DIFF [HEME] Stat Lab 10/30/20 10:52 Ordered COMPREHENSIVE METABOLIC PN,CMP [CHEM] Stat Lab 10/30/20 10:53 Ordered CORONAVIRUS COVID-19 GRZEGORZ [MOLEC] Stat Lab 10/30/20 10:53 Ordered LACTATE SEPSIS W/ REFLEX [CHEM] Stat Lab 10/30/20 10:53 Ordered MAGNESIUM [CHEM] Stat Lab 10/30/20 10:53 Ordered TROPONIN I [CHEM] Stat Lab 10/30/20 10:53 Ordered UA RFX DANIS AND CULT IF INDIC [URIN] Stat Lab 10/30/20 10:53 Ordered Sodium Chloride 0.9% [Normal Saline] 1,000 ml Med 10/30/20 10:53 Active IV STAT Medication Orders Sodium Chloride (Normal Saline) 1,000 mls @ 125 mls/hr IV STAT ONE Stop: 10/30/20 18:52 Meds: Medications Generic Name Dose Route Start Last Admin Trade Name Freq PRN Reason Stop Dose Admin Sodium Chloride 1,000 mls @ 125 mls/hr 10/30/20 10:53 Normal Saline IV 10/30/20 18:52 STAT ONE Discontinued Medications Generic Name Dose Route Start Last Admin Trade Name Freq PRN Reason Stop Dose Admin Ondansetron HCl 4 mg 10/30/20 10:59 Ondansetron 4 Mg/2 Ml Sdv IVPUSH 10/30/20 11:00 ONETIME ONE Scopolamine 1.5 mg 10/30/20 10:54 Scopolamine 1.5 Mg Transdermal Patch TRDERM 10/30/20 10:55 NOW STA Departure - Departure Time of Disposition: 11:35 Disposition: Home, Self-Care 01 Clinical Impression: Weakness, Metastatic cancer - Discharge Information Sepsis Event Note (ED) - Focused Exam Vital Signs: Vital Signs Pulse BP Pulse Ox 10/30/20 11:00 99 132/85 94 L - My Orders Last 24 Hours: My Active Orders 10/30/20 10:52 CBC WITH AUTO DIFF [HEME] Stat 10/30/20 10:53 EKG Documentation Completion [RC] STAT COMPREHENSIVE METABOLIC PN,CMP [CHEM] Stat CORONAVIRUS COVID-19 GRZEGORZ [MOLEC] Stat LACTATE SEPSIS W/ REFLEX [CHEM] Stat MAGNESIUM [CHEM] Stat TROPONIN I [CHEM] Stat UA RFX DANIS AND CULT IF INDIC [URIN] Stat Sodium Chloride 0.9% [Normal Saline] 1,000 ml IV STAT 10/30/20 11:00 Chest 1V Frontal [CR] Stat - Assessment/Plan Last 24 Hours: My Active Orders 10/30/20 10:52 CBC WITH AUTO DIFF [HEME] Stat 10/30/20 10:53 EKG Documentation Completion [RC] STAT COMPREHENSIVE METABOLIC PN,CMP [CHEM] Stat CORONAVIRUS COVID-19 GRZEGORZ [MOLEC] Stat LACTATE SEPSIS W/ REFLEX [CHEM] Stat MAGNESIUM [CHEM] Stat TROPONIN I [CHEM] Stat UA RFX DANIS AND CULT IF INDIC [URIN] Stat Sodium Chloride 0.9% [Normal Saline] 1,000 ml IV STAT 10/30/20 11:00 Chest 1V Frontal [CR] Stat
[2020-10-30] MEDS ORDERED: Sodium Chloride 0.9% 1,000 ML IV ONE (10:53)
[2020-10-30] MEDS ORDERED: Scopolamine 1.5 MG Transdermal Patch TRDERM STA (10:54)
[2020-10-30] MEDS ORDERED: Ondansetron 4 MG/2 ML SDV IVPUSH ONE (10:59)
--- NOTE | 2020-10-30 11:48 | CR ---
INDICATION: SOB. TECHNIQUE: AP image of the chest. COMPARISON: 10/12/2020. FINDINGS: No change in comparison to the previous exam. Lungs and pleural spaces clear. Port-A-Cath with tip in the SVC. Heart, mediastinum, and pulmonary vessels within normal limits. No significant bony abnormality. Mild scoliosis. IMPRESSION: Essentially negative and unchanged. Dictated by Nick Murdock MD @ 10/30/2020 11:47:51 AM (Electronically Signed)
[2020-10-30] MEDS ORDERED: Dexamethasone 4 MG Tab PO SCH (14:00)
== END 2020-10-30 11:42 | disposition home or self-care (01) ==
LOC: MW.ED 10:42 → UNDOADMIN 13:38 → MW.MS 13:38
DX: R53.1 Weakness (principal); C71.9 Malignant neoplasm of brain, unspecified
CPT/HCPCS: 71045; 71045-26; 93005; 99285-25

== ENCOUNTER 2020-10-30 13:01 | Inpatient (IN) | payer BC, OTHER ==
[2020-10-30] MEDS ORDERED: Ondansetron 8 MG Tab.DIS PO PRN (16:00)
[2020-10-30] MEDS ORDERED: Hyoscyamine 0.125 MG Tab.SL SL PRN (16:00)
[2020-10-30] MEDS ORDERED: Furosemide 20 MG Tab PO PRN (16:00)
[2020-10-30] MEDS ORDERED: Haloperidol Lactate 2 MG/ML Oral Soln 15 ML Bottle PO PRN (16:00)
[2020-10-30] MEDS: Nicotine 21 MG/24 Hr Patch TOP SCH (16:05)
[2020-10-30] MEDS: Morphine 10 MG/0.5 ML Oral Syringe PO PRN (16:06)
[2020-10-30] MEDS: LORazepam 0.5 MG Tab PO PRN ×2 (16:10→21:28)
[2020-10-30] MEDS: Dexamethasone 4 MG Tab PO SCH (17:35)
[2020-10-30] MEDS: oxyCODONE 5 MG Tab PO PRN (19:53)
[2020-10-30] MEDS: Morphine 15 MG Tab.ER PO SCH (21:28)
[2020-10-30] MEDS: Potassium Chloride 20 MEQ Tab.ER PO SCH (21:29)
[2020-10-31] MEDS: Morphine 10 MG/0.5 ML Oral Syringe PO PRN ×3 (00:32→04:45)
[2020-10-31] MEDS: Dexamethasone 4 MG Tab PO SCH ×2 (06:03→11:52)
[2020-10-31] MEDS: oxyCODONE 5 MG Tab PO PRN ×3 (06:03→16:09)
[2020-10-31] MEDS: Morphine 15 MG Tab.ER PO SCH ×2 (08:13→22:21)
[2020-10-31] MEDS: Potassium Chloride 20 MEQ Tab.ER PO SCH ×2 (08:15→22:23)
[2020-10-31] MEDS: Omeprazole 20 MG Cap.CR PO SCH (08:15)
[2020-10-31] MEDS: Nicotine 21 MG/24 Hr Patch TOP SCH (08:16)
[2020-10-31] MEDS: LORazepam 0.5 MG Tab PO PRN (22:56)
[2020-11-01] MEDS: oxyCODONE 5 MG Tab PO PRN ×3 (00:29→18:38)
--- NOTE | 2020-11-01 00:41 | PCM.SN.2 ---
- Free Text/Narrative Note: Patient suffered a fall apparently patient got out of bed and the bed alarm did not turn on due to unknown reason, while trying to get to nursing station patient slipped and fell. Reportedly patient had a slight impact against the wall but appeared to be in no pain. No obvious injuries noted, no concern of fracture or serious head injury at this time, will continue to monitor
[2020-11-01] MEDS: Morphine 10 MG/0.5 ML Oral Syringe PO PRN ×2 (02:00→04:24)
[2020-11-01] MEDS: Omeprazole 20 MG Cap.CR PO SCH (06:44)
[2020-11-01] MEDS: Dexamethasone 4 MG Tab PO SCH ×2 (06:46→12:59)
[2020-11-01] MEDS: Nicotine 21 MG/24 Hr Patch TOP SCH (08:17)
[2020-11-01] MEDS: Potassium Chloride 20 MEQ Tab.ER PO SCH ×2 (08:18→21:37)
[2020-11-01] MEDS: Morphine 15 MG Tab.ER PO SCH ×2 (08:18→21:36)
[2020-11-02] MEDS: oxyCODONE 5 MG Tab PO PRN ×2 (03:24→10:33)
[2020-11-02] MEDS: Dexamethasone 4 MG Tab PO SCH ×2 (06:55→12:08)
[2020-11-02] MEDS: Omeprazole 20 MG Cap.CR PO SCH (06:55)
[2020-11-02] MEDS: Nicotine 21 MG/24 Hr Patch TOP SCH (09:02)
[2020-11-02] MEDS: Morphine 15 MG Tab.ER PO SCH ×2 (09:03→20:31)
[2020-11-02] MEDS: Potassium Chloride 20 MEQ Tab.ER PO SCH ×2 (09:03→20:32)
[2020-11-02] MEDS: Morphine 10 MG/0.5 ML Oral Syringe PO PRN ×3 (11:52→23:42)
[2020-11-02] MEDS: LORazepam 0.5 MG Tab PO PRN (20:34)
[2020-11-03] MEDS: oxyCODONE 5 MG Tab PO PRN ×2 (04:52→12:07)
[2020-11-03] MEDS: Omeprazole 20 MG Cap.CR PO SCH (06:31)
[2020-11-03] MEDS: Dexamethasone 4 MG Tab PO SCH ×2 (06:31→12:07)
[2020-11-03] MEDS: Nicotine 21 MG/24 Hr Patch TOP SCH (08:27)
[2020-11-03] MEDS: Morphine 15 MG Tab.ER PO SCH ×2 (08:28→20:50)
[2020-11-03] MEDS: Potassium Chloride 20 MEQ Tab.ER PO SCH ×2 (08:28→20:50)
--- NOTE | 2020-11-03 16:15 | PCM.SN.2 ---
- Free Text/Narrative Note: Patient found on the ground in [address] bathroom. reports he slipped on the toilet and pulled the call light. Patient denies hitting head, has small abrasion to L flank. No other injuries or pain at this time. Patient assisted to wheelchair and brought back to his room. Patient alert. Dr Geronimo notified. continue to mon itor.
[2020-11-03] MEDS: Morphine 10 MG/0.5 ML Oral Syringe PO PRN (22:47)
[2020-11-03] MEDS: LORazepam 0.5 MG Tab PO PRN (23:42)
[2020-11-04] MEDS: oxyCODONE 5 MG Tab PO PRN ×2 (02:15→10:23)
[2020-11-04] MEDS: Morphine 10 MG/0.5 ML Oral Syringe PO PRN (05:51)
[2020-11-04] MEDS: Omeprazole 20 MG Cap.CR PO SCH (06:40)
[2020-11-04] MEDS: Dexamethasone 4 MG Tab PO SCH ×2 (06:40→11:53)
[2020-11-04] MEDS: Morphine 15 MG Tab.ER PO SCH (08:11)
[2020-11-04] MEDS: Potassium Chloride 20 MEQ Tab.ER PO SCH (08:12)
[2020-11-04] MEDS: Nicotine 21 MG/24 Hr Patch TOP SCH (08:12)
== END 2020-11-04 11:58 | DRG 862 ==
LOC: MW.MS 13:01
PROVIDERS: ADMIT Student in an Organized Health Care Education/Training Program; ATTEND Student in an Organized Health Care Education/Training Program
DX: Z51.5 Encounter for palliative care (principal); S30.811A Abrasion of abdominal wall, initial encounter; W01.0XXA Fall on same level from slipping, tripping and stumbling without subsequent striking against object, initial encounter; Z75.5 Holiday relief care
CPT/HCPCS: A9270-GY; J8540